=== PATIENT | female | born 1955 | race Caucasian/White ===

== ENCOUNTER → 2017-07-30 | Outpatient (CLI) | payer OTHER ==
[~2017-07-30] MED LIST: ASPCH81 PO; CPR500 PO; GLCSUNK PO; MULT-506 PO; NAPR1TAB9 PO; OMEG10007 PO; PRLSR20 PO
--- NOTE | 2017-07-30 12:29 | MAMMOGRAPHY REPORT ---
BILATERAL DIGITAL SCREENING MAMMOGRAM TOMOSYNTHESIS WITH CAD: 07/30/2017 CLINICAL HISTORY: Routine screening. Patient has no complaints. TECHNIQUE: Breast tomosynthesis in addition to standard 2D mammography was performed. Current study was also evaluated with a Computer Aided Detection (CAD) system. COMPARISON: Comparison is made to exams dated: 04/12/2015 mammogram, 01/26/2014 mammogram, and 03/28/20 10 mammogram - [facility]. BREAST COMPOSITION: The tissue of both breasts is almost entirely fatty. FINDINGS: No suspicious masses, calcifications, or areas of architectural distortion are noted in ei ther breast. There has been no significant interval change compared to prior exams. Scattered bilater al benign-appearing calcifications are not significantly changed. IMPRESSION: ACR BI-RADS CATEGORY 2: BENIGN There is no mammographic evidence of malignancy. A 1 year screening mammogram is recommended. The pa tient will receive written notification of the results. Approximately 10% of breast cancers are not detected with mammography. A negative mammographic report should not delay biopsy if a clinically suggestive mass is present. Tala Schwarz M.D. ah/:07/30/2017 07:47:23 Heating Unit Installer: Ammy Martinez RT(R)(M), [facility] letter sent: Normal 1/2 BI-RADS Code: ACR BI-RADS Category 2: Benign
== END | disposition home or self-care (01) ==
LOC: C.MAMM 07:27
PROVIDERS: ATTEND Family Medicine
DX: Z12.31 Encounter for screening mammogram for malignant neoplasm of breast (principal)

== ENCOUNTER 2019-12-20 15:34 | Inpatient (IN) ==
[~2019-12-20 15:34] MED LIST changes: -ASPCH81 PO; -CPR500 PO; -GLCSUNK PO; -MULT-506 PO; -NAPR1TAB9 PO; -OMEG10007 PO; +OPTIRAY 320 125ml IV PRN; -PRLSR20 PO
[2019-12-20] MEDS ORDERED: PROMETHAZINE 6.25 MG/50.25 ML BAG IV STA (15:46)
[2019-12-20] MEDS ORDERED: PROMETHAZINE 12.5 MG/50.5 ML NSS IV ONE (15:47)
--- NOTE | 2019-12-20 15:50 | CT Scan Report ---
CT SCAN OF THE BRAIN WITHOUT IV CONTRAST CLINICAL HISTORY: Generalized weakness. Stroke like symptoms. COMPARISON STUDY: CT of the brain dated 04/10/2014. TECHNIQUE: Unenhanced axial CT scan of the brain is performed from the vertex to the skull base. A d ose lowering technique was utilized adhering to the principles of ALARA. The patient was scanned twic e due to motion artifact. CT DOSE: 1859.54 mGy.cm FINDINGS: Brain parenchyma: The brain parenchyma is normal in appearance. There is no hemorrhage, mass effect, or evidence of acute territorial ischemia by CT criteria. Mijares-white matter differentiation is preser yulissa. No extra-axial fluid collection is seen. Ventricles, sulci, cisterns: Normal in configuration. Intracranial vasculature: There is atherosclerotic calcification of the cavernous carotid arteries. Calvarium: Unremarkable. Sinuses and mastoids: There is evidence of previous paranasal sinus surgery. There is mild mucosal th ickening within the maxillary, sphenoid, and frontal sinuses. Moderate mucosal thickening is noted wi thin the left ethmoid cavity. The mastoid air cells are well pneumatized. Orbits: The bony orbits are grossly intact. IMPRESSION: There is no hemorrhage, mass effect, or evidence of acute territorial ischemia by CT jeannie diana. ACT 112: Negative or not required by law. Electronically signed by: Otoniel Gregory M.D. 12/20/2019 3:49 PM
[2019-12-20] MEDS: SODIUM CHLORIDE 0.9% 1000ML 1,000 ML IV SCH (15:51)
[2019-12-20] MEDS ORDERED: LABETALOL HCL IV 5 MG/ML 20ML IV STA ×2 (15:52→16:21)
--- NOTE | 2019-12-20 15:58 | CT Scan Report ---
CT angio head w con CLINICAL HISTORY: 64 years-old Female presenting with weak. TECHNIQUE: Multidetector CT angiography of the head was performed after the administration of intrave nous contrast. 3-D volumetric and/or maximum intensity projection (MIP) images were subsequently roya nstructed for review. IV contrast: 116 mL of Optiray 320. One or more dose lowering techniques were u sed consistent with the principles of ALARA (as low as reasonably achievable), including automatic ex posure control, mA or kV adjustment to individual patient size, and/or use of iterative reconstructio n. COMPARISON: None. CT DOSE (mGy.cm): The estimated cumulative dose is 1859.54. FINDINGS: Adult Health Clinical Nurse Specialist topogram: Unremarkable. Anterior circulation: Intracranial portions of the internal carotid arteries patent to the level of t he termini. Anterior cerebral arteries patent. Middle cerebral arteries patent. Anterior communicatin g artery patent. Posterior circulation: Codominant vertebral arteries. Intradural portions of the vertebral arteries p atent. Posterior inferior cerebellar arteries patent. Basilar artery patent. Anterior inferior cerebe llar arteries poorly visualized. Superior cerebellar arteries patent. Posterior cerebral arteries pat ent. Posterior communicating arteries patent. Dural venous sinuses: Patent. Other: Allowing for the phase of contrast, brain parenchyma within normal limits. Calvarium intact. IMPRESSION: 1. No evidence of aneurysm, focal vessel occlusion, or significant stenosis of the intracranial yoseph cb. ACT 112: Negative or not required by law. Electronically signed by: Patrick Crowder M.D. 12/20/2019 3:56 PM
--- NOTE | 2019-12-20 15:58 | CT Scan Report ---
CT angio neck with con CLINICAL HISTORY: Weakness. Possible stroke. COMPARISON STUDY: No previous studies for comparison. TECHNIQUE: CT angiography was performed from the aortic arch to the skull base. MIP imaging was perfo rmed. The patient was scanned in a dynamic helical fashion during intravenous administration of 116 c c of Optiray 320. A dose lowering technique was utilized adhering to the principles of ALARA. CT DOSE: Technique: CT angiogram of the carotid and vertebral arteries was obtained using intravenous contrast and 3-D reconstruction. NASCET criteria was utilized. Findings: There is a left aortic arch with an aberrant right subclavian artery. The right carotid revealed no evidence of aneurysm and no evidence of dissection. There is no evidenc e of hemodynamic significant stenosis. The left carotid revealed no evidence of hemodynamic significant stenosis. There is no evidence of an eurysm. There is no evidence of dissection. There is no evidence of hemodynamically significant vertebral stenosis. There is no evidence of verte bral dissection. IMPRESSION: No evidence of hemodynamically significant carotid or vertebral artery stenosis. No evidence of disse ction. ACT 112: Negative or not required by law. Electronically signed by: Angus Hollis M.D. 12/20/2019 3:57 PM
--- NOTE | 2019-12-20 16:06 | Emergency Department Note ---
Entered by Rafael Umana acting as a scribe for History of Present Illness General Chief complaint: Stroke Alert Stated complaint: STROKE ALERT Source: EMS and other (nurse) History of Present Illness Onset (ago): day(s) (today) Location: head Pain Consistency: + constant Quality: + other (stroke-like symptoms) Associated symptoms: + other (Positive for memory loss, speech difficulty, probl ems following commands, a headache, and high blood pressure.) The patient is a 64 year old female who presents to the emergency department with complaints of constant stroke-like symptoms beginning today. Per EMS, the patient was at work today. He states that the patient was not sure when she left work or how she got home. He notes that the patient then called a nurse line at [facility] around 1430 who noticed that the patient had difficulty speaking and seemed confused. He reports that the nurse then called EMS. Per nurse, the patient has had memory loss, speech difficulty, problems following commands, and a headache. She states that the patients systolic blood pressure was 224. HPI limited secondary to the patient's clinical condition. Home Medications Home Medications Medication Instructions Recorded Confirmed Type aspirin 81 mg PO QAM 07/20/19 12/20/19 History coenzyme Q10 [Co Q-10] 10 mg PO QAM 07/20/19 12/20/19 History cyanocobalamin (vitamin B-12) 1,000 mcg PO QAM 07/20/19 12/20/19 History [Vitamin B-12] garlic 500 mg PO QAM 07/20/19 12/20/19 History linagliptin [Tradjenta] 5 mg PO QAM 07/20/19 12/20/19 History loratadine 10 mg PO DAILY 07/20/19 12/20/19 History lorazepam 1 mg PO DAILY PRN 07/20/19 12/20/19 History meloxicam 15 mg PO QAM 07/20/19 12/20/19 History metformin 1,000 mg PO BIDM 07/20/19 12/20/19 History erxwinmf-zzim-EH-calcium-mins 1 tab PO QAM 07/20/19 12/20/19 History [Women's One Daily] omeprazole magnesium [Prilosec OTC] 20 mg PO QAM 07/20/19 12/20/19 History magnesium oxide 500 mg PO DAILY 12/20/19 12/20/19 History methocarbamol 500 mg PO QID 12/20/19 12/20/19 History montelukast 10 mg PO DAILY 12/20/19 12/20/19 History Allergies Allergy/AdvReac Type Severity Reaction Status Date / Time Penicillins Allergy Intermediate Hives Verified 12/20/19 17:27 Sulfa (Sulfonamide Allergy Intermediate Hives Verified 12/20/19 17:27 Antibiotics) Corticosteroids Allergy Unknown Unknown Verified 12/20/19 17:27 (Glucocorticoids) albiglutide Allergy Verified 12/20/19 17:27 clindamycin Allergy Verified 12/20/19 17:27 Past Med/Surg History Medical History (Updated 12/20/19 @ 19:46 by Nicole Mcallister PA-C) Diabetes GERD (gastroesophageal reflux disease) HLD (hyperlipidemia) Surgical History History of partial hysterectomy History of sinus surgery Family History (Updated 12/20/19 @ 19:34 by Nicole Mcallister PA-C) Father , 62 from CVA Stroke, Onset Age: 40 Social History Preferred Language: German Communication Ability: Effective Research Professional Required: No Beliefs That Will Affect Care: None Feels Safe at Home: Yes Smoking Status: Former smoker Hx Alcohol Use: No Hx Substance Use: Yes substance use type: marijuana Last Used Substance: Days (ago) Review of Systems ROS limited secondary to the patient's clinical condition. Physical Exam Vital Signs Vital Signs - 24 hr 12/20/19 15:34 12/20/19 15:50 12/20/19 15:52 Temperature 36.7 C Temperature Source Oral Pulse Rate 108 H 112 H 107 H Pulse Rate [Left] Pulse Rate from SpO2 Sensor 112 H 107 H Respiratory Rate 26 H 22 26 H Respiratory Effort / Characteristics Spontaneous Respiratory Depth Blood Pressure 219/111 H 219/111 H Blood Pressure [Left Arm] Blood Pressure Mean 147 150 Blood Pressure Mean [Left Arm] Blood Pressure Position Lying Blood Pressure Position [Left Arm] Pulse Oximetry 97 100 100 Oxygen Delivery Method Room Air Sepsis Recent Fever Within 48 Hours No Sepsis New/Unexplained Change in Mental Status No Sepsis Action Taken by Nursing No Action Required 12/20/19 15:55 12/20/19 15:57 12/20/19 16:00 Temperature Temperature Source Pulse Rate 106 H 106 H Pulse Rate [Left] Pulse Rate from SpO2 Sensor 107 H Respiratory Rate 30 H 15 Respiratory Effort / Characteristics Respiratory Depth Blood Pressure 223/131 H Blood Pressure [Left Arm] Blood Pressure Mean 167 Blood Pressure Mean [Left Arm] Blood Pressure Position Blood Pressure Position [Left Arm] Pulse Oximetry 99 98 Oxygen Delivery Method Room Air Sepsis Recent Fever Within 48 Hours Sepsis New/Unexplained Change in Mental Status Sepsis Action Taken by Nursing 12/20/19 16:01 12/20/19 16:02 12/20/19 16:06 Temperature Temperature Source Pulse Rate 104 H 91 H 88 Pulse Rate [Left] Pulse Rate from SpO2 Sensor 104 H 91 H 88 Respiratory Rate 24 34 H 21 Respiratory Effort / Characteristics Respiratory Depth Blood Pressure 205/102 H 207/108 H Blood Pressure [Left Arm] Blood Pressure Mean 127 160 Blood Pressure Mean [Left Arm] Blood Pressure Position Blood Pressure Position [Left Arm] Pulse Oximetry 98 98 99 Oxygen Delivery Method Sepsis Recent Fever Within 48 Hours Sepsis New/Unexplained Change in Mental Status Sepsis Action Taken by Nursing 12/20/19 16:08 12/20/19 16:10 12/20/19 16:11 Temperature Temperature Source Pulse Rate 87 92 H 89 Pulse Rate [Left] Pulse Rate from SpO2 Sensor 87 91 H 89 Respiratory Rate 21 19 21 Respiratory Effort / Characteristics Respiratory Depth Blood Pressure 204/110 H 189/107 H Blood Pressure [Left Arm] Blood Pressure Mean 149 113 Blood Pressure Mean [Left Arm] Blood Pressure Position Blood Pressure Position [Left Arm] Pulse Oximetry 98 99 98 Oxygen Delivery Method Sepsis Recent Fever Within 48 Hours Sepsis New/Unexplained Change in Mental Status Sepsis Action Taken by Nursing 12/20/19 16:15 12/20/19 16:17 12/20/19 16:20 Temperature Temperature Source Pulse Rate 94 H 92 H 94 H Pulse Rate [Left] Pulse Rate from SpO2 Sensor 94 H 92 H 98 H Respiratory Rate 19 21 29 H Respiratory Effort / Characteristics Respiratory Depth Blood Pressure 200/135 H 192/111 H Blood Pressure [Left Arm] Blood Pressure Mean 137 118 Blood Pressure Mean [Left Arm] Blood Pressure Position Blood Pressure Position [Left Arm] Pulse Oximetry 97 98 96 Oxygen Delivery Method Sepsis Recent Fever Within 48 Hours Sepsis New/Unexplained Change in Mental Status Sepsis Action Taken by Nursing 12/20/19 16:26 12/20/19 16:27 12/20/19 16:28 Temperature Temperature Source Pulse Rate 91 H 87 88 Pulse Rate [Left] Pulse Rate from SpO2 Sensor 91 H 87 87 Respiratory Rate 18 22 20 Respiratory Effort / Characteristics Respiratory Depth Blood Pressure 196/108 H 182/163 H 190/93 H Blood Pressure [Left Arm] Blood Pressure Mean 149 175 113 Blood Pressure Mean [Left Arm] Blood Pressure Position Blood Pressure Position [Left Arm] Pulse Oximetry 97 96 96 Oxygen Delivery Method Sepsis Recent Fever Within 48 Hours Sepsis New/Unexplained Change in Mental Status Sepsis Action Taken by Nursing 12/20/19 16:29 12/20/19 16:30 12/20/19 16:31 Temperature Temperature Source Pulse Rate 89 87 Pulse Rate [Left] 88 Pulse Rate from SpO2 Sensor 89 87 Respiratory Rate 22 27 H 27 H Respiratory Effort / Characteristics Non-Labored Spontaneous Respiratory Depth Normal Blood Pressure 196/108 H Blood Pressure [Left Arm] 190/93 H Blood Pressure Mean 112 Blood Pressure Mean [Left Arm] 125 Blood Pressure Position Blood Pressure Position [Left Arm] Lying Pulse Oximetry 96 96 96 Oxygen Delivery Method Room Air Sepsis Recent Fever Within 48 Hours Sepsis New/Unexplained Change in Mental Status Sepsis Action Taken by Nursing 12/20/19 16:32 12/20/19 16:36 12/20/19 16:37 Temperature Temperature Source Pulse Rate 87 86 109 H Pulse Rate [Left] Pulse Rate from SpO2 Sensor 88 87 89 Respiratory Rate 17 18 26 H Respiratory Effort / Characteristics Respiratory Depth Blood Pressure 199/108 H 179/129 H 181/115 H Blood Pressure [Left Arm] Blood Pressure Mean 126 137 139 Blood Pressure Mean [Left Arm] Blood Pressure Position Blood Pressure Position [Left Arm] Pulse Oximetry 97 95 97 Oxygen Delivery Method Sepsis Recent Fever Within 48 Hours Sepsis New/Unexplained Change in Mental Status Sepsis Action Taken by Nursing 12/20/19 16:40 12/20/19 16:50 12/20/19 16:51 Temperature Temperature Source Pulse Rate 87 92 H 92 H Pulse Rate [Left] 88 Pulse Rate from SpO2 Sensor 87 93 H 92 H Respiratory Rate 22 19 19 Respiratory Effort / Characteristics Non-Labored Spontaneous Respiratory Depth Blood Pressure 169/103 H 154/88 H Blood Pressure [Left Arm] 169/103 H Blood Pressure Mean 113 108 Blood Pressure Mean [Left Arm] 125 Blood Pressure Position Blood Pressure Position [Left Arm] Lying Pulse Oximetry 95 92 96 Oxygen Delivery Method Room Air Sepsis Recent Fever Within 48 Hours Sepsis New/Unexplained Change in Mental Status Sepsis Action Taken by Nursing 12/20/19 16:56 Temperature Temperature Source Pulse Rate Pulse Rate [Left] 92 H Pulse Rate from SpO2 Sensor Respiratory Rate 20 Respiratory Effort / Characteristics Non-Labored Spontaneous Respiratory Depth Blood Pressure Blood Pressure [Left Arm] 154/88 H Blood Pressure Mean Blood Pressure Mean [Left Arm] 110 Blood Pressure Position Blood Pressure Position [Left Arm] Lying Pulse Oximetry 98 Oxygen Delivery Method Room Air Sepsis Recent Fever Within 48 Hours Sepsis New/Unexplained Change in Mental Status Sepsis Action Taken by Nursing GENERAL: Patient is awake and alert. She is very anxious appearing and having significant difficulty with her speech. EYES: The conjunctivae are clear. The pupils are round and reactive. EARS, NOSE, MOUTH AND THROAT: The nose is without any evidence of any deformity. Mucous membranes are moist. Tongue is midline. NECK: The neck is nontender and supple. RESPIRATORY: Normal respiratory effort is noted there is no evidence of wheezing rhonchi or rales CARDIOVASCULAR: Regular rate and rhythm noted there no murmurs rubs or gallops normal S1 normal S2. GASTROINTESTINAL: The abdomen is soft. Abdomen is nontender. MUSCULOSKELETAL/EXTREMITIES: There is no evidence of gross deformity full range of motion is noted in the hips and shoulders. SKIN: There is no obvious evidence of any rash. There are no petechiae, pallor or cyanosis noted. NEUROLOGIC: The patient is awake and looking around the room. Quarter Seamer strength is slightly diminished in the right upper extremity compared to the left. There is no drift in the right upper extremity. I can understand the patient's words but they are inappropriate at times. She becomes very anxious about her difficulty with speaking. Patient is able to hold each leg off the bed for greater than 5 seconds. Course Course 1534: The patient was evaluated in room B1. A complete history and physical exam was performed. 1546: The patient came back from CT and was vomiting. 1548: I spoke to the patient's son. He last spoke to his mother yesterday. 1605: I discussed the patient's case with Dr. Lee - Neurology, [place]. She evaluated the patient and recommended TPA once her blood pressure was controlled. The risks and benefits were discussed with the patient and her fam xiomara via Dr. Lee and the decision for TPA was made. 1621: TPA was ordered. 1645: Upon reevaluation, the patient is stable. I discussed the findings and the treatment plan with the patient and her family. They express agreement and understanding. I spoke with Nicole Fishman PA-C, [facility]. The patient will be evaluated for further management. 1707: I reevaluated and updated the patient. Consultations Consultation #1: I discussed the patient's case with Dr. Lee - [facility]. She evaluated the patient and recommended TPA once her blood pressure was controlled. The risks and benefits were discussed with the patient and her family via Dr. Lee and the decision for TPA was made. Time: 16:05 Consultation #2: I reviewed the patient's case with Nicole Fishman PA-C, [facility]. She will evaluate the patient for further management. Time: 16:45 Administered Medications Acetaminophen (Tylenol) 650 mg PO Q4H PRN PRN Reason: Headache Stop: 01/19/20 19:23 Last Admin: 12/20/19 19:51 Dose: 650 mg Documented by: [id number] Amlodipine Besylate (Norvasc) 10 mg PO QAM THAI Stop: 01/19/20 19:24 Last Admin: 12/21/19 07:47 Dose: 10 mg Documented by: [id number] Admin: 12/20/19 20:24 Dose: 10 mg Documented by: [id number] Sodium Chloride (Nss 1000ml) 1,000 mls @ 50 mls/hr IV .Q20H THAI Stop: 01/19/20 15:29 Last Admin: 12/21/19 11:17 Dose: 50 mls/hr Documented by: [id number] Infusion: 12/21/19 11:17 Dose: 50 mls/hr Documented by: [id number] Admin: 12/20/19 15:51 Dose: 50 mls/hr Documented by: [id number] Insulin Aspart (Novolog Flexpen) 0 units SC ACHS THAI Stop: 01/19/20 20:59 Last Admin: 12/21/19 07:46 Dose: Not Given Documented by: [id number] Cosigned by: [id number] Admin: 12/20/19 21:31 Dose: 2 units Documented by: [id number] Cosigned by: [id number] Insulin Glargine (Lantus Solostar Pen) 0 - 8 units SC BID THAI Stop: 01/19/20 20:59 Last Admin: 12/21/19 08:07 Dose: 4 units Documented by: [id number] Cosigned by: [id number] Admin: 12/20/19 21:32 Dose: 8 units Documented by: [id number] Cosigned by: [id number] Labetalol HCl (Normodyne) 10 mg IV Q4 PRN PRN Reason: Hypertension Stop: 01/19/20 19:24 Last Admin: 12/20/19 20:45 Dose: 10 mg Documented by: [id number] Cosigned by: [id number] Metoprolol Tartrate (Lopressor) 25 mg PO BID THAI Stop: 01/19/20 20:59 Last Admin: 12/21/19 07:47 Dose: 25 mg Documented by: [id number] Admin: 12/20/19 20:24 Dose: 25 mg Documented by: [id number] Discontinued Medications Acetaminophen (Tylenol) Confirm Administered Dose 650 mg .ROUTE .STK-MED ONE Stop: 12/20/19 19:50 Last Admin: 12/20/19 20:21 Dose: Not Given Documented by: [id number] Alteplase, Recombinant (Activase For Stroke) 1 ea IV NOW STA; Protocol Stop: 12/20/19 16:22 Last Admin: 12/20/19 16:43 Dose: 1 ea Documented by: [id number] Fentanyl Citrate (Fentanyl Citrate) 50 mcg IV NOW STA Stop: 12/20/19 17:04 Last Admin: 12/20/19 17:08 Dose: 50 mcg Documented by: [id number] Promethazine HCl (Phenergan) 6.25 mg in 50.25 mls @ 201 mls/hr IV NOW STA Stop: 12/20/19 16:00 Last Infusion: 12/20/19 16:15 Dose: 0 mls/hr Documented by: [id number] Admin: 12/20/19 15:50 Dose: 201 mls/hr Documented by: [id number] Alteplase, Recombinant 8.4 mg/ (Syringe) 8.4 mls @ 8.4 mls/min IV ONCE ONE Stop: 12/20/19 16:32 Last Admin: 12/20/19 16:41 Dose: 8.4 mls/min Documented by: [id number] Cosigned by: [id number] Alteplase, Recombinant 76 mg/ (EMPTY BAG) 76 mls @ 76 mls/hr IV ONCE ONE Stop: 12/20/19 16:33 Last Infusion: 12/20/19 17:43 Dose: 0 mls/hr Documented by: [id number] Cosigned by: [id number] Admin: 12/20/19 16:41 Dose: 76 mls/hr Documented by: [id number] Cosigned by: [id number] Nicardipine HCl 25 mg/ Sodium (Chloride) 250 mls @ 0 mls/hr IV .Q0M THAI; Protocol Stop: 01/19/20 16:44 Last Admin: 12/21/19 02:05 Dose: Not Given Documented by: [id number] Titration: 12/20/19 20:45 Dose: 0 mg/hr, 0 mls/hr Documented by: [id number] Titration: 12/20/19 20:45 Dose: 0 mg/hr, 0 mls/hr Documented by: [id number] Titration: 12/20/19 20:18 Dose: 5 mg/hr, 50 mls/hr Documented by: [id number] Titration: 12/20/19 18:45 Dose: 0 mg/hr, 0 mls/hr Documented by: [id number] Admin: 12/20/19 16:36 Dose: 5 mg/hr, 50 mls/hr Documented by: [id number] Cosigned by: [id number] Magnesium Sulfate/Dextrose (Magnesium Sulfate / D5w) 1 gm in 100 mls @ 100 mls/hr IV Q1H [facility] Stop: 12/20/19 23:29 Last Infusion: 12/20/19 23:26 Dose: 0 mls/hr Documented by: [id number] Admin: 12/20/19 22:26 Dose: 100 mls/hr Documented by: [id number] Infusion: 12/20/19 22:26 Dose: 100 mls/hr Documented by: [id number] Admin: 12/20/19 21:33 Dose: 100 mls/hr Documented by: [id number] Infusion: 12/20/19 21:22 Dose: 100 mls/hr Documented by: [id number] Admin: 12/20/19 20:22 Dose: 100 mls/hr Documented by: [id number] Infusion: 12/20/19 20:22 Dose: 100 mls/hr Documented by: [id number] Admin: 12/20/19 19:41 Dose: 100 mls/hr Documented by: [id number] Prochlorperazine 5 mg/ Syringe 5 mls @ 5 mls/min IV TODAY@1945 ONE Stop: 12/20/19 19:46 Last Admin: 12/20/19 19:44 Dose: 5 mls/min Documented by: [id number] Ioversol (Optiray 320 125ml) 116 ml IV ONCE PRN PRN Reason: Interaction Checking Stop: 12/24/19 15:25 Last Admin: 12/20/19 15:26 Dose: 116 ml Documented by: [id number] Labetalol HCl (Normodyne) 10 mg IV NOW STA Stop: 12/20/19 15:53 Last Admin: 12/20/19 15:59 Dose: 10 mg Documented by: [id number] Cosigned by: [id number] Labetalol HCl (Normodyne) 10 mg IV NOW STA Stop: 12/20/19 16:22 Last Admin: 12/20/19 16:24 Dose: 10 mg Documented by: [id number] Cosigned by: [id number] Ondansetron HCl (Zofran) 4 mg IV NOW STA Stop: 12/20/19 17:04 Last Admin: 12/20/19 17:08 Dose: 4 mg Documented by: [id number] Ondansetron HCl (Zofran) 4 mg IV NOW STA Stop: 12/20/19 17:59 Last Admin: 12/20/19 18:40 Dose: 4 mg Documented by: [id number] Prochlorperazine (Compazine) 5 mg PO Q4H THAI Stop: 01/19/20 19:29 Last Admin: 12/20/19 20:43 Dose: Not Given Documented by: [id number] Promethazine HCl (Phenergan) Confirm Administered Dose 12.5 mg IV .STK-MED ONE Stop: 12/20/19 15:48 Last Admin: 12/20/19 15:51 Dose: Not Given Documented by: [id number] Critical Care Time Critical Care Time: Yes Total Critical Care Time: 60 I have personally spent greater than 60 minutes of critical care time in the direct management of this patient. This includes bedside care, interpretation of diagnostic studies, and testing, discussion with consultants, patient, and family members, and other required patient management activities. This 60 minutes is in excess of all separately billable procedures. Medical Decision Making Differential Diagnosis Differential Diagnosis includes but is not limited to dehydration, stroke, anemia, hypoglycemia, hyponatremia, hypernatremia, urinary tract infection, pneumonia, bronchitis, sepsis, gastroenteritis, additional abdominal pathology, metabolic abnormalities and infections. Medical Records Attestation: I reviewed the patient's medical records. Home Medications Current Medication List: was personally reviewed by me Laboratory Data Attestation: I reviewed the patient's lab results. Result diagrams: 12/20/19 16:01 12/21/19 04:32 Lab Results 12/20/19 12/20/19 12/20/19 Range/Units 16:00 16:01 16:01 WBC 7.40 (4.8-10.8) K/uL RBC 4.27 (4.2-5.4) M/uL Hgb 13.2 (12.0-16.0) g/dL Hct 38.1 (37-47) % MCV 89.2 (80-100) fL MCH 30.9 (25-34) pg MCHC 34.6 (32-36) g/dL RDW Std Deviation 40.8 (36.4-46.3) fL RDW Coeff of Brittney 12.8 (11.5-14.5) % Plt Count 217 (130-400) K/uL MPV 9.7 (7.4-10.4) fL Immature Gran % (Auto) 0.3 % Neut % (Auto) 59.4 % Lymph % (Auto) 31.6 % Webb % (Auto) 7.6 % Eos % (Auto) 0.8 % Baso % (Auto) 0.3 % Immature Gran # (Auto) 0.02 (0.00-0.02) K/uL Neut # (Auto) 4.40 (1.4-6.5) K/uL Lymph # (Auto) 2.34 (1.2-3.4) K/uL Webb # (Auto) 0.56 (0.11-0.59) K/uL Eos # (Auto) 0.06 (0-0.5) K/uL Baso # (Auto) 0.02 (0-0.2) K/uL PT 10.5 (9.0-12.0) Seconds INR 1.0 (0.9-1.1) APTT 25.0 (21.0-31.0) Seconds PTT Ratio 0.9 Sodium 136 (136-145) mmol/L Potassium 4.2 (3.5-5.1) mmol/L Chloride 107 (98-107) mmol/L Carbon Dioxide 19 L (21-32) mmol/L Anion Gap 11.0 (3-11) BUN 28 H (7-18) mg/dl Creatinine 1.42 H (0.6-1.2) mg/dl Est Cr Clr Drug Dosing 45.5 ml/min Est GFR ( Amer) 45.8 Est GFR (Non-Af Amer) 39.5 BUN/Creatinine Ratio 19.4 (10-20) Glucose 159 H (70-99) mg/dl POC Glucose (70-99) mg/dl Calcium 10.3 H (8.5-10.1) mg/dl Magnesium 1.0 L (1.8-2.4) mg/dl Total Bilirubin 0.4 (0.2-1) mg/dl AST 16 (15-37) U/L ALT 27 (12-78) U/L Alkaline Phosphatase 64 (45-117) U/L Troponin I < 0.015 (0-0.045) ng/ml Total Protein 8.1 (6.4-8.2) gm/dl Albumin 4.7 (3.4-5.0) gm/dl Globulin 3.4 (2.5-4.0) gm/dl Albumin/Globulin Ratio 1.4 (0.9-2) 02/18/20 Range/Units 16:02 WBC (4.8-10.8) K/uL RBC (4.2-5.4) M/uL Hgb (12.0-16.0) g/dL Hct (37-47) % MCV (80-100) fL MCH (25-34) pg MCHC (32-36) g/dL RDW Std Deviation (36.4-46.3) fL RDW Coeff of Brittney (11.5-14.5) % Plt Count (130-400) K/uL MPV (7.4-10.4) fL Immature Gran % (Auto) % Neut % (Auto) % Lymph % (Auto) % Webb % (Auto) % Eos % (Auto) % Baso % (Auto) % Immature Gran # (Auto) (0.00-0.02) K/uL Neut # (Auto) (1.4-6.5) K/uL Lymph # (Auto) (1.2-3.4) K/uL Webb # (Auto) (0.11-0.59) K/uL Eos # (Auto) (0-0.5) K/uL Baso # (Auto) (0-0.2) K/uL PT (9.0-12.0) Seconds INR (0.9-1.1) APTT (21.0-31.0) Seconds PTT Ratio Sodium (136-145) mmol/L Potassium (3.5-5.1) mmol/L Chloride (98-107) mmol/L Carbon Dioxide (21-32) mmol/L Anion Gap (3-11) BUN (7-18) mg/dl Creatinine (0.6-1.2) mg/dl Est Cr Clr Drug Dosing ml/min Est GFR ( Amer) Est GFR (Non-Af Amer) BUN/Creatinine Ratio (10-20) Glucose (70-99) mg/dl POC Glucose 159 H (70-99) mg/dl Calcium (8.5-10.1) mg/dl Magnesium (1.8-2.4) mg/dl Total Bilirubin (0.2-1) mg/dl AST (15-37) U/L ALT (12-78) U/L Alkaline Phosphatase (45-117) U/L Troponin I (0-0.045) ng/ml Total Protein (6.4-8.2) gm/dl Albumin (3.4-5.0) gm/dl Globulin (2.5-4.0) gm/dl Albumin/Globulin Ratio (0.9-2) Imaging Data Radiologist's Impression: Radiology results as stated below per my review and the radiologist's interpretation: CT angio neck with con Findings: There is a left aortic arch with an aberrant right subclavian artery. The right carotid revealed no evidence of aneurysm and no evidence of dissection. There is no evidence of hemodynamic significant stenosis. The left carotid revealed no evidence of hemodynamic significant stenosis. There is no evidence of aneurysm. There is no evidence of dissection. There is no evidence of hemodynamically significant vertebral stenosis. There is no evidence of vertebral dissection. IMPRESSION: No evidence of hemodynamically significant carotid or vertebral artery stenosis. No evidence of dissection. ACT 112: Negative or not required by law. Electronically signed by: Angus Hollis M.D. 12/20/2019 3:[address] angio head w con FINDINGS: News Gathering Technician topogram: Unremarkable. Anterior circulation: Intracranial portions of the internal carotid arteries patent to the level of the termini. Anterior cerebral arteries patent. Middle cerebral arteries patent. Anterior communicating artery patent. Posterior circulation: Codominant vertebral arteries. Intradural portions of the vertebral arteries patent. Posterior inferior cerebellar arteries patent. Basilar artery patent. Anterior inferior cerebellar arteries poorly visualized. Superior cerebellar arteries patent. Posterior cerebral arteries patent. Posterior communicating arteries patent. Dural venous sinuses: Patent. Other: Allowing for the phase of contrast, brain parenchyma within normal limits. Calvarium intact. IMPRESSION: 1. No evidence of aneurysm, focal vessel occlusion, or significant stenosis of the intracranial arteries. ACT 112: Negative or not required by law. Electronically signed by: Patrick Crowder M.D. 12/20/2019 3:[address] SCAN OF THE BRAIN WITHOUT IV CONTRAST FINDINGS: Brain parenchyma: The brain parenchyma is normal in appearance. There is no hem orrhage, mass effect, or evidence of acute territorial ischemia by CT criteria. Mijares-white matter differentiation is preserved. No extra-axial fluid collection is seen. Ventricles, sulci, cisterns: Normal in configuration. Intracranial vasculature: There is atherosclerotic calcification of the cav ernous carotid arteries. Calvarium: Unremarkable. Sinuses and mastoids: There is evidence of previous paranasal sinus surgery. There is mild mucosal thickening within the maxillary, sphenoid, and frontal sinuses. Moderate mucosal thickening is noted within the left ethmoid cavity. The mastoid air cells are well pneumatized. Orbits: The bony orbits are grossly intact. IMPRESSION: There is no hemorrhage, mass effect, or evidence of acute territorial ischemia by CT criteria. ACT 112: Negative or not required by law. Electronically signed by: Otoniel Gregory M.D. 12/20/2019 3:49 PM ECG Data Attestation: I personally reviewed and interpreted this ECG as follows: Indication: + weakness Rate (beats per minute): 105 Rhythm: + sinus tachycardia ECG Findings: no PACs and no PVCs Comparison ECG Date: from (02/19/19) Change: the following changes noted (Compared to prior, rate has increased oth erwise there is no change.) Additional Comments: No acute ST segments. Blood Pressure Blood Pressure Findings: Elevated blood pressure Blood Pressure Disposition: further management by hospitalist NATHALIA Dixon The patient is a 64-year-old female who presented to the emergency department as a stroke alert. The patient's history was somewhat limited by her aphasia. Additional history is obtained from the prehospital personnel as well as the family when they arrived at the emergency department. The patient apparently was at work today when she was having difficulty doing her tasks. The best we could come up with was that the patient started having symptoms around 1 PM today. She did call her primary care physician. The patient was having difficulty speaking at that time and the primary care office did call 911 and the patient was evaluated by the prehospital personnel. They called me immediately and the patient was made a stroke alert prior to arrival. CT the head did not show any acute disease. I discussed her case with the [facility] stroke neurologist. Given the patient's findings on physical exam we did feel this could be consistent with an ischemic stroke. She had no large vessel occlusion noted on CT angiography. The decision was made to give the patient TPA in the extended window. It did take some time to control the patient's blood pressure with IV antihypertensive medications. We also discussed the patient's condition with her family members so they understood the risks and benefits of TPA especially given the extended window. Ultimately the family agreed to TPA and this medication was given. The patient was reevaluated multiple times. Her blood pressure continued to improve while she was in the emergency department. Her case was discussed with the on-call [facility] list group as well as the child care centre manager group. The patient's condition did slowly improve while she was in the emergency department but she still had some degree of aphasia. Impression & Plan Ischemic stroke, Aphasia, Hypertension Discharge Plan Visit Data *Final* Discharge Date/Time: 12/20/19 18:45 Chief Complaint: Stroke Alert Stated Complaint: STROKE ALERT ED Provider: Livan Fry Discharge Problem: Ischemic stroke, Aphasia, Hypertension Patient Disposition: Admitted As Inpatient Discharge Instructions Interventions: ED Discharge Assessment Last Done: 12/20/19 18:45 Discharge Problem: Hypertension Qualifiers: Hypertension type: unspecified Qualified Code(s): I10 - Essential (primary) hypertension The scribe's documentation has been prepared under my direction and personally reviewed by me in its entirety. I confirm that the note above accurately reflects all work, treatment, procedures, and medical decision making performed by me.
[2019-12-20 16:11] LABS: Basophils # (auto) 0.02 K/uL (0-0.2); Basophils % (auto) 0.3 %; Eosinophils # (auto) 0.06 K/uL (0-0.5); Eosinophils % (auto) 0.8 %; Hematocrit (blood only) 38.1 % (37-47); Hemoglobin 13.2 g/dL (12.0-16.0); Immature Granulocytes # (auto) 0.02 K/uL (0.00-0.02); Immature Granulocytes % (auto) 0.3 %; Lymphocytes # (auto) 2.34 K/uL (1.2-3.4); Lymphocytes % (auto) 31.6 %; Mean Corpuscular Hemoglobin 30.9 pg (25-34); Mean Corpuscular Hgb Conc 34.6 g/dL (32-36); Mean Corpuscular Volume 89.2 fL (80-100); Mean Platelet Volume 9.7 fL (7.4-10.4); Monocytes # (auto) 0.56 K/uL (0.11-0.59); Monocytes % (auto) 7.6 %; Neutrophils % (auto) 59.4 %; Platelet Count 217 K/uL (130-400); RDW Coefficient of Variation 12.8 % (11.5-14.5); RDW Standard Deviation 40.8 fL (36.4-46.3); Red Blood Count 4.27 M/uL (4.2-5.4)
[2019-12-20] MEDS ORDERED: TPA for Stroke IV STA (16:21)
[2019-12-20 16:26] LABS: Partial Thromboplastin Ratio 0.9; Prothrombin Time 10.5 Seconds (9.0-12.0)
[2019-12-20 16:31] LABS: Alanine Aminotransferase 27 U/L (12-78); Albumin Level 4.7 gm/dl (3.4-5.0); Aspartate Aminotransferase 16 U/L (15-37); BUN Creatinine Ratio 19.4 (10-20); Blood Urea Nitrogen 28 mg/dl (7-18); Calcium 10.3 mg/dl (8.5-10.1); Carbon Dioxide 19 mmol/L (21-32); Chloride 107 mmol/L (98-107); Creatinine Clr Calc Pharmacy 45.5 ml/min; Est GFR (African American) 45.8; Est GFR (Non-African American) 39.5; Glucose 159 mg/dl (70-99); Potassium 4.2 mmol/L (3.5-5.1); Sodium 136 mmol/L (136-145)
[2019-12-20] MEDS ORDERED: Alteplase Bolus 8.4 MG in SYRINGE 0 ML IV ONE (16:31)
[2019-12-20] MEDS ORDERED: ALTEPLASE, RECOMBINANT 76 MG in EMPTY BAG 0 ML IV ONE (16:32)
[2019-12-20] MEDS ORDERED: PRIMARY PLUMSET, PE LINED TUBING, 113 IN, NON-DEHP (2260-0500) IV ONE (16:32)
[2019-12-20 16:35] LABS: Albumin Globulin Ratio 1.4 (0.9-2); Alkaline Phosphatase 64 U/L (45-117); Bilirubin,Total 0.4 mg/dl (0.2-1); Globulin 3.4 gm/dl (2.5-4.0); Total Protein 8.1 gm/dl (6.4-8.2); Troponin I < 0.015 ng/ml (0-0.045)
[2019-12-20] MEDS ORDERED: ONDANSETRON INJ 2 MG/ML 2 ML VIAL IV STA ×2 (17:03→17:58)
[2019-12-20] MEDS ORDERED: fentaNYL citrate 100 MCG/2 ML VIAL IV STA (17:03)
[2019-12-20 17:49] LABS: Appearance Urine Clear (Clear); Bacteria Urine Automated Negative (Negative); Bilirubin Urine Negative (Negative); Blood Urine Trace (Negative); Color Urine Yellow; Epithelial Cell Urine Auto 20-30 /lpf (0-5); Glucose Urine UA Negative (Negative); Ketones Urine Trace (Negative); Leukocyte Esterase Urine Negative (Negative); Nitrite Urine Negative (Negative); Protein Urine Negative (Negative); RBC Urine Automated 0-4 /hpf (0-4); Specific Gravity Urine 1.027 (1.000-1.030); Urobilinogen Urine Negative (Negative); WBC Urine Automated 0 /hpf (0-5)
--- NOTE | 2019-12-20 18:00 | XRay Report ---
XR chest 1V portable CLINICAL HISTORY: Weakness COMPARISON STUDY: 09/02/2008 FINDINGS: The heart is the upper limits of normal in size. There is no failure. There is no focal pul monary consolidation. There are no pleural effusions.[ IMPRESSION: No active disease in the chest. ACT 112: Negative or not required by law. Electronically signed by: Angus Hollis M.D. 12/20/2019 5:58 PM
--- NOTE | 2019-12-20 18:33 | Critical Care Consultation ---
Date of Consultation December 20, 2019 Assessment & Plan (1) Admitted to intensive care unit: Reason Critically Ill: Critical care team was consulted for neurological monitoring in the setting of recent tPA administration. Neuro: * Acute confusion/word finding difficultly - differential diagnosis includes acute ischemic, TIA, complicated migraine, hypertensive encephalopathy, seizure. Patient certainly has vascular risk factors (diabetes, likely undiagnosed HTN, former tobacco user). + history of migraine GARCIA. No history of seizure disorder. Systolic BP >220 on admission is significant enough to cause encephalopathy. -Head CTA without evidence of aneurysm, focal vessel occlusion, or significant stenosis of the intracranial arteries. Neck CTA without evidence of hemodynamically significant carotid or vertebral artery stenosis. No evidence of dissection. -tPA administered in ED. tPA protocol in ICU. Patient to have repeat head CT 24 hours after tPA. we will hold home ASA 81mg in the setting of recent tPA. Careful attention will be placed on GARCIA severity, as it could potentially represent cerebral hemorrhage. NIH stroke scale 0 upon admission to ICU. Consider brain MRI. - NPO until swallow study - neurology consulted * Headache - differential includes migraine GARCIA vs. hemorrhage. CT on admission (prior to tPA administration) showed no evidence of bleed. continue to monitor with q2h neuro checks. Will order Compazine for migraine/nausea. Cardiac: * HTN - not on any home medications. Currently on nifedipine drip. BP at 148/82. Plan to transition patient to PO Labetalol and Norvasc. Hydralazine prn for sys > 180. Goal systolic parameters: low 150, upper 180. - cardiac monitoring Respiratory: * continue supplemental O2 in the setting of potential recent cerebral ischemia * CXR on admission unremarkable GI: * nausea/vomiting: patient had 6.125mg promethazine in ambulance. 12mg of Zofran upon arrival to ED. Compazine prn for further nausea/migraine GARCIA RENAL/Lytes: * ALFONSO. Baseline Cr 1.1. Cr on admission 1.42. Etiology unknown but potentially related to hypertensive emergency vs. volume loss (vomiting). Consider maintenance fluids vs. watchful waiting. * Magnesium low at 1.0. IV supplement ordered. * Calcium elevated to 10.5. May be secondary to relative volume loss (vomiting); continue to monitor : * UA benign on admission. ENDO: * History of DM: hold home metformin in the setting of IV contrast administration. On SSI. ICU protocol for hypoglycemia. HEME: * no issues identified. ID: * WBC normal. Afebrile. No issues. LINES/IV ACCESS: R sided PIV CODE STATUS: Full DVT PROPHYLAXIS: chemical ppx contraindicated in the setting of recent tPA administration Thank you for allowing us to participate in the care of this patient. Please refer to my attending physician's documentation for any further recommendations. Supervising Physician Co-Signing Physician Notes Asked by hospitalist service to assist with management of this patient status post TPA administration in the emergency room. Patient seen and examined. EMR and images independently reviewed. Discussed with MIKE and FP resident. 64-year-old female presenting with speech difficulty/aphasia. Differential diagnosis would include complex migraine, hypertensive urgency, stroke, or focal seizure. She was given TPA after tele-stroke medicine consultation and is being admitted to the ICU for monitoring post TPA administration. Recommendations: 1. Post TPA administration: Continue to monitor in ICU for bleeding complications associated with TPA. Follow-up CT scan in 24 hours per protocol. If CT scan is normal the patient can be dismissed from the ICU and transferred to the floor under the care of the hospitalist. 2. Aphasia: Differential as noted above. Appreciate neurology input. Defer EEG for now. Imaging showed no focal abnormalities. We will see how she responds. NIH currently at 0. TPA stroke admission orders per primary service with follow-up imaging and echocardiogram. Monitor on telemetry. PT OT consults. N.p.o. until cleared by speech for passes post TPA bedside swallow per ICU nursing. Compazine and Ativan as needed for migraine headache and nausea and vomiting. 3. Hypertension: Likely undertreated at home. Initiate Lopressor and Norvasc. Will use hydralazine and labetalol IV pushes as needed to try and get off Cardene. Target blood pressure 150-180. 4. Acute kidney injury: This may go along with hypertensive urgency. Continue to follow serum creatinine for now. No acute intervention. The patient may benefit from ALEKSANDAR inhibitor for renal protection disease 5. Holding metformin given recent contrast administration. Sliding scale insulin. Restart in 24 to 48 hours provided kidney function returns back to normal. Will observe in ICU as noted per protocol. History of Present Illness History of Present Illness Mrs. Salazar is a 64 yo F with a PMHx of diabetes mellitus and tobacco use (pack years unknown, quit at least 10 years ago; current daily marijuana smoker) who presented to the ED after an episode of confusion and word-finding difficulty. Her father from a stroke at age 62, which heightened here level of concern. She says her most recent A1c was ~ 7, and states that her BP usually "runs low," at 160. In the week preceding admission, Mrs. Salazar was feeling generally unwell. She developed a bifrontal headache one day prior to admission, which was accompanied by nausea but not photo or phonophobia. She does have a history of migraine headaches. Family endorses increase in stress level in weeks preceding admission. History was provided by patient, family members (sister, son, daughter and granddaughter), in addition to ED staff. Treatment course: Last known normal is unknown, although we presume 12:30pm today. Non-contrast head CT negative for mass, intracranial shift, hemorrhage. Upon admission her sys BP was 224. She was started on a nifedipine drip and blood pressures softened. NIH stroke scale was 4 upon presentation. Tele stroke was consulted and Dr. Lee at [facility] [place] of tPA. At the time of tPA administration, sys BP was 169; medication given at 16:41. Patient received a total fo 4mg of Zofran and 6.125mg of promethazine prior to admission for nausea, but still symptomatic with clear vomitus in the ED. She was given an addition 8mg of zofran in the ED. 90 minutes after tPA administration, NIH stroke scale was 0. Critical care team was consulted for neurological monitoring in the setting of recent tPA administration. Allergies Allergy/AdvReac Type Severity Reaction Status Date / Time Penicillins Allergy Intermediate Hives Verified 12/20/19 17:27 Sulfa (Sulfonamide Allergy Intermediate Hives Verified 12/20/19 17:27 Antibiotics) Corticosteroids Allergy Unknown Unknown Verified 12/20/19 17:27 (Glucocorticoids) albiglutide Allergy Verified 12/20/19 17:27 clindamycin Allergy Verified 12/20/19 17:27 Home Medications Home Medications Medication Instructions Recorded Confirmed Type aspirin 81 mg PO QAM 07/20/19 12/20/19 History coenzyme Q10 [Co Q-10] 10 mg PO QAM 07/20/19 12/20/19 History cyanocobalamin (vitamin B-12) 1,000 mcg PO QAM 07/20/19 12/20/19 History [Vitamin B-12] garlic 500 mg PO QAM 07/20/19 12/20/19 History linagliptin [Tradjenta] 5 mg PO QAM 07/20/19 12/20/19 History loratadine 10 mg PO DAILY 07/20/19 12/20/19 History lorazepam 1 mg PO DAILY PRN 07/20/19 12/20/19 History meloxicam 15 mg PO QAM 07/20/19 12/20/19 History metformin 1,000 mg PO BIDM 07/20/19 12/20/19 History qqiinbjj-qfhg-BC-calcium-mins 1 tab PO QAM 07/20/19 12/20/19 History [Women's One Daily] omeprazole magnesium [Prilosec OTC] 20 mg PO QAM 07/20/19 12/20/19 History magnesium oxide 500 mg PO DAILY 12/20/19 12/20/19 History methocarbamol 500 mg PO QID 12/20/19 12/20/19 History montelukast 10 mg PO DAILY 12/20/19 12/20/19 History Patient History Medical History (Updated 12/20/19 @ 18:49 by Karon Cowan MD) Diabetes Head contusion (Acute) Neck pain on right side (Acute) Neck pain on right side (Acute) Family History (Updated 12/20/19 @ 15:55 by Rafael Umana) Other No significant family history Social History Preferred Language: Cymraes Feels Safe at Home: Yes Smoking Status: Unknown if ever smoked Review of Systems Review of Systems: All systems reviewed & are unremarkable except as noted in HPI & below Physical Exam Constitutional: WD/WN, vitals as above + ill appearing Eyes: PERRL, conjunctivae normal, anicteric sclerae EOM intact bilaterally, reactive pupils and + photophobia ENMT: external ear and nose normal, oropharynx normal Nose: no septum abnormality No thrush Neck: normal visual inspection and trachea midline Respiratory: normal respiratory effort; no respiratory distress, no labored breathing and no cough Auscultation: + wheezes; no crackles, no rales, no rhonchi and no pleural rub Cardiovascular: RRR, no murmur, no edema Heart Sounds: normal S1 and normal S2 Vessels: normal carotid upstroke; no JVD and no carotid bruit Extremities: no pedal edema Gastrointestinal (Abdomen): normal bowel sounds, soft, nontender, no hepatosplenomegaly Skin: no rashes, warm and dry Neurologic: PERRL, EOMI, accommodation nl, no face palsy, no dysarthria CN's II-XI intact bilaterally, moves all extremities and awake; no focal motor deficits and not confused Speech / Cognition: normal speech, no expressive aphasia, no receptive aphasia and normal cognition Motor/Sensory: no pronator drift and no sensory deficit Cranial Nerves: normal accommodation, tongue midline, able to elevate shoulders bilaterally and symmetric palate elevation Coordination: normal [id number]-[id number]-pttg test and normal tasz-lh-rbxh test NIH stroke scale score of 0 Psychiatric: Orientation: alert and oriented x 3 Results & Data Vital Signs (Past 12 Hours) Vital Signs Temp Pulse Pulse Resp BP BP Pulse Ox 12/20/19 18:26 99 H 22 155/78 H 98 12/20/19 18:11 95 H 20 154/85 H 97 12/20/19 17:59 98 12/20/19 17:56 94 H 24 158/83 H 97 12/20/19 17:41 92 H 21 126/84 97 12/20/19 17:26 92 H 22 147/74 H 98 12/20/19 17:11 96 H 22 171/68 H 97 12/20/19 16:56 92 H 20 154/88 H 98 12/20/19 16:51 92 H 19 154/88 H 96 12/20/19 16:50 92 H 19 92 12/20/19 16:40 87 88 22 169/103 H 169/103 H 95 12/20/19 16:37 109 H 26 H 181/115 H 97 12/20/19 16:36 86 18 179/129 H 95 12/20/19 16:32 87 17 199/108 H 97 12/20/19 16:31 87 27 H 96 12/20/19 16:30 89 27 H 196/108 H 96 12/20/19 16:29 88 22 190/93 H 96 12/20/19 16:28 88 20 190/93 H 96 12/20/19 16:27 87 22 182/163 H 96 12/20/19 16:26 91 H 18 196/108 H 97 12/20/19 16:20 94 H 29 H 96 12/20/19 16:17 92 H 21 192/111 H 98 12/20/19 16:15 94 H 19 200/135 H 97 12/20/19 16:11 89 21 189/107 H 98 12/20/19 16:10 92 H 19 99 12/20/19 16:08 87 21 204/110 H 98 12/20/19 16:06 88 21 207/108 H 99 12/20/19 16:02 91 H 34 H 98 12/20/19 16:01 104 H 24 205/102 H 98 12/20/19 16:00 106 H 15 12/20/19 15:57 98 12/20/19 15:55 106 H 30 H 223/131 H 99 12/20/19 15:52 107 H 26 H 100 12/20/19 15:50 112 H 22 219/111 H 100 12/20/19 15:34 36.7 C 108 H 26 H 219/111 H 97 Resident Activity Tracking Resident Involvement: Resident Care Provided Care Provided: Adult Hospital Medicine
--- NOTE | 2019-12-20 18:40 | Billing Data ---
Date of Service December 20, 2019 Coding Level of Care Code 08979 Inpt Consult Level 4
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
[2019-12-20] MEDS ORDERED: GLUCOSE 40% GEL 15 GM TUBE PO PRN (19:25)
[2019-12-20] MEDS ORDERED: GLUCOSE 10 TABS/TUBE PO PRN (19:25)
[2019-12-20] MEDS ORDERED: DEXTROSE 50% 50 ML SYRINGE IV PRN (19:25)
[2019-12-20] MEDS ORDERED: ICU PROTOCOL FOR HYPERGLYCEMIA SCH (19:25)
[2019-12-20] MEDS ORDERED: GLUCAGON FOR INJ 1 MG VIAL SQ PRN (19:25)
[2019-12-20] MEDS ORDERED: CARBOHYDRATES FOR HYPOGLYCEMIA PO PRN (19:25)
[2019-12-20] MEDS ORDERED: HydrALAZINE HCL 20 MG/ML VIAL IV PRN (19:25)
[2019-12-20] MEDS ORDERED: LABETALOL HCL IV 5 MG/ML 20ML IV PRN (19:25)
[2019-12-20] MEDS ORDERED: LORazepam 0.25 MG/0.5 ML VIAL IV PRN (19:25)
[2019-12-20] MEDS ORDERED: PROCHLORPERAZINE 5 MG in SYRINGE 4 ML IV PRN (19:25)
[2019-12-20] MEDS ORDERED: ICU PROTOCOL FOR HYPERGLYCEMIA PRN (19:25)
[2019-12-20] MEDS ORDERED: PROCHLORPERAZINE MALEATE 5 MG TAB PO SCH (19:30)
[2019-12-20] MEDS ORDERED: PHARMACIST DISCHARGE MED REC CONSULT PRN (19:36)
[2019-12-20] MEDS: MAGNESIUM SULFATE / D5W 1 GM/100 ML BAG IV SCH ×4 (19:41→22:26)
[2019-12-20] MEDS ORDERED: PROCHLORPERAZINE 5 MG in SYRINGE 4 ML IV ONE (19:45)
[2019-12-20] MEDS ORDERED: ACETAMINOPHEN 325 MG TAB ONE (19:49)
[2019-12-20] MEDS: ACETAMINOPHEN 325 MG TAB PO PRN (19:51)
[2019-12-20] MEDS: AMLODIPINE BESYLATE 5 MG TAB PO SCH (20:24)
[2019-12-20] MEDS: METOPROLOL TARTRATE 25 MG TAB PO SCH (20:24)
[2019-12-20] MEDS: INSULIN ASPART 100 UNITS/ML 3 ML PEN SC SCH (21:31)
[2019-12-20] MEDS: INSULIN GLARGINE SOLOSTAR 100 UNITS/ML 3 ML PEN SC SCH (21:32)
[2019-12-21 05:12] LABS: Magnesium 2.5 mg/dl (1.8-2.4); Phosphorus 5.2 mg/dl (2.5-4.9)
[2019-12-21 06:41] LABS: Blood Urea Nitrogen 22 mg/dl (7-18); Calcium 9.2 mg/dl (8.5-10.1); Chloride 108 mmol/L (98-107); Creatinine Clr Calc Pharmacy 65.1 ml/min; Est GFR (African American) 70.8; Est GFR (Non-African American) 61.1; Glucose 127 mg/dl (70-99); Potassium 3.7 mmol/L (3.5-5.1); Sodium 140 mmol/L (136-145)
[2019-12-21 06:47] LABS: Estimated Average Glucose 160 mg/dl; Hemoglobin A1C 7.2 % (4.5-5.6)
[2019-12-21] MEDS: INSULIN ASPART 100 UNITS/ML 3 ML PEN SC SCH ×4 (07:46→21:23)
[2019-12-21] MEDS: AMLODIPINE BESYLATE 5 MG TAB PO SCH (07:47)
[2019-12-21] MEDS: METOPROLOL TARTRATE 25 MG TAB PO SCH ×2 (07:47→21:25)
[2019-12-21] MEDS: INSULIN GLARGINE SOLOSTAR 100 UNITS/ML 3 ML PEN SC SCH ×2 (08:07→21:24)
[2019-12-21] MEDS: SODIUM CHLORIDE 0.9% 1000ML 1,000 ML IV SCH (11:17)
--- NOTE | 2019-12-21 11:19 | Critical Care Progress Note ---
Date of Service December 21, 2019 Assessment & Plan (1) Admitted to intensive care unit: Reason Critically Ill: Critical care team was consulted for neurological monitoring in the setting of recent tPA administration. 24 hr events: Patient was admitted to the ICU for monitoring after tPA was administered in ED. Patient's NIH stroke scale remains at 0. No concern for hemmorhage. Headache and nausea have resolved. Neuro: [facility] ICU: Negative * Acute confusion/word finding difficultly - differential diagnosis includes acute ischemic, TIA, complicated migraine, hypertensive encephalopathy, seizure. Patient certainly has vascular risk factors (diabetes, likely undiagnosed HTN, former tobacco user). + history of migraine GARCIA. No history of seizure disorder. Systolic BP >220 on admission is significant enough to cause encephalopathy. -Head CTA without evidence of aneurysm, focal vessel occlusion, or significant stenosis of the intracranial arteries. Neck CTA without evidence of hemodynamically significant carotid or vertebral artery stenosis. No evidence of dissection. -tPA administered in ED. tPA protocol in ICU. Patient to have repeat head CT vs. brain MRI 24 hours after tPA. continue to hold home ASA 81mg in the setting of recent tPA. NIH stroke scale remains at 0. Passed swallow study; heart healthy diet. continue neuro [id number] to assess for signs suggestive of potential hemorrhagic transformation - neurology consulted * Headache - resolved with Compazine. likely secondary to migraine. Cardiac: * HTN - likely chronic but not on any home medications. nifedipine drip d/c and patient transitioned to Labetalol and Norvasc. BP at 145/72. Hydralazine prn for sys > 180. Goal systolic parameters: low 150, upper 180. Patient would likely benefit from ALEKSANDAR/ARB initiation upon discharge given her comorbidity of diabetes mellitus. * HLD: Lipid profile showing total cholesterol/HDL ratio of 4. Patient would also likely benefit from initiation of statin therapy. - continue cardiac monitoring Respiratory: * continue supplemental O2 in the setting of potential recent cerebral ischemia * CXR on admission unremarkable GI: * nausea/vomiting: resolved. likely related to migrainous GARCIA RENAL/Lytes: * ALFONSO - resolved. Baseline Cr 1.1. Cr on admission 1.42, returned to baseline today at 0.99. * Magnesium supplement ordered 12/20. Level corrected to 2.5 today; Calcium normal at 9.2 * mild metabolic acidosis. continue to monitor with daily BMPs : * UA benign on admission. ENDO: * History of DM: hold home metformin in the setting of IV contrast administration. On SSI. ICU protocol for hypoglycemia. Restart metformin 12/22. HbA1c at 7.2. HEME: * no issues identified. ID: * WBC normal. Afebrile. No issues. LINES/IV ACCESS: R sided PIV CODE STATUS: Full DVT PROPHYLAXIS: chemical ppx contraindicated in the setting of recent tPA administration Thank you for allowing us to participate in the care of this patient. Please refer to my attending physician's documentation for any further recommendations. Admission and Anticipated Discharge Date Admission Date: December 20, 2019 Supervising Physician Co-Signing Physician Notes Patient seen and examined. EMR reviewed 0. Her headache and dysarthria/aphasia have completely resolved. She is tolerating a diet. Blood pressure is been adequately controlled on oral medications now. She is off all IV infusions. We will await follow-up imaging at 24 hours and if no evidence of bleeding is found, the patient can transfer to the floor under the care of the hospitalist. Will sign off when she leaves the ICU. Subjective Reports feeling well. Confusion and word-finding difficulties have totally resolved. Denies any new symptoms/concerns at this time. Son Patrick is present at bedside. Passed swallow eval and tolerating a regular diet Review of Systems Review of Systems: All systems reviewed & are unremarkable except as noted in HPI & below Physical Exam Constitutional: WD/WN, vitals as above Eyes: PERRL, conjunctivae normal, anicteric sclerae EOM intact bilaterally, reactive pupils and + photophobia ENMT: external ear and nose normal, oropharynx normal Neck: normal visual inspection and trachea midline Respiratory: normal respiratory effort; no respiratory distress, no labored breathing and no cough Auscultation: + wheezes; no crackles, no rales, no rhonchi and no pleural rub Cardiovascular: RRR, no murmur, no edema Heart Sounds: normal S1 and normal S2 Vessels: normal carotid upstroke; no carotid bruit Extremities: no pedal edema Gastrointestinal (Abdomen): normal bowel sounds, soft, nontender, no hepatosplenomegaly Skin: no rashes, warm and dry Neurologic: PERRL, EOMI, accommodation nl, no face palsy, no dysarthria CN's II-XI intact bilaterally, moves all extremities and awake; no focal motor deficits and not confused Speech / Cognition: normal speech, no expressive aphasia, no receptive aphasia and normal cognition Motor/Sensory: no pronator drift and no sensory deficit Cranial Nerves: normal accommodation, tongue midline, able to elevate shoulders bilaterally and symmetric palate elevation Coordination: normal dljrmx-xw-wmhi test and normal acuj-wi-xsbq test NIH stroke scale score of 0 Psychiatric: Orientation: alert and oriented x 3 Results & Data ([facility]) Vital Signs (Past 12 Hours) Vital Signs Temp Pulse Pulse Resp BP Pulse Ox 12/21/19 10:41 75 16 145/72 H 97 12/21/19 09:41 75 16 126/61 96 12/21/19 08:41 72 16 116/66 96 12/21/19 07:41 36.7 C 72 16 124/61 95 12/21/19 06:41 74 18 123/63 96 12/21/19 05:41 74 19 105/58 L 96 12/21/19 04:41 36.6 C 72 17 121/57 L 96 12/21/19 03:41 70 19 111/55 L 96 12/21/19 02:41 72 19 114/58 L 96 12/21/19 01:41 36.8 C 71 20 102/60 96 12/21/19 00:41 74 20 110/61 96 12/21/19 00:11 72 19 122/58 L 94 12/21/19 00:00 74 12/20/19 23:41 73 20 115/61 96 Resident Activity Tracking Resident Involvement: Resident Care Provided Care Provided: Adult Hospital Medicine
--- NOTE | 2019-12-21 12:20 | Billing Data ---
Date of Service December 21, 2019 Please refer to my addendum and FP resident note for clinical details Coding Level of Care Code 52233 Subseq Hosp Care Lvl 2
--- NOTE | 2019-12-21 13:49 | Neurology Consultation ---
Date of Consultation December 21, 2019 Assessment & Plan (1) Aphasia: 1. CT head- 12/20/2019- no acute findings needs repeated 24 hours after initiation of tPa 2. CTA head/neck- no significant stenosis or occlusion 3. restart aspirin [address] head resulted 4. TTE if not already ordered 5. MRI brain with and without -will hold on MRI due to claustrophobia of patient 6. add Plavix 75 mg daily x 21 days then Plavix alone for life 7. optimize HTN, HLD, DM LDL follow up with neurology Yi Ritchie PAC schedule 4-6 weeks after discharge (2) Diabetes: (3) Hypertension: Supervising Physician Co-Signing Physician Notes Patient was seen and examined. Agree with Yi Ritchie PA-C as noted below. A 64 year old woman with Hx of DM admitted with acute speech difficulty s/p TPA which has since resolved. She also noted severe headache shortly afterwards. Blood pressures elevated on admission. CT stroke protocol was Negative. Vessel images reviewed. My impression is no significant stenosis or vascular abnormality. Repeat CT head non contrast s/p 24 hr TPA shows no hemorrhage or evidence of ischemic stroke. Patient can not tolearte MRI brain. On examine no focal deficits noted. SPeech is clear. No aphasia. Blood pressure normalized. Differential diagnosis includes aborted stroke Vs TIA Vs HTN encephalopathy Vs migriane with aura. - Recommend dual antiplatlet therapy for 21-days then Plavix 75 mg daily - Intolerant to Statins - Advised to monitor blood pressures at home - Would recommend cardiac evet monitor as outpatient - Neurology follow up in 8-weeks Ok to discharge from neurology standpoint. History of Present Illness Reason for Consultation: Aphasia s/p TPA Requesting Physician: Felipe Begum MD Attending Physician: Felipe Begum MD History of Present Illness Iman is a 64 year old female with a PMH- DM2, HLD, GERD who presents to ED secondary to a aphasia and acute onset confusion that started at approximately 1 PM yesterday. She was working and tried to put a message on her answering machine she called [employer] nurse line but was having difficulty speaking, EMS was called. She does not remember leaving work or arriving at home. when she arrived at the [facility] ED her systolic pressure was 224. NIH stroke score was 4 and Stroke alert was initiated and labetalol 10 mg IV x2 and initiation of Cardene drip for systolic blood pressure in the 160s. She was given tPa and post tPa she had a headache 8/10, constant, throbbing, denies phonophobia or photophobia, associated nausea and vomiting however headache was present prior to tPa. She had viral symptoms with headache and nausea over the past 2 days. She stated no migraine history but in ED states had a history of migraine with 2 previous episode with vomiting and minimal headache pain. According to chart different from previous headaches. She also admit to recent stressful events. there is a family history of CVA in her father who had for stroke, and had DM in the 40s and of a stroke at age 62. She no longer smokes quit 10 to 15 years ago. Today she feels she is back to herself. When she woke this am she states the headache and symptoms were gone. denies CP, SOB, abdominal pain, one sided weakness, numbness tingling N, V, new bowel or bladder symptoms, current slurred speech, swallowing issues, vision changes. Allergies Allergy/AdvReac Type Severity Reaction Status Date / Time Penicillins Allergy Intermediate Hives Verified 12/20/19 17:27 Sulfa (Sulfonamide Allergy Intermediate Hives Verified 12/20/19 17:27 Antibiotics) Corticosteroids Allergy Unknown Unknown Verified 12/20/19 17:27 (Glucocorticoids) albiglutide Allergy Verified 12/20/19 17:27 clindamycin Allergy Verified 12/20/19 17:27 Home Medications Home Medications Medication Instructions Recorded Confirmed Type aspirin 81 mg PO QAM 07/20/19 12/20/19 History coenzyme Q10 [Co Q-10] 10 mg PO QAM 07/20/19 12/20/19 History cyanocobalamin (vitamin B-12) 1,000 mcg PO QAM 07/20/19 12/20/19 History [Vitamin B-12] garlic 500 mg PO QAM 07/20/19 12/20/19 History linagliptin [Tradjenta] 5 mg PO QAM 07/20/19 12/20/19 History loratadine 10 mg PO DAILY 07/20/19 12/20/19 History lorazepam 1 mg PO DAILY PRN 07/20/19 12/20/19 History meloxicam 15 mg PO QAM 07/20/19 12/20/19 History metformin 1,000 mg PO BIDM 07/20/19 12/20/19 History xoisbskz-xcne-XB-calcium-mins 1 tab PO QAM 07/20/19 12/20/19 History [Women's One Daily] omeprazole magnesium [Prilosec OTC] 20 mg PO QAM 07/20/19 12/20/19 History magnesium oxide 500 mg PO DAILY 12/20/19 12/20/19 History methocarbamol 500 mg PO QID 12/20/19 12/20/19 History montelukast 10 mg PO DAILY 12/20/19 12/20/19 History Patient History Medical History (Updated 12/20/19 @ 19:46 by Nicole Mcallister PA-C) Diabetes GERD (gastroesophageal reflux disease) HLD (hyperlipidemia) Surgical History History of partial hysterectomy History of sinus surgery Family History (Updated 12/20/19 @ 19:34 by Nicole Mcallister PA-C) Father , 62 from CVA Stroke, Onset Age: 40 Social History Preferred Language: Greek Communication Ability: Effective Hop Trainer Required: No Beliefs That Will Affect Care: None Feels Safe at Home: Yes Smoking Status: Former smoker Hx Alcohol Use: No Hx Substance Use: Yes substance use type: marijuana Last Used Substance: Days (ago) Physical Exam Physical Exam: Physical Exam: Constitutional: appearance over nourished, healthy and normal Ears, Nose, Mouth and Throat: mucous membranes moist, no injection and skin normal, eyes normal Cardiovascular: normal S-1 and S-2 and regular rate and rhythm Respiratory: clear to auscultation (CTA) and no rales, rhonchi or wheeze Musculoskeletal: no peripheral edema and good distal pulses Skin: no stigmata of neurocutaneous disease noted and normal and intact Eyes: extraocular muscles intact (EOMI) and pupils equal, round and reactive to light (PERRL) NEUROLOGIC EXAMINATION: Mental status: Alert and interactive Oriented to full date and location Oriented to person Speech fluent with no evidence of aphasia Cranial Nerves smile and eye brow raise symmetric Reflexes: Deep tendon reflexes were symmetrical and graded 2/5. Sensory: light or cool touch, vibration intact Coordination: finger to nose, rapid hand movements, heel to kim intact bilaterally Gait/Stance: Posture normal sitting in bedside chair Motor: Negative for pronator drift of out stretched arms with eyes closed. Strength: hand facilities locator biceps triceps deltoids bilaterally 5/5, hip flex patellar planter flex ext 5/5 bilaterally Results & Data Vital Signs (Past 12 Hours) Vital Signs Temp Pulse Resp BP Pulse Ox 12/21/19 12:41 70 18 127/70 93 12/21/19 11:41 74 16 135/69 95 12/21/19 10:41 75 16 145/72 H 97 12/21/19 09:41 75 16 126/61 96 12/21/19 08:41 72 16 116/66 96 12/21/19 07:41 36.7 C 72 16 124/61 95 12/21/19 06:41 74 18 123/63 96 12/21/19 05:41 74 19 105/58 L 96 12/21/19 04:41 36.6 C 72 17 121/57 L 96 12/21/19 03:41 70 19 111/55 L 96 12/21/19 02:41 72 19 114/58 L 96 Laboratory Results Abnormal lab results 12/20/19 12/20/19 12/20/19 Range/Units 16:01 16:02 17:30 Chloride (98-107) mmol/L Carbon Dioxide 19 L (21-32) mmol/L BUN 28 H (7-18) mg/dl Creatinine 1.42 H (0.6-1.2) mg/dl BUN/Creatinine Ratio (10-20) Glucose 159 H (70-99) mg/dl POC Glucose 159 H (70-99) mg/dl Hemoglobin A1c (4.5-5.6) % Calcium 10.3 H (8.5-10.1) mg/dl Phosphorus (2.5-4.9) mg/dl Magnesium 1.0 L (1.8-2.4) mg/dl Triglycerides (0-150) mg/dl Urine Ketones Trace H (Negative) Urine Blood Trace H (Negative) U Epithel Cells (Auto) 20-30 H (0-5) /lpf 12/20/19 12/21/19 12/21/19 Range/Units 21:23 04:32 04:32 Chloride (98-107) mmol/L Carbon Dioxide (21-32) mmol/L BUN (7-18) mg/dl Creatinine (0.6-1.2) mg/dl BUN/Creatinine Ratio (10-20) Glucose (70-99) mg/dl POC Glucose 246 H (70-99) mg/dl Hemoglobin A1c 7.2 H (4.5-5.6) % Calcium (8.5-10.1) mg/dl Phosphorus 5.2 H (2.5-4.9) mg/dl Magnesium 2.5 H (1.8-2.4) mg/dl Triglycerides 154 H (0-150) mg/dl Urine Ketones (Negative) Urine Blood (Negative) U Epithel Cells (Auto) (0-5) /lpf 12/21/19 12/21/19 12/21/19 Range/Units 04:32 07:44 11:17 Chloride 108 H (98-107) mmol/L Carbon Dioxide (21-32) mmol/L BUN 22 H (7-18) mg/dl Creatinine (0.6-1.2) mg/dl BUN/Creatinine Ratio 22.0 H (10-20) Glucose 127 H (70-99) mg/dl POC Glucose 153 H 208 H (70-99) mg/dl Hemoglobin A1c (4.5-5.6) % Calcium (8.5-10.1) mg/dl Phosphorus (2.5-4.9) mg/dl Magnesium (1.8-2.4) mg/dl Triglycerides (0-150) mg/dl Urine Ketones (Negative) Urine Blood (Negative) U Epithel Cells (Auto) (0-5) /lpf Diagnostic Findings CTA neck-No evidence of hemodynamically significant carotid or vertebral artery stenosis. No evidence of dissection. CTA head-No evidence of aneurysm, focal vessel occlusion, or significant stenosis of the intracranial arteries. CT head-here is no hemorrhage, mass effect, or evidence of acute territorial ischemia by CT criteria. CXR-No active disease in the chest. (1) Hypertension Hypertension type: unspecified Qualified Code(s): I10 - Essential (primary) hypertension
--- NOTE | 2019-12-21 14:34 | Hospitalist Progress Note ---
Date of Service December 21, 2019 Assessment & Plan (1) Admitted to intensive care unit: (2) Ischemic stroke: Presented with strokelike symptoms-resolved following TPA administration (3) Aphasia: This is a 64-year-old female who has significant past medical history of T2DM, HLD, GERD who presents to ED secondary to a aphasia and acute onset confusion that started at approximately 1 PM. Remains stable in ICU Appreciate neurology and turner machine input and recommendation Her neuro symptoms have resolved as of this morning Awaiting repeat CAT scan and MRI of the brain Echo-pending Has been started with aspirin, Plavix and statin (4) ALFONSO (acute kidney injury): BUN/creatinine 20 and 1.42 on arrival Creatinine has been normalized (5) Hypertension: Patient significantly hypertensive on arrival She is not on any antihypertensives as outpatient Received nicardipine drip to control blood pressure before giving TPA Blood pressure is normalized now (6) Diabetes: Last A1c 7.2 07/2019 Repeat A1c in a.m. Lantus/NovoLog per protocol Hold metformin x 48rs given CTA and Tradjenta (7) DVT prophylaxis: SCD/TEDS Disposition: admitted to ICU for post TPA neurologic monitoring Follow up: PCP Dr. Maher upon discharge Admission and Anticipated Discharge Date Admission Date: December 20, 2019 Subjective 12/21/2019 The patient was seen and examined in ICU She was admitted yesterday with expressive aphasia and weak legs suggestive of TIA symptoms She received TPA following control of her blood pressure with intravenous medication She denies any symptoms today No more dysphasia and or weakness noted Review of Systems Review of Systems: All systems reviewed and are unremarkable except as noted below Neurologic: Alert, awake and oriented x3. No aphasia, no focal sensory and motor deficit appreciated Physical Exam Physical Exam: Lying in bed comfortably Constitutional: well developed and well nourished; no acute distress and not ill appearing Eyes: PERRL, conjunctivae normal, anicteric sclerae ENMT: external ear and nose normal, oropharynx normal Neck: trachea midline, no thyromegaly Respiratory: normal respiratory effort; no respiratory distress Auscultation: lungs clear to auscultation bilaterally Cardiovascular: Rate/Rhythm: regular rate and regular rhythm Heart Sounds: no murmur Gastrointestinal (Abdomen): Inspection/Auscultation: abdomen normal to inspection and normal bowel sounds Percussion/Palpation: abdomen soft; abdomen nontender Musculoskeletal: No acute arthritis in any joints Neurologic: patellar DTR's 2+ bilat, sensation intact moves all extremities; no focal motor deficits Lymphatic: no cervical or axillary lymphadenopathy Results & Data ([facility]) Vital Signs (Past 12 Hours) Vital Signs Temp Pulse Resp BP Pulse Ox 12/21/19 13:41 73 20 136/63 97 12/21/19 12:41 70 18 127/70 93 12/21/19 11:41 74 16 135/69 95 12/21/19 10:41 75 16 145/72 H 97 12/21/19 09:41 75 16 126/61 96 12/21/19 08:41 72 16 116/66 96 12/21/19 07:41 36.7 C 72 16 124/61 95 12/21/19 06:41 74 18 123/63 96 12/21/19 05:41 74 19 105/58 L 96 12/21/19 04:41 36.6 C 72 17 121/57 L 96 12/21/19 03:41 70 19 111/55 L 96 12/21/19 02:41 72 19 114/58 L 96 Laboratory Results Short CBC 12/20/19 Range/Units 16:01 WBC 7.40 (4.8-10.8) K/uL Hgb 13.2 (12.0-16.0) g/dL Hct 38.1 (37-47) % Plt Count 217 (130-400) K/uL BMP 12/20/19 12/21/19 16:01 04:32 Sodium 136 140 Potassium 4.2 3.7 Chloride 107 108 H Carbon Dioxide 19 L BUN 28 H 22 H Creatinine 1.42 H 0.99 D Glucose 159 H 127 H Calcium 10.3 H 9.2 Cardiac Enzymes 12/20/19 Range/Units 16:01 Troponin I < 0.015 (0-0.045) ng/ml Liver Function 12/20/19 Range/Units 16:01 Total Bilirubin 0.4 (0.2-1) mg/dl AST 16 (15-37) U/L ALT 27 (12-78) U/L Alkaline Phosphatase 64 (45-117) U/L Albumin 4.7 (3.4-5.0) gm/dl Urine 12/20/19 Range/Units 17:30 Urine Color Yellow Urine Appearance Clear (Clear) Urine pH 6.0 (4.5-7.5) Ur Specific [employer] 1.027 (1.000-1.030) Urine Protein Negative (Negative) Urine Glucose (UA) Negative (Negative) Diagnostic Findings CT of the head-unremarkable CTA of the neck and head-unremarkable Medications Administered Current Inpatient Medications Acetaminophen (Tylenol) 650 mg PO Q4H PRN PRN Reason: Headache Stop: 01/19/20 19:23 Last Admin: 12/20/19 19:51 Dose: 650 mg Documented by: Amlodipine Besylate (Norvasc) 10 mg PO [facility] Stop: 01/19/20 19:24 Last Admin: 12/21/19 07:47 Dose: 10 mg Documented by: Aspirin (Ecotrin Ectab) 81 mg PO [facility] Stop: 01/21/20 08:59 Atorvastatin Calcium (Lipitor) 40 mg PO [facility] Stop: 01/21/20 08:59 Clopidogrel Bisulfate (Plavix) 75 mg PO [facility] Stop: 01/20/20 14:29 Dextrose (Dextrose 50%) 25 - 50 ml IV UD PRN; Protocol PRN Reason: Hypoglycemia Protocol Stop: 01/19/20 19:24 Glucagon (Glucagen) 1 mg SQ UD PRN; Protocol PRN Reason: Hypoglycemia Protocol Stop: 01/19/20 19:24 Glucose (Dex4 Glucose) 4 - 8 tabs PO UD PRN; Protocol PRN Reason: Hypoglycemia Protocol Stop: 01/19/20 19:24 Glucose (Glucose 40%) 15 - 30 gm PO UD PRN; Protocol PRN Reason: Hypoglycemia Protocol Stop: 01/19/20 19:24 Hydralazine HCl (Hydralazine Hcl) 10 mg IV Q4 PRN PRN Reason: Hypertension Stop: 01/19/20 19:24 Sodium Chloride (Nss 1000ml) 1,000 mls @ 50 mls/hr IV .Q20H [facility] Stop: 01/19/20 15:29 Last Admin: 12/21/19 11:17 Dose: 50 mls/hr Documented by: Lorazepam (Ativan) 0.25 mg in 0.5 mls @ 0.5 mls/min IV Q4H PRN PRN Reason: Nausea And Vomiting Stop: 01/19/20 19:24 Prochlorperazine 5 mg/ Syringe 5 mls @ 5 mls/min IV Q4H PRN PRN Reason: Nausea And Vomiting Stop: 01/19/20 19:24 Insulin Aspart (Novolog Flexpen) 0 units SC ACHS [facility] Stop: 01/19/20 20:59 Last Admin: 12/21/19 12:12 Dose: 3 units Documented by: Insulin Glargine (Lantus Solostar Pen) 0 - 8 units SC BID [facility] Stop: 01/19/20 20:59 Last Admin: 12/21/19 08:07 Dose: 4 units Documented by: Labetalol HCl (Normodyne) 10 mg IV Q4 PRN PRN Reason: Hypertension Stop: 01/19/20 19:24 Last Admin: 12/20/19 20:45 Dose: 10 mg Documented by: Metoprolol Tartrate (Lopressor) 25 mg PO BID [facility] Stop: 01/19/20 20:59 Last Admin: 12/21/19 07:47 Dose: 25 mg Documented by: Miscellaneous (Icu Protocol For Hyperglycemia) 1 ea N/A PRN PRN; Protocol PRN Reason: Hyperglycemia Protocol Stop: 12/22/19 19:24 Miscellaneous (Carbohydrates For Hypoglycemia) 15 - 30 gm PO UD PRN PRN Reason: Hypoglycemia Protocol Stop: 01/19/20 19:24 Miscellaneous Information (Pharmacist Discharge Med Rec Consult) 1 ea N/A UD PRN PRN Reason: Consult Stop: 01/19/20 19:35 (1) Hypertension Hypertension type: unspecified Qualified Code(s): I10 - Essential (primary) hypertension
[2019-12-21] MEDS ORDERED: PHARMACY GLYCEMIC MGMT CONSULT PRN (14:59)
--- NOTE | 2019-12-21 15:05 | Pharmacy Report ---
Pharmacy Glycemic Short Note 2 - Date of Service December 21, 2019 - Glycemic Short BSG Results (Last 24 hours): 12/20/19 12/20/19 12/20/19 16:01 16:02 21:23 Glucose 159 H POC Glucose 159 H 246 H 12/21/19 12/21/19 12/21/19 04:32 07:44 11:17 Glucose 127 H POC Glucose 153 H 208 H OUTPATIENT ANTIDIABETIC REGIMEN: * Linagliptin 5mg PO daily * Metformin 1gm PO BID * A1c = 7.2% ASSESSMENT: * Type 2 diabetic admitted for ischemic stroke, now s/p tPA administration * Pharmacy consulted per "ICU Protocol for Hyperglycemia" due to 2 consecutive BSGs/GLU's > 140 * Fasting BSG 127-153 this AM after receiving 8 units Lantus and 2 units Novolog correction last evening * Will initiated basal/bolus regimen based upon weight + moderate stress level. PO hypoglycemics will be held initially. PLAN FOR INPATIENT GLYCEMIC CONTROL: * Hold outpatient oral diabetes medications * Basal insulin * Lantus SQ BID per scale * 0 units if BSG less than 110 * 8 units if BSG 110-140 * 16 units if BSG above 140 * Bolus insulin * NovoLog per scale ACHS or Q6hrs while NPO * Goal Range: Low 110 mg/dL - High 140 mg/dL * Correction Factor: 25 mg/dL/unit * Nutritional / Prandial insulin per carb ratio of 1 unit per 8 grams CHO consumed PLAN FOR DISCHARGE: * may resume home regimen of metformin + linagliptin (if no contraindications p resent at time of discharge ) given recent A1c near goal
[2019-12-21] MEDS: CLOPIDOGREL BISULFATE 75 MG TAB PO SCH (15:41)
--- NOTE | 2019-12-21 16:23 | CT Scan Report ---
CT head/brain wo con CLINICAL HISTORY: Suspected stroke. Patient administered TPA. Follow-up study. COMPARISON STUDY: 12/20/2019 TECHNIQUE: Axial CT of the brain is performed from the vertex to the skull base. IV contrast was not administered for this examination. A dose lowering technique was utilized adhering to the principles of ALARA. CT DOSE: 614.27 mGy.cm FINDINGS: The examination is significantly limited from a technical standpoint secondary to motion artifact. No intra or extra-axial mass lesions are visualized. There is no evidence of acute hemorrhage. There is no midline shift. There is no evidence of pathologic ventricular dilatation. There is no evidence of acute sinusitis IMPRESSION: 1. No evidence of acute hemorrhage given the limitations of a significantly motion degraded study ACT 112: Negative or not required by law. Electronically signed by: Angus Hollis M.D. 12/21/2019 4:21 PM
[2019-12-21] MEDS ORDERED: INSULIN GLARGINE SOLOSTAR 100 UNITS/ML 3 ML PEN SC ONE (16:30)
[2019-12-21] MEDS: ACETAMINOPHEN 325 MG TAB PO PRN (18:27)
--- NOTE | 2019-12-21 20:13 | CT Scan Report ---
CT SCAN OF THE BRAIN WITHOUT IV CONTRAST CLINICAL HISTORY: Headache. COMPARISON STUDY: CT of the brain performed earlier the same day 12/21/2019. TECHNIQUE: Unenhanced axial CT scan of the brain is performed from the vertex to the skull base. A d ose lowering technique was utilized adhering to the principles of ALARA. CT DOSE: 537.48 mGy.cm FINDINGS: Brain parenchyma: The brain parenchyma is normal in appearance. There is no hemorrhage, mass effect, or evidence of acute territorial ischemia by CT criteria. Mijares-white matter differentiation is preser yulissa. No extra-axial fluid collection is seen. Ventricles, sulci, cisterns: Normal in configuration. Intracranial vasculature: There is evidence carotid calcification of the cavernous carotid arteries. Calvarium: Unremarkable. Sinuses and mastoids: There is evidence of previous paranasal sinus surgery. Moderate mucosal thicken ing is noted within the left ethmoid sinuses. Mild mucosal thickening is similar left frontal sinus, the right ethmoid sinuses, the sphenoid sinuses, and the maxillary antra. The mastoid air cells are w ell pneumatized. Orbits: The bony orbits are grossly intact. IMPRESSION: There is no hemorrhage, mass effect, or evidence of acute territorial ischemia by CT jeannie diana. ACT 112: Negative or not required by law. Electronically signed by: Otoniel Gregory M.D. 12/21/2019 8:12 PM
--- NOTE | 2019-12-21 22:41 | Electrocardiogram Report ---
Test Reason : Blood Pressure : / mmHG Vent. Rate : 105 BPM Atrial Rate : 105 BPM P-R Int : 152 ms QRS Dur : 092 ms QT Int : 348 ms P-R-T Axes : 043 009 094 degrees QTc Int : 459 ms Poor data quality, interpretation may be adversely affected Sinus tachycardia Nonspecific ST and T wave abnormality Abnormal ECG When compared with ECG of 19-FEB-2015 09:10, No significant change was found Confirmed by Cliff Aguila ([id number]) on 12/21/2019 10:41:16 PM Referred By: REFERRED SELF Confirmed By:Cliff Aguila
--- NOTE | 2019-12-22 06:04 | Electrocardiogram Report ---
Test Reason : Blood Pressure : / mmHG Vent. Rate : 076 BPM Atrial Rate : 076 BPM P-R Int : 166 ms QRS Dur : 098 ms QT Int : 416 ms P-R-T Axes : 038 -03 079 degrees QTc Int : 468 ms Normal sinus rhythm Cannot rule out Inferior infarct When compared with ECG of 20-DEC-2019 15:57, No significant change was found Confirmed by Cliff Aguila ([id number]) on 12/22/2019 6:03:38 AM Referred By: REFERRED SELF Confirmed By:Cliff Aguila
[2019-12-22 07:17] LABS: Basophils # (auto) 0.01 K/uL (0-0.2); Basophils % (auto) 0.2 %; Eosinophils # (auto) 0.18 K/uL (0-0.5); Hematocrit (blood only) 36.4 % (37-47); Hemoglobin 12.1 g/dL (12.0-16.0); Immature Granulocytes # (auto) 0.01 K/uL (0.00-0.02); Immature Granulocytes % (auto) 0.2 %; Lymphocytes # (auto) 1.58 K/uL (1.2-3.4); Lymphocytes % (auto) 35.5 %; Mean Corpuscular Hemoglobin 30.3 pg (25-34); Mean Corpuscular Hgb Conc 33.2 g/dL (32-36); Mean Corpuscular Volume 91.2 fL (80-100); Monocytes # (auto) 0.43 K/uL (0.11-0.59); Monocytes % (auto) 9.7 %; Neutrophils # (auto) 2.24 K/uL (1.4-6.5); Neutrophils % (auto) 50.4 %; Platelet Count 184 K/uL (130-400); RDW Coefficient of Variation 12.7 % (11.5-14.5); RDW Standard Deviation 42.5 fL (36.4-46.3); Red Blood Count 3.99 M/uL (4.2-5.4); White Blood Count 4.45 K/uL (4.8-10.8)
[2019-12-22 07:52] LABS: BUN Creatinine Ratio 24.1 (10-20); Calcium 8.9 mg/dl (8.5-10.1); Creatinine Clr Calc Pharmacy 78.6 ml/min; Est GFR (African American) 88.9; Est GFR (Non-African American) 76.7; Magnesium 1.6 mg/dl (1.8-2.4)
[2019-12-22 07:57] LABS: Phosphorus 2.7 mg/dl (2.5-4.9)
[2019-12-22] MEDS: SODIUM CHLORIDE 0.9% 1000ML 1,000 ML IV SCH (08:26)
[2019-12-22] MEDS: AMLODIPINE BESYLATE 5 MG TAB PO SCH (08:26)
[2019-12-22] MEDS: ASPIRIN 81 MG ECTAB PO SCH (08:26)
[2019-12-22] MEDS: CLOPIDOGREL BISULFATE 75 MG TAB PO SCH (08:26)
[2019-12-22] MEDS: ATORVASTATIN 40 MG TAB PO SCH (08:26)
[2019-12-22] MEDS: METOPROLOL TARTRATE 25 MG TAB PO SCH ×2 (08:26→19:55)
[2019-12-22] MEDS: INSULIN GLARGINE SOLOSTAR 100 UNITS/ML 3 ML PEN SC SCH (08:27)
[2019-12-22] MEDS: INSULIN ASPART 100 UNITS/ML 3 ML PEN SC SCH ×4 (08:32→21:28)
[2019-12-22] MEDS ORDERED: LORazepam 0.5 MG/1 ML VIAL IV PRN (09:57)
[2019-12-22] MEDS: DOXYCYCLINE HYCLATE 100 MG CAP PO SCH ×2 (11:47→19:55)
[2019-12-22] MEDS ORDERED: KETOROLAC 30 MG/ML VIAL IV ONE (14:15)
--- NOTE | 2019-12-22 14:47 | Hospitalist Progress Note ---
Date of Service December 22, 2019 Assessment & Plan (1) Admitted to intensive care unit: (2) Ischemic stroke: Presented with strokelike symptoms-resolved following TPA administration (3) Aphasia: This is a 64-year-old female who has significant past medical history of T2DM, HLD, GERD who presents to ED secondary to a aphasia and acute onset confusion that started at approximately 1 PM. Remains stable in ICU Appreciate neurology and senior training and development rep input and recommendation Her neuro symptoms have resolved as of this morning Awaiting repeat CAT scan and MRI of the brain Echo-left ventricular systolic function is normal with EF of 60 to 65%, mild concentric left ventricular hypertrophy and grade 1 diastolic dysfunction. Has been started with aspirin, Plavix and statin No more dysarthria and no more neurological symptoms Will have MRI today and if negative she will be discharged home this afternoon Has history of migraine Has been complaining of headache with nausea off and on since admission Will try Toradol IV No narcotics (4) ALFONSO (acute kidney injury): BUN/creatinine 20 and 1.42 on arrival Creatinine has been normalized Remains stable (5) Hypertension: Patient significantly hypertensive on arrival She is not on any antihypertensives as outpatient Received nicardipine drip to control blood pressure before giving TPA Blood pressure is normalized now Continue her current medications for blood pressure control (6) Diabetes: Last A1c 7.2 07/2019 Repeat A1c in a.m. Lantus/NovoLog per protocol Hold metformin x 48rs given CTA and Tradjenta (7) DVT prophylaxis: SCD/TEDS Disposition: admitted to ICU for post TPA neurologic monitoring Follow up: PCP Dr. Maher upon discharge Likely discharge this afternoon Admission and Anticipated Discharge Date Admission Date: December 20, 2019 Subjective 12/21/2019 The patient was seen and examined in ICU She was admitted yesterday with expressive aphasia and weak legs suggestive of TIA symptoms She received TPA following control of her blood pressure with intravenous medication She denies any symptoms today No more dysphasia and or weakness noted 12/22/2019 Patient was seen and examined in telemetry unit She did not have any complaints except some pain involving the sinus areas Denies any headache, dysarthria, any numbness and/or tingling involving any of the extremities Review of Systems Review of Systems: All systems reviewed and are unremarkable except as noted below Neurologic: Alert, awake and oriented x3. No aphasia, no focal sensory and motor deficit appreciated Physical Exam Physical Exam: Lying in bed comfortably without any headache and no neuro symptoms Constitutional: well developed and well nourished; no acute distress and not ill appearing Eyes: PERRL, conjunctivae normal, anicteric sclerae ENMT: external ear and nose normal, oropharynx normal Neck: trachea midline, no thyromegaly Respiratory: normal respiratory effort; no respiratory distress Auscultation: lungs clear to auscultation bilaterally Cardiovascular: Rate/Rhythm: regular rate and regular rhythm Heart Sounds: no murmur Gastrointestinal (Abdomen): Inspection/Auscultation: abdomen normal to i nspection and normal bowel sounds Percussion/Palpation: abdomen soft; abdomen nontender Musculoskeletal: No acute arthritis involving any joint Neurologic: patellar DTR's 2+ bilat, sensation intact moves all extremities; no focal motor deficits Speech / Cognition: normal speech Motor/Sensory: no tremor Lymphatic: no cervical or axillary lymphadenopathy Results & Data ([facility]) Vital Signs (Past 12 Hours) Vital Signs Temp Pulse Pulse Pulse Pulse Resp BP 12/22/19 11:22 36.3 C L 63 18 131/82 12/22/19 08:00 71 12/22/19 07:12 36.5 C 65 18 125/73 12/22/19 05:41 36.9 C 76 18 148/76 H 12/22/19 03:53 37.0 C 75 18 151/79 H Pulse Ox 12/22/19 11:22 98 12/22/19 08:00 12/22/19 07:12 94 12/22/19 05:41 95 12/22/19 03:53 97 Laboratory Results Short CBC 12/22/19 Range/Units 06:58 WBC 4.45 L (4.8-10.8) K/uL Hgb 12.1 (12.0-16.0) g/dL Hct 36.4 L (37-47) % Plt Count 184 (130-400) K/uL BMP 12/22/19 06:58 Sodium 141 Potassium 4.0 Chloride 111 H Carbon Dioxide 24 BUN 20 H Creatinine 0.82 Glucose 156 H Calcium 8.9 Medications Administered Current Inpatient Medications Acetaminophen (Tylenol) 650 mg PO Q4H PRN PRN Reason: Headache Stop: 01/19/20 19:23 Last Admin: 12/21/19 18:27 Dose: 650 mg Documented by: Amlodipine Besylate (Norvasc) 10 mg PO [facility] Stop: 01/19/20 19:24 Last Admin: 12/22/19 08:26 Dose: 10 mg Documented by: Aspirin (Ecotrin Ectab) 81 mg PO [facility] Stop: 01/21/20 08:59 Last Admin: 12/22/19 08:26 Dose: 81 mg Documented by: Atorvastatin Calcium (Lipitor) 40 mg PO [facility] Stop: 01/21/20 08:59 Last Admin: 12/22/19 08:26 Dose: 40 mg Documented by: Clopidogrel Bisulfate (Plavix) 75 mg PO [facility] Stop: 01/20/20 14:29 Last Admin: 12/22/19 08:26 Dose: 75 mg Documented by: Dextrose (Dextrose 50%) 25 - 50 ml IV UD PRN; Protocol PRN Reason: Hypoglycemia Protocol Stop: 01/19/20 19:24 Doxycycline Hyclate (Vibramycin) 100 mg PO BID [facility]; Protocol Stop: 12/29/19 10:29 Last Admin: 12/22/19 11:47 Dose: 100 mg Documented by: Glucagon (Glucagen) 1 mg SQ UD PRN; Protocol PRN Reason: Hypoglycemia Protocol Stop: 01/19/20 19:24 Glucose (Dex4 Glucose) 4 - 8 tabs PO UD PRN; Protocol PRN Reason: Hypoglycemia Protocol Stop: 01/19/20 19:24 Glucose (Glucose 40%) 15 - 30 gm PO UD PRN; Protocol PRN Reason: Hypoglycemia Protocol Stop: 01/19/20 19:24 Hydralazine HCl (Hydralazine Hcl) 10 mg IV Q4 PRN PRN Reason: Hypertension Stop: 01/19/20 19:24 Sodium Chloride (Nss 1000ml) 1,000 mls @ 50 mls/hr IV .Q20H [facility] Stop: 01/19/20 15:29 Last Admin: 12/22/19 08:26 Dose: 50 mls/hr Documented by: Lorazepam (Ativan) 0.25 mg in 0.5 mls @ 0.5 mls/min IV Q4H PRN PRN Reason: Nausea And Vomiting Stop: 01/19/20 19:24 Prochlorperazine 5 mg/ Syringe 5 mls @ 5 mls/min IV Q4H PRN PRN Reason: Nausea And Vomiting Stop: 01/19/20 19:24 Lorazepam (Ativan) 0.5 mg in 1 mls @ 0.5 mls/min IV UD PRN PRN Reason: Anxiety Stop: 12/22/19 18:00 Insulin Aspart (Novolog Flexpen) 0 units SC ACHS [facility]; Protocol Stop: 01/19/20 20:59 Last Admin: 12/22/19 11:51 Dose: 3 units Documented by: Insulin Glargine (Lantus Solostar Pen) 0 units SC BID [facility]; Protocol Stop: 01/19/20 20:59 Last Admin: 12/22/19 08:27 Dose: 16 units Documented by: Labetalol HCl (Normodyne) 10 mg IV Q4 PRN PRN Reason: Hypertension Stop: 01/19/20 19:24 Last Admin: 12/20/19 20:45 Dose: 10 mg Documented by: Metoprolol Tartrate (Lopressor) 25 mg PO BID [facility] Stop: 01/19/20 20:59 Last Admin: 12/22/19 08:26 Dose: 25 mg Documented by: Miscellaneous (Carbohydrates For Hypoglycemia) 15 - 30 gm PO UD PRN PRN Reason: Hypoglycemia Protocol Stop: 01/19/20 19:24 Miscellaneous Information (Pharmacist Discharge Med Rec Consult) 1 ea N/A UD PRN PRN Reason: Consult Stop: 01/19/20 19:35 Miscellaneous Information (Consult Glycemic Management Pharmacy) 1 ea N/A UD PRN PRN Reason: Consult Stop: 01/20/20 14:58 (1) Hypertension Hypertension type: unspecified Qualified Code(s): I10 - Essential (primary) hypertension
[2019-12-22] MEDS ORDERED: GADOBUTROL 65ML VIAL IV PRN (20:48)
--- NOTE | 2019-12-22 21:14 | Magnetic Resonance Report ---
Brain MRI WITH AND WITHOUT CONTRAST HISTORY: Headache. Weakness. Aphasia. Stroke like symptoms,S/P TPA TECHNIQUE: Multiplanar multisequence MRI of the brain was performed both before and after the intrave nous administration of contrast. COMPARISON STUDY: Head CT 12/21/2019. Brain MRI 1813. FINDINGS: There are no areas of restricted diffusion to suggest acute infarction. The midline structu res are intact. Moderate mucosal thickening within the ethmoid air cells and mild mucosal thickening within the right sphenoid sinus and maxillary sinuses. There is also trace fluid level within the lef t maxillary sinus. There are few punctate foci of T2 hyperintensity seen within the periventricular w thomas matter of the supratentorial brain. These are nonspecific but favor minimal microvascular ischem ic change. The mastoid air cells are clear. The ventricles and sulci are within normal limits for age . There is no mass, hematoma, midline shift. The major vascular flow-voids at the skull base are well maintained. Postcontrast sequences show no areas of abnormal enhancement. IMPRESSION: No acute intracranial abnormality. Mild to moderate sinus disease as described above. ACT 112: Negative or not required by law. Electronically signed by: Paul New M.D. 12/22/2019 9:13 PM
[2019-12-22] MEDS: ACETAMINOPHEN 325 MG TAB PO PRN (21:27)
--- NOTE | 2019-12-22 22:34 | Electrocardiogram Report ---
Test Reason : Blood Pressure : / mmHG Vent. Rate : 064 BPM Atrial Rate : 064 BPM P-R Int : 148 ms QRS Dur : 096 ms QT Int : 422 ms P-R-T Axes : 046 007 072 degrees QTc Int : 435 ms Normal sinus rhythm Normal ECG When compared with ECG of 21-DEC-2019 06:54, No significant change was found Confirmed by Cliff Aguila ([id number]) on 12/22/2019 10:34:19 PM Referred By: REFERRED SELF Confirmed By:Cliff Aguila
[2019-12-23] MEDS: SODIUM CHLORIDE 0.9% 1000ML 1,000 ML IV SCH (05:22)
[2019-12-23] MEDS: INSULIN ASPART 100 UNITS/ML 3 ML PEN SC SCH ×2 (08:19→12:10)
[2019-12-23] MEDS: ASPIRIN 81 MG ECTAB PO SCH (08:20)
[2019-12-23] MEDS: AMLODIPINE BESYLATE 5 MG TAB PO SCH (08:22)
[2019-12-23] MEDS: ATORVASTATIN 40 MG TAB PO SCH (08:22)
[2019-12-23] MEDS: METOPROLOL TARTRATE 25 MG TAB PO SCH (08:22)
[2019-12-23] MEDS: CLOPIDOGREL BISULFATE 75 MG TAB PO SCH (08:23)
[2019-12-23] MEDS: DOXYCYCLINE HYCLATE 100 MG CAP PO SCH (08:23)
[2019-12-23] MEDS ORDERED: INSULIN GLARGINE SOLOSTAR 100 UNITS/ML 3 ML PEN SC SCH (09:00)
--- NOTE | 2019-12-23 12:11 | Hospitalist Progress Note ---
Date of Service December 23, 2019 Assessment & Plan (1) Admitted to intensive care unit: (2) Ischemic stroke: Presented with strokelike symptoms-resolved following TPA administration (3) Aphasia: This is a 64-year-old female who has significant past medical history of T2DM, HLD, GERD who presents to ED secondary to a aphasia and acute onset confusion that started at approximately 1 PM. Remains stable in ICU Appreciate neurology and sample collector input and recommendation Her neuro symptoms have resolved as of this morning Awaiting repeat CAT scan and MRI of the brain Echo-left ventricular systolic function is normal with EF of 60 to 65%, mild concentric left ventricular hypertrophy and grade 1 diastolic dysfunction. Has been started with aspirin, Plavix and statin No more dysarthria and no more neurological symptoms MRI has been negative for any acute and/or subacute infarct She remains asymptomatic and has been ambulating without any difficulty Should be discharged home this afternoon Has history of migraine Has been complaining of headache with nausea off and on since admission Will try Toradol IV No narcotics CT scan and MRI is suggestive of acute sinusitis Has been started on oral doxycycline Will continue antibiotic for a total of 10 days She has been feeling better (4) ALFONSO (acute kidney injury): BUN/creatinine 20 and 1.42 on arrival Creatinine has been normalized Remains stable (5) Hypertension: Patient significantly hypertensive on arrival She is not on any antihypertensives as outpatient Received nicardipine drip to control blood pressure before giving TPA Blood pressure is normalized now Continue her current medications for blood pressure control (6) Diabetes: Last A1c 7.2 07/2019 Repeat A1c in a.m. Lantus/NovoLog per protocol Hold metformin x 48rs given CTA and Tradjenta (7) DVT prophylaxis: SCD/TEDS Disposition: admitted to ICU for post TPA neurologic monitoring Follow up: PCP Dr. Maher upon discharge Discharge this afternoon Admission and Anticipated Discharge Date Admission Date: December 20, 2019 Subjective 12/21/2019 The patient was seen and examined in ICU She was admitted yesterday with expressive aphasia and weak legs suggestive of TIA symptoms She received TPA following control of her blood pressure with intravenous medication She denies any symptoms today No more dysphasia and or weakness noted 12/22/2019 Patient was seen and examined in telemetry unit She did not have any complaints except some pain involving the sinus areas Denies any headache, dysarthria, any numbness and/or tingling involving any of the extremities 12/23/2019 The patient was seen and examined in telemetry unit She has been feeling lot better as of this morning She is ambulating without any difficulty Should be discharged home this afternoon Review of Systems Review of Systems: All systems reviewed and are unremarkable except as noted below Neurologic: Alert, awake and oriented x3. No aphasia, no focal sensory and motor deficit appreciated Physical Exam Physical Exam: Lying in bed comfortably without any headache and no neuro symptoms Constitutional: well developed and well nourished; no acute distress and not ill appearing Eyes: PERRL, conjunctivae normal, anicteric sclerae ENMT: external ear and nose normal, oropharynx normal Nose: no nasal discharge and no sinus tenderness Neck: trachea midline, no thyromegaly Respiratory: normal respiratory effort; no respiratory distress Auscultation: lungs clear to auscultation bilaterally Cardiovascular: Rate/Rhythm: regular rate and regular rhythm Heart Sounds: no murmur Gastrointestinal (Abdomen): Inspection/Auscultation: abdomen normal to inspection and normal bowel sounds Percussion/Palpation: abdomen soft; abdomen nontender Musculoskeletal: No acute arthritis in any joints Neurologic: patellar DTR's 2+ bilat, sensation intact moves all extremities; no focal motor deficits Speech / Cognition: normal speech Motor/Sensory: no tremor Alert awake and oriented x3., Lymphatic: no cervical or axillary lymphadenopathy Results & Data ([facility]) Vital Signs (Past 12 Hours) Vital Signs Temp Pulse Resp BP Pulse Ox 12/23/19 11:04 36.6 C 61 19 135/77 97 12/23/19 07:06 36.6 C 71 18 150/78 H 97 12/23/19 04:20 36.7 C 75 20 146/76 H 96 12/23/19 00:19 37.0 C 69 20 141/77 H 97 Medications Administered Current Inpatient Medications Acetaminophen (Tylenol) 650 mg PO Q4H PRN PRN Reason: Headache Stop: 01/19/20 19:23 Last Admin: 12/22/19 21:27 Dose: 650 mg Documented by: Amlodipine [facility] ([facility]) [facility] Stop: 01/19/20 19:24 Last Admin: 12/23/19 08:22 Dose: 10 mg Documented by: Aspirin (Ecotrin Ectab) 81 mg PO QAM [facility] Stop: 01/21/20 08:59 Last Admin: 12/23/19 08:20 Dose: 81 mg Documented by: Atorvastatin Calcium (Lipitor) 40 mg PO QAM [facility] Stop: 01/21/20 08:59 Last Admin: 12/23/19 08:22 Dose: 40 mg Documented by: Clopidogrel Bisulfate (Plavix) 75 mg PO QAM [facility] Stop: 01/20/20 14:29 Last Admin: 12/23/19 08:23 Dose: 75 mg Documented by: Dextrose (Dextrose 50%) 25 - 50 ml IV UD PRN; Protocol PRN Reason: Hypoglycemia Protocol Stop: 01/19/20 19:24 Doxycycline Hyclate (Vibramycin) 100 mg PO BID [facility]; Protocol Stop: 12/29/19 10:29 Last Admin: 12/23/19 08:23 Dose: 100 mg Documented by: Gadobutrol (Gadavist 65ml) 9 ml IV ONCE PRN PRN Reason: Interaction Checking Stop: 12/26/19 20:47 Last Admin: 12/22/19 20:48 Dose: 9 ml Documented by: Glucagon (Glucagen) 1 mg SQ UD PRN; Protocol PRN Reason: Hypoglycemia Protocol Stop: 01/19/20 19:24 Glucose (Dex4 Glucose) 4 - 8 tabs PO UD PRN; Protocol PRN Reason: Hypoglycemia Protocol Stop: 01/19/20 19:24 Glucose (Glucose 40%) 15 - 30 gm PO UD PRN; Protocol PRN Reason: Hypoglycemia Protocol Stop: 01/19/20 19:24 Hydralazine HCl (Hydralazine Hcl) 10 mg IV Q4 PRN PRN Reason: Hypertension Stop: 01/19/20 19:24 Sodium Chloride (Nss 1000ml) 1,000 mls @ 50 mls/hr IV .Q20H [facility] Stop: 01/19/20 15:29 Last Admin: 12/23/19 05:22 Dose: 50 mls/hr Documented by: Lorazepam (Ativan) 0.25 mg in 0.5 mls @ 0.5 mls/min IV Q4H PRN PRN Reason: Nausea And Vomiting Stop: 01/19/20 19:24 Last Admin: 12/22/19 19:56 Dose: 0.5 mls/min Documented by: Prochlorperazine 5 mg/ Syringe 5 mls @ 5 mls/min IV Q4H PRN PRN Reason: Nausea And Vomiting Stop: 01/19/20 19:24 Insulin Aspart (Novolog Flexpen) 0 units SC ACHS [facility]; Protocol Stop: 01/19/20 20:59 Last Admin: 12/23/19 08:19 Dose: 5 units Documented by: Insulin Glargine (Lantus Solostar Pen) 15 units SC QAM [facility]; Protocol Stop: 01/22/20 08:59 Last Admin: 12/23/19 08:21 Dose: 15 units Documented by: Labetalol HCl (Normodyne) 10 mg IV Q4 PRN PRN Reason: Hypertension Stop: 01/19/20 19:24 Last Admin: 12/20/19 20:45 Dose: 10 mg Documented by: Metoprolol Tartrate (Lopressor) 25 mg PO BID [facility] Stop: 01/19/20 20:59 Last Admin: 12/23/19 08:22 Dose: 25 mg Documented by: Miscellaneous (Carbohydrates For Hypoglycemia) 15 - 30 gm PO UD PRN PRN Reason: Hypoglycemia Protocol Stop: 01/19/20 19:24 Miscellaneous Information (Pharmacist Discharge Med Rec Consult) 1 ea N/A UD PRN PRN Reason: Consult Stop: 01/19/20 19:35 Miscellaneous Information (Consult Glycemic Management Pharmacy) 1 ea N/A UD PRN PRN Reason: Consult Stop: 01/20/20 14:58 (1) Hypertension Hypertension type: unspecified Qualified Code(s): I10 - Essential (primary) hypertension
--- NOTE | 2019-12-23 14:52 | Pharmacy Report ---
Pharmacy Glycemic Short Note 2 - Date of Service December 23, 2019 - Glycemic Short BSG Results (Last 24 hours): 12/22/19 12/22/19 12/23/19 16:08 21:01 07:51 POC Glucose 142 H 128 H 152 H 12/23/19 11:54 POC Glucose 108 H OUTPATIENT ANTIDIABETIC REGIMEN: * Linagliptin 5mg PO daily * Metformin 1gm PO BID * A1c = 7.2% ASSESSMENT: 12/23/19: * Ms Salazar received 28 units of insulin yesterday (16 of which were basal) with BSGs ranging from 104-182mg/dL. * No significant changes to insulin regimen today. 12/21/19 * Type 2 diabetic admitted for ischemic stroke, now s/p tPA administration * Pharmacy consulted per "ICU Protocol for Hyperglycemia" due to 2 consecutive BSGs/GLU's > 140 * Fasting BSG 127-153 this AM after receiving 8 units Lantus and 2 units Novolog correction last evening * Will initiated basal/bolus regimen based upon weight + moderate stress level. PO hypoglycemics will be held initially. PLAN FOR INPATIENT GLYCEMIC CONTROL: * Hold outpatient oral diabetes medications * Basal insulin * Lantus SQ 15 units SQ daily * Bolus insulin * NovoLog per scale ACHS or Q6hrs while NPO * Goal Range: Low 110 mg/dL - High 140 mg/dL * Correction Factor: 25 mg/dL/unit * Nutritional / Prandial insulin per carb ratio of 1 unit per 8 grams CHO consumed PLAN FOR DISCHARGE: * may resume home regimen of metformin + linagliptin (if no contraindications present at time of discharge ) given recent A1c near goal
[2019-12-23] MEDS ORDERED: STROKE PATIENT DISCHARGE STA (15:41)
--- NOTE | 2019-12-23 16:53 | Pharmacy Report ---
Pharmacist Stroke Counseling - Date of Service December 23, 2019 - Scope: Pharmacy has been consulted to provide medication discharge counseling for this patient admitted with ischemic stroke as per the Pharmacist Discharge Counseling for Stroke Patients Protocol. - Medications on Discharge: Home Medications Medication Instructions Recorded Confirmed Prilosec OTC 20 mg PO QAM 07/20/19 12/20/19 Tradjenta 5 mg PO QAM 07/20/19 12/20/19 Women's One Daily 1 tab PO QAM 07/20/19 12/20/19 coenzyme Q10 [Co Q-10] 10 mg PO QAM 07/20/19 12/20/19 cyanocobalamin (vitamin B-12) 1,000 mcg PO QAM 07/20/19 12/20/19 [Vitamin B-12] garlic 500 mg PO QAM 07/20/19 12/20/19 loratadine 10 mg PO DAILY 07/20/19 12/20/19 lorazepam 1 mg PO DAILY PRN 07/20/19 12/20/19 meloxicam 15 mg PO QAM 07/20/19 12/20/19 metformin 1,000 mg PO BIDM 07/20/19 12/20/19 magnesium oxide 500 mg PO DAILY 12/20/19 12/20/19 methocarbamol 500 mg PO QID 12/20/19 12/20/19 montelukast 10 mg PO DAILY 12/20/19 12/20/19 New Rx's Medication Instructions Recorded amlodipine [Norvasc] 10 mg PO QAM PRN #60 tab 12/23/19 aspirin 81 mg PO QAM #21 tab 12/23/19 atorvastatin 40 mg PO QAM 30 Days #30 tab 12/23/19 clopidogrel 75 mg PO QAM #30 tab 12/23/19 doxycycline hyclate 100 mg PO BID 7 Days #14 cap 12/23/19 metoprolol tartrate 25 mg PO BID 30 Days #60 tab 12/23/19 - Action: The above medications, specifically ones for stroke treatment/prophylaxis, have been reviewed in detail with the patient and/or patient compliance representative(s) prior to discharge. This includes indication, common adverse reactions, drug interactions, and medication administration. Medication counseling has been employed using the teach-back method to ensure understanding. - Outcome: The patient has demonstrated understanding of the medications. Please note, they are aware that the pharmacist will call them within 72 hours post-discharge to confirm that the appropriate medications are being taken and answer any further medication related questions the patient might have at that time. Contact information Individual to be contacted: Iman (patient) Phone number: [phone] Best time to call: Anytime of day Additional comments: - Counseled patient on all new medications including non-stroke related medications - With addition of amlodipine and metoprolol, recommended patient purchase a blood pressure cuff and log recordings for outpatient follow-up appointments - Encouraged patient to finish entire antibiotic prescription despite if her symptoms improve prior to finishing all tablets - Recommended patient avoid Meloxicam and Prilosec until she is able to follow- up with outpatient physician. In the meantime, recommended OTC tylenol for arthritis and OTC lansoprazole for GERD. Recommended patient ask pcp about protonix prescription if symptoms are uncontrolled while off omeprazole. - Patient reports trying many statins over the years without success secondary to myalgias. Encouraged patient to take atorvastatin and explained the importance of these medications. - Lastly, patient is to continue aspirin 81 mg po daily with plavix 75 mg po daily for 21 days. Then, discontinue the aspirin and continue plavix for life. Thank you for allowing pharmacy to be involved in the care of this patient. Please call [phone] or [phone] with any additional questions - Discharge Information: Pharmacists Notes:: Patient seemed to be hesitant about all these new meds. She is to clarify her home vitamin D dose with us on phone call. Also seemed confused as to whether she took loratadine, montelukast or both. Maybe explain 10-year ASCVD risk to patient: 33.4% w/o lipitor vs 25.1% with lipitor.
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
--- NOTE | 2019-12-26 11:11 | Pharmacy Report ---
Pharmacist Post D/C Phone Note - Phone Note: Date of phone call: December 26, 2019. Individual with whom pharmacist spoke to: GRANT MARTINEZ The following questions were reviewed during the phone call with responses listed below each: Can you tell me the medications that you are currently taking as well as when and how you take each medication? -See Table Below When have you missed any doses of your medications? - [] What side effects are you having from your medications, specifically, the new medications you were started on? - [] What questions do you have about your medications? - [] What problems are you having obtaining your medications? - [] When is your next appointment with your primary care doctor? - [] Additional comments: - [] As per the Pharmacist Discharge Counseling for Stroke Patients Protocol, this phone call has been completed within 72 hours of discharge. Thank you for allowing us to be involved in the care of this patient. OR The patient and/or patient transportation services representative(s) were unable to be reached for a follow-up phone call within the 72 hour time frame. Discharge counseling pharmacist contact information has already been provided to the patient should questions arise. Thank you for allowing us to be involved in the care of this patient. - Home Medications: Home Medications Medication Instructions Recorded Confirmed Prilosec OTC 20 mg PO QAM 07/20/19 12/20/19 Tradjenta 5 mg PO QAM 07/20/19 12/20/19 Women's One Daily 1 tab PO QAM 07/20/19 12/20/19 coenzyme Q10 [Co Q-10] 10 mg PO QAM 07/20/19 12/20/19 cyanocobalamin (vitamin B-12) 1,000 mcg PO QAM 07/20/19 12/20/19 [Vitamin B-12] garlic 500 mg PO QAM 07/20/19 12/20/19 loratadine 10 mg PO DAILY 07/20/19 12/20/19 lorazepam 1 mg PO DAILY PRN 07/20/19 12/20/19 meloxicam 15 mg PO QAM 07/20/19 12/20/19 metformin 1,000 mg PO BIDM 07/20/19 12/20/19 magnesium oxide 500 mg PO DAILY 12/20/19 12/20/19 methocarbamol 500 mg PO QID 12/20/19 12/20/19 montelukast 10 mg PO DAILY 12/20/19 12/20/19 New Rx's Medication Instructions Recorded amlodipine [Norvasc] 10 mg PO QAM PRN #60 tab 12/23/19 aspirin 81 mg PO QAM #21 tab 12/23/19 atorvastatin 40 mg PO QAM 30 Days #30 tab 12/23/19 clopidogrel 75 mg PO QAM #30 tab 12/23/19 doxycycline hyclate 100 mg PO BID 7 Days #14 cap 12/23/19 metoprolol tartrate 25 mg PO BID 30 Days #60 tab 12/23/19
--- NOTE | 2019-12-26 11:23 | Pharmacy Report ---
Pharmacist Post D/C Phone Note - Phone Note: Date of phone call: December 26, 2019. Individual with whom pharmacist spoke to: GRANT Tavo MARTINEZ The following questions were reviewed during the phone call with responses listed below each: Can you tell me the medications that you are currently taking as well as when and how you take each medication? -See Table Below When have you missed any doses of your medications? - none What side effects are you having from your medications, specifically, the new medications you were started on? - has noted n/v since discharge What questions do you have about your medications? - see below What problems are you having obtaining your medications? - none When is your next appointment with your primary care doctor? - tomorrow Additional comments: - Patient states she has had nausea/vomiting/diarrhea since discharge, poor po intake. She was asking if any of her medications could be causing these issues. I mentioned possibly antibiotic. Emphasized importance of drinking lots of water and staying hydrated. Patient confirmed that she was. Mentioned she could take something OTC for n/v if needed such as Pepto bismol. Recommended to only take a couple doses since interaction with aspirin noted and then follow up with provider tomorrow for something else if it continues - patient aware. Talked about continuation of aspirin/plavix x 3 weeks, then plavix alone. Patient no longer taking omeprazole and was using famotidine otc which she is not sure if it is providing relief. Suggested protonix if ppi is needed. No longer taking claritin or meloxicam. Using APAP instead if needed for pain. Amlodipine listed as prn on med rec - she states she has been taking daily. Did recommend that she follow up with her PCP for specific parameters on when to take medication (e.g SBP greater than #). No other pertinent positives on interv iew today, no other concerns As per the Pharmacist Discharge Counseling for Stroke Patients Protocol, this phone call has been completed within 72 hours of discharge. Thank you for allowing us to be involved in the care of this patient. - Home Medications: Home Medications Medication Instructions Recorded Confirmed Prilosec OTC 20 mg PO QAM 07/20/19 12/20/19 Tradjenta 5 mg PO QAM 07/20/19 12/20/19 Women's One Daily 1 tab PO QAM 07/20/19 12/20/19 coenzyme Q10 [Co Q-10] 10 mg PO QAM 07/20/19 12/20/19 cyanocobalamin (vitamin B-12) 1,000 mcg PO QAM 07/20/19 12/20/19 [Vitamin B-12] garlic 500 mg PO QAM 07/20/19 12/20/19 lorazepam 1 mg PO DAILY PRN 07/20/19 12/20/19 metformin 1,000 mg PO BIDM 07/20/19 12/20/19 magnesium oxide 500 mg PO DAILY 12/20/19 12/20/19 methocarbamol 500 mg PO QID 12/20/19 12/20/19 montelukast 10 mg PO DAILY 12/20/19 12/20/19 cholecalciferol (vitamin D3) 1,000 unit PO DAILY 12/26/19 12/26/19 New Rx's Medication Instructions Recorded amlodipine [Norvasc] 10 mg PO QAM PRN #60 tab 12/23/19 aspirin 81 mg PO QAM #21 tab 12/23/19 atorvastatin 40 mg PO QAM 30 Days #30 tab 12/23/19 clopidogrel 75 mg PO QAM #30 tab 12/23/19 doxycycline hyclate 100 mg PO BID 7 Days #14 cap 12/23/19 metoprolol tartrate 25 mg PO BID 30 Days #60 tab 12/23/19
== END 2019-12-23 17:02 | disposition home or self-care (01) | DRG 92 ==
LOC: ED 15:34 → 1E 16:57 → 2S 12-21 16:36

== ENCOUNTER 2020-01-03 14:45 | Observation (INO) ==
[2020-01-03] MEDS ORDERED: ASPIRIN CHEW 324 MG PO STA (16:10)
[2020-01-03] MEDS ORDERED: NITROGLYCERIN SL 0.4 MG/TAB TAB SL ONE (16:11)
--- NOTE | 2020-01-03 16:22 | XRay Report ---
XR chest 1V portable CLINICAL HISTORY: Chest Pain COMPARISON STUDY: 12/20/2019 FINDINGS: The bones soft tissues and hemidiaphragms are normal. The cardiomediastinal silhouette is n ormal. The lungs are clear. The pulmonary vasculature is normal. IMPRESSION: Negative chest. ACT 112: Negative or not required by law. The above report was generated using voice recognition software. It may contain grammatical, syntax or spelling errors. Electronically signed by: Jelani Barrow M.D. 01/03/2020 4:21 PM
[2020-01-03 17:13] LABS: Basophils # (auto) 0.03 K/uL (0-0.2); Basophils % (auto) 0.4 %; Eosinophils # (auto) 0.28 K/uL (0-0.5); Eosinophils % (auto) 3.3 %; Hematocrit (blood only) 37.5 % (37-47); Hemoglobin 12.5 g/dL (12.0-16.0); Immature Granulocytes # (auto) 0.01 K/uL (0.00-0.02); Immature Granulocytes % (auto) 0.1 %; Lymphocytes # (auto) 2.89 K/uL (1.2-3.4); Lymphocytes % (auto) 34.1 %; Mean Corpuscular Hemoglobin 30.5 pg (25-34); Mean Corpuscular Hgb Conc 33.3 g/dL (32-36); Mean Corpuscular Volume 91.5 fL (80-100); Mean Platelet Volume 9.8 fL (7.4-10.4); Monocytes # (auto) 0.52 K/uL (0.11-0.59); Monocytes % (auto) 6.1 %; Neutrophils # (auto) 4.74 K/uL (1.4-6.5); Platelet Count 246 K/uL (130-400); RDW Coefficient of Variation 12.9 % (11.5-14.5); RDW Standard Deviation 43.2 fL (36.4-46.3); White Blood Count 8.47 K/uL (4.8-10.8)
[2020-01-03 17:24] LABS: Partial Thromboplastin Time 27.2 Seconds (21.0-31.0); Prothrombin Time 10.6 Seconds (9.0-12.0)
[2020-01-03 17:31] LABS: Alanine Aminotransferase 29 U/L (12-78); Albumin Level 4.4 gm/dl (3.4-5.0); Aspartate Aminotransferase 15 U/L (15-37); Blood Urea Nitrogen 24 mg/dl (7-18); Calcium 9.9 mg/dl (8.5-10.1); Carbon Dioxide 22 mmol/L (21-32); Chloride 107 mmol/L (98-107); Creatinine Clr Calc Pharmacy 60.4 ml/min; Est GFR (African American) 67.5; Est GFR (Non-African American) 58.2; Glucose 147 mg/dl (70-99); Lipase 122 U/L (73-393); Potassium 3.3 mmol/L (3.5-5.1); Sodium 141 mmol/L (136-145)
[2020-01-03 17:36] LABS: Albumin Globulin Ratio 1.3 (0.9-2); Alkaline Phosphatase 88 U/L (45-117); Bilirubin,Total 0.2 mg/dl (0.2-1); Globulin 3.3 gm/dl (2.5-4.0); Total Protein 7.7 gm/dl (6.4-8.2); Troponin I < 0.015 ng/ml (0-0.045)
--- NOTE | 2020-01-03 18:54 | History & Physical Report ---
Date of Service January 03, 2020 Assessment & Plan (1) Atypical chest pain: Has been complaining of chest pressure since Thursday last Associated with neck pain and shortness of breath at times EKG did show nonspecific ST-T wave changes and troponin was less than 0.015 She was admitted to telemetry unit Serial cardiac enzymes and electrocardiogram requested Stress echo in the morning (2) Exertional shortness of breath: Weakness and tiredness since August Has not been feeling better since 23 December following an attack of TIA status post TPA Has been a smoker with early emphysematous changes in the lung Will ask for pulmonary function test (3) Hypertension: Blood pressure is controlled We will continue current medications (4) Diabetes: We will continue her current medications Hold metformin SSI (5) HLD (hyperlipidemia): Continue statin Liver function remain stable and normal DVT prophylaxis Subcu heparin CODE STATUS Full History of Present Illness Chief Complaint: Exertional shortness of breath with chest pain Primary Care Provider: Leta Maher DO She is a 64-year-old female with significant past medical history diabetes type 2, hypertension, hyperlipidemia, GERD and recent attack of TIA status post TPA without any stroke apparently has been complaining of periodic chest pain associated with neck pain and exertional shortness of breath since Thursday last. She was discharged from the hospital on 23 December following an attack of TIA without a stroke and sinusitis. She has been feeling better since discharge and complains to have exertional shortness of breath since August of last year. She has been complaining of more tiredness associated with some chest pressure since Thursday. She also has had chest pressure and neck pain cHIEF COMPLAINT: Shortness of breath today and she was advised to come to the emergency room by the home health nurse. She denies any fever and/or chills, any abdominal pain nausea no vomiting, any numbness or tingling involving any of the extremities, any visual symptoms or any weakness involving any side of the body. Denies any problem with bowel and/or bladder function. She is free of pain in the emergency room and apparent investigations showed nonspecific ST-T wave changes and EKG without any elevation of troponin. She was admitted to telemetry unit to rule out and possible stress test tomorrow morning. Allergies Allergy/AdvReac Type Severity Reaction Status Date / Time Penicillins Allergy Intermediate Hives Verified 01/03/20 16:42 Sulfa (Sulfonamide Allergy Intermediate Hives Verified 01/03/20 16:42 Antibiotics) albiglutide Allergy Unknown Abdominal Verified 01/03/20 16:42 pain,nausea,vomiting,rash and itchiness clindamycin Allergy Unknown Hives Verified 01/03/20 16:42 Corticosteroids Allergy Unknown Unknown Verified 01/03/20 16:42 (Glucocorticoids) Home Medications Home Medications Medication Instructions Recorded Confirmed Type Tradjenta 5 mg PO QAM 07/20/19 01/03/20 History Women's One Daily 1 tab PO QAM 07/20/19 01/03/20 History coenzyme Q10 [Co Q-10] 10 mg PO QAM 07/20/19 01/03/20 History cyanocobalamin (vitamin B-12) 1,000 mcg PO QAM 07/20/19 01/03/20 History [Vitamin B-12] garlic 500 mg PO QAM 07/20/19 01/03/20 History lorazepam 1 mg PO DAILY PRN 07/20/19 01/03/20 History metformin 1,000 mg PO BIDM 07/20/19 01/03/20 History magnesium oxide 500 mg PO QAM 12/20/19 01/03/20 History aspirin 81 mg PO QAM #21 tab 12/23/19 01/03/20 Rx atorvastatin 40 mg PO QAM 30 Days #30 tab 12/23/19 01/03/20 Rx metoprolol tartrate 25 mg PO BID 30 Days #60 tab 12/23/19 01/03/20 Rx cholecalciferol (vitamin D3) 1,000 unit PO QAM 12/26/19 01/03/20 History amlodipine 10 mg PO QAM 01/03/20 01/03/20 History omeprazole magnesium [Prilosec OTC] 20 mg PO QAM 01/03/20 01/03/20 History Past Med/Surg History Medical History (Updated 01/03/20 @ 18:49 by Felipe Begum MD) Diabetes GERD (gastroesophageal reflux disease) HLD (hyperlipidemia) Family History (Updated 12/20/19 @ 19:34 by Nicole Mcallister PA-C) Father , 62 from CVA Stroke, Onset Age: 40 Social History Preferred Language: [place] Leonean Communication Ability: Effective 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 Beliefs That Will Affect Care: None Feels Safe at Home: Yes Smoking Status: Current every day smoker Hx Alcohol Use: No Hx Substance Use: Yes substance use type: marijuana Last Used Substance: Days (ago) Review of Systems Review of Systems: All systems reviewed & are unremarkable except as noted in HPI & below Physical Exam Physical Exam: Lying in bed comfortably Constitutional: well developed, well nourished, + ill appearing and + obese; no acute distress Eyes: PERRL, conjunctivae normal, anicteric sclerae ENMT: external ear and nose normal, oropharynx normal Neck: trachea midline, no thyromegaly Respiratory: normal respiratory effort Auscultation: lungs clear to auscultation bilaterally Cardiovascular: Rate/Rhythm: regular rate and regular rhythm Heart Sounds: no murmur Gastrointestinal (Abdomen): Inspection/Auscultation: abdomen normal to inspection and normal bowel sounds Percussion/Palpation: abdomen soft; abdomen nontender Musculoskeletal: Head/Neck/Chest: neck supple Tenderness over the lower neck bilaterally Neurologic: moves all extremities; no focal motor deficits Lymphatic: no cervical or axillary lymphadenopathy Results & Data Vital Signs (Past 12 Hours) Vital Signs Temp Pulse Resp BP Pulse Ox 01/03/20 17:39 97 H 18 126/60 95 01/03/20 17:33 88 22 124/61 95 01/03/20 17:30 89 18 01/03/20 17:09 90 17 01/03/20 14:49 36.7 C 87 141/79 H 98 Laboratory Results Short CBC 01/03/20 Range/Units 16:56 WBC 8.47 (4.8-10.8) K/uL Hgb 12.5 (12.0-16.0) g/dL Hct 37.5 (37-47) % Plt Count 246 (130-400) K/uL BMP 01/03/20 16:56 Sodium 141 Potassium 3.3 L Chloride 107 Carbon Dioxide 22 BUN 24 H Creatinine 1.03 Glucose 147 H Calcium 9.9 Cardiac Enzymes 01/03/20 Range/Units 16:56 Troponin I < 0.015 (0-0.045) ng/ml Liver Function 01/03/20 Range/Units 16:56 Total Bilirubin 0.2 (0.2-1) mg/dl AST 15 (15-37) U/L ALT 29 (12-78) U/L Alkaline Phosphatase 88 (45-117) U/L Albumin 4.4 (3.4-5.0) gm/dl Medications Administered Current Inpatient Medications Heparin Sodium (Porcine) (Heparin Sodium (Porcine)) 5,000 units SQ Q12 THAI Stop: 02/02/20 20:59 Code Status & VTE Plan VTE Prophylaxis Plan VTE Prophylaxis will be ordered: Yes (1) Hypertension Hypertension type: unspecified Qualified Code(s): I10 - Essential (primary) hypertension
[2020-01-03] MEDS ORDERED: POTASSIUM CHLORIDE 20 MEQ TABCR PO STA (18:55)
[2020-01-03] MEDS ORDERED: LORazepam 1 MG TAB PO PRN (19:51)
[2020-01-03] MEDS: METOPROLOL TARTRATE 25 MG TAB PO SCH (21:27)
[2020-01-03] MEDS: HEPARIN SOD 5,000 UNIT/0.5 ML VIAL SQ SCH (21:27)
[2020-01-03] MEDS: INSULIN ASPART 100 UNITS/ML 3 ML PEN SC SCH (21:28)
--- NOTE | 2020-01-03 23:08 | Emergency Department Note ---
Entered by Jesus Sorto acting as a scribe for History of Present Illness General Chief complaint: Cardiac Assessment Stated complaint: CHEST AND BACK PAIN, SOB Time Seen by Provider: 01/03/20 16:02 Source: patient History of Present Illness Onset (ago): day(s) 2 Location: chest Pain Consistency: + constant Maximum Pain Intensity: 5 Current Pain Intensity: 5 Quality: + other (heaviness) Associated symptoms: + denies other symptoms (fevers, leg swelling, leg pain), + shortness of breath (with exertion) and + other (back, shoulder, neck heaviness) The patient is a 64 y/o female who presents to the ED w/ CC of constant chest heaviness beginning two days ago. She currently rates her discomfort a 5/10 in severity. The patient states she developed her chest discomfort two days ago, and it feels like there is a brick on her chest. She reports her heaviness radiates into her back, shoulders, and neck. The patient notes she was not able to function normally at work today because exertion causes her to become very short of breath. She states she is also sweating. The patient denies fevers, leg swelling, and leg pain. She reports she just got over a sinus infection. She denies any prior history of coronary artery disease. Home Medications Home Medications Medication Instructions Recorded Confirmed Type Tradjenta 5 mg PO QAM 07/20/19 01/03/20 History Women's One Daily 1 tab PO QAM 07/20/19 01/03/20 History coenzyme Q10 [Co Q-10] 10 mg PO QAM 07/20/19 01/03/20 History cyanocobalamin (vitamin B-12) 1,000 mcg PO QAM 07/20/19 01/03/20 History [Vitamin B-12] garlic 500 mg PO QAM 07/20/19 01/03/20 History lorazepam 1 mg PO DAILY PRN 07/20/19 01/03/20 History metformin 1,000 mg PO BIDM 07/20/19 01/03/20 History magnesium oxide 500 mg PO QAM 12/20/19 01/03/20 History aspirin 81 mg PO QAM #21 tab 12/23/19 01/03/20 Rx atorvastatin 40 mg PO QAM 30 Days #30 tab 12/23/19 01/03/20 Rx metoprolol tartrate 25 mg PO BID 30 Days #60 tab 12/23/19 01/03/20 Rx cholecalciferol (vitamin D3) 1,000 unit PO QAM 12/26/19 01/03/20 History amlodipine 10 mg PO QAM 01/03/20 01/03/20 History omeprazole magnesium [Prilosec OTC] 20 mg PO QAM 01/03/20 01/03/20 History Allergies Allergy/AdvReac Type Severity Reaction Status Date / Time Penicillins Allergy Intermediate Hives Verified 01/03/20 16:42 Sulfa (Sulfonamide Allergy Intermediate Hives Verified 01/03/20 16:42 Antibiotics) albiglutide Allergy Unknown Abdominal Verified 01/03/20 16:42 pain,nausea,vomiting,rash and itchiness clindamycin Allergy Unknown Hives Verified 01/03/20 16:42 Corticosteroids Allergy Unknown Unknown Verified 01/03/20 16:42 (Glucocorticoids) Past Med/Surg History Medical History Diabetes GERD (gastroesophageal reflux disease) HLD (hyperlipidemia) Surgical History History of partial hysterectomy History of sinus surgery Family History Father , 62 from CVA Stroke, Onset Age: 40 Social History Preferred Language: Frisian Communication Ability: Effective Professor Of Geology Required: No Beliefs That Will Affect Care: None Current Living Situation: Alone Other Information That Helps Us Care for You: No Feels Safe at Home: Yes Safety Concerns: Feels Safe At This Time Smoking Status: Former smoker Do You Dip or Chew Tobacco: No ; Second Hand Exposure: No ; Tobacco Cessation Education Requested by Patient: No Hx Alcohol Use: Yes Alcohol type: hard liquor Hx Substance Use: Yes substance use type: does not use Last Used Substance: Days (ago) Review of Systems See HPI for pertinent positives & negatives. and A total of 10 systems reviewed and were otherwise negative Physical Exam Vital Signs Vital Signs - 24 hr 01/03/20 14:49 01/03/20 17:09 01/03/20 17:30 Temperature 36.7 C Temperature Source Oral Pulse Rate 87 90 89 Pulse Rate from SpO2 Sensor Respiratory Rate 17 18 Respiratory Effort / Characteristics Non-Labored Respiratory Depth Normal Blood Pressure 141/79 H Blood Pressure Mean 99 Pulse Oximetry 98 Oxygen Delivery Method Room Air Sepsis Recent Fever Within 48 Hours No Sepsis New/Unexplained Change in Mental Status No Sepsis Action Taken by Nursing No Action Required 01/03/20 17:33 01/03/20 17:39 01/03/20 18:00 Temperature Temperature Source Pulse Rate 88 97 H 90 Pulse Rate from SpO2 Sensor 88 97 H 89 Respiratory Rate 22 18 20 Respiratory Effort / Characteristics Respiratory Depth Blood Pressure 124/61 126/60 130/64 Blood Pressure Mean 83 89 78 Pulse Oximetry 95 95 96 Oxygen Delivery Method Sepsis Recent Fever Within 48 Hours Sepsis New/Unexplained Change in Mental Status Sepsis Action Taken by Nursing 01/03/20 18:31 Temperature Temperature Source Pulse Rate 86 Pulse Rate from SpO2 Sensor 86 Respiratory Rate 15 Respiratory Effort / Characteristics Respiratory Depth Blood Pressure 155/81 H Blood Pressure Mean 105 Pulse Oximetry 96 Oxygen Delivery Method Sepsis Recent Fever Within 48 Hours Sepsis New/Unexplained Change in Mental Status Sepsis Action Taken by Nursing Constitutional: Vital signs reviewed. Eyes: Pupils are equal round reactive to light. Conjunctiva are noninjected. ENT: Pharynx is clear without erythema or exudate. Mucous membranes are moist. Neck supple without meningeal signs. Respiratory: Clear to auscultation bilaterally. Breath sounds are equal bilaterally. Cardiovascular: Regular rate and rhythm. No rubs or gallops. GI: Soft, nondistended and nontender. Bowel sounds are present. Musculoskeletal: No peripheral edema. No lower extremity tenderness. Integumentary: No cyanosis. Neurological: The patient is awake and alert. No focal deficits. Psychiatric: Normal affect. Course Course 1607: The patient was evaluated in room B02. A complete history and physical exam was performed. 1730: The patient is still having her symptoms and does not feel better. She has not received her nitroglycerin yet. 180: Upon reevaluation, the patient is resting comfortably. Her chest pain resolved with the sublingual nitroglycerin. I discussed laboratory and radiographic results with her. She verbalized agreement of the treatment plan. The patient will be evaluated for further management and care. 180: I reviewed the patient's case with Dr. Begum, [facility]. The patient will be evaluated for further management. Administered Medications Heparin Sodium (Porcine) (Heparin Sodium (Porcine)) 5,000 units SQ Q12 THAI Stop: 02/02/20 20:59 Last Admin: 01/03/20 21:27 Dose: 5,000 units Documented by: [id number] Cosigned by: [id number] Insulin Aspart (Novolog Flexpen) 0 units SC ACHS THAI Stop: 02/02/20 20:59 Last Admin: 01/03/20 21:28 Dose: 3 units Documented by: [id number] Cosigned by: [id number] Metoprolol Tartrate (Lopressor) 25 mg PO BID THAI Stop: 02/02/20 20:59 Last Admin: 01/03/20 21:27 Dose: 25 mg Documented by: [id number] Discontinued Medications Aspirin (Aspirin) 324 mg PO NOW STA Stop: 01/03/20 16:11 Last Admin: 01/03/20 17:33 Dose: 324 mg Documented by: [id number] Nitroglycerin (Nitrostat) 0.4 mg SL UD ONE Stop: 01/03/20 16:12 Last Admin: 01/03/20 17:33 Dose: 0.4 mg Documented by: [id number] Potassium Chloride (Klor-Con M20) 40 meq PO NOW STA Stop: 01/03/20 18:56 Last Admin: 01/03/20 21:25 Dose: 40 meq Documented by: [id number] Medical Decision Making Differential Diagnosis Differential diagnosis includes: unstable angina, [place], GERD, pneumonia, pleurisy. Medical Records Attestation: I reviewed the patient's medical records. I did perform a limited focused review of portions of the patient's old chart on the electronic medical record. The patient was admitted on December 20 for stroke-like symptoms and given tPA. She was diagnosed with a TIA and sinusitis. Her MRI showed sinusitis. She has a history of migraines. Home Medications Current Medication List: was personally reviewed by me Laboratory Data Attestation: I reviewed the patient's lab results. Result diagrams: 01/03/20 16:56 01/03/20 16:56 Lab Results 01/03/20 01/03/20 01/03/20 Range/Units 16:56 16:56 16:56 WBC 8.47 (4.8-10.8) K/uL RBC 4.10 L (4.2-5.4) M/uL Hgb 12.5 (12.0-16.0) g/dL Hct 37.5 (37-47) % MCV 91.5 (80-100) fL MCH 30.5 (25-34) pg MCHC 33.3 (32-36) g/dL RDW Std Deviation 43.2 (36.4-46.3) fL RDW Coeff of Brittney 12.9 (11.5-14.5) % Plt Count 246 (130-400) K/uL MPV 9.8 (7.4-10.4) fL Immature Gran % (Auto) 0.1 % Neut % (Auto) 56.0 % Lymph % (Auto) 34.1 % Collier % (Auto) 6.1 % Eos % (Auto) 3.3 % Baso % (Auto) 0.4 % Immature Gran # (Auto) 0.01 (0.00-0.02) K/uL Neut # (Auto) 4.74 (1.4-6.5) K/uL Lymph # (Auto) 2.89 (1.2-3.4) K/uL Collier # (Auto) 0.52 (0.11-0.59) K/uL Eos # (Auto) 0.28 (0-0.5) K/uL Baso # (Auto) 0.03 (0-0.2) K/uL PT 10.6 (9.0-12.0) Seconds INR 1.0 (0.9-1.1) APTT 27.2 (21.0-31.0) Seconds PTT Ratio 1.0 Sodium 141 (136-145) mmol/L Potassium 3.3 L (3.5-5.1) mmol/L Chloride 107 (98-107) mmol/L Carbon Dioxide 22 (21-32) mmol/L Anion Gap 12.0 H (3-11) BUN 24 H (7-18) mg/dl Creatinine 1.03 (0.6-1.2) mg/dl Est Cr Clr Drug Dosing 60.4 ml/min Est GFR ( Amer) 67.5 Est GFR (Non-Af Amer) 58.2 BUN/Creatinine Ratio 23.0 H (10-20) Glucose 147 H (70-99) mg/dl Calcium 9.9 (8.5-10.1) mg/dl Total Bilirubin 0.2 (0.2-1) mg/dl AST 15 (15-37) U/L ALT 29 (12-78) U/L Alkaline Phosphatase 88 (45-117) U/L Troponin I < 0.015 (0-0.045) ng/ml Total Protein 7.7 (6.4-8.2) gm/dl Albumin 4.4 (3.4-5.0) gm/dl Globulin 3.3 (2.5-4.0) gm/dl Albumin/Globulin Ratio 1.3 (0.9-2) Lipase 122 (73-393) U/L /01/19 Range/Units 16:56 WBC (4.8-10.8) K/uL RBC (4.2-5.4) M/uL Hgb (12.0-16.0) g/dL Hct (37-47) % MCV (80-100) fL MCH (25-34) pg MCHC (32-36) g/dL RDW Std Deviation (36.4-46.3) fL RDW Coeff of Brittney (11.5-14.5) % Plt Count (130-400) K/uL MPV (7.4-10.4) fL Immature Gran % (Auto) % Neut % (Auto) % Lymph % (Auto) % Collier % (Auto) % Eos % (Auto) % Baso % (Auto) % Immature Gran # (Auto) (0.00-0.02) K/uL Neut # (Auto) (1.4-6.5) K/uL Lymph # (Auto) (1.2-3.4) K/uL Collier # (Auto) (0.11-0.59) K/uL Eos # (Auto) (0-0.5) K/uL Baso # (Auto) (0-0.2) K/uL PT (9.0-12.0) Seconds INR (0.9-1.1) APTT (21.0-31.0) Seconds PTT Ratio Sodium (136-145) mmol/L Potassium (3.5-5.1) mmol/L Chloride (98-107) mmol/L Carbon Dioxide (21-32) mmol/L Anion Gap (3-11) BUN (7-18) mg/dl Creatinine (0.6-1.2) mg/dl Est Cr Clr Drug Dosing ml/min Est GFR ( Amer) Est GFR (Non-Af Amer) BUN/Creatinine Ratio (10-20) Glucose (70-99) mg/dl Calcium (8.5-10.1) mg/dl Total Bilirubin (0.2-1) mg/dl AST (15-37) U/L ALT (12-78) U/L Alkaline Phosphatase (45-117) U/L Troponin I (0-0.045) ng/ml Total Protein (6.4-8.2) gm/dl Albumin (3.4-5.0) gm/dl Globulin (2.5-4.0) gm/dl Albumin/Globulin Ratio (0.9-2) Lipase Cancelled (73-393) U/L Imaging Data Radiologist's Impression: Radiology results as stated below per my review and the radiologist's interpretation: XR chest 1V portable CLINICAL HISTORY: Chest Pain COMPARISON STUDY: 12/20/2019 FINDINGS: The bones soft tissues and hemidiaphragms are normal. The cardiomediastinal silhouette is normal. The lungs are clear. The pulmonary vasculature is normal. IMPRESSION: Negative chest. ACT 112: Negative or not required by law. The above report was generated using voice recognition software. It may contain grammatical, syntax or spelling errors. Electronically signed by: Jelani Barrow M.D. 01/03/2020 4:21 PM ECG Data Attestation: I personally reviewed and interpreted this ECG as follows: Indication: + chest pain Rate (beats per minute): 83 Rhythm: + normal sinus ECG ST segments: + ST depression (Lateral); no ST elevation ECG Findings: + Q waves (Lead III); no PVCs Additional Comments: REPEAT EKG IN THE SAME ED VISIT: Normal sinus with a rate of 96. Continued ST depression in the high lateral leads. No PVCs. No heart block. No ST elevation. Blood Pressure Blood Pressure Findings: Elevated blood pressure Blood Pressure Disposition: further management by hospitalist [facility] Narrative I did evaluate the patient as noted above. The patient is presenting with chest pain. She describes it as a brick sitting on her chest with radiation to her arm neck and back. She is also short of breath and sweaty with it. She is currently having 5 out of 10 pain. IV access was established. The patient was placed on a continuous hall monitor. I did order and personally review the patient's 12-lead EKG as described above. There are ST depressions in the lateral leads. There is no ST elevation. I did treat the patient with nitroglycerin sublingually and aspirin. I did order and personally reviewed the images of the patient's chest x-ray as described above. There is no evidence of acute process. I did order and review the patient's blood work as noted in the electronic medical record. CBC is unremarkable. Electrolytes are remarkable for a potassium of 3.3. Troponin is negative. I did reassess the patient. Her chest pain is now completely resolved after the nitroglycerin. I did repeat a second twelve-lead EKG which shows persistent ST depressions. I did recommend hospitalization for further care and evaluation. I did discuss the case with the hospitalist and community case manager. Continuous Cardiac Monitoring: An order was placed for continuous cardiac monitoring due to chest pain and an abnormal EKG. The monitor shows a rate of 89 with a normal sinus rhythm. Impression & Plan Chest pain, precordial, Abnormal electrocardiogram, Acute hypokalemia Discharge Plan Visit Data *Final* Discharge Date/Time: 01/03/20 19:17 Chief Complaint: Cardiac Assessment Stated Complaint: CHEST AND BACK PAIN, SOB ED Provider: Gilberto Fang Discharge Problem: Chest pain, precordial, Abnormal electrocardiogram, Acute hypokalemia Patient Disposition: Being Evaluated by Hospitalist Discharge Instructions Interventions: ED Discharge Assessment Last Done: 01/03/20 19:17 The scribe's documentation has been prepared under my direction and personally reviewed by me in its entirety. I confirm that the note above accurately reflects all work, treatment, procedures, and medical decision making performed by me.
[2020-01-04 07:40] LABS: Basophils # (auto) 0.02 K/uL (0-0.2); Basophils % (auto) 0.4 %; Eosinophils # (auto) 0.21 K/uL (0-0.5); Eosinophils % (auto) 4.2 %; Hematocrit (blood only) 33.4 % (37-47); Hemoglobin 11.1 g/dL (12.0-16.0); Lymphocytes # (auto) 1.83 K/uL (1.2-3.4); Lymphocytes % (auto) 36.7 %; Mean Corpuscular Hemoglobin 30.1 pg (25-34); Mean Corpuscular Hgb Conc 33.2 g/dL (32-36); Mean Corpuscular Volume 90.5 fL (80-100); Mean Platelet Volume 9.9 fL (7.4-10.4); Monocytes # (auto) 0.37 K/uL (0.11-0.59); Monocytes % (auto) 7.4 %; Neutrophils # (auto) 2.55 K/uL (1.4-6.5); Neutrophils % (auto) 51.3 %; Platelet Count 205 K/uL (130-400); RDW Coefficient of Variation 12.9 % (11.5-14.5); RDW Standard Deviation 42.3 fL (36.4-46.3); Red Blood Count 3.69 M/uL (4.2-5.4); White Blood Count 4.98 K/uL (4.8-10.8)
[2020-01-04] MEDS: METOPROLOL TARTRATE 25 MG TAB PO SCH (07:55)
[2020-01-04] MEDS: HEPARIN SOD 5,000 UNIT/0.5 ML VIAL SQ SCH (07:58)
[2020-01-04 08:25] LABS: BUN Creatinine Ratio 28.4 (10-20); Blood Urea Nitrogen 21 mg/dl (7-18); Calcium 9.3 mg/dl (8.5-10.1); Carbon Dioxide 26 mmol/L (21-32); Chloride 110 mmol/L (98-107); Creatinine Clr Calc Pharmacy 83.4 ml/min; Est GFR (African American) 100.6; Est GFR (Non-African American) 86.8; Glucose 125 mg/dl (70-99); Magnesium 0.8 mg/dl (1.8-2.4); Potassium 3.7 mmol/L (3.5-5.1); Sodium 141 mmol/L (136-145); Troponin I < 0.015 ng/ml (0-0.045)
[2020-01-04] MEDS: MAGNESIUM SULFATE / D5W 1 GM/100 ML BAG IV SCH ×3 (08:54→13:49)
[2020-01-04] MEDS ORDERED: CYANOCOBALAMIN 500 MCG TABLET (VITAMIN B-12) PO SCH (09:00)
[2020-01-04] MEDS ORDERED: ATORVASTATIN 40 MG TAB PO SCH (09:00)
[2020-01-04] MEDS ORDERED: NON-FORMULARY MEDICATION (Garlic 500 MG) PO SCH (09:00)
[2020-01-04] MEDS ORDERED: PANTOprazole 40 MG TAB PO SCH (09:00)
[2020-01-04] MEDS ORDERED: ASPIRIN 81 MG ECTAB PO SCH (09:00)
[2020-01-04] MEDS ORDERED: CHOLECALCIFEROL 1,000 UNITS 25 MCG TAB PO SCH (09:00)
[2020-01-04] MEDS ORDERED: MAGNESIUM OXIDE 400 MG TAB PO SCH ×2 (09:00→21:00)
[2020-01-04] MEDS ORDERED: TRADJENTA 5MG PO SCH (09:00)
[2020-01-04] MEDS ORDERED: AMLODIPINE BESYLATE 5 MG TAB PO SCH (09:00)
[2020-01-04] MEDS ORDERED: CEROVITE ADV FORMULA TAB PO SCH (09:00)
[2020-01-04] MEDS ORDERED: NON-FORMULARY MEDICATION (Coenzyme Q10 [Co Q-10] 10 MG) PO SCH (09:00)
[2020-01-04] MEDS: INSULIN ASPART 100 UNITS/ML 3 ML PEN SC SCH ×2 (09:33→13:50)
[2020-01-04] MEDS ORDERED: ATROPINE SULFATE 0.1 MG/ML 10ML SYR IV ONE (10:26)
[2020-01-04] MEDS ORDERED: METOPROLOL TARTRATE 1 MG/ML VIAL IV ONE (10:26)
[2020-01-04] MEDS ORDERED: DOBUTamine HCL 12.5 MG/ML 20 ML VIAL IV ONE (10:27)
[2020-01-04 11:39] VITALS: BP 126/79; TEMP 97.7; O2SAT 96
--- NOTE | 2020-01-04 11:51 | Cardiology Consultation ---
Date of Consultation January 04, 2020 Assessment & Plan (1) Chest pain, precordial: (2) Abnormal electrocardiogram: (3) Diabetes: (4) HLD (hyperlipidemia): (5) GERD (gastroesophageal reflux disease): (6) Hypertension: Nonischemic dobutamine stress echocardiogram. Symptoms are consistent with GERD and patient's usual OTC med was recently discontinued after being started on Plavix. Plavix has subsequently been discontinued is now on a baby aspirin. Would restart OTC treatment and follow- up with PCP as an outpatient. No cardiac follow-up necessary. Okay to discharge to home from a cardiac standpoint. History of Present Illness Reason for Consultation: chest pain Requesting Physician: Dr. Avilez Attending Physician: Eliezer Avilez MD History of Present Illness It was my pleasure to see Mrs. Salazar in consultation today January 04, 2020. She is a very pleasant 62-year-old woman who is not previously known to the cardiology group. She presented to [facility] on January 03, 2020 with complaints of chest pain. Patient states that she is been having chest discomfort ever since discharge from [facility] in December. She describes a substernal pressure sensation that can occur either at rest or with exertion. She states this seems to correlate with discontinuation of her previous [id number] GERD medication due to the fact that she was put on Plavix. She is been having ongoing episodes but her most severe episode was on the third prior to presentation. She described as a severe substernal pressure sensation without any associated symptoms. He did radiate through to her back but otherwise she denies experiencing any shortness of breath, diaphoresis, nausea, lightheadedness, dizziness or syncope. She did belch with resolution of the discomfort. Since it was more severe she came to the emergency department to be evaluated. Initial work-up was unremarkable she was admitted to telemetry without recurrence overnight. Allergies Allergy/AdvReac Type Severity Reaction Status Date / Time Penicillins Allergy Intermediate Hives Verified 01/03/20 16:42 Sulfa (Sulfonamide Allergy Intermediate Hives Verified 01/03/20 16:42 Antibiotics) albiglutide Allergy Unknown Abdominal Verified 01/03/20 16:42 pain,nausea,vomiting,rash and itchiness clindamycin Allergy Unknown Hives Verified 01/03/20 16:42 Corticosteroids Allergy Unknown Unknown Verified 01/03/20 16:42 (Glucocorticoids) Home Medications Home Medications Medication Instructions Recorded Confirmed Type Tradjenta 5 mg PO QAM 07/20/19 01/03/20 History Women's One Daily 1 tab PO QAM 07/20/19 01/03/20 History coenzyme Q10 [Co Q-10] 10 mg PO QAM 07/20/19 01/03/20 History cyanocobalamin (vitamin B-12) 1,000 mcg PO QAM 07/20/19 01/03/20 History [Vitamin B-12] garlic 500 mg PO QAM 07/20/19 01/03/20 History lorazepam 1 mg PO DAILY PRN 07/20/19 01/03/20 History metformin 1,000 mg PO BIDM 07/20/19 01/03/20 History magnesium oxide 500 mg PO QAM 12/20/19 01/03/20 History aspirin 81 mg PO QAM #21 tab 12/23/19 01/03/20 Rx atorvastatin 40 mg PO QAM 30 Days #30 tab 12/23/19 01/03/20 Rx metoprolol tartrate 25 mg PO BID 30 Days #60 tab 12/23/19 01/03/20 Rx cholecalciferol (vitamin D3) 1,000 unit PO QAM 12/26/19 01/03/20 History amlodipine 10 mg PO QAM 01/03/20 01/03/20 History omeprazole magnesium [Prilosec OTC] 20 mg PO QAM 01/03/20 01/03/20 History Patient History Medical History Diabetes GERD (gastroesophageal reflux disease) HLD (hyperlipidemia) Surgical History History of partial hysterectomy History of sinus surgery Family History Father , 62 from CVA Stroke, Onset Age: 40 Social History Preferred Language: Algerian Communication Ability: Effective Utility Engineer Required: No Beliefs That Will Affect Care: None Current Living Situation: Alone Other Information That Helps Us Care for You: No Feels Safe at Home: Yes Safety Concerns: Feels Safe At This Time Smoking Status: Former smoker Do You Dip or Chew Tobacco: No ; Second Hand Exposure: No ; Tobacco Cessation Education Requested by Patient: No Hx Alcohol Use: Yes Alcohol type: hard liquor Hx Substance Use: Yes substance use type: does not use Last Used Substance: Days (ago) Review of Systems Review of Systems: All systems reviewed & are unremarkable except as noted in HPI & below Physical Exam Physical Exam: Physical Exam: General: Awake, alert and oriented x 3. No acute distress. HEENT: Normocephalic, atraumatic. Pupils equal, round and reactive to light and accommodation. Extraocular muscles are intact. Anicteric sclera. Moist mucous membranes. Neck: No JVD. No bruit. Cardiovascular: Regular. No S-4. Normal S-1 and S-2. No S-3. No murmurs, rubs or gallops. Pulmonary: Clear to auscultation bilaterally. No rales, rhonchi, or wheezing. Abdomen: Bowel sounds x 4, soft. No rebound, guarding or tenderness. No organomegaly. Extremities: No clubbing, cyanosis or edema. +2 pedal pulses bilaterally. Skin: Warm and dry. Results & Data ([facility]) Vital Signs (Past 12 Hours) Vital Signs Temp Pulse Pulse Resp BP Pulse Ox 01/04/20 11:38 36.5 C 71 18 126/79 96 01/04/20 08:00 76 01/04/20 07:18 36.7 C 70 95 H 115/72 95 01/04/20 02:50 36.7 C 71 17 93/56 L 98 Laboratory Results Laboratory Results - last 24 hr 01/03/20 01/03/20 01/03/20 16:56 16:56 16:56 WBC 8.47 RBC 4.10 L Hgb 12.5 Hct 37.5 MCV 91.5 MCH 30.5 MCHC 33.3 RDW Std Deviation 43.2 RDW Coeff of Brittney 12.9 Plt Count 246 MPV 9.8 Immature Gran % (Auto) 0.1 Neut % (Auto) 56.0 Lymph % (Auto) 34.1 [place] % (Auto) 6.1 Eos % (Auto) 3.3 Baso % (Auto) 0.4 Immature Gran # (Auto) 0.01 Neut # (Auto) 4.74 Lymph # (Auto) 2.89 [place] # (Auto) 0.52 Eos # (Auto) 0.28 Baso # (Auto) 0.03 PT 10.6 INR 1.0 APTT 27.2 PTT Ratio 1.0 Sodium 141 Potassium 3.3 L Chloride 107 Carbon Dioxide 22 Anion Gap 12.0 H BUN 24 H Creatinine 1.03 Est Cr Clr Drug Dosing 60.4 Est GFR ( Amer) 67.5 Est GFR (Non-Af Amer) 58.2 BUN/Creatinine Ratio 23.0 H Glucose 147 H POC Glucose Calcium 9.9 Phosphorus Magnesium Total Bilirubin 0.2 AST 15 ALT 29 Alkaline Phosphatase 88 Troponin I < 0.015 Total Protein 7.7 Albumin 4.4 Globulin 3.3 Albumin/Globulin Ratio 1.3 Lipase 122 01/03/20 01/03/20 01/03/20 16:56 20:59 22:57 WBC RBC Hgb Hct MCV MCH MCHC RDW Std Deviation RDW Coeff of Brittney Plt Count MPV Immature Gran % (Auto) Neut % (Auto) Lymph % (Auto) [place] % (Auto) Eos % (Auto) Baso % (Auto) Immature Gran # (Auto) Neut # (Auto) Lymph # (Auto) [place] # (Auto) Eos # (Auto) Baso # (Auto) PT INR APTT PTT Ratio Sodium Potassium Chloride Carbon Dioxide Anion Gap BUN Creatinine Est Cr Clr Drug Dosing Est GFR ( Amer) Est GFR (Non-Af Amer) BUN/Creatinine Ratio Glucose POC Glucose 193 H Calcium Phosphorus Magnesium Total Bilirubin AST ALT Alkaline Phosphatase Troponin I < 0.015 Total Protein Albumin Globulin Albumin/Globulin Ratio Lipase Cancelled 01/04/20 01/04/20 01/04/20 07:00 07:00 07:00 WBC 4.98 RBC 3.69 L Hgb 11.1 L Hct 33.4 L MCV 90.5 MCH 30.1 MCHC 33.2 RDW Std Deviation 42.3 RDW Coeff of Brittney 12.9 Plt Count 205 MPV 9.9 Immature Gran % (Auto) 0.0 Neut % (Auto) 51.3 Lymph % (Auto) 36.7 [place] % (Auto) 7.4 Eos % (Auto) 4.2 Baso % (Auto) 0.4 Immature Gran # (Auto) 0.00 Neut # (Auto) 2.55 Lymph # (Auto) 1.83 [place] # (Auto) 0.37 Eos # (Auto) 0.21 Baso # (Auto) 0.02 PT INR APTT PTT Ratio Sodium 141 Potassium 3.7 Chloride 110 H Carbon Dioxide 26 Anion Gap 5.0 BUN 21 H Creatinine 0.74 Est Cr Clr Drug Dosing 83.4 Est GFR ( Amer) 100.6 Est GFR (Non-Af Amer) 86.8 BUN/Creatinine Ratio 28.4 H Glucose 125 H POC Glucose Calcium 9.3 Phosphorus 3.8 Magnesium 0.8 L* Total Bilirubin AST ALT Alkaline Phosphatase Troponin I < 0.015 Total Protein Albumin Globulin Albumin/Globulin Ratio Lipase 01/04/20 01/04/20 07:17 11:36 WBC RBC Hgb Hct MCV MCH MCHC RDW Std Deviation RDW Coeff of Brittney Plt Count MPV Immature Gran % (Auto) Neut % (Auto) Lymph % (Auto) [place] % (Auto) Eos % (Auto) Baso % (Auto) Immature Gran # (Auto) Neut # (Auto) Lymph # (Auto) [place] # (Auto) Eos # (Auto) Baso # (Auto) PT INR APTT PTT Ratio Sodium Potassium Chloride Carbon Dioxide Anion Gap BUN Creatinine Est Cr Clr Drug Dosing Est GFR ( Amer) Est GFR (Non-Af Amer) BUN/Creatinine Ratio Glucose POC Glucose 139 H 148 H Calcium Phosphorus Magnesium Total Bilirubin AST ALT Alkaline Phosphatase Troponin I Total Protein Albumin Globulin Albumin/Globulin Ratio Lipase Medications Administered Current Inpatient Medications A[facility]odipine Bes[facility] ([facility]asc) [facility] [place]: 02/03/20 08:59 Last Admin: 01/04/20 07:56 Dose: 10 mg Documented by: Aspirin (Ecotrin Ectab) 81 [facility] [place] Stop: 02/03/20 08:59 Last Admin: 01/04/20 07:55 Dose: 81 mg Documented by: Atorvastatin Calcium (Lipitor) 40 [facility] [place] Stop: 02/03/20 08:59 Last Admin: 01/04/20 07:55 Dose: 40 mg Documented by: Cyanocobalamin (Vitamin B-12) 1,000 mcg PO QAM [facility] Stop: 02/03/20 08:59 Last Admin: 01/04/20 07:55 Dose: 1,000 mcg Documented by: Heparin Sodium (Porcine) (Heparin Sodium (Porcine)) 5,000 units SQ Q12 [facility] Stop: 02/02/20 20:59 Last Admin: 01/04/20 07:58 Dose: 5,000 units Documented by: Magnesium Sulfate/Dextrose (Magnesium Sulfate / D5w) 1 gm in 100 mls @ 100 mls/hr IV Q1H [facility] Stop: 01/04/20 11:59 Last Admin: 01/04/20 11:36 Dose: 100 mls/hr Documented by: Insulin Aspart (Novolog Flexpen) 0 units SC ACHS [facility] Stop: 02/02/20 20:59 Last Admin: 01/04/20 09:33 Dose: Not Given Documented by: Lansoprazole (Prevacid) 15 mg PO QAM [facility] Stop: 02/03/20 11:59 Lorazepam (Ativan) 1 mg PO DAILY PRN PRN Reason: Vertigo Stop: 02/02/20 19:50 Magnesium Oxide (Mag-Ox) 400 mg PO BID [facility] Stop: 02/03/20 20:59 Metoprolol Tartrate (Lopressor) 25 mg PO BID [facility] Stop: 02/02/20 20:59 Last Admin: 01/04/20 07:55 Dose: 25 mg Documented by: Multivitamins/Minerals (Multivitamin W/ Minerals Tab) 1 tab [facility] [place] Stop: 02/03/20 08:59 Last Admin: 01/04/20 07:56 Dose: 1 tab Documented by: Tradjenta 5mg 1 ea PO DAILY [facility] Stop: 02/03/20 08:59 Last Admin: 01/04/20 10:42 Dose: 1 cap Documented by: Pantoprazole Sodium (Protonix) 40 [facility] [place] Stop: 02/03/20 08:59 Last Admin: 01/04/20 07:56 Dose: 40 mg Documented by: Vitamin D (Vitamin D3) 1,000 units PO QAM [facility] Stop: 02/03/20 08:59 Last Admin: 01/04/20 07:55 Dose: 1,000 units Documented by: (1) Hypertension Hypertension type: unspecified Qualified Code(s): I10 - Essential (primary) hypertension
--- NOTE | 2020-01-04 11:53 | Ultrasound Report ---
US liver CLINICAL HISTORY: Questionable hepatic lesion COMPARISON STUDY: CT of the abdomen and pelvis and right upper quadrant ultrasound July 20 9. FINDINGS: Hepatic echogenicity is increased. This represents fatty infiltration. A 3.5 cm focus of fa tty sparing within the gallbladder fossa is similar to exam of July 20, 2019. There is no biliar y ductal dilatation. There are no gallstones. The pancreatic body is normal. Head and tail are slight ly obscured. There is no right hydronephrosis. IMPRESSION: 1. Fatty infiltration of the liver with focal sparing within the gallbladder fossa which is similar t o exam of July 20, 2019. No hepatic mass identified. 2. No gallstones or biliary ductal dilatation. ACT 112: Negative or not required by law. Electronically signed by: Frank Coronado M.D. 01/04/2020 11:51 AM
[2020-01-04] MEDS ORDERED: LANSOPRAZOLE 15 MG SOLTAB PO SCH (12:00)
--- NOTE | 2020-01-04 15:48 | Electrocardiogram Report ---
Test Reason : Blood Pressure : / mmHG Vent. Rate : 083 BPM Atrial Rate : 083 BPM P-R Int : 154 ms QRS Dur : 098 ms QT Int : 370 ms P-R-T Axes : 055 018 095 degrees QTc Int : 434 ms Normal sinus rhythm Nonspecific ST and T wave abnormality Abnormal ECG When compared with ECG of 22-DEC-2019 06:34, No significant change was found Confirmed by Livan Sevilla ([id number]) on 01/04/2020 3:47:54 PM Referred By: REFERRED SELF Confirmed By:Livan Sevilla
--- NOTE | 2020-01-04 15:50 | Electrocardiogram Report ---
Test Reason : Blood Pressure : / mmHG Vent. Rate : 095 BPM Atrial Rate : 095 BPM P-R Int : 154 ms QRS Dur : 096 ms QT Int : 366 ms P-R-T Axes : 034 012 067 degrees QTc Int : 459 ms Normal sinus rhythm Nonspecific ST and T wave abnormality Abnormal ECG When compared with ECG of 03-JAN-2020 14:54, (unconfirmed) No significant change was found Confirmed by Livan Sevilla ([id number]) on 01/04/2020 3:49:59 PM Referred By: REFERRED SELF Confirmed By:Livan Sevilla
--- NOTE | 2020-01-04 15:58 | Electrocardiogram Report ---
Test Reason : Blood Pressure : / mmHG Vent. Rate : 067 BPM Atrial Rate : 067 BPM P-R Int : 150 ms QRS Dur : 102 ms QT Int : 410 ms P-R-T Axes : 043 005 079 degrees QTc Int : 433 ms Normal sinus rhythm Normal ECG When compared with ECG of 03-JAN-2020 17:39, (unconfirmed) No significant change was found Confirmed by Livan Sevilla ([id number]) on 01/04/2020 3:57:46 PM Referred By: REFERRED SELF Confirmed By:Livan Sevilla
[2020-01-04 16:29] VITALS: PULSE 63
--- NOTE | 2020-01-04 17:03 | Hospitalist Progress Note ---
Date of Service January 04, 2020 Assessment & Plan (1) Atypical chest pain: atypical chest pain, Gastroesophageal reflux disease, Hypomagnesemia -patient with dobutamine stress test completed on 01/04/2020 and no evidence of cardiac ischemia -as per cardiology "Symptoms are consistent with GERD and patient's usual OTC med was recently discontinued after being started on Plavix. Plavix has subsequently been discontinued is now on a baby aspirin. Would restart OTC treatment and follow-up with PCP as an outpatient. No cardiac follow-up necessary." Hypomagnesemia -serum magnesium level was 0.8 on 01/04/2020. Is 2 after IV magnesium completion -discharge on oral magnesium of 400 mg twice a day for 15 days. discharge medication sent electronically to [facility] [place] [address] -Patient should have serum magnesium levels followed by family medical doctor -01/09/2020 11:10 AM Provider Jerrica Urias, [facility] -01/23/2020 8:00 AM Provider Leta Maher, [facility] (2) Exertional shortness of breath: -Weakness and tiredness since August -Has not been feeling better since 23 December following an attack of TIA status post TPA -Has been a smoker with early emphysematous changes in the lung. no current smoking -Patient has been a smoker with early emphysematous changes in the lung, patient is recommended to avoid smoking in future and may benefit from outpatient pulmonary function test (3) Hypertension: Blood pressure is controlled We will continue current medications (4) Diabetes: diabetes mellitus without fdc current use of insulin -resume home dose diabetes medications on discharge (5) HLD (hyperlipidemia): -Continue statin -Liver function remain stable and normal -liver ultrasound: Fatty infiltration of the liver with focal sparing within the gallbladder fossa which is similar to exam of July 20, 2019. No hepatic mass identified. No gallstones or biliary ductal dilatation. CODE STATUS Full Admission and Anticipated Discharge Date Admission Date: January 03, 2020 Subjective no chest pain today. patient had stress test and did well. no shortness of breath currently. no dizziness. no headache. no palpitations. no abdomen pain. discharge plans discussed at length Review of Systems Review of Systems: All systems reviewed & are unremarkable except as noted in HPI & below Physical Exam Constitutional: comfortable Eyes: PERRL, conjunctivae normal, anicteric sclerae ENMT: external ear and nose normal, oropharynx normal Neck: trachea midline, no thyromegaly Respiratory: normal respiratory effort, lungs clear to auscultation Cardiovascular: Rate/Rhythm: regular rate Gastrointestinal (Abdomen): normal bowel sounds, soft, nontender, no hepatosplenomegaly Musculoskeletal: Head/Neck/Chest: normocephalic and head atraumatic Neurologic: PERRL, EOMI, accommodation nl, no face palsy, no dysarthria CN's II-XI intact bilaterally Psychiatric: A+Ox3, euthymic affect Results & Data ([facility]) Vital Signs (Past 12 Hours) Vital Signs Temp Pulse Pulse Resp BP Pulse Ox 01/04/20 16:07 36.5 C 71 18 126/79 96 01/04/20 16:00 63 01/04/20 11:38 36.5 C 71 18 126/79 96 01/04/20 08:00 76 01/04/20 07:18 36.7 C 70 95 H 115/72 95 (1) Hypertension Hypertension type: unspecified Qualified Code(s): I10 - Essential (primary) hypertension
--- NOTE | 2020-01-04 17:07 | Discharge Summary ---
Date of Service January 04, 2020 Admission HPI Per Admitting Provider She is a 64-year-old female with significant past medical history diabetes type 2, hypertension, hyperlipidemia, GERD and recent attack of TIA status post TPA without any stroke apparently has been complaining of periodic chest pain associated with neck pain and exertional shortness of breath since Thursday last. She was discharged from the hospital on 23 December following an attack of TIA without a stroke and sinusitis. She has been feeling better since discharge and complains to have exertional shortness of breath since August of last year. She has been complaining of more tiredness associated with some chest pressure since Thursday. She also has had chest pressure and neck pain cHIEF COMPLAINT: Shortness of breath today and she was advised to come to the emergency room by the home health nurse. She denies any fever and/or chills, any abdominal pain nausea no vomiting, any numbness or tingling involving any of the extremities, any visual symptoms or any weakness involving any side of the body. Denies any problem with bowel and/or bladder function. She is free of pain in the emergency room and apparent investigations showed nonspecific ST-T wave changes and EKG without any elevation of troponin. She was admitted to telemetry unit to rule out and possible stress test tomorrow morning. Admission Exam Per Admitting Provider Lying in bed comfortably Constitutional: well developed, well nourished, + ill appearing and + obese; no acute distress Eyes: PERRL, conjunctivae normal, anicteric sclerae ENMT: external ear and nose normal, oropharynx normal Neck: trachea midline, no thyromegaly Respiratory: normal respiratory effort Auscultation: lungs clear to auscultation bilaterally Cardiovascular: Rate/Rhythm: regular rate and regular rhythm Heart Sounds: no murmur Gastrointestinal (Abdomen): Inspection/Auscultation: abdomen normal to inspection and normal bowel sounds Percussion/Palpation: abdomen soft; abdomen nontender Musculoskeletal: Head/Neck/Chest: neck supple Tenderness over the lower neck bilaterally Neurologic: moves all extremities; no focal motor deficits Lymphatic: no cervical or axillary lymphadenopathy Principal Diagnosis atypical chest pain, Gastroesophageal reflux disease, Hypomagnesemia, Hypertension, exertional dyspnea, diabetes mellitus without penitentiary current use of insulin Discharge Exam Constitutional comfortable Eyes PERRL, conjunctivae normal, anicteric sclerae ENMT external ear and nose normal, oropharynx normal Neck trachea midline, no thyromegaly Respiratory normal respiratory effort, lungs clear to auscultation Cardiovascular Rate/Rhythm: regular rate Gastrointestinal (Abdomen) normal bowel sounds, soft, nontender, no hepatosplenomegaly Musculoskeletal Head/Neck/Chest: normocephalic and head atraumatic Neurologic PERRL, EOMI, accommodation nl, no face palsy, no dysarthria CN's II-XI intact bilaterally Psychiatric A+Ox3, euthymic affect Discharge Data Allergies Allergy/AdvReac Type Severity Reaction Status Date / Time Penicillins Allergy Intermediate Hives Verified 01/03/20 16:42 Sulfa (Sulfonamide Allergy Intermediate Hives Verified 01/03/20 16:42 Antibiotics) albiglutide Allergy Unknown Abdominal Verified 01/03/20 16:42 pain,nausea,vomiting,rash and itchiness clindamycin Allergy Unknown Hives Verified 01/03/20 16:42 Corticosteroids Allergy Unknown Unknown Verified 01/03/20 16:42 (Glucocorticoids) Consultations 01/03/20 18:07 ED Decision to Admit Stat 01/04/20 07:44 Consult Cardiology Routine Ordered Studies 01/04/20 19:12 US liver Routine Hospital Course (1) Atypical chest pain: atypical chest pain, Gastroesophageal reflux disease, Hypomagnesemia -patient with dobutamine stress test completed on 01/04/2020 and no evidence of cardiac ischemia -as per cardiology "Symptoms are consistent with GERD and patient's usual OTC m ed was recently discontinued after being started on Plavix. Plavix has subsequently been discontinued is now on a baby aspirin. Would restart OTC treatment and follow-up with PCP as an outpatient. No cardiac follow-up necessary." Hypomagnesemia -serum magnesium level was 0.8 on 01/04/2020. Is 2 after IV magnesium completion -discharge on oral magnesium of 400 mg twice a day for 15 days. discharge medication sent electronically to [facility] [address] [facility] [place] [address] -Patient should have serum magnesium levels followed by family medical doctor -01/09/2020 11:10 AM Provider Jerrica Urias, Department [facility] -01/23/2020 8:00 AM Provider Leta Maher, Department [facility] (2) Exertional shortness of breath: -Weakness and tiredness since August -Has not been feeling better since 23 December following an attack of TIA status post TPA -Has been a smoker with early emphysematous changes in the lung. no current smoking -Patient has been a smoker with early emphysematous changes in the lung, patient is recommended to avoid smoking in future and may benefit from outpatient pulmonary function test (3) Hypertension: Blood pressure is controlled We will continue current medications (4) Diabetes: diabetes mellitus without penitentiary current use of insulin -resume home dose diabetes medications on discharge (5) HLD (hyperlipidemia): -Continue statin -Liver function remain stable and normal -liver ultrasound: Fatty infiltration of the liver with focal sparing within the gallbladder fossa which is similar to exam of July 20, 2019. No hepatic mas s identified. No gallstones or biliary ductal dilatation. CODE STATUS Full Total Time Total Time Spent Total Time Spent (In Minutes): 40 minutes Total Time Includes: Examination of the Patient, Discharge Planning, Medication Reconciliation and Communication With Other Providers Discharge Plan Discharge Items Patient Disposition: Home - Self-Care Reason For Visit: CHEST PAIN,EXERTIONAL DYSPNEA Discharge Diagnosis: atypical chest pain, Gastroesophageal reflux disease, Hypomagnesemia, Hypertension, exertional dyspnea, diabetes mellitus without long term acute care registered nurse current use of insulin Condition on Discharge: Good Activity: Resume your previous activity Non-emergency contact: Primary Care Provider Call non-emergency contact if: you have any medication questions Follow-up/Referrals: Leta Maher DO [Primary Care Provider] - Diet: Carb Consistent or DM2 and Heart Healthy Addtl Attending Provider Instructions: patient with dobutamine stress test completed on 01/04/2020 and no evidence of cardiac ischemia as per cardiology "Symptoms are consistent with GERD and patient's usual OTC med was recently discontinued after being started on Plavix. Plavix has subsequently been discontinued is now on a baby aspirin. Would restart OTC treatment and follow-up with PCP as an outpatient. No cardiac follow-up necessary." Patient has been a smoker with early emphysematous changes in the lung, patient is recommended to avoid smoking in future and may benefit from outpatient pulmonary function test serum magnesium level was 0.8 on 01/04/2020. Is 2 after IV magnesium completion discharge on oral magnesium of 400 mg twice a day for 15 days. discharge medication sent electronically to [facility] [address] [place] [id number] Patient should have serum magnesium levels followed by family medical doctor 01/09/2020 11:10 AM Provider Jerrica Urias, [facility] 01/23/2020 8:00 AM Provider Leta Maher, [facility] Pending Studies at Discharge: No Stand-Alone Forms: [facility], Smoking Cessation Medications and DC Order Prescriptions: New magnesium oxide 400 mg (241.3 mg magnesium) Tablet 400 mg PO BID 15 Days Qty: 30 RF: 0 Continued cyanocobalamin (vitamin B-12) [Vitamin B-12] 1,000 mcg Tablet 1,000 mcg PO QAM RF: 0 lorazepam 1 mg tablet 1 mg PO DAILY PRN (Reason: Vertigo) RF: 0 metformin 500 mg tablet extended release 24 hr 1,000 mg PO BIDM RF: 0 garlic Tablet 500 mg PO QAM RF: 0 coenzyme Q10 [Co Q-10] 100 mg Capsule 10 mg PO QAM RF: 0 Tradjenta 5 mg tablet 5 mg PO QAM RF: 0 Women's One Daily 18 mg iron-400 mcg-500 mg Ca Tablet 1 tab PO QAM RF: 0 atorvastatin 40 mg Tablet 40 mg PO QAM 30 Days Qty: 30 RF: 0 metoprolol tartrate 25 mg Tablet 25 mg PO BID 30 Days Qty: 60 RF: 0 aspirin 81 mg Tablet,Delayed Release (Dr/Ec) 81 mg PO QAM Qty: 21 RF: 0 cholecalciferol (vitamin D3) 2,000 unit Tablet,Chewable 1,000 unit PO QAM RF: 0 amlodipine 10 mg tablet 10 mg PO QAM RF: 0 Prilosec OTC 20 mg Tablet,Delayed Release (Dr/Ec) 20 mg PO QAM RF: 0 Discontinued magnesium oxide 500 mg Capsule 500 mg PO QAM RF: 0 Discharge Orders: Discharge Order (Routine); Ordered 01/04/20 Ordered By: Eliezer Avilez Admission Data Admit Date/Time: 01/03/20 18:37 Attending Provider: Eliezer Avilez Admit Provider: Felipe Begum Primary Care Provider: Leta Maher Other Providers: Felipe Begum ; Rei Blackwell Other Interventions: Discharge Summary Assessment (RN) Last Done: 01/04/20 16:07
== END 2020-01-04 17:39 | disposition home or self-care (01) ==
LOC: ED 14:45 → 2S 14:45 → SUATTDRO 18:37 → 2S 19:17

== ENCOUNTER 2021-04-13 11:56 | Inpatient (IN) ==
[2021-04-13] MEDS ORDERED: NITROGLYCERIN 2% OINTMENT 30GM TUBE EXT STA (12:19)
[2021-04-13] MEDS ORDERED: ASPIRIN CHEW 324 MG PO STA (12:19)
--- NOTE | 2021-04-13 12:23 | Emergency Department Note ---
History of Present Illness General Chief complaint: Chest Pain Stated complaint: NAUSEA,CHEST PAIN Time Seen by Provider: 04/13/21 12:01 Source: patient History of Present Illness Provider complaint: Chest pain Onset (ago): hour(s) Location: chest Radiation: back Severity: moderate Pain Consistency: + constant Maximum Pain Intensity: 8 Quality: + other (Likely brick sitting on her chest) Relieved By: + rest Exacerbated By: + none Associated symptoms: + diaphoresis, + nausea/vomiting and + shortness of breath; no cough and no fever/chills This is a 65-year-old female with a history of hypertension, diabetes and high cholesterol presenting with chest pain while at work today. 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 She does state that it radiates to her back. She initially rated it an 8 out of 10 in severity. She sat down and rest for 15 minutes and her pain improved. She now rates it about a 4. It is associated with shortness of breath, nausea and diaphoresis. She denies any vomiting, fever, cough or cold symptoms, abdominal pain, or urinary symptoms. She denies black or bloody stools but states that she has chronic diarrhea from her Metformin. She also states she has had issues with her magnesium in the past. She did have a cardiac catheterization about 15 to 20 years ago and was told that it was unremarkable. Home Medications Medication Instructions Recorded Confirmed Type Tradjenta 5 mg PO QAM 07/20/19 04/13/21 History Women's One Daily 1 tab PO QAM 07/20/19 04/13/21 History coenzyme Q10 [Co Q-10] 10 mg PO QAM 07/20/19 04/13/21 History cyanocobalamin (vitamin B-12) 1,000 mcg PO QAM 07/20/19 04/13/21 History [Vitamin B-12] metformin 1,000 mg PO BIDM 07/20/19 04/13/21 History aspirin 81 mg PO QAM #21 tab 12/23/19 04/13/21 Rx cholecalciferol (vitamin D3) 1,000 unit PO QAM 12/26/19 04/13/21 History omeprazole magnesium [Prilosec OTC] 20 mg PO QAM 01/03/20 04/13/21 History atorvastatin 40 mg PO DAILY 07/31/20 04/13/21 History lisinopril 20 mg PO DAILY 07/31/20 04/13/21 History magnesium oxide 500 mg PO BID 07/31/20 04/13/21 History meloxicam 7.5 mg PO DAILY 07/31/20 04/13/21 History metoprolol tartrate 25 mg PO BID 07/31/20 04/13/21 History acetaminophen [Tylenol Arthritis] 650 mg PO DAILY 04/13/21 04/13/21 History calcium 150 mg PO DAILY 04/13/21 04/13/21 History empagliflozin [Jardiance] 25 mg PO DAILY 04/13/21 04/13/21 History garlic 150 mg PO DAILY 04/13/21 04/13/21 History lorazepam 1 mg PO DAILY PRN 04/13/21 04/13/21 History montelukast 10 mg PO DAILY 04/13/21 04/13/21 History Allergies Allergy/AdvReac Type Severity Reaction Status Date / Time Penicillins Allergy Intermediate Hives Verified 04/13/21 14:35 Sulfa (Sulfonamide Allergy Intermediate Hives Verified 04/13/21 14:35 Antibiotics) albiglutide Allergy Unknown Abdominal Verified 04/13/21 14:35 pain,nausea,vomiting,rash and itchiness clindamycin Allergy Unknown Hives Verified 04/13/21 14:35 Corticosteroids Allergy Unknown Unknown Verified 04/13/21 14:35 (Glucocorticoids) Past Med/Surg History Medical History DM type 2 (diabetes mellitus, type 2) GERD (gastroesophageal reflux disease) HLD (hyperlipidemia) Hypertension Surgical History H/O shoulder surgery right, arthroscopic History of partial hysterectomy History of sinus surgery Family History Father , 62 from CVA Stroke, Onset Age: 40 Brother Heart disease Social History (Updated 04/13/21 @ 15:36 by ARIK Escalante) Smoking Status: Current some day smoker Tobacco Type: Cigarettes Second Hand Exposure: No; Hx Alcohol Use: Yes Alcohol type: hard liquor Hx Substance Use: Yes Prescribed Medications: Marijuana Preferred Language: Slovak Communication Ability: 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 and A total of 10 systems reviewed and were otherwise negative Physical Exam Vital Signs Vital Signs - 24 hr 04/13/21 11:57 04/13/21 12:08 04/13/21 12:10 Temperature 36.0 C L Temperature Source Temporal Artery Scan Pulse Rate 86 83 85 Pulse Rate from SpO2 Sensor Respiratory Rate 20 24 24 Respiratory Depth Normal Blood Pressure 142/78 H 123/78 Blood Pressure Mean 99 93 Pulse Oximetry 99 Oxygen Delivery Method Room Air Sepsis Recent Fever Within 48 Hours No Sepsis New/Unexplained Change in Mental Status N/A Sepsis Action Taken by Nursing No Action Required 04/13/21 12:14 04/13/21 12:20 04/13/21 12:23 Temperature Temperature Source Pulse Rate 79 Pulse Rate from SpO2 Sensor Respiratory Rate 19 Respiratory Depth Blood Pressure Blood Pressure Mean Pulse Oximetry Oxygen Delivery Method Room Air Room Air Sepsis Recent Fever Within 48 Hours Sepsis New/Unexplained Change in Mental Status Sepsis Action Taken by Nursing 04/13/21 12:30 04/13/21 12:31 04/13/21 12:40 Temperature Temperature Source Pulse Rate 80 84 83 Pulse Rate from SpO2 Sensor Respiratory Rate 17 22 23 Respiratory Depth Blood Pressure 120/75 Blood Pressure Mean 90 Pulse Oximetry Oxygen Delivery Method Sepsis Recent Fever Within 48 Hours Sepsis New/Unexplained Change in Mental Status Sepsis Action Taken by Nursing 04/13/21 12:50 04/13/21 13:00 04/13/21 13:10 Temperature Temperature Source Pulse Rate 80 76 84 Pulse Rate from SpO2 Sensor Respiratory Rate 23 18 20 Respiratory Depth Blood Pressure Blood Pressure Mean Pulse Oximetry Oxygen Delivery Method Sepsis Recent Fever Within 48 Hours Sepsis New/Unexplained Change in Mental Status Sepsis Action Taken by Nursing 04/13/21 13:20 04/13/21 13:30 04/13/21 13:40 Temperature Temperature Source Pulse Rate 85 83 89 Pulse Rate from SpO2 Sensor Respiratory Rate 23 21 21 Respiratory Depth Blood Pressure Blood Pressure Mean Pulse Oximetry Oxygen Delivery Method Sepsis Recent Fever Within 48 Hours Sepsis New/Unexplained Change in Mental Status Sepsis Action Taken by Nursing 04/13/21 13:50 04/13/21 14:00 04/13/21 14:01 Temperature Temperature Source Pulse Rate 91 H 85 85 Pulse Rate from SpO2 Sensor 92 H 85 85 Respiratory Rate 19 22 21 Respiratory Depth Blood Pressure 141/75 H 125/72 Blood Pressure Mean 97 89 Pulse Oximetry 96 95 95 Oxygen Delivery Method Sepsis Recent Fever Within 48 Hours Sepsis New/Unexplained Change in Mental Status Sepsis Action Taken by Nursing 04/13/21 14:10 04/13/21 14:20 04/13/21 14:30 Temperature Temperature Source Pulse Rate 81 89 88 Pulse Rate from SpO2 Sensor 81 89 88 Respiratory Rate 21 21 18 Respiratory Depth Blood Pressure 135/81 Blood Pressure Mean 99 Pulse Oximetry 97 96 95 Oxygen Delivery Method Sepsis Recent Fever Within 48 Hours Sepsis New/Unexplained Change in Mental Status Sepsis Action Taken by Nursing 04/13/21 14:31 04/13/21 14:40 04/13/21 14:50 Temperature Temperature Source Pulse Rate 85 91 H 90 Pulse Rate from SpO2 Sensor 85 91 H 91 H Respiratory Rate 22 20 25 H Respiratory Depth Blood Pressure Blood Pressure Mean Pulse Oximetry 95 97 97 Oxygen Delivery Method Sepsis Recent Fever Within 48 Hours Sepsis New/Unexplained Change in Mental Status Sepsis Action Taken by Nursing 04/13/21 15:00 04/13/21 15:01 04/13/21 15:10 Temperature Temperature Source Pulse Rate 88 85 86 Pulse Rate from SpO2 Sensor 88 86 87 Respiratory Rate 16 22 22 Respiratory Depth Blood Pressure 128/80 Blood Pressure Mean 96 Pulse Oximetry 94 96 94 Oxygen Delivery Method Sepsis Recent Fever Within 48 Hours Sepsis New/Unexplained Change in Mental Status Sepsis Action Taken by Nursing 04/13/21 15:20 04/13/21 15:30 04/13/21 15:31 Temperature Temperature Source Pulse Rate 91 H 86 91 H Pulse Rate from SpO2 Sensor 90 87 89 Respiratory Rate 20 19 19 Respiratory Depth Blood Pressure 128/80 Blood Pressure Mean 96 Pulse Oximetry 94 94 94 Oxygen Delivery Method Sepsis Recent Fever Within 48 Hours Sepsis New/Unexplained Change in Mental Status Sepsis Action Taken by Nursing 04/13/21 15:40 Temperature 36.8 C Temperature Source Oral Pulse Rate 80 Pulse Rate from SpO2 Sensor Respiratory Rate 18 Respiratory Depth Blood Pressure 128/80 Blood Pressure Mean Pulse Oximetry 98 Oxygen Delivery Method Room Air Sepsis Recent Fever Within 48 Hours Sepsis New/Unexplained Change in Mental Status Sepsis Action Taken by Nursing Constitutional: Vital signs reviewed. Eyes: Pupils are equal round reactive to light. Conjunctiva are noninjected. ENT: Pharynx is clear without erythema or exudate. Mucous membranes are moist. Neck supple without meningeal signs. Respiratory: Clear to auscultation bilaterally. Breath sounds are equal bilaterally. Cardiovascular: Regular rate and rhythm. No rubs or gallops. GI: Soft, nondistended and nontender. Bowel sounds are present. Musculoskeletal: No peripheral edema. No lower extremity tenderness. Integumentary: No cyanosis. or jaundice. Neurological: The patient is awake and alert. No focal deficits. Psychiatric: Normal affect. Not anxious appearing. Course Administered Medications Heparin Sodium/Dextrose (Heparin Sodium/Dextrose) 25,000 units in 500 mls @ 0.02 mls/hr IV .Q24H [facility]; Protocol Stop: 05/13/21 13:49 Last Admin: 04/13/21 13:55 Dose: 1,200 units/hr, 24 mls/hr Documented by: [id number] Cosigned by: [id number] Discontinued Medications Aspirin (Aspirin Chew 324 Mg) 324 mg PO NOW STA Stop: 04/13/21 12:20 Last Admin: 04/13/21 12:32 Dose: 256 mg Documented by: [id number] Heparin Sodium (Porcine) (Heparin Sod (Porcine) 1000 Unit/Ml) 1 units IV NOW ONE Stop: 04/13/21 13:51 Last Admin: 04/13/21 13:55 Dose: 5,000 units Documented by: [id number] Cosigned by: [id number] Nitroglycerin (Nitroglycerin 2% Ointment 30gm Tube) 0.5 inch EXT NOW STA Stop: 04/13/21 12:20 Last Admin: 04/13/21 12:33 Dose: 0.5 inch Documented by: [id number] Critical Care Time Critical Care Time: Yes Total Critical Care Time: 40 I have personally spent approximately 40 minutes of critical care time in the direct management of this patient. This includes bedside care, interpretation of diagnostic studies, and testing, discussion with consultants, patient, and family members, and other required patient management activities. These minutes are in excess of all separately billable procedures. Medical Decision Making Differential Diagnosis Unstable angina, PR, pleurisy, pneumonia, GERD Medical Records Attestation: I reviewed the patient's medical records. I did perform a limited focused review of portions of the patient's old chart on the electronic medical record. The patient was admitted for chest pain January 2020. This pain was thought to be atypical and more consistent with GERD. She had a negative dobutamine stress test at that time. Home Medications Current Medication List: was personally reviewed by me Laboratory Data Attestation: I reviewed the patient's lab results. Result diagrams: 04/13/21 12:34 04/13/21 12:34 Lab Results 04/13/21 04/13/21 04/13/21 Range/Units 12:34 12:34 12:34 WBC 6.56 (4.8-10.8) K/uL RBC 4.46 (4.2-5.4) M/uL Hgb 13.7 (12.0-16.0) g/dL Hct 41.6 (37-47) % MCV 93.3 (80-100) fL MCH 30.7 (25-34) pg MCHC 32.9 (32-36) g/dL RDW Std Deviation 45.4 (36.4-46.3) fL RDW Coeff of Brittney 13.2 (11.5-14.5) % Plt Count 204 (130-400) K/uL MPV 9.6 (7.4-10.4) fL Immature Gran % (Auto) 0.2 % Neut % (Auto) 62.4 % Lymph % (Auto) 28.7 % [place] % (Auto) 6.4 % Eos % (Auto) 2.0 % Baso % (Auto) 0.3 % Neut # (Auto) 4.10 (1.4-6.5) K/uL Lymph # (Auto) 1.88 (1.2-3.4) K/uL [place] # (Auto) 0.42 (0.11-0.59) K/uL Eos # (Auto) 0.13 (0-0.5) K/uL Baso # (Auto) 0.02 (0-0.2) K/uL Immature Gran # (Auto) 0.01 (0.00-0.02) K/uL APTT 27.3 (21.0-31.0) Seconds PTT Ratio 1.0 Sodium (136-145) mmol/L Potassium (3.5-5.1) mmol/L Chloride (98-107) mmol/L Carbon Dioxide (21-32) mmol/L Anion Gap (3-11) BUN (7-18) mg/dl Creatinine (0.6-1.2) mg/dl Est Cr Clr Drug Dosing ml/min Est GFR ( Amer) ml/min Est GFR (Non-Af Amer) ml/min BUN/Creatinine Ratio (10-20) Glucose (70-99) mg/dl Calcium (8.5-10.1) mg/dl Magnesium 1.8 (1.8-2.4) mg/dl Total Bilirubin (0.2-1) mg/dl AST (15-37) U/L ALT (12-78) U/L Alkaline Phosphatase (45-117) U/L Troponin I (0-0.045) ng/ml Total Protein (6.4-8.2) gm/dl Albumin (3.4-5.0) gm/dl Globulin (2.5-4.0) gm/dl Albumin/Globulin Ratio (0.9-2) Lipase (73-393) U/L COVID-19 Eval Order SARS-CoV-2 (PCR) (Negative) 04/13/21 04/13/21 04/13/21 Range/Units 12:34 12:40 12:40 WBC (4.8-10.8) K/uL RBC (4.2-5.4) M/uL Hgb (12.0-16.0) g/dL Hct (37-47) % MCV (80-100) fL MCH (25-34) pg MCHC (32-36) g/dL RDW Std Deviation (36.4-46.3) fL RDW Coeff of Brittney (11.5-14.5) % Plt Count (130-400) K/uL MPV (7.4-10.4) fL Immature Gran % (Auto) % Neut % (Auto) % Lymph % (Auto) % [place] % (Auto) % Eos % (Auto) % Baso % (Auto) % Neut # (Auto) (1.4-6.5) K/uL Lymph # (Auto) (1.2-3.4) K/uL [place] # (Auto) (0.11-0.59) K/uL Eos # (Auto) (0-0.5) K/uL Baso # (Auto) (0-0.2) K/uL Immature Gran # (Auto) (0.00-0.02) K/uL APTT (21.0-31.0) Seconds PTT Ratio Sodium 141 (136-145) mmol/L Potassium 4.5 (3.5-5.1) mmol/L Chloride 112 H (98-107) mmol/L Carbon Dioxide 22 (21-32) mmol/L Anion Gap 7.0 (3-11) BUN 25 H (7-18) mg/dl Creatinine 0.86 (0.6-1.2) mg/dl Est Cr Clr Drug Dosing 71.3 ml/min Est GFR ( Amer) 83.3 ml/min Est GFR (Non-Af Amer) 71.9 ml/min BUN/Creatinine Ratio 28.5 H (10-20) Glucose 136 H (70-99) mg/dl Calcium 10.1 (8.5-10.1) mg/dl Magnesium (1.8-2.4) mg/dl Total Bilirubin 0.4 (0.2-1) mg/dl AST 18 (15-37) U/L ALT 26 (12-78) U/L Alkaline Phosphatase 80 (45-117) U/L Troponin I 0.764 H* (0-0.045) ng/ml Total Protein 7.2 (6.4-8.2) gm/dl Albumin 4.0 (3.4-5.0) gm/dl Globulin 3.2 (2.5-4.0) gm/dl Albumin/Globulin Ratio 1.3 (0.9-2) Lipase 268 (73-393) U/L COVID-19 Eval Order Covid19 at [facility] SARS-CoV-2 (PCR) NEGATIVE (Negative) Imaging Data Radiologist's Impression: Chest X-Ray 04/13/21 12:19 XR chest 1V portable CLINICAL HISTORY: Atypical chest pain COMPARISON STUDY: 07/31/2020 FINDINGS: The heart is the upper limits of normal in size. There is no failure. There is no focal pulmonary consolidation. There are no pleural effusions.[ IMPRESSION: No active disease in the chest. ACT 112: Negative or not required by law. Electronically signed by: Angus Hollis M.D. 04/13/2021 12:58 PM ECG Data Attestation: I personally reviewed and interpreted this ECG as follows: Indication: + chest pain Rate (beats per minute): 82 Rhythm: + normal sinus ECG [place]: + Normal ECG ST segments: + T-wave inversions; no ST elevation ECG Findings: no PVCs Comparison ECG Date: from (07/31/2020) Change: the following changes noted (New T wave inversion in lead I) MDM Narrative I did evaluate the patient as noted above. The patient is presenting with very concerning symptoms for acute coronary symptoms. She feels like there is a brick on her chest and was diaphoretic and short of breath. She still has chest discomfort although rest seem to help her. She was given nitroglycerin here as well as an aspirin. IV access was established. I did place an order for continuous cardiac monitoring. The monitor showed normal sinus rhythm at a rate of 84 bpm. I did order and personally review the patient's 12-lead EKG as described above. She has no ST elevations. She does have T wave inversions in the high lateral leads although this was present in aVL previously from July of last year. I did order and personally reviewed the images of the patient's chest x-ray as described above. Chest x-ray is unremarkable. I did order and review the patient's blood work as noted in the electronic medical record. CBC is unremarkable without leukocytosis, anemia or thrombocytopenia. Electrolytes demonstrate a chloride of 112 but are otherwise unremarkable. Troponin is elevated at 0.7. I did reassess the patient. She is completely chest pain-free at this time. I did discuss the test results with her and adv ised hospitalization for further care and evaluation. I did recommend heparinization with IV heparin. I did discuss the risks and benefits of this and she was agreeable. I did start her on heparin IV. She was given a bolus and continuous drip. I did repeat a second twelve-lead EKG which per my interpretation shows normal sinus rhythm at a rate of 83 bpm. She does have persistent T wave inversions in leads I and aVL. She does not have any significant ST elevations consistent with STEMI. 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 They will consult cardiology. Impression & Plan ACS (acute coronary syndrome), Elevated troponin Discharge Plan Visit Data Chief Complaint: Chest Pain Stated Complaint: NAUSEA,CHEST PAIN ED Provider: Gilberto Fang Discharge Problem: ACS (acute coronary syndrome), Elevated troponin Patient Disposition: Admitted As Inpatient Discharge Instructions Interventions: ED Discharge Assessment Last Done: 04/13/21 15:40 Forms Stand Alone Forms: [facility] [place] [facility] Prescriptions Prescriptions: No Action cyanocobalamin (vitamin B-12) [Vitamin B-12] 1,000 mcg Tablet 1,000 mcg PO QAM RF: 0 metformin 500 mg tablet extended release 24 hr 1,000 mg PO BIDM RF: 0 coenzyme Q10 [Co Q-10] 100 mg Capsule 10 mg PO QAM RF: 0 Tradjenta 5 mg tablet 5 mg PO QAM RF: 0 Women's One Daily 18 mg iron-400 mcg-500 mg Ca Tablet 1 tab PO QAM RF: 0 atorvastatin 40 mg tablet 40 mg PO DAILY RF: 0 magnesium oxide 500 mg capsule 500 mg PO BID RF: 0 lisinopril 20 mg tablet 20 mg PO DAILY RF: 0 meloxicam 7.5 mg tablet 7.5 mg PO DAILY RF: 0 metoprolol tartrate 25 mg tablet 25 mg PO BID RF: 0 aspirin 81 mg Tablet,Delayed Release (Dr/Ec) 81 mg PO QAM Qty: 21 RF: 0 cholecalciferol (vitamin D3) 2,000 unit Tablet,Chewable 1,000 unit PO QAM RF: 0 omeprazole magnesium [Prilosec OTC] 20 mg Tablet,Delayed Release (Dr/Ec) 20 mg PO QAM RF: 0 acetaminophen [Tylenol Arthritis] 650 mg Tablet Extended Release 650 mg PO DAILY RF: 0 garlic 150 mg Tablet 150 mg PO DAILY RF: 0 montelukast 10 mg tablet 10 mg PO DAILY RF: 0 lorazepam 1 mg tablet 1 mg PO DAILY PRN (Reason: Vertigo) RF: 0 calcium 150 mg Tablet 150 mg PO DAILY RF: 0 Jardiance 25 mg tablet 25 mg PO DAILY RF: 0 Referrals Referrals: Jerrica Urias DO [Primary Care Provider] -
[2021-04-13 12:50] LABS: Basophils # (auto) 0.02 K/uL (0-0.2); Basophils % (auto) 0.3 %; Eosinophils # (auto) 0.13 K/uL (0-0.5); Hematocrit (blood only) 41.6 % (37-47); Hemoglobin 13.7 g/dL (12.0-16.0); Immature Granulocytes # (auto) 0.01 K/uL (0.00-0.02); Immature Granulocytes % (auto) 0.2 %; Lymphocytes # (auto) 1.88 K/uL (1.2-3.4); Lymphocytes % (auto) 28.7 %; Mean Corpuscular Hemoglobin 30.7 pg (25-34); Mean Corpuscular Hgb Conc 32.9 g/dL (32-36); Mean Corpuscular Volume 93.3 fL (80-100); Mean Platelet Volume 9.6 fL (7.4-10.4); Monocytes # (auto) 0.42 K/uL (0.11-0.59); Monocytes % (auto) 6.4 %; Neutrophils % (auto) 62.4 %; Platelet Count 204 K/uL (130-400); RDW Coefficient of Variation 13.2 % (11.5-14.5); RDW Standard Deviation 45.4 fL (36.4-46.3); Red Blood Count 4.46 M/uL (4.2-5.4); White Blood Count 6.56 K/uL (4.8-10.8)
[2021-04-13 12:59] LABS: Partial Thromboplastin Time 27.3 Seconds (21.0-31.0)
--- NOTE | 2021-04-13 12:59 | XRay Report ---
XR chest 1V portable CLINICAL HISTORY: Atypical chest pain COMPARISON STUDY: 07/31/2020 FINDINGS: The heart is the upper limits of normal in size. There is no failure. There is no focal pul monary consolidation. There are no pleural effusions.[ IMPRESSION: No active disease in the chest. ACT 112: Negative or not required by law. Electronically signed by: Angus Hollis M.D. 04/13/2021 12:58 PM
[2021-04-13 13:08] LABS: BUN Creatinine Ratio 28.5 (10-20); Calcium 10.1 mg/dl (8.5-10.1); Creatinine Clr Calc Pharmacy 71.3 ml/min; Est GFR (African American) 83.3 ml/min; Est GFR (Non-African American) 71.9 ml/min; Potassium 4.5 mmol/L (3.5-5.1)
[2021-04-13 13:13] LABS: Albumin Globulin Ratio 1.3 (0.9-2); Bilirubin,Total 0.4 mg/dl (0.2-1); Globulin 3.2 gm/dl (2.5-4.0); Total Protein 7.2 gm/dl (6.4-8.2); Troponin I 0.764 ng/ml (0-0.045)
[2021-04-13] MEDS ORDERED: Heparin IV Adult Wt-Based Standard WITH Bolus Protocol IV STA (13:34)
[2021-04-13] MEDS ORDERED: HEPARIN SOD (PORCINE) 1000 UNIT/ML IV ONE (13:50)
[2021-04-13] MEDS: HEPARIN SODIUM/DEXTROSE 25,000 UNITS/500 ML BAG IV SCH (13:55)
--- NOTE | 2021-04-13 15:05 | Cardiology Consultation ---
Date of Consultation April 13, 2021 Assessment & Plan (1) Chest pain, precordial: Patient is a 65-year-old female with multiple cardiac risk factors including diabetes mellitus, hypertension, hyperlipidemia and familial history of heart disease who presents now with symptoms concerning for acute anginal pattern. Troponins are mildly elevated no acute injury pattern on EKG. Patient has had prior coronary evaluation but last cardiac catheterization 2000 Patient already begun on appropriate therapies with IV heparin topical nitrates. We will continue both as well as increasing beta-fish therapy Anticipate need for diagnostic cardiac catheterization this admission, electively on Thursday more acute if any new symptoms develop or evolution on EKG or laboratory studies. Discussed in detail with the patient is agreeable to plan (2) GERD (gastroesophageal reflux disease): (3) HLD (hyperlipidemia): (4) Hypertension: History of Present Illness Reason for Consultation: Chest pain, elevated troponin Requesting Physician: Tricia HINOJOSA Attending Physician: Dr. 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 Symptoms persisted and patient ultimately presented to the emergency room for further evaluation. Symptoms waning at the time of present Laboratory studies demonstrate mild elevation in troponin. EKG without acute injury or ischemic pattern Currently comfortable with only a vague sense of chest heaviness. No recent fevers chills or infections. Patient has received Covid vaccination . No bleeding difficulties. No melena hematochezia dysuria hematuria. Carries a history of possible TIA 1 year ago without recurrence. No sense of tachypalpitations or irregular heart rhythms. No history of contrast allergy Has chronic sleep disruption issues, use of small amounts of cannabis for stress management most recent use 1 day prior Allergies Allergy/AdvReac Type Severity Reaction Status Date / Time Penicillins Allergy Intermediate Hives Verified 04/13/21 14:35 Sulfa (Sulfonamide Allergy Intermediate Hives Verified 04/13/21 14:35 Antibiotics) albiglutide Allergy Unknown Abdominal Verified 04/13/21 14:35 pain,nausea,vomiting,rash and itchiness clindamycin Allergy Unknown Hives Verified 04/13/21 14:35 Corticosteroids Allergy Unknown Unknown Verified 04/13/21 14:35 (Glucocorticoids) Home Medications Medication Instructions Recorded Confirmed Type Tradjenta 5 mg PO QAM 07/20/19 04/13/21 History Women's One Daily 1 tab PO QAM 07/20/19 04/13/21 History coenzyme Q10 [Co Q-10] 10 mg PO QAM 07/20/19 04/13/21 History cyanocobalamin (vitamin B-12) 1,000 mcg PO QAM 07/20/19 04/13/21 History [Vitamin B-12] metformin 1,000 mg PO BIDM 07/20/19 04/13/21 History aspirin 81 mg PO QAM #21 tab 12/23/19 04/13/21 Rx cholecalciferol (vitamin D3) 1,000 unit PO QAM 12/26/19 04/13/21 History omeprazole magnesium [Prilosec OTC] 20 mg PO QAM 01/03/20 04/13/21 History atorvastatin 40 mg PO DAILY 07/31/20 04/13/21 History lisinopril 20 mg PO DAILY 07/31/20 04/13/21 History magnesium oxide 500 mg PO BID 07/31/20 04/13/21 History meloxicam 7.5 mg PO DAILY 07/31/20 04/13/21 History metoprolol tartrate 25 mg PO BID 07/31/20 04/13/21 History acetaminophen [Tylenol Arthritis] 650 mg PO DAILY 04/13/21 04/13/21 History calcium 150 mg PO DAILY 04/13/21 04/13/21 History empagliflozin [Jardiance] 25 mg PO DAILY 04/13/21 04/13/21 History garlic 150 mg PO DAILY 04/13/21 04/13/21 History lorazepam 1 mg PO DAILY PRN 04/13/21 04/13/21 History montelukast 10 mg PO DAILY 04/13/21 04/13/21 History Patient History Medical History Diabetes GERD (gastroesophageal reflux disease) HLD (hyperlipidemia) Surgical History History of partial hysterectomy History of sinus surgery Family History Father , 62 from CVA Stroke, Onset Age: 40 Social History Smoking Status: Current some day smoker Tobacco Type: Cigarettes Second Hand Exposure: No; Hx Alcohol Use: Yes Alcohol type: hard liquor Hx Substance Use: Yes Last Used Substance: Days (ago) Preferred Language: Bahamian Communication Ability: Effective Enterer Required: No Beliefs That Will Affect Care: None marital status: Current Living Situation: Alone Feels Safe at Home: Yes Assistive Devices: Glasses Review of Systems Review of Systems: All systems reviewed & are unremarkable except as noted in HPI & below Physical Exam Constitutional: WD/WN, vitals as above + obese; no acute distress Eyes: PERRL, conjunctivae normal, anicteric sclerae ENMT: external ear and nose normal, oropharynx normal Neck: trachea midline, no thyromegaly Respiratory: normal respiratory effort, lungs clear to auscultation Cardiovascular: Rate/Rhythm: regular rate and regular rhythm Heart Sounds: normal S1 and normal S2; no gallop and no murmur Palpation: normal PMI Vessels: normal carotid upstroke and radial pulses present; no JVD, no carotid bruit and no femoral bruit Extremities: no edema Gastrointestinal (Abdomen): normal bowel sounds, soft, nontender, no hepatosplenomegaly Musculoskeletal: no cyanosis or clubbing, extremities motor strength 5/5 Skin: no rashes, warm and dry Neurologic: PERRL, EOMI, accommodation nl, no face palsy, no dysarthria Psychiatric: A+Ox3, euthymic affect Results & Data ([facility]) Vital Signs (Past 12 Hours) Vital Signs Temp Pulse Resp BP Pulse Ox 04/13/21 14:10 81 21 97 04/13/21 14:01 85 21 95 04/13/21 14:00 85 22 125/72 95 04/13/21 13:50 91 H 19 141/75 H 96 04/13/21 13:40 89 21 04/13/21 13:30 83 21 04/13/21 13:20 85 23 04/13/21 13:10 84 20 04/13/21 13:00 76 18 04/13/21 12:50 80 23 04/13/21 12:40 83 23 04/13/21 12:31 84 22 04/13/21 12:30 80 17 120/75 04/13/21 12:20 79 19 04/13/21 12:10 85 24 04/13/21 12:08 83 24 123/78 04/13/21 11:57 36.0 C L 86 20 142/78 H 99 Laboratory Results Laboratory Results - last 24 hr 04/13/21 04/13/21 04/13/21 12:34 12:34 12:34 WBC 6.56 RBC 4.46 Hgb 13.7 Hct 41.6 MCV 93.3 MCH 30.7 MCHC 32.9 RDW Std Deviation 45.4 RDW Coeff of Brittney 13.2 Plt Count 204 MPV 9.6 Immature Gran % (Auto) 0.2 Neut % (Auto) 62.4 Lymph % (Auto) 28.7 [place] % (Auto) 6.4 Eos % (Auto) 2.0 Baso % (Auto) 0.3 Neut # (Auto) 4.10 Lymph # (Auto) 1.88 [place] # (Auto) 0.42 Eos # (Auto) 0.13 Baso # (Auto) 0.02 Immature Gran # (Auto) 0.01 APTT 27.3 PTT Ratio 1.0 Sodium Potassium Chloride Carbon Dioxide Anion Gap BUN Creatinine Est Cr Clr Drug Dosing Est GFR ( Amer) Est GFR (Non-Af Amer) BUN/Creatinine Ratio Glucose Calcium Magnesium 1.8 Total Bilirubin AST ALT Alkaline Phosphatase Troponin I Total Protein Albumin Globulin Albumin/Globulin Ratio Lipase COVID-19 Eval Order SARS-CoV-2 (PCR) 04/13/21 04/13/21 04/13/21 12:34 12:40 12:40 WBC RBC Hgb Hct MCV MCH MCHC RDW Std Deviation RDW Coeff of Brittney Plt Count MPV Immature Gran % (Auto) Neut % (Auto) Lymph % (Auto) [place] % (Auto) Eos % (Auto) Baso % (Auto) Neut # (Auto) Lymph # (Auto) [place] # (Auto) Eos # (Auto) Baso # (Auto) Immature Gran # (Auto) APTT PTT Ratio Sodium 141 Potassium 4.5 Chloride 112 H Carbon Dioxide 22 Anion Gap 7.0 BUN 25 H Creatinine 0.86 Est Cr Clr Drug Dosing 71.3 Est GFR ( Amer) 83.3 Est GFR (Non-Af Amer) 71.9 BUN/Creatinine Ratio 28.5 H Glucose 136 H Calcium 10.1 Magnesium Total Bilirubin 0.4 AST 18 ALT 26 Alkaline Phosphatase 80 Troponin I 0.764 H* Total Protein 7.2 Albumin 4.0 Globulin 3.2 Albumin/Globulin Ratio 1.3 Lipase 268 COVID-19 Eval Order Covid19 at [facility] SARS-CoV-2 (PCR) NEGATIVE (1) Hypertension Hypertension type: unspecified Qualified Code(s): I10 - Essential (primary) hypertension
--- NOTE | 2021-04-13 15:42 | History & Physical Report ---
Date of Service April 13, 2021 Assessment & Plan (1) NSTEMI (non-ST elevated myocardial infarction): -Admit to telemetry -Patient presenting from home with reports of chest pressure, nausea, diaphoresis, shortness of breath -Risk factors: DM, HLD, HTN, + family history -In the ED, EKG shows new T-wave inversion in lead I, deeper T wave inversion in aVL. Initial troponin 0.7 -Received SL nitro in ED, currently rating pain #2/10 -Given full dose aspirin and started on heparin drip in the ED -Serial trops, resting echo -Cardiology consult, case discussed with Dr. Mcmahon (2) DM type 2 (diabetes mellitus, type 2): -Hgb A1c 9.4 03/2021 -Hold oral agents and utilize NovoLog per protocol while hospitalized (3) Hypertension: -BP controlled, continue lisinopril (4) GERD (gastroesophageal reflux disease): -Continue PPI (5) DVT prophylaxis: -On IV heparin as above History of Present Illness Chief Complaint: Chest pain Primary Care Provider: Jerrica Urias DO 65-year-old female with PMH DM type II, dyslipidemia, HTN, history of questionable TIA, daily marijuana use, and other problems listed below who presents the ED for evaluation of chest pain. 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 Patient reports the pain as severe, rating it #8/10. Patient reports associated diaphoresis, nausea, shortness of breath. Patient rested for about 15 minutes, symptoms mildly improved and she completed the haircut. Patient then drove herself home and took Gaviscon. She reports no improvement in her symptoms, and therefore presented to the ED for further evaluation. Patient notes increasing fatigue over the past few months. No other recent illnesses, fevers, chills. Denies abdominal pain, vomiting, diarrhea. No urinary symptoms. In the ED, patient was given sublingual nitroglycerin and currently rates her pain #2/10. EKG shows a new T wave inversion in lead I and a deeper T wave inversion in aVL. Initial troponin 0.764. Patient was also given full dose aspirin and started on a heparin drip. Allergies Allergy/AdvReac Type Severity Reaction Status Date / Time Penicillins Allergy Intermediate Hives Verified 04/13/21 14:35 Sulfa (Sulfonamide Allergy Intermediate Hives Verified 04/13/21 14:35 Antibiotics) albiglutide Allergy Unknown Abdominal Verified 04/13/21 14:35 pain,nausea,vomiting,rash and itchiness clindamycin Allergy Unknown Hives Verified 04/13/21 14:35 Corticosteroids Allergy Unknown Unknown Verified 04/13/21 14:35 (Glucocorticoids) Home Medications Medication Instructions Recorded Confirmed Type Tradjenta 5 mg PO QAM 07/20/19 04/13/21 History Women's One Daily 1 tab PO QAM 07/20/19 04/13/21 History coenzyme Q10 [Co Q-10] 10 mg PO QAM 07/20/19 04/13/21 History cyanocobalamin (vitamin B-12) 1,000 mcg PO QAM 07/20/19 04/13/21 History [Vitamin B-12] metformin 1,000 mg PO BIDM 07/20/19 04/13/21 History aspirin 81 mg PO QAM #21 tab 12/23/19 04/13/21 Rx cholecalciferol (vitamin D3) 1,000 unit PO QAM 12/26/19 04/13/21 History omeprazole magnesium [Prilosec OTC] 20 mg PO QAM 01/03/20 04/13/21 History atorvastatin 40 mg PO DAILY 07/31/20 04/13/21 History lisinopril 20 mg PO DAILY 07/31/20 04/13/21 History magnesium oxide 500 mg PO BID 07/31/20 04/13/21 History meloxicam 7.5 mg PO DAILY 07/31/20 04/13/21 History metoprolol tartrate 25 mg PO BID 07/31/20 04/13/21 History acetaminophen [Tylenol Arthritis] 650 mg PO DAILY 04/13/21 04/13/21 History calcium 150 mg PO DAILY 04/13/21 04/13/21 History empagliflozin [Jardiance] 25 mg PO DAILY 04/13/21 04/13/21 History garlic 150 mg PO DAILY 04/13/21 04/13/21 History lorazepam 1 mg PO DAILY PRN 04/13/21 04/13/21 History montelukast 10 mg PO DAILY 04/13/21 04/13/21 History Past Med/Surg History Medical History DM type 2 (diabetes mellitus, type 2) GERD (gastroesophageal reflux disease) HLD (hyperlipidemia) Hypertension Surgical History H/O shoulder surgery right, arthroscopic History of partial hysterectomy History of sinus surgery Family History Father , 62 from CVA Stroke, Onset Age: 40 Brother Heart disease Social History (Updated 04/13/21 @ 15:36 by ARIK Escalante) Smoking Status: Never smoker Tobacco Type: Cigarettes Second Hand Exposure: No; Hx Alcohol Use: No Hx Substance Use: Yes Prescribed Medications: Marijuana Preferred Language: Swedish Communication Ability: Effective Pattern Scratcher Required: No Beliefs That Will Affect Care: None marital status: Current Living Situation: Alone Other Information That Helps Us Care for You: No Feels Safe at Home: Yes Safety Concerns: Feels Safe At This Time Assistive Devices: Glasses Review of Systems Review of Systems: ROS per HPI, all other systems reviewed and negative Physical Exam Constitutional: WD/WN, vitals as above Eyes: PERRL, conjunctivae normal, anicteric sclerae ENMT: external ear and nose normal, oropharynx normal Respiratory: normal respiratory effort, lungs clear to auscultation Cardiovascular: Rate/Rhythm: regular rate and regular rhythm Vessels: normal peripheral pulses Extremities: no edema Gastrointestinal (Abdomen): normal bowel sounds, soft, nontender, no hepatosplenomegaly Musculoskeletal: no cyanosis or clubbing, extremities motor strength 5/5 Skin: no rashes, warm and dry Neurologic: PERRL, EOMI, accommodation nl, no face palsy, no dysarthria Psychiatric: A+Ox3, euthymic affect Results & Data Results & Data ([facility]) Vital Signs (Past 12 Hours) Vital Signs Temp Pulse Resp BP Pulse Ox 04/13/21 14:10 81 21 97 04/13/21 14:01 85 21 95 04/13/21 14:00 85 22 125/72 95 04/13/21 13:50 91 H 19 141/75 H 96 04/13/21 13:40 89 21 04/13/21 13:30 83 21 04/13/21 13:20 85 23 04/13/21 13:10 84 20 04/13/21 13:00 76 18 04/13/21 12:50 80 23 04/13/21 12:40 83 23 04/13/21 12:31 84 22 04/13/21 12:30 80 17 120/75 04/13/21 12:20 79 19 04/13/21 12:10 85 24 04/13/21 12:08 83 24 123/78 04/13/21 11:57 36.0 C L 86 20 142/78 H 99 Laboratory Results Short CBC 04/13/21 Range/Units 12:34 WBC 6.56 (4.8-10.8) K/uL Hgb 13.7 (12.0-16.0) g/dL Hct 41.6 (37-47) % Plt Count 204 (130-400) K/uL BMP 04/13/21 12:34 Sodium 141 Potassium 4.5 Chloride 112 H Carbon Dioxide 22 BUN 25 H Creatinine 0.86 Glucose 136 H Calcium 10.1 Cardiac Enzymes 04/13/21 Range/Units 12:34 Troponin I 0.764 H* (0-0.045) ng/ml Liver Function 04/13/21 Range/Units 12:34 Total Bilirubin 0.4 (0.2-1) mg/dl AST 18 (15-37) U/L ALT 26 (12-78) U/L Alkaline Phosphatase 80 (45-117) U/L Albumin 4.0 (3.4-5.0) gm/dl Diagnostic Findings Chest X-Ray 04/13/21 12:19 XR chest 1V portable CLINICAL HISTORY: Atypical chest pain COMPARISON STUDY: 07/31/2020 FINDINGS: The heart is the upper limits of normal in size. There is no failure. There is no focal pulmonary consolidation. There are no pleural effusions.[ IMPRESSION: No active disease in the chest. ACT 112: Negative or not required by law. Electronically signed by: Angus Hollis M.D. 04/13/2021 12:58 PM Code Status & VTE Plan Code Status Patient is a full code as per my discussion with her. VTE Prophylaxis Plan VTE Prophylaxis will be ordered: No Supervising Physician Co-Signing Physician Notes Patient seen and examined by me, care coordinated with ARIK Escalante, please refer to her note above for further detail. Patient is a 65 y/o female with history of HTN, diabetes mellitus, hyperlipidemia, who presents with substernal chest pain, diaphoresis, shortness of breath and found to have elevated troponin in the ER. Currently patient feels better, reports chest pressure about 2 out of 10. She was started on IV heparin in ER. She is alert and oriented answering questions appropriately. Heart sounds regular. Lung sounds clear to auscultation bilaterally without any wheezing rhonchi or crackles. Abdomen is soft, nontender nondistended. There is no lower extremity edema appreciated. Patient is moving extremities spontaneously. Skin is warm dry well-perfused. Patient to be admitted to the telemetry. Troponin to be repeated. Cardiology contacted already, likely plan for cath on Thursday. Update: Repeat troponin elevated at 1.4, plan for n.p.o. after midnight and cardiac cath tomorrow. Alejandro Zelaya MD (1) Hypertension Hypertension type: unspecified Qualified Code(s): I10 - Essential (primary) hypertension
[2021-04-13] MEDS ORDERED: GLUCAGON FOR INJ 1 MG VIAL SQ PRN (15:58)
[2021-04-13] MEDS ORDERED: CARBOHYDRATES FOR HYPOGLYCEMIA PO PRN (15:58)
[2021-04-13] MEDS ORDERED: GLUCOSE 40% GEL 15 GM TUBE PO PRN (15:58)
[2021-04-13] MEDS ORDERED: NITROGLYCERIN SL 0.4 MG/TAB TAB SL PRN (15:58)
[2021-04-13] MEDS ORDERED: GLUCOSE 10 TABS/TUBE PO PRN (15:58)
[2021-04-13] MEDS ORDERED: DEXTROSE 50% 50 ML SYRINGE IV PRN (15:58)
[2021-04-13] MEDS: NITROGLYCERIN 2% OINTMENT 30GM TUBE EXT SCH ×2 (16:54→23:01)
[2021-04-13] MEDS: INSULIN ASPART 100 UNITS/ML 3 ML PEN SC SCH ×2 (16:58→20:44)
[2021-04-13] MEDS: METOPROLOL TARTRATE 25 MG TAB PO SCH (20:39)
[2021-04-13] MEDS ORDERED: METOPROLOL TARTRATE 25 MG TAB PO SCH (21:00)
[2021-04-13 22:03] LABS: Partial Thromboplastin Ratio 3.5
[2021-04-13 22:46] LABS: Partial Thromboplastin Time 92.2 Seconds (21.0-31.0)
[2021-04-14 06:05] LABS: Hematocrit (blood only) 39.7 % (37-47); Hemoglobin 13.3 g/dL (12.0-16.0); Mean Corpuscular Hemoglobin 30.6 pg (25-34); Mean Corpuscular Hgb Conc 33.5 g/dL (32-36); Mean Corpuscular Volume 91.3 fL (80-100); Mean Platelet Volume 9.7 fL (7.4-10.4); Platelet Count 184 K/uL (130-400); RDW Coefficient of Variation 13.4 % (11.5-14.5); RDW Standard Deviation 44.4 fL (36.4-46.3); Red Blood Count 4.35 M/uL (4.2-5.4); White Blood Count 5.75 K/uL (4.8-10.8)
[2021-04-14] MEDS: NITROGLYCERIN 2% OINTMENT 30GM TUBE EXT SCH ×4 (06:09→23:36)
[2021-04-14 06:29] LABS: BUN Creatinine Ratio 23.3 (10-20); Calcium 9.3 mg/dl (8.5-10.1); Creatinine Clr Calc Pharmacy 74.9 ml/min; Est GFR (African American) 89.6 ml/min; Est GFR (Non-African American) 77.3 ml/min; Potassium 4.2 mmol/L (3.5-5.1)
[2021-04-14 06:54] LABS: Partial Thromboplastin Ratio 2.3
[2021-04-14 07:18] LABS: Partial Thromboplastin Time 60.4 Seconds (21.0-31.0)
--- NOTE | 2021-04-14 07:30 | Hospitalist Progress Note ---
Date of Service April 14, 2021 Assessment & Plan (1) NSTEMI (non-ST elevated myocardial infarction): -Admitted to telemetry -Patient presenting from home with reports of chest pressure, nausea, diaphoresis, shortness of breath -Risk factors: DM, HLD, HTN, + family history -In the ED, EKG shows new T-wave inversion in lead I, deeper T wave inversion in aVL. Initial troponin 0.7, peaked at 1.4 -Received SL nitro in ED, then rated pain #2/10 -Given full dose aspirin and started on heparin drip in the ED -Resting Echo - LV is normal in size. There is moderate concentric LVH. There is a large area of hypokinesis anterior, apical and apical septum with mild expansion. EF 40 to 45%. -Cardiology consulted, case discussed with Dr. Mcmahon -Cont. IV heparin, On beta-fish, ALEKSANDAR inhibitor, aspirin, statin as well as topical nitrates -Plan for cardiac cath tomorrow, April 15 (2) DM type 2 (diabetes mellitus, type 2): -Hgb A1c 9.4 03/2021 -Hold oral agents and utilize NovoLog per protocol while hospitalized (3) Hypertension: -BP controlled, continue lisinopril (4) GERD (gastroesophageal reflux disease): -Continue PPI (5) DVT prophylaxis: -On IV heparin as above Admission and Anticipated Discharge Date Admission Date: April 13, 2021 Subjective Patient seen in follow-up of NSTEMI, chest pain Currently she is sitting up in bed, in no acute distress, comfortable, only has a slight headache Denies any chest pain, shortness of breath, dizziness, shortness of breath, palpitations, nausea Had uneventful night Review of Systems Review of Systems: All systems reviewed & are unremarkable except as noted in HPI & below Constitutional: no fever and no chills Respiratory: no cough and no dyspnea Cardiovascular: no chest pain and no palpitations Gastrointestinal: no abdominal pain, no nausea and no vomiting Physical Exam Physical Exam: Constitutional: WD/WN, obese F Eyes: PERRL, EOMI, conjunctivae normal, anicteric sclerae ENMT: external ear and nose normal, oropharynx normal Respiratory: normal respiratory effort, CTAB no wheezing, rhonchi, crackles Cardiovascular: Rate/Rhythm: regular rate and regular rhythm Vessels: normal peripheral pulses Extremities: no edema Gastrointestinal (Abdomen): normal bowel sounds, soft, nontender Musculoskeletal: extremities motor strength 5/5 Skin: no rashes, warm and dry Neurologic: PERRL, EOMI, no face palsy, no dysarthria, moves extremities Psychiatric: A+Ox3, euthymic affect Results & Data Results & Data ([facility]) Vital Signs (Past 12 Hours) Vital Signs Temp Pulse Pulse Resp BP Pulse Ox 04/14/21 04:04 36.6 C 78 18 116/81 95 04/14/21 00:15 36.7 C 71 18 108/72 95 04/14/21 00:00 74 04/13/21 19:57 36.2 C L 79 18 102/68 93 Laboratory Results 04/14/21 04/14/21 04/14/21 Range/Units 07:24 05:48 05:48 WBC (4.8-10.8) K/uL RBC (4.2-5.4) M/uL Hgb (12.0-16.0) g/dL Hct (37-47) % MCV (80-100) fL MCH (25-34) pg MCHC (32-36) g/dL RDW Std Deviation (36.4-46.3) fL RDW Coeff of Brittney (11.5-14.5) % Plt Count (130-400) K/uL MPV (7.4-10.4) fL Immature Gran % (Auto) % Neut % (Auto) % Lymph % (Auto) % [place] % (Auto) % Eos % (Auto) % Baso % (Auto) % Neut # (Auto) (1.4-6.5) K/uL Lymph # (Auto) (1.2-3.4) K/uL [place] # (Auto) (0.11-0.59) K/uL Eos # (Auto) (0-0.5) K/uL Baso # (Auto) (0-0.2) K/uL Immature Gran # (Auto) (0.00-0.02) K/uL APTT 60.4 H* (21.0-31.0) Seconds PTT Ratio 2.3 Sodium 139 (136-145) mmol/L Potassium 4.2 (3.5-5.1) mmol/L Chloride 109 H (98-107) mmol/L Carbon Dioxide 22 (21-32) mmol/L Anion Gap 9.0 (3-11) BUN 19 H (7-18) mg/dl Creatinine 0.81 (0.6-1.2) mg/dl Est Cr Clr Drug Dosing 74.9 ml/min Est GFR ( Amer) 89.6 ml/min Est GFR (Non-Af Amer) 77.3 ml/min BUN/Creatinine Ratio 23.3 H (10-20) Glucose 157 H (70-99) mg/dl POC Glucose 159 H (70-99) mg/dl Calcium 9.3 (8.5-10.1) mg/dl Magnesium (1.8-2.4) mg/dl Total Bilirubin (0.2-1) mg/dl AST (15-37) U/L ALT (12-78) U/L Alkaline Phosphatase (45-117) U/L Troponin I (0-0.045) ng/ml Total Protein (6.4-8.2) gm/dl Albumin (3.4-5.0) gm/dl Globulin (2.5-4.0) gm/dl Albumin/Globulin Ratio (0.9-2) Triglycerides 142 (0-150) mg/dl Cholesterol 143 (0-200) mg/dl LDL Cholesterol, Calc 69 mg/dl VLDL Cholesterol, Calc 28 mg/dl HDL Cholesterol 46 mg/dl Cholesterol/HDL Ratio 3 Lipase (73-393) U/L COVID-19 Eval Order SARS-CoV-2 (PCR) (Negative) 04/14/21 04/14/21 04/13/21 Range/Units 05:48 00:23 21:16 WBC 5.75 (4.8-10.8) K/uL RBC 4.35 (4.2-5.4) M/uL Hgb 13.3 (12.0-16.0) g/dL Hct 39.7 (37-47) % MCV 91.3 (80-100) fL MCH 30.6 (25-34) pg MCHC 33.5 (32-36) g/dL RDW Std Deviation 44.4 (36.4-46.3) fL RDW Coeff of Brittney 13.4 (11.5-14.5) % Plt Count 184 (130-400) K/uL MPV 9.7 (7.4-10.4) fL Immature Gran % (Auto) % Neut % (Auto) % Lymph % (Auto) % [place] % (Auto) % Eos % (Auto) % Baso % (Auto) % Neut # (Auto) (1.4-6.5) K/uL Lymph # (Auto) (1.2-3.4) K/uL [place] # (Auto) (0.11-0.59) K/uL Eos # (Auto) (0-0.5) K/uL Baso # (Auto) (0-0.2) K/uL Immature Gran # (Auto) (0.00-0.02) K/uL APTT 92.2 H* (21.0-31.0) Seconds PTT Ratio 3.5 Sodium (136-145) mmol/L Potassium (3.5-5.1) mmol/L Chloride (98-107) mmol/L Carbon Dioxide (21-32) mmol/L Anion Gap (3-11) BUN (7-18) mg/dl Creatinine (0.6-1.2) mg/dl Est Cr Clr Drug Dosing ml/min Est GFR ( Amer) ml/min Est GFR (Non-Af Amer) ml/min BUN/Creatinine Ratio (10-20) Glucose (70-99) mg/dl POC Glucose (70-99) mg/dl Calcium (8.5-10.1) mg/dl Magnesium (1.8-2.4) mg/dl Total Bilirubin (0.2-1) mg/dl AST (15-37) U/L ALT (12-78) U/L Alkaline Phosphatase (45-117) U/L Troponin I 0.840 H* (0-0.045) ng/ml Total Protein (6.4-8.2) gm/dl Albumin (3.4-5.0) gm/dl Globulin (2.5-4.0) gm/dl Albumin/Globulin Ratio (0.9-2) Triglycerides (0-150) mg/dl Cholesterol (0-200) mg/dl LDL Cholesterol, Calc mg/dl VLDL Cholesterol, Calc mg/dl HDL Cholesterol mg/dl Cholesterol/HDL Ratio Lipase (73-393) U/L COVID-19 Eval Order SARS-CoV-2 (PCR) (Negative) 04/13/21 04/13/21 04/13/21 Range/Units 20:23 18:10 16:31 WBC (4.8-10.8) K/uL RBC (4.2-5.4) M/uL Hgb (12.0-16.0) g/dL Hct (37-47) % MCV (80-100) fL MCH (25-34) pg MCHC (32-36) g/dL RDW Std Deviation (36.4-46.3) fL RDW Coeff of Brittney (11.5-14.5) % Plt Count (130-400) K/uL MPV (7.4-10.4) fL Immature Gran % (Auto) % Neut % (Auto) % Lymph % (Auto) % [place] % (Auto) % Eos % (Auto) % Baso % (Auto) % Neut # (Auto) (1.4-6.5) K/uL Lymph # (Auto) (1.2-3.4) K/uL [place] # (Auto) (0.11-0.59) K/uL Eos # (Auto) (0-0.5) K/uL Baso # (Auto) (0-0.2) K/uL Immature Gran # (Auto) (0.00-0.02) K/uL APTT (21.0-31.0) Seconds PTT Ratio Sodium (136-145) mmol/L Potassium (3.5-5.1) mmol/L Chloride (98-107) mmol/L Carbon Dioxide (21-32) mmol/L Anion Gap (3-11) BUN (7-18) mg/dl Creatinine (0.6-1.2) mg/dl Est Cr Clr Drug Dosing ml/min Est GFR ( Amer) ml/min Est GFR (Non-Af Amer) ml/min BUN/Creatinine Ratio (10-20) Glucose (70-99) mg/dl POC Glucose 129 H 123 H (70-99) mg/dl Calcium (8.5-10.1) mg/dl Magnesium (1.8-2.4) mg/dl Total Bilirubin (0.2-1) mg/dl AST (15-37) U/L ALT (12-78) U/L Alkaline Phosphatase (45-117) U/L Troponin I 1.230 H* (0-0.045) ng/ml Total Protein (6.4-8.2) gm/dl Albumin (3.4-5.0) gm/dl Globulin (2.5-4.0) gm/dl Albumin/Globulin Ratio (0.9-2) Triglycerides (0-150) mg/dl Cholesterol (0-200) mg/dl LDL Cholesterol, Calc mg/dl VLDL Cholesterol, Calc mg/dl HDL Cholesterol mg/dl Cholesterol/HDL Ratio Lipase (73-393) U/L COVID-19 Eval Order SARS-CoV-2 (PCR) (Negative) 04/13/21 04/13/21 04/13/21 Range/Units 15:37 12:40 12:40 WBC (4.8-10.8) K/uL RBC (4.2-5.4) M/uL Hgb (12.0-16.0) g/dL Hct (37-47) % MCV (80-100) fL MCH (25-34) pg MCHC (32-36) g/dL RDW Std Deviation (36.4-46.3) fL RDW Coeff of Brittney (11.5-14.5) % Plt Count (130-400) K/uL MPV (7.4-10.4) fL Immature Gran % (Auto) % Neut % (Auto) % Lymph % (Auto) % [place] % (Auto) % Eos % (Auto) % Baso % (Auto) % Neut # (Auto) (1.4-6.5) K/uL Lymph # (Auto) (1.2-3.4) K/uL [place] # (Auto) (0.11-0.59) K/uL Eos # (Auto) (0-0.5) K/uL Baso # (Auto) (0-0.2) K/uL Immature Gran # (Auto) (0.00-0.02) K/uL APTT (21.0-31.0) Seconds PTT Ratio Sodium (136-145) mmol/L Potassium (3.5-5.1) mmol/L Chloride (98-107) mmol/L Carbon Dioxide (21-32) mmol/L Anion Gap (3-11) BUN (7-18) mg/dl Creatinine (0.6-1.2) mg/dl Est Cr Clr Drug Dosing ml/min Est GFR ( Amer) ml/min Est GFR (Non-Af Amer) ml/min BUN/Creatinine Ratio (10-20) Glucose (70-99) mg/dl POC Glucose (70-99) mg/dl Calcium (8.5-10.1) mg/dl Magnesium (1.8-2.4) mg/dl Total Bilirubin (0.2-1) mg/dl AST (15-37) U/L ALT (12-78) U/L Alkaline Phosphatase (45-117) U/L Troponin I 1.420 H* (0-0.045) ng/ml Total Protein (6.4-8.2) gm/dl Albumin (3.4-5.0) gm/dl Globulin (2.5-4.0) gm/dl Albumin/Globulin Ratio (0.9-2) Triglycerides (0-150) mg/dl Cholesterol (0-200) mg/dl LDL Cholesterol, Calc mg/dl VLDL Cholesterol, Calc mg/dl HDL Cholesterol mg/dl Cholesterol/HDL Ratio Lipase (73-393) U/L COVID-19 Eval Order Covid19 at [facility] SARS-CoV-2 (PCR) NEGATIVE (Negative) 04/13/21 04/13/21 04/13/21 Range/Units 12:34 12:34 12:34 WBC 6.56 (4.8-10.8) K/uL RBC 4.46 (4.2-5.4) M/uL Hgb 13.7 (12.0-16.0) g/dL Hct 41.6 (37-47) % MCV 93.3 (80-100) fL MCH 30.7 (25-34) pg MCHC 32.9 (32-36) g/dL RDW Std Deviation 45.4 (36.4-46.3) fL RDW Coeff of Brittney 13.2 (11.5-14.5) % Plt Count 204 (130-400) K/uL MPV 9.6 (7.4-10.4) fL Immature Gran % (Auto) 0.2 % Neut % (Auto) 62.4 % Lymph % (Auto) 28.7 % [place] % (Auto) 6.4 % Eos % (Auto) 2.0 % Baso % (Auto) 0.3 % Neut # (Auto) 4.10 (1.4-6.5) K/uL Lymph # (Auto) 1.88 (1.2-3.4) K/uL [place] # (Auto) 0.42 (0.11-0.59) K/uL Eos # (Auto) 0.13 (0-0.5) K/uL Baso # (Auto) 0.02 (0-0.2) K/uL Immature Gran # (Auto) 0.01 (0.00-0.02) K/uL APTT 27.3 (21.0-31.0) Seconds PTT Ratio 1.0 Sodium 141 (136-145) mmol/L Potassium 4.5 (3.5-5.1) mmol/L Chloride 112 H (98-107) mmol/L Carbon Dioxide 22 (21-32) mmol/L Anion Gap 7.0 (3-11) BUN 25 H (7-18) mg/dl Creatinine 0.86 (0.6-1.2) mg/dl Est Cr Clr Drug Dosing 71.3 ml/min Est GFR ( Amer) 83.3 ml/min Est GFR (Non-Af Amer) 71.9 ml/min BUN/Creatinine Ratio 28.5 H (10-20) Glucose 136 H (70-99) mg/dl POC Glucose (70-99) mg/dl Calcium 10.1 (8.5-10.1) mg/dl Magnesium (1.8-2.4) mg/dl Total Bilirubin 0.4 (0.2-1) mg/dl AST 18 (15-37) U/L ALT 26 (12-78) U/L Alkaline Phosphatase 80 (45-117) U/L Troponin I 0.764 H* (0-0.045) ng/ml Total Protein 7.2 (6.4-8.2) gm/dl Albumin 4.0 (3.4-5.0) gm/dl Globulin 3.2 (2.5-4.0) gm/dl Albumin/Globulin Ratio 1.3 (0.9-2) Triglycerides (0-150) mg/dl Cholesterol (0-200) mg/dl LDL Cholesterol, Calc mg/dl VLDL Cholesterol, Calc mg/dl HDL Cholesterol mg/dl Cholesterol/HDL Ratio Lipase 268 (73-393) U/L COVID-19 Eval Order SARS-CoV-2 (PCR) (Negative) 04/13/21 Range/Units 12:34 WBC (4.8-10.8) K/uL RBC (4.2-5.4) M/uL Hgb (12.0-16.0) g/dL Hct (37-47) % MCV (80-100) fL MCH (25-34) pg MCHC (32-36) g/dL RDW Std Deviation (36.4-46.3) fL RDW Coeff of Brittney (11.5-14.5) % Plt Count (130-400) K/uL MPV (7.4-10.4) fL Immature Gran % (Auto) % Neut % (Auto) % Lymph % (Auto) % [place] % (Auto) % Eos % (Auto) % Baso % (Auto) % Neut # (Auto) (1.4-6.5) K/uL Lymph # (Auto) (1.2-3.4) K/uL [place] # (Auto) (0.11-0.59) K/uL Eos # (Auto) (0-0.5) K/uL Baso # (Auto) (0-0.2) K/uL Immature Gran # (Auto) (0.00-0.02) K/uL APTT (21.0-31.0) Seconds PTT Ratio Sodium (136-145) mmol/L Potassium (3.5-5.1) mmol/L Chloride (98-107) mmol/L Carbon Dioxide (21-32) mmol/L Anion Gap (3-11) BUN (7-18) mg/dl Creatinine (0.6-1.2) mg/dl Est Cr Clr Drug Dosing ml/min Est GFR ( Amer) ml/min Est GFR (Non-Af Amer) ml/min BUN/Creatinine Ratio (10-20) Glucose (70-99) mg/dl POC Glucose (70-99) mg/dl Calcium (8.5-10.1) mg/dl Magnesium 1.8 (1.8-2.4) mg/dl Total Bilirubin (0.2-1) mg/dl AST (15-37) U/L ALT (12-78) U/L Alkaline Phosphatase (45-117) U/L Troponin I (0-0.045) ng/ml Total Protein (6.4-8.2) gm/dl Albumin (3.4-5.0) gm/dl Globulin (2.5-4.0) gm/dl Albumin/Globulin Ratio (0.9-2) Triglycerides (0-150) mg/dl Cholesterol (0-200) mg/dl LDL Cholesterol, Calc mg/dl VLDL Cholesterol, Calc mg/dl HDL Cholesterol mg/dl Cholesterol/HDL Ratio Lipase (73-393) U/L COVID-19 Eval Order SARS-CoV-2 (PCR) (Negative) Medications Administered Current Inpatient Medications Acetaminophen (Acetaminophen 325 Mg Tab) 650 mg PO Q4H PRN PRN Reason: Pain or Fever Stop: 05/13/21 15:57 Atorvastatin Calcium (Atorvastatin 40 Mg Tab) 40 mg PO DAILY [facility] Stop: 05/14/21 08:59 Cyanocobalamin (Cyanocobalamin 500 Mcg Tablet (Vitamin B-12)) 1,000 mcg PO QAM [facility] Stop: 05/14/21 08:59 Dextrose (Dextrose 50% 50 Ml Syringe) 25 - 50 ml IV UD PRN; Protocol PRN Reason: Hypoglycemia Protocol Stop: 05/13/21 15:57 Glucagon (Glucagon For Inj 1 Mg Vial) 1 mg SQ UD PRN; Protocol PRN Reason: Hypoglycemia Protocol Stop: 05/13/21 15:57 Glucose (Glucose 10 Tabs/Tube) 4 - 8 tabs PO UD PRN; Protocol PRN Reason: Hypoglycemia Protocol Stop: 05/13/21 15:57 Glucose (Glucose 40% Gel 15 Gm Tube) 15 - 30 gm PO UD PRN; Protocol PRN Reason: Hypoglycemia Protocol Stop: 05/13/21 15:57 Heparin Sodium/Dextrose (Heparin Sodium/Dextrose) 25,000 units in 500 mls @ 21 mls/hr IV .[id number] THAI; Protocol Stop: 05/13/21 13:49 Last Titration: 04/14/21 06:57 Dose: 1,050 units/hr, 21 mls/hr Documented by: Insulin Aspart (Insulin Aspart 100 Units/Ml 3 Ml Pen) 0 units SC ACHS [facility] Stop: 05/13/21 16:29 Last Admin: 04/13/21 20:44 Dose: Not Given Documented by: Lisinopril (Lisinopril 20 Mg Tab) 20 mg PO DAILY [facility] Stop: 05/14/21 08:59 Metoprolol Tartrate (Metoprolol Tartrate 25 Mg Tab) 37.5 mg PO BID THAI Stop: 05/13/21 20:59 Last Admin: 04/13/21 20:39 Dose: 37.5 mg Documented by: Miscellaneous (Carbohydrates For Hypoglycemia ) 15 - 30 gm PO UD PRN PRN Reason: Hypoglycemia Protocol Stop: 05/13/21 15:57 Montelukast Sodium (Montelukast Sodium 10 Mg Tablet) 10 mg PO DAILY THAI Stop: 05/14/21 08:59 Nitroglycerin (Nitroglycerin Sl 0.4 Mg/Tab Tab) 0.4 mg SL UD PRN PRN Reason: Chest Pain Stop: 05/13/21 15:57 Nitroglycerin (Nitroglycerin 2% Ointment 30gm Tube) 0.5 inch EXT Q6 THAI Stop: 05/13/21 16:44 Last Admin: 04/14/21 06:09 Dose: 0.5 inch Documented by: Pantoprazole Sodium (Pantoprazole 40 Mg Tab) 40 mg PO QAM [facility] Stop: 05/14/21 08:59 Vitamin D (Cholecalciferol 1,000 Units 25 Mcg Tab) 1,000 units PO QAM [facility] Stop: 05/14/21 08:59 (1) Hypertension Hypertension type: unspecified Qualified Code(s): I10 - Essential (primary) hypertension
[2021-04-14] MEDS ORDERED: PERFLUTREN LIPID MICROSPHERE (DEFINITY) IV ONE (08:55)
--- NOTE | 2021-04-14 09:14 | Electrocardiogram Report ---
Test Reason : Blood Pressure : / mmHG Vent. Rate : 082 BPM Atrial Rate : 082 BPM P-R Int : 148 ms QRS Dur : 102 ms QT Int : 386 ms P-R-T Axes : 048 020 080 degrees QTc Int : 450 ms Normal sinus rhythm Non-specific intra-ventricular conduction delay Otherwise normal ECG When compared with ECG of 31-JUL-2020 02:24, No significant change was found Confirmed by Frank Mccormack ([id number]) on 04/14/2021 9:14:27 AM Referred By: REFERRED SELF Confirmed By:Frank Mccormack
--- NOTE | 2021-04-14 09:22 | Electrocardiogram Report ---
Test Reason : Blood Pressure : / mmHG Vent. Rate : 083 BPM Atrial Rate : 083 BPM P-R Int : 144 ms QRS Dur : 100 ms QT Int : 384 ms P-R-T Axes : 036 018 091 degrees QTc Int : 451 ms Poor data quality, interpretation may be adversely affected Normal sinus rhythm Cannot rule out Anterior infarct , age undetermined vs lead placement Abnormal ECG When compared with ECG of 13-APR-2021 12:04, (unconfirmed) No significant change was found Confirmed by Frank Mccormack ([id number]) on 04/14/2021 9:22:20 AM Referred By: REFERRED SELF Confirmed By:Frank Mccormack
[2021-04-14] MEDS: INSULIN ASPART 100 UNITS/ML 3 ML PEN SC SCH ×4 (09:57→20:04)
--- NOTE | 2021-04-14 10:13 | Electrocardiogram Report ---
Test Reason : Blood Pressure : / mmHG Vent. Rate : 085 BPM Atrial Rate : 085 BPM P-R Int : 142 ms QRS Dur : 098 ms QT Int : 428 ms P-R-T Axes : 048 023 147 degrees QTc Int : 509 ms Normal sinus rhythm T wave abnormality, consider anterolateral ischemia Prolonged QT Abnormal ECG When compared with ECG of 13-APR-2021 13:47, (unconfirmed) T wave inversion now evident in Anterior leads and lateral leads QT has lengthened Confirmed by Frank Mccormack ([id number]) on 04/14/2021 10:13:07 AM Referred By: REFERRED SELF Confirmed By:Frank Mccormack
[2021-04-14] MEDS: MONTELUKAST SODIUM 10 MG TABLET PO SCH (10:56)
[2021-04-14] MEDS: METOPROLOL TARTRATE 25 MG TAB PO SCH ×2 (10:56→20:06)
[2021-04-14] MEDS: CYANOCOBALAMIN 500 MCG TABLET (VITAMIN B-12) PO SCH (10:57)
[2021-04-14] MEDS: PANTOprazole 40 MG TAB PO SCH (10:58)
[2021-04-14] MEDS: ATORVASTATIN 40 MG TAB PO SCH (10:58)
[2021-04-14] MEDS: CHOLECALCIFEROL 1,000 UNITS 25 MCG TAB PO SCH (10:58)
[2021-04-14] MEDS: lisinopril 20 MG TAB PO SCH (10:58)
--- NOTE | 2021-04-14 11:08 | Cardiology Progress Note ---
Date of Service April 14, 2021 Assessment & Plan (1) Chest pain, precordial: Patient is a 65-year-old female with multiple cardiac risk factors including diabetes mellitus, hypertension, hyperlipidemia and familial history of heart disease who presents now with symptoms concerning for acute anginal pattern. EKGs and enzymes consistent with non-ST segment elevation myocardial infarction. EKGs with T wave inversion anterior leads Very preliminary review of echocardiogram reflects apical wall motion abnormality. Patient without recurrent symptoms. She is appropriately anticoagulated with IV heparin. On beta-fish, ALEKSANDAR inhibitor, aspirin, statin as well as topical nitrates Patient to be scheduled for coronary angiography in a.m. (2) GERD (gastroesophageal reflux disease): (3) HLD (hyperlipidemia): (4) Hypertension: Admission and Anticipated Discharge Date Admission Date: April 13, 2021 Subjective Patient was seen and examined, chart, medications, telemetry reviewed. Patient's had no further chest pain overnight and generally feels well this morning other than a low-grade headache. No tachypalpitations dizziness or lightheadedness. No bleeding difficulties on anticoagulation. Telemetry reveals no arrhythmias. EKG cardiac enzymes consistent with non-ST segment elevation myocardial infarction Review of Systems Review of Systems: All systems reviewed & are unremarkable except as noted in HPI & below Physical Exam Constitutional: WD/WN, vitals as above + obese; no acute distress Eyes: PERRL, conjunctivae normal, anicteric sclerae ENMT: external ear and nose normal, oropharynx normal Neck: trachea midline, no thyromegaly Respiratory: normal respiratory effort, lungs clear to auscultation Cardiovascular: Rate/Rhythm: regular rate and regular rhythm Heart Sounds: normal S1 and normal S2; no gallop and no murmur Palpation: normal PMI Vessels: normal carotid upstroke and radial pulses present; no JVD, no carotid bruit and no femoral bruit Extremities: no edema Gastrointestinal (Abdomen): normal bowel sounds, soft, nontender, no hepatosplenomegaly Musculoskeletal: no cyanosis or clubbing, extremities motor strength 5/5 Skin: no rashes, warm and dry Neurologic: PERRL, EOMI, accommodation nl, no face palsy, no dysarthria Psychiatric: A+Ox3, euthymic affect Results & Data ([facility]) Vital Signs (Past 12 Hours) Vital Signs Temp Pulse Pulse Resp BP Pulse Ox 04/14/21 08:00 36.8 C 69 79 18 120/63 99 04/14/21 04:04 36.6 C 78 18 116/81 95 04/14/21 00:15 36.7 C 71 18 108/72 95 04/14/21 00:00 74 Laboratory Results Laboratory Results - last 24 hr 04/13/21 04/13/21 04/13/21 12:34 12:34 12:34 WBC 6.56 RBC 4.46 Hgb 13.7 Hct 41.6 MCV 93.3 MCH 30.7 MCHC 32.9 RDW Std Deviation 45.4 RDW Coeff of Brittney 13.2 Plt Count 204 MPV 9.6 Immature Gran % (Auto) 0.2 Neut % (Auto) 62.4 Lymph % (Auto) 28.7 Trigg % (Auto) 6.4 Eos % (Auto) 2.0 Baso % (Auto) 0.3 Neut # (Auto) 4.10 Lymph # (Auto) 1.88 Trigg # (Auto) 0.42 Eos # (Auto) 0.13 Baso # (Auto) 0.02 Immature Gran # (Auto) 0.01 APTT 27.3 PTT Ratio 1.0 Sodium Potassium Chloride Carbon Dioxide Anion Gap BUN Creatinine Est Cr Clr Drug Dosing Est GFR ( Amer) Est GFR (Non-Af Amer) BUN/Creatinine Ratio Glucose POC Glucose Calcium Magnesium 1.8 Total Bilirubin AST ALT Alkaline Phosphatase Troponin I Total Protein Albumin Globulin Albumin/Globulin Ratio Triglycerides Cholesterol LDL Cholesterol, Calc VLDL Cholesterol, Calc HDL Cholesterol Cholesterol/HDL Ratio Lipase COVID-19 Eval Order SARS-CoV-2 (PCR) 04/13/21 04/13/21 04/13/21 12:34 12:40 12:40 WBC RBC Hgb Hct MCV MCH MCHC RDW Std Deviation RDW Coeff of Brittney Plt Count MPV Immature Gran % (Auto) Neut % (Auto) Lymph % (Auto) Trigg % (Auto) Eos % (Auto) Baso % (Auto) Neut # (Auto) Lymph # (Auto) Trigg # (Auto) Eos # (Auto) Baso # (Auto) Immature Gran # (Auto) APTT PTT Ratio Sodium 141 Potassium 4.5 Chloride 112 H Carbon Dioxide 22 Anion Gap 7.0 BUN 25 H Creatinine 0.86 Est Cr Clr Drug Dosing 71.3 Est GFR ( Amer) 83.3 Est GFR (Non-Af Amer) 71.9 BUN/Creatinine Ratio 28.5 H Glucose 136 H POC Glucose Calcium 10.1 Magnesium Total Bilirubin 0.4 AST 18 ALT 26 Alkaline Phosphatase 80 Troponin I 0.764 H* Total Protein 7.2 Albumin 4.0 Globulin 3.2 Albumin/Globulin Ratio 1.3 Triglycerides Cholesterol LDL Cholesterol, Calc VLDL Cholesterol, Calc HDL Cholesterol Cholesterol/HDL Ratio Lipase 268 COVID-19 Eval Order Covid19 at [facility] SARS-CoV-2 (PCR) NEGATIVE 04/13/21 04/13/21 04/13/21 15:37 16:31 18:10 WBC RBC Hgb Hct MCV MCH MCHC RDW Std Deviation RDW Coeff of Brittney Plt Count MPV Immature Gran % (Auto) Neut % (Auto) Lymph % (Auto) Trigg % (Auto) Eos % (Auto) Baso % (Auto) Neut # (Auto) Lymph # (Auto) Trigg # (Auto) Eos # (Auto) Baso # (Auto) Immature Gran # (Auto) APTT PTT Ratio Sodium Potassium Chloride Carbon Dioxide Anion Gap BUN Creatinine Est Cr Clr Drug Dosing Est GFR ( Amer) Est GFR (Non-Af Amer) BUN/Creatinine Ratio Glucose POC Glucose 123 H Calcium Magnesium Total Bilirubin AST ALT Alkaline Phosphatase Troponin I 1.420 H* 1.230 H* Total Protein Albumin Globulin Albumin/Globulin Ratio Triglycerides Cholesterol LDL Cholesterol, Calc VLDL Cholesterol, Calc HDL Cholesterol Cholesterol/HDL Ratio Lipase COVID-19 Eval Order SARS-CoV-2 (PCR) 04/13/21 04/13/21 04/14/21 20:23 21:16 00:23 WBC RBC Hgb Hct MCV MCH MCHC RDW Std Deviation RDW Coeff of Brittney Plt Count MPV Immature Gran % (Auto) Neut % (Auto) Lymph % (Auto) Trigg % (Auto) Eos % (Auto) Baso % (Auto) Neut # (Auto) Lymph # (Auto) Trigg # (Auto) Eos # (Auto) Baso # (Auto) Immature Gran # (Auto) APTT 92.2 H* PTT Ratio 3.5 Sodium Potassium Chloride Carbon Dioxide Anion Gap BUN Creatinine Est Cr Clr Drug Dosing Est GFR ( Amer) Est GFR (Non-Af Amer) BUN/Creatinine Ratio Glucose POC Glucose 129 H Calcium Magnesium Total Bilirubin AST ALT Alkaline Phosphatase Troponin I 0.840 H* Total Protein Albumin Globulin Albumin/Globulin Ratio Triglycerides Cholesterol LDL Cholesterol, Calc VLDL Cholesterol, Calc HDL Cholesterol Cholesterol/HDL Ratio Lipase COVID-19 Eval Order SARS-CoV-2 (PCR) 04/14/21 04/14/21 04/14/21 05:48 05:48 05:48 WBC 5.75 RBC 4.35 Hgb 13.3 Hct 39.7 MCV 91.3 MCH 30.6 MCHC 33.5 RDW Std Deviation 44.4 RDW Coeff of Brittney 13.4 Plt Count 184 MPV 9.7 Immature Gran % (Auto) Neut % (Auto) Lymph % (Auto) Trigg % (Auto) Eos % (Auto) Baso % (Auto) Neut # (Auto) Lymph # (Auto) Trigg # (Auto) Eos # (Auto) Baso # (Auto) Immature Gran # (Auto) APTT 60.4 H* PTT Ratio 2.3 Sodium 139 Potassium 4.2 Chloride 109 H Carbon Dioxide 22 Anion Gap 9.0 BUN 19 H Creatinine 0.81 Est Cr Clr Drug Dosing 74.9 Est GFR ( Amer) 89.6 Est GFR (Non-Af Amer) 77.3 BUN/Creatinine Ratio 23.3 H Glucose 157 H POC Glucose Calcium 9.3 Magnesium Total Bilirubin AST ALT Alkaline Phosphatase Troponin I Total Protein Albumin Globulin Albumin/Globulin Ratio Triglycerides 142 Cholesterol 143 LDL Cholesterol, Calc 69 VLDL Cholesterol, Calc 28 HDL Cholesterol 46 Cholesterol/HDL Ratio 3 Lipase COVID-19 Eval Order SARS-CoV-2 (PCR) 04/14/21 07:24 WBC RBC Hgb Hct MCV MCH MCHC RDW Std Deviation RDW Coeff of Brittney Plt Count MPV Immature Gran % (Auto) Neut % (Auto) Lymph % (Auto) Trigg % (Auto) Eos % (Auto) Baso % (Auto) Neut # (Auto) Lymph # (Auto) Trigg # (Auto) Eos # (Auto) Baso # (Auto) Immature Gran # (Auto) APTT PTT Ratio Sodium Potassium Chloride Carbon Dioxide Anion Gap BUN Creatinine Est Cr Clr Drug Dosing Est GFR ( Amer) Est GFR (Non-Af Amer) BUN/Creatinine Ratio Glucose POC Glucose 159 H Calcium Magnesium Total Bilirubin AST ALT Alkaline Phosphatase Troponin I Total Protein Albumin Globulin Albumin/Globulin Ratio Triglycerides Cholesterol LDL Cholesterol, Calc VLDL Cholesterol, Calc HDL Cholesterol Cholesterol/HDL Ratio Lipase COVID-19 Eval Order SARS-CoV-2 (PCR) (1) Hypertension Hypertension type: unspecified Qualified Code(s): I10 - Essential (primary) hypertension
[2021-04-14] MEDS: HEPARIN SODIUM/DEXTROSE 25,000 UNITS/500 ML BAG IV SCH (12:11)
[2021-04-14] MEDS: ACETAMINOPHEN 325 MG TAB PO PRN (20:03)
[2021-04-15] MEDS ORDERED: SODIUM CHLORIDE 0.9% 1000ML 1,000 ML IV SCH
[2021-04-15 05:44] LABS: Hematocrit (blood only) 40.3 % (37-47); Hemoglobin 13.2 g/dL (12.0-16.0)
[2021-04-15] MEDS: NITROGLYCERIN 2% OINTMENT 30GM TUBE EXT SCH ×3 (05:50→17:13)
[2021-04-15 06:06] LABS: Partial Thromboplastin Ratio 2.5
[2021-04-15 06:11] LABS: Partial Thromboplastin Time 66.1 Seconds (21.0-31.0)
[2021-04-15 06:18] LABS: BUN Creatinine Ratio 19.1 (10-20); Calcium 8.9 mg/dl (8.5-10.1); Creatinine Clr Calc Pharmacy 65.6 ml/min; Est GFR (African American) 76.8 ml/min; Est GFR (Non-African American) 66.3 ml/min; Magnesium 1.6 mg/dl (1.8-2.4); Potassium 4.2 mmol/L (3.5-5.1)
[2021-04-15] MEDS ORDERED: MAGNESIUM SULFATE / D5W 1 GM/100 ML BAG IV ONE (07:50)
--- NOTE | 2021-04-15 07:52 | Hospitalist Progress Note ---
Date of Service April 15, 2021 Assessment & Plan (1) NSTEMI (non-ST elevated myocardial infarction): -Admitted to telemetry -Patient presenting from home with reports of chest pressure, nausea, diaphoresis, shortness of breath -Risk factors: DM, HLD, HTN, + family history -In the ED, EKG shows new T-wave inversion in lead I, deeper T wave inversion in aVL. Initial troponin 0.7, peaked at 1.4 -Received SL nitro in ED, then rated pain #2/10 -Given full dose aspirin and started on heparin drip in the ED -Resting Echo - LV is normal in size. There is moderate concentric LVH. There is a large area of hypokinesis anterior, apical and apical septum with mild expansion. EF 40 to 45%. -Cardiology consulted, case discussed with Dr. Mcmahon -Cont. IV heparin, On beta-fish, ALEKSANDAR inhibitor, aspirin, statin as well as topical nitrates -Plan for cardiac cath today, April 15 (2) DM type 2 (diabetes mellitus, type 2): -Hgb A1c 9.4 03/2021 -Hold oral agents and utilize NovoLog per protocol while hospitalized (3) Hypertension: -BP controlled, continue lisinopril for now, (likely hold after cath) (4) GERD (gastroesophageal reflux disease): -Continue PPI (5) DVT prophylaxis: -On IV heparin as above Admission and Anticipated Discharge Date Admission Date: April 13, 2021 Subjective Patient seen in follow-up of NSTEMI, chest pain Currently she is sitting up in bed, in no acute distress, comfortable, only has a slight headache Denies any chest pain, shortness of breath, dizziness, shortness of breath, palpitations, nausea Had uneventful night Likely cath later today Review of Systems Review of Systems: All systems reviewed & are unremarkable except as noted in HPI & below Constitutional: no fever and no chills Respiratory: no cough and no dyspnea Cardiovascular: no chest pain, no palpitations and no edema Gastrointestinal: no abdominal pain, no nausea and no vomiting Physical Exam Physical Exam: Constitutional: WD/WN, obese F Eyes: PERRL, EOMI, conjunctivae normal, anicteric sclerae ENMT: external ear and nose normal, oropharynx normal Respiratory: normal respiratory effort, CTAB no wheezing, rhonchi, crackles Cardiovascular: Rate/Rhythm: regular rate and regular rhythm Vessels: normal peripheral pulses Extremities: no edema Gastrointestinal (Abdomen): normal bowel sounds, soft, nontender Musculoskeletal: extremities motor strength 5/5 Skin: no rashes, warm and dry Neurologic: PERRL, EOMI, no face palsy, no dysarthria, moves extremities Psychiatric: A+Ox3, euthymic affect Results & Data Results & Data ([facility]) Vital Signs (Past 12 Hours) Vital Signs Temp Pulse Pulse Resp BP Pulse Ox 04/15/21 06:51 36.8 C 77 18 110/73 95 04/15/21 04:11 36.7 C 77 20 112/75 98 04/15/21 00:00 53 L 04/14/21 23:06 36.5 C 58 L 16 92/60 L 96 Laboratory Results 04/15/21 04/15/21 04/15/21 Range/Units 07:14 05:20 05:20 Hgb 13.2 (12.0-16.0) g/dL Hct 40.3 (37-47) % APTT (21.0-31.0) Seconds PTT Ratio Sodium 141 (136-145) mmol/L Potassium 4.2 (3.5-5.1) mmol/L Chloride 109 H (98-107) mmol/L Carbon Dioxide 24 (21-32) mmol/L Anion Gap 8.0 (3-11) BUN 18 (7-18) mg/dl Creatinine 0.92 (0.6-1.2) mg/dl Est Cr Clr Drug Dosing 65.6 ml/min Est GFR ( Amer) 76.8 ml/min Est GFR (Non-Af Amer) 66.3 ml/min BUN/Creatinine Ratio 19.1 (10-20) Glucose 156 H (70-99) mg/dl POC Glucose 171 H (70-99) mg/dl Calcium 8.9 (8.5-10.1) mg/dl Magnesium 1.6 L (1.8-2.4) mg/dl 04/15/21 04/14/21 04/14/21 Range/Units 05:20 19:59 16:41 Hgb (12.0-16.0) g/dL Hct (37-47) % APTT 66.1 H* (21.0-31.0) Seconds PTT Ratio 2.5 Sodium (136-145) mmol/L Potassium (3.5-5.1) mmol/L Chloride (98-107) mmol/L Carbon Dioxide (21-32) mmol/L Anion Gap (3-11) BUN (7-18) mg/dl Creatinine (0.6-1.2) mg/dl Est Cr Clr Drug Dosing ml/min Est GFR ( Amer) ml/min Est GFR (Non-Af Amer) ml/min BUN/Creatinine Ratio (10-20) Glucose (70-99) mg/dl POC Glucose 143 H 120 H (70-99) mg/dl Calcium (8.5-10.1) mg/dl Magnesium (1.8-2.4) mg/dl 04/14/21 Range/Units 11:23 Hgb (12.0-16.0) g/dL Hct (37-47) % APTT (21.0-31.0) Seconds PTT Ratio Sodium (136-145) mmol/L Potassium (3.5-5.1) mmol/L Chloride (98-107) mmol/L Carbon Dioxide (21-32) mmol/L Anion Gap (3-11) BUN (7-18) mg/dl Creatinine (0.6-1.2) mg/dl Est Cr Clr Drug Dosing ml/min Est GFR ( Amer) ml/min Est GFR (Non-Af Amer) ml/min BUN/Creatinine Ratio (10-20) Glucose (70-99) mg/dl POC Glucose 215 H (70-99) mg/dl Calcium (8.5-10.1) mg/dl Magnesium (1.8-2.4) mg/dl Medications Administered Current Inpatient Medications Acetaminophen (Acetaminophen 325 Mg Tab) 650 mg PO Q4H PRN PRN Reason: Pain or Fever Stop: 05/13/21 15:57 Last Admin: 04/14/21 20:03 Dose: 650 mg Documented by: Aspirin (Aspirin 81 Mg Ectab) 81 mg PO QAM [facility] Stop: 05/15/21 08:59 Atorvastatin Calcium (Atorvastatin 40 Mg Tab) 40 mg PO DAILY [facility] Stop: 05/14/21 08:59 Last Admin: 04/14/21 10:58 Dose: 40 mg Documented by: Cyanocobalamin (Cyanocobalamin 500 Mcg Tablet (Vitamin B-12)) 1,000 mcg PO QAM [facility] Stop: 05/14/21 08:59 Last Admin: 04/14/21 10:57 Dose: 1,000 mcg Documented by: Dextrose (Dextrose 50% 50 Ml Syringe) 25 - 50 ml IV UD PRN; Protocol PRN Reason: Hypoglycemia Protocol Stop: 05/13/21 15:57 Glucagon (Glucagon For Inj 1 Mg Vial) 1 mg SQ UD PRN; Protocol PRN Reason: Hypoglycemia Protocol Stop: 05/13/21 15:57 Glucose (Glucose 10 Tabs/Tube) 4 - 8 tabs PO UD PRN; Protocol PRN Reason: Hypoglycemia Protocol Stop: 05/13/21 15:57 Glucose (Glucose 40% Gel 15 Gm Tube) 15 - 30 gm PO UD PRN; Protocol PRN Reason: Hypoglycemia Protocol Stop: 05/13/21 15:57 Heparin Sodium/Dextrose (Heparin Sodium/Dextrose) 25,000 units in 500 mls @ 21 mls/hr IV .[id number] [facility]; Protocol Stop: 05/13/21 13:49 Last Titration: 04/15/21 07:13 Dose: 1,050 units/hr, 21 mls/hr Documented by: Sodium Chloride (Nss 1000ml) 1,000 mls @ 45 mls/hr IV .[id number] [facility] Stop: 05/15/21 00:00 Last Admin: 04/14/21 23:36 Dose: 45 mls/hr Documented by: Magnesium Sulfate/Dextrose (Magnesium Sulfate / D5w) 1 gm in 100 mls @ 50 mls/hr IV ONE ONE Stop: 04/15/21 09:49 Insulin Aspart (Insulin Aspart 100 Units/Ml 3 Ml Pen) 0 units SC ACHS [facility] Stop: 05/13/21 16:29 Last Admin: 04/14/21 20:04 Dose: 2 units Documented by: Lisinopril (Lisinopril 20 Mg Tab) 20 mg PO DAILY [facility] Stop: 05/14/21 08:59 Last Admin: 04/14/21 10:58 Dose: 20 mg Documented by: Metoprolol Tartrate (Metoprolol Tartrate 25 Mg Tab) 37.5 mg PO BID [facility] Stop: 05/13/21 20:59 Last Admin: 04/14/21 20:06 Dose: 37.5 mg Documented by: Miscellaneous (Carbohydrates For Hypoglycemia ) 15 - 30 gm PO UD PRN PRN Reason: Hypoglycemia Protocol Stop: 05/13/21 15:57 Montelukast Sodium (Montelukast Sodium 10 Mg Tablet) 10 mg PO DAILY [facility] Stop: 05/14/21 08:59 Last Admin: 04/14/21 10:56 Dose: 10 mg Documented by: Nitroglycerin (Nitroglycerin Sl 0.4 Mg/Tab Tab) 0.4 mg SL UD PRN PRN Reason: Chest Pain Stop: 05/13/21 15:57 Nitroglycerin (Nitroglycerin 2% Ointment 30gm Tube) 0.5 inch EXT Q6 THAI Stop: 05/13/21 16:44 Last Admin: 04/15/21 05:50 Dose: Not Given Documented by: Pantoprazole Sodium (Pantoprazole 40 Mg Tab) 40 mg PO QAM [facility] Stop: 05/14/21 08:59 Last Admin: 04/14/21 10:58 Dose: 40 mg Documented by: Vitamin D (Cholecalciferol 1,000 Units 25 Mcg Tab) 1,000 units PO QAM [facility] Stop: 05/14/21 08:59 Last Admin: 04/14/21 10:58 Dose: 1,000 units Documented by: (1) Hypertension Hypertension type: unspecified Qualified Code(s): I10 - Essential (primary) hypertension
[2021-04-15] MEDS: INSULIN ASPART 100 UNITS/ML 3 ML PEN SC SCH ×4 (08:07→20:26)
[2021-04-15] MEDS: METOPROLOL TARTRATE 25 MG TAB PO SCH ×2 (08:09→20:27)
[2021-04-15] MEDS: ASPIRIN 81 MG ECTAB PO SCH (08:09)
[2021-04-15] MEDS: lisinopril 20 MG TAB PO SCH (08:10)
[2021-04-15] MEDS: MONTELUKAST SODIUM 10 MG TABLET PO SCH (08:10)
[2021-04-15] MEDS: CYANOCOBALAMIN 500 MCG TABLET (VITAMIN B-12) PO SCH (08:10)
[2021-04-15] MEDS: ATORVASTATIN 40 MG TAB PO SCH (08:10)
[2021-04-15] MEDS: CHOLECALCIFEROL 1,000 UNITS 25 MCG TAB PO SCH (08:10)
[2021-04-15] MEDS: PANTOprazole 40 MG TAB PO SCH (08:10)
--- NOTE | 2021-04-15 10:47 | Cardiology Progress Note ---
Date of Service April 15, 2021 Assessment & Plan (1) NSTEMI (non-ST elevated myocardial infarction): Patient with presenting symptoms of chest discomfort, dyspepsia. Troponin I has peaked at 1.42 NG per mL, as of 04/13/2021, and trended down to 0.84 NG per mL as of 04/14/2021. EKG without ST segment elevation, but patient has evolved deep diffuse T wave inversions in the precordial leads as well as the high lateral leads I and aVL in the inferior leads, that were not present on her present EKG on 04/13/2021.Echocardiogram with findings of LAD territory wall motion abnormality, mild LV systolic dysfunction left ventricular ejection fraction in the range of 40 to 45%. Continue medical therapy with aspirin 81 mg daily, topical nitrates, unfractionated heparin, metoprolol, prior to hospital lisinopril, atorvastatin. Cardiac catheterization tentatively scheduled for today. (2) HLD (hyperlipidemia): Continue atorvastatin 40 mg. (3) Hypertension: Controlled. Continue lisinopril, metoprolol tartrate. Admission and Anticipated Discharge Date Admission Date: April 13, 2021 Leanne Salazar is a 65 year old female seen in cardiology follow up of her chief complaint of chest pain. She feels well. No residual symptoms last night or thus far today. Telemetry reveals SR in the 70s. Review of Systems Review of Systems: All systems reviewed & are unremarkable except as noted in HPI & below Physical Exam Physical Exam: Temp Pulse Resp BP Pulse Ox 36.8 C 67 18 110/73 95 04/15/21 06:51 04/15/21 08:33 04/15/21 06:51 04/15/21 06:51 04/15/21 06:51 Constitutional: WD/WN, vitals as above Respiratory: normal respiratory effort, lungs clear to auscultation Cardiovascular: RRR, no murmur, no edema Gastrointestinal (Abdomen): normal bowel sounds, soft, nontender, no hepatosplenomegaly Neurologic: PERRL, EOMI, accommodation nl, no face palsy, no dysarthria Results & Data ([facility]) Vital Signs (Past 12 Hours) Vital Signs Temp Pulse Pulse Resp BP Pulse Ox 04/15/21 08:33 67 04/15/21 06:51 36.8 C 77 18 110/73 95 04/15/21 04:11 36.7 C 77 20 112/75 98 04/15/21 00:00 53 L 04/14/21 23:06 36.5 C 58 L 16 92/60 L 96 Laboratory Results Coagulation 04/15/21 Range/Units 05:20 APTT 66.1 H* (21.0-31.0) Seconds CBC 04/15/21 Range/Units 05:20 Hgb 13.2 (12.0-16.0) g/dL Hct 40.3 (37-47) % Comprehensive Metabolic Panel 04/15/21 Range/Units 05:20 Sodium 141 (136-145) mmol/L Potassium 4.2 (3.5-5.1) mmol/L Chloride 109 H (98-107) mmol/L Carbon Dioxide 24 (21-32) mmol/L BUN 18 (7-18) mg/dl Creatinine 0.92 (0.6-1.2) mg/dl Glucose 156 H (70-99) mg/dl Calcium 8.9 (8.5-10.1) mg/dl Intake and Output 04/14/21 04/15/21 04/15/21 22:59 06:59 14:59 Intake Total 390.7 / 740.60 240 / 740.60 259 / 259 Balance 390.7 / 740.60 240 / 740.60 259 / 259 Intake: IV 140.7 / 250.60 259 / 259 Heparin Sodium/Dextrose 25,000 140.7 / 250.60 259 / 259 units In 500 ml @ 1,050 UNITS/ HR 21 mls/hr IV .[id number] [facility] Rx #:[id number] Oral 250 / 490 240 / 490 Other: Other Intake Source Npo # Unmeasured Voids 2 1 Weight 90.9 kg Weight Measurement Method Standing Scale (1) Hypertension Hypertension type: unspecified Qualified Code(s): I10 - Essential (primary) hypertension
--- NOTE | 2021-04-15 12:42 | Electrocardiogram Report ---
Test Reason : Blood Pressure : / mmHG Vent. Rate : 078 BPM Atrial Rate : 078 BPM P-R Int : 160 ms QRS Dur : 098 ms QT Int : 490 ms P-R-T Axes : 037 007 197 degrees QTc Int : 558 ms Normal sinus rhythm Cannot rule out Inferior infarct , age undetermined Marked T wave abnormality consider anterolateral ischemia possible cerebrovascular event Prolonged QT Abnormal ECG When compared with ECG of 14-APR-2021 07:31, T wave inversion now evident in Inferior leads T wave inversion more evident in Anterolateral leads Confirmed by Saeed Hoyt ([id number]) on 04/15/2021 12:41:30 PM Referred By: REFERRED SELF Confirmed By:Cristino Hoyt
[2021-04-15] MEDS ORDERED: HEPARIN (PORCINE) 1000 UNIT/ML 10 ML (CATH LAB USE ONLY) ONE (13:13)
[2021-04-15] MEDS ORDERED: niCARdipine HCL INJ 2.5 MG/ML 10 ML AMP ONE (13:13)
[2021-04-15] MEDS ORDERED: fentaNYL citrate 100 MCG/2 ML VIAL ONE (13:14)
[2021-04-15] MEDS ORDERED: MIDAZOLAM HCL 1 MG/ML 2ML VIAL ONE (13:14)
[2021-04-15] MEDS ORDERED: NITROGLYCERIN/D5W 100MCG/ML 20ML SYR ONE (13:15)
--- NOTE | 2021-04-15 13:34 | Pre Anesthesia Assessment ---
Date of Service April 15, 2021 Pre Sedation Assessment Vital Signs Temp Pulse Pulse Resp BP Pulse Ox 04/15/21 11:44 73 16 132/88 96 04/15/21 10:46 98.1 F 66 19 105/70 96 04/15/21 08:33 67 04/15/21 06:51 98.2 F 77 18 110/73 95 04/15/21 04:11 98.1 F 77 20 112/75 98 04/15/21 00:00 53 L 04/14/21 23:06 97.7 F 58 L 16 92/60 L 96 04/14/21 19:29 97.7 F 77 22 101/66 94 04/14/21 16:38 73 04/14/21 15:51 98.2 F 77 18 144/62 H 95 Cardiovascular RRR, no murmur, no edema Respiratory normal respiratory effort, lungs clear to auscultation Pre-Sedation Airway Assessment Smoking Status: Never smoker Hx Sleep Apnea: No Hx Difficult Intubation: No Short, Thick Neck: No Thyromental Distance: > or= 3.5 Finger Breadths Oral Cavity: + WNL Mallampati Class: II ASA: ASA3 NPO Status Date of Last Intake of Fluids: 04/15/21 Time of Last Intake of Fluids: 17:30 Date of Last Intake of Solid Food: 04/14/21 Procedure Planning Contraindications for Sedation: none Current Medications Reviewed: Yes Notes The planned sedation has been discussed with the patient. Informed Consent was obtained. I have identified the patient, determined the appropriateness of sedation and have assessed the patient immediately prior to the procedure. All medicine(s) and interventions are by my order.
--- NOTE | 2021-04-15 14:04 | Post Anesthesia Assessment ---
Date of Service April 15, 2021 Post Sedation Assessment Vital Signs Temp Pulse Pulse Resp BP Pulse Ox 04/15/21 11:44 73 16 132/88 96 04/15/21 10:46 98.1 F 66 19 105/70 96 04/15/21 08:33 67 04/15/21 06:51 98.2 F 77 18 110/73 95 04/15/21 04:11 98.1 F 77 20 112/75 98 04/15/21 00:00 53 L 04/14/21 23:06 97.7 F 58 L 16 92/60 L 96 04/14/21 19:29 97.7 F 77 22 101/66 94 04/14/21 16:38 73 04/14/21 15:51 98.2 F 77 18 144/62 H 95 Recovery Score Activity: Moves 4 extremities Respiration: Deep Breath/Cough Circulation: +/-20% PreAnes Value Consciousness: Fully Awake Oxygen Saturation: O2 needed for >90% Discharge Sedation Level of Care: Fast Track Phase II Post Sedation Plan On clinical assessment, the patient appears to have tolerated the sedation without complications. Patient is recovering as anticipated. Patient will continue to be monitored by nursing and may be discharged when sedation discharge criteria are met per below protocol. Upon Completions of procedure up to 15 minutes continue every 5 minute vital signs and the P.A.R. score; then discharge to a Phase I or Fast Track to Phase II per the following guidelines: * Discharge Patient to appropriate Phase II area if PAR is 8 or greater or return to pre- procedure baseline. The post - procedure orders will be as directed. * If PAR score is less than 8 or not return to pre-procedure baseline then patient will follow Phase I monitoring till PAR is reached for Phase II. The Phase I may be done in procedure room or may call to secure a Phase I area. * If naloxone or flumazenil are used for reversal, hold in Phase I for continued monitoring from when last reversal dose was given for a minimum of 60 minutes or longer pending the nurse and/or physician discretion of patient condition before discharge to Phase II. Please call the Sedation Physician to re-evaluate and complete post-note for discharge to Phase II area. Do NOT discharge from procedure sedation or Phase 1 until post- sedation evaluation note is complete by procedure /sedation MD Sedation Discharge Instructions to be given to the patient at discharge to home.
--- NOTE | 2021-04-15 14:11 | Cardiac Catheterization ---
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 Cardiac Status Clinical evaluation leading to the procedure CAD Presenation: Non STEMI Anginal Classification: CCS IV Heart Failure: No Cardiogenic Shock within 24 Hours: No Cardiac Arrest within 24 Hours: No Imaging Studies Past 6 Months: Yes Stress Studies Past 6 Months: No Diagnostic Physicians Name: Saeed Chiang MD Status: Elective Closure Device Percutaneous Entry Location: Radial Closure Device: Radial Band Recommendations: Medical Therapy and/or Counseling Intraprocedure Events Significant Disection: No Perforation: No Cardiac Cath Procedure Full Procedure Date April 15, 2021 Pre-Procedure Diagnosis Pre-Procedure Diagnosis: Non STEMI AUC Score AUC Score: 8 Post-Procedure Diagnosis Post-Procedure Diagnosis: Mild CAD, Decreased LV Systolic Function and Normal Intracardiac Pressures Procedure(s) Performed Procedure(s) Performed: Coronary Angiography, Left Heart Cath and LV Angiography Mapping Supervisor Saeed Chiang MD Gas Meter Repairer(s) Ortega Estimated Blood Loss Estimated Blood Loss: 10 Medication(s) Medication(s): Fentanyl, Heparin, Lidocaine 1%, Nicardipine, Nitroglycerin and Versed Summary of Findings Indication: NSTEMI Access: 6 Fr right radial artery Catheters: Weed, JL 3.5, pigtail Findings: LM -Long, normal caliber, no significant disease LAD -medium caliber, 30% mid segment disease, distal vessel small and tapers to apex. Small D1, D2 without significant disease. Circumflex -medium caliber, 30 to 40% mid segment disease. Medium caliber OM1 without significant disease. RCA -dominant, large caliber, 40% proximal, diffuse 30% distal disease. Right PDA without significant disease. LVEDP -11 LVEF40 to 45% with akinetic apex Arterial Closure: TR band Summary: 1. Mild nonobstructive coronary artery disease -30% mid LAD 30% mid circumflex 40% proximal, 30% distal RCA 2. Normal intracardiac filling pressure Recommendations: No high risk CAD identified. Presentation/LV gram potentially consistent with stress-induced cardiomyopathy. Can discontinue heparin infusion Guideline directed medical therapy for cardiomyopathy Continued ASCVD risk factor modification Hemodynamics Rest Ao:: 133/78/103 Final Ao: 141/86223 LV: 133/11 Recommendations Recommendations: Medical Therapy and/or Counseling Specimens Specimens: None Radiation Exposure (mGy) 930 Contrast (mls) 70 Fluids (cc crystalloids) Fluids (cc crystalloids): 110 Drains Drains: None Anesthesia Moderate 639954 Procedural Complication(s) None Disposition PCU I attest to the content of the Intraoperative Record and any orders documented therein. Any exceptions are noted below. [facility] Card Cath Procedure Codes Cardiac Catheterization Procedure 1: Cardiovascular Cath Procedures: 28031 Coronaries and LHC (+/-LV) Moderate Sedation Procedure 1: Sedation/Anesthesia: 75238 Mod Sedation by the same physician;Init15 Min Child Age 5 & Up PG Care Time/CCT Total # of Minutes Spent Total Time Spent with Patient: Total time spent is greater than 50% in coordination of care (as documented) at patient's floor/unit and/or counseling patient:
[2021-04-15] MEDS: HEPARIN SODIUM/DEXTROSE 25,000 UNITS/500 ML BAG IV SCH (15:05)
[2021-04-15] MEDS ORDERED: SODIUM CHLORIDE 0.9% 500 ML IV SCH (16:00)
--- NOTE | 2021-04-15 16:13 | Hospitalist Progress Note ---
Date of Service April 15, 2021 Assessment & Plan Admission and Anticipated Discharge Date Admission Date: April 13, 2021 Subjective Notified by nursing staff that patient has now vision changes after cardiac cath . While at the cath, she had left eye peripheral vision loss/blackness. Dr. Chiang notified, patient received normal saline, which seemed to improve the symptoms. Now patient is back upstairs in her room 238. She denies any peripheral vision loss in her left side. Reports that she had some issue with her right eye. On my exam patient does not have any peripheral vision loss in either eye. Denies any "blackness" in her vision. She can see clearly with both eyes right and left side however reports "fuzziness" in the middle of her vision with both eyes. Will order normal saline. Apply oxygen, CT head. Dr. Chiang and Dr. Frias both notified and their recommendations are appreciated. Alejandro Zelaya MD Results & Data Results & Data ([facility]) Vital Signs (Past 12 Hours) Vital Signs Temp Pulse Pulse Resp BP Pulse Ox 04/15/21 16:00 88 122/79 04/15/21 15:45 76 124/84 04/15/21 15:30 84 103/65 04/15/21 15:15 80 128/80 04/15/21 15:00 36.6 C 78 18 139/88 95 04/15/21 14:35 83 16 135/87 97 04/15/21 11:44 73 16 132/88 96 04/15/21 10:46 36.7 C 66 19 105/70 96 04/15/21 08:33 67 04/15/21 06:51 36.8 C 77 18 110/73 95 04/15/21 04:11 36.7 C 77 20 112/75 98
--- NOTE | 2021-04-15 16:30 | Cardiology Progress Note ---
Date of Service April 15, 2021 Assessment & Plan (1) Transient vision disturbance of both eyes: Pt reassessed at the bedside for transient bilateral visual disturbance post cardiac catheterization. Upon my arrival pt had already been assessed by Dr Zelaya and Dr Chiang. Symptoms have resolved with normal saline, Oxygen. CT brain ordered and is in process. Remain on telemetry. Perhaps related to post cath recovery, sedation. (2) Takotsubo cardiomyopathy: No coronary culprit to explain abnormal troponin, echo, and abnormal EKG. Possible catecholamine induced CM. Continue medical Rx. Admission and Anticipated Discharge Date Admission Date: April 13, 2021 Results & Data ([facility]) Vital Signs (Past 12 Hours) Vital Signs Temp Pulse Pulse Resp BP Pulse Ox 04/15/21 16:15 96 H 135/82 04/15/21 16:00 88 122/79 04/15/21 15:45 76 124/84 04/15/21 15:30 84 103/65 04/15/21 15:15 80 128/80 04/15/21 15:00 36.6 C 78 18 139/88 95 04/15/21 14:35 83 16 135/87 97 04/15/21 11:44 73 16 132/88 96 04/15/21 10:46 36.7 C 66 19 105/70 96 04/15/21 08:33 67 04/15/21 06:51 36.8 C 77 18 110/73 95
--- NOTE | 2021-04-15 16:56 | CT Scan Report ---
CT SCAN OF THE BRAIN WITHOUT IV CONTRAST CLINICAL HISTORY: Vision changes status post cardiac catheterization. COMPARISON STUDY: CT of the brain dated 12/21/2019. TECHNIQUE: Unenhanced axial CT scan of the brain is performed from the vertex to the skull base. A d ose lowering technique was utilized adhering to the principles of ALARA. CT DOSE: 537.48 mGy.cm FINDINGS: Brain parenchyma: There is minimal microangiopathic change. There is no hemorrhage, mass effect, or e vidence of acute territorial ischemia by CT criteria. Mijares-white matter differentiation is preserved. No extra-axial fluid collection is seen. Ventricles, sulci, cisterns: Normal in configuration. Intracranial vasculature: There is mild atherosclerotic calcification of the cavernous carotid and ve rtebral arteries. Calvarium: Unremarkable. Sinuses and mastoids: There is evidence of previous paranasal sinus surgery. Mild mucosal thickening is seen in the left frontal sinus and the left sphenoid sinus. The mastoid air cells are well pneumat ized. Orbits: The bony orbits are grossly intact. IMPRESSION: There is no hemorrhage, mass effect, or evidence of acute territorial ischemia by CT jeannie diana. ACT 112: Negative or not required by law. Electronically signed by: Otoniel Gregory M.D. 04/15/2021 4:54 PM
[2021-04-16] MEDS: NITROGLYCERIN 2% OINTMENT 30GM TUBE EXT SCH (02:27)
[2021-04-16 06:25] LABS: Hematocrit (blood only) 39.6 % (37-47); Hemoglobin 13.2 g/dL (12.0-16.0); Mean Corpuscular Hemoglobin 30.6 pg (25-34); Mean Corpuscular Hgb Conc 33.3 g/dL (32-36); Mean Corpuscular Volume 91.7 fL (80-100); Mean Platelet Volume 9.6 fL (7.4-10.4); Platelet Count 167 K/uL (130-400); RDW Coefficient of Variation 13.4 % (11.5-14.5); RDW Standard Deviation 45.1 fL (36.4-46.3); Red Blood Count 4.32 M/uL (4.2-5.4); White Blood Count 4.54 K/uL (4.8-10.8)
[2021-04-16 06:57] LABS: BUN Creatinine Ratio 22.1 (10-20); Calcium 8.6 mg/dl (8.5-10.1); Creatinine Clr Calc Pharmacy 80.7 ml/min; Est GFR (African American) 98.3 ml/min; Est GFR (Non-African American) 84.8 ml/min; Magnesium 1.8 mg/dl (1.8-2.4); Potassium 4.3 mmol/L (3.5-5.1)
[2021-04-16] MEDS: INSULIN ASPART 100 UNITS/ML 3 ML PEN SC SCH ×4 (07:42→20:16)
[2021-04-16] MEDS: MONTELUKAST SODIUM 10 MG TABLET PO SCH (07:43)
[2021-04-16] MEDS: METOPROLOL TARTRATE 25 MG TAB PO SCH ×2 (07:43→20:11)
[2021-04-16] MEDS: CHOLECALCIFEROL 1,000 UNITS 25 MCG TAB PO SCH (07:43)
[2021-04-16] MEDS: lisinopril 20 MG TAB PO SCH (07:44)
[2021-04-16] MEDS: ASPIRIN 81 MG ECTAB PO SCH (07:44)
[2021-04-16] MEDS: PANTOprazole 40 MG TAB PO SCH (07:44)
[2021-04-16] MEDS: ATORVASTATIN 40 MG TAB PO SCH (07:44)
[2021-04-16] MEDS: CYANOCOBALAMIN 500 MCG TABLET (VITAMIN B-12) PO SCH (07:44)
--- NOTE | 2021-04-16 07:47 | Hospitalist Progress Note ---
Date of Service April 16, 2021 Assessment & Plan (1) NSTEMI (non-ST elevated myocardial infarction): -Admitted to telemetry -Patient presenting from home with reports of chest pressure, nausea, diaphoresis, shortness of breath -Risk factors: DM, HLD, HTN, + family history -In the ED, EKG shows new T-wave inversion in lead I, deeper T wave inversion in aVL. Initial troponin 0.7, peaked at 1.4 -Received SL nitro in ED, then rated pain #2/10 -Given full dose aspirin and started on heparin drip in the ED -Resting Echo - LV is normal in size. There is moderate concentric LVH. There is a large area of hypokinesis anterior, apical and apical septum with mild expansion. EF 40 to 45%. -Cardiology consulted, case discussed with Dr. Mcmahon -Cont. IV heparin, On beta-fish, ALEKSANDAR inhibitor, aspirin, statin as well as topical nitrates -Now s/p cardiac cath (April 15) -After procedure unfortunately patient developed intermittent vision change/vision loss. Resolved with normal saline and oxygen. CT head was obtained and unremarkable -Patient again had episode of vision loss, peripheral, at night on 04/15 -Cardiology, Dr. Frias and Dr. Chiang both aware, appreciate their recommendations -Plan to repeat echocardiogram today (04/16), to evaluate for possible thrombus (2) DM type 2 (diabetes mellitus, type 2): -Hgb A1c 9.4 03/2021 -Hold oral agents and utilize NovoLog per protocol while hospitalized (3) Hypertension: -BP controlled, continue lisinopril for now, (likely hold after cath) (4) GERD (gastroesophageal reflux disease): -Continue PPI (5) DVT prophylaxis: -On IV heparin as above Admission and Anticipated Discharge Date Admission Date: April 13, 2021 Subjective Patient seen in follow-up of chest pain, vision disturbance transient after cardiac cath Currently patient is sitting up in the bed, in no acute distress, only complains of some indigestion Denies any more chest pain, shortness of breath, dizziness or diaphoresis Yesterday she had episode of transient vision loss, then reports again" blackness" in her peripheral vision at night for several minutes. Resolved on its own. Review of Systems Review of Systems: All systems reviewed & are unremarkable except as noted in HPI & below Constitutional: no fever and no chills Respiratory: no cough and no dyspnea Cardiovascular: no chest pain and no palpitations Gastrointestinal: no abdominal pain, no nausea and no vomiting Physical Exam Physical Exam: Constitutional: WD/WN, obese F Eyes: PERRL, EOMI, conjunctivae normal, anicteric sclerae ENMT: external ear and nose normal, oropharynx normal Respiratory: normal respiratory effort, CTAB no wheezing, rhonchi, crackles Cardiovascular: Rate/Rhythm: regular rate and regular rhythm Vessels: normal peripheral pulses Extremities: no edema Gastrointestinal (Abdomen): normal bowel sounds, soft, nontender Musculoskeletal: extremities motor strength 5/5 Skin: no rashes, warm and dry Neurologic: PERRL, EOMI, no face palsy, no dysarthria, moves extremities Psychiatric: A+Ox3, euthymic affect Results & Data Results & Data ([facility]) Vital Signs (Past 12 Hours) Vital Signs Temp Pulse Pulse Resp BP Pulse Ox 04/16/21 04:10 36.8 C 78 16 112/76 94 04/16/21 00:38 116/72 04/16/21 00:00 65 04/15/21 23:06 36.8 C 60 18 98/60 L 96 Laboratory Results 04/16/21 04/16/21 04/16/21 Range/Units 07:12 06:07 06:07 WBC 4.54 L (4.8-10.8) K/uL RBC 4.32 (4.2-5.4) M/uL Hgb 13.2 (12.0-16.0) g/dL Hct 39.6 (37-47) % MCV 91.7 (80-100) fL MCH 30.6 (25-34) pg MCHC 33.3 (32-36) g/dL RDW Std Deviation 45.1 (36.4-46.3) fL RDW Coeff of Brittney 13.4 (11.5-14.5) % Plt Count 167 (130-400) K/uL MPV 9.6 (7.4-10.4) fL Sodium 140 (136-145) mmol/L Potassium 4.3 (3.5-5.1) mmol/L Chloride 111 H (98-107) mmol/L Carbon Dioxide 20 L (21-32) mmol/L Anion Gap 9.0 (3-11) BUN 17 (7-18) mg/dl Creatinine 0.75 (0.6-1.2) mg/dl Est Cr Clr Drug Dosing 80.7 ml/min Est GFR ( Amer) 98.3 ml/min Est GFR (Non-Af Amer) 84.8 ml/min BUN/Creatinine Ratio 22.1 H (10-20) Glucose 151 H (70-99) mg/dl POC Glucose 146 H (70-99) mg/dl Calcium 8.6 (8.5-10.1) mg/dl Magnesium 1.8 (1.8-2.4) mg/dl 04/15/21 04/15/21 04/15/21 Range/Units 19:52 17:04 15:05 WBC (4.8-10.8) K/uL RBC (4.2-5.4) M/uL Hgb (12.0-16.0) g/dL Hct (37-47) % MCV (80-100) fL MCH (25-34) pg MCHC (32-36) g/dL RDW Std Deviation (36.4-46.3) fL RDW Coeff of Brittney (11.5-14.5) % Plt Count (130-400) K/uL MPV (7.4-10.4) fL Sodium (136-145) mmol/L Potassium (3.5-5.1) mmol/L Chloride (98-107) mmol/L Carbon Dioxide (21-32) mmol/L Anion Gap (3-11) BUN (7-18) mg/dl Creatinine (0.6-1.2) mg/dl Est Cr Clr Drug Dosing ml/min Est GFR ( Amer) ml/min Est GFR (Non-Af Amer) ml/min BUN/Creatinine Ratio (10-20) Glucose (70-99) mg/dl POC Glucose 94 211 H 142 H (70-99) mg/dl Calcium (8.5-10.1) mg/dl Magnesium (1.8-2.4) mg/dl 04/15/21 Range/Units 11:18 WBC (4.8-10.8) K/uL RBC (4.2-5.4) M/uL Hgb (12.0-16.0) g/dL Hct (37-47) % MCV (80-100) fL MCH (25-34) pg MCHC (32-36) g/dL RDW Std Deviation (36.4-46.3) fL RDW Coeff of Brittney (11.5-14.5) % Plt Count (130-400) K/uL MPV (7.4-10.4) fL Sodium (136-145) mmol/L Potassium (3.5-5.1) mmol/L Chloride (98-107) mmol/L Carbon Dioxide (21-32) mmol/L Anion Gap (3-11) BUN (7-18) mg/dl Creatinine (0.6-1.2) mg/dl Est Cr Clr Drug Dosing ml/min Est GFR ( Amer) ml/min Est GFR (Non-Af Amer) ml/min BUN/Creatinine Ratio (10-20) Glucose (70-99) mg/dl POC Glucose 152 H (70-99) mg/dl Calcium (8.5-10.1) mg/dl Magnesium (1.8-2.4) mg/dl Medications Administered Current Inpatient Medications Acetaminophen (Acetaminophen 325 Mg Tab) 650 mg PO Q4H PRN PRN Reason: Pain or Fever Stop: 05/13/21 15:57 Last Admin: 04/14/21 20:03 Dose: 650 mg Documented by: Aspirin (Aspirin 81 Mg Ectab) 81 mg PO QAM [facility] Stop: 05/15/21 08:59 Last Admin: 04/16/21 07:44 Dose: 81 mg Documented by: Atorvastatin Calcium (Atorvastatin 40 Mg Tab) 40 mg PO DAILY [facility] Stop: 05/14/21 08:59 Last Admin: 04/16/21 07:44 Dose: 40 mg Documented by: Cyanocobalamin (Cyanocobalamin 500 Mcg Tablet (Vitamin B-12)) 1,000 mcg PO QAM [facility] Stop: 05/14/21 08:59 Last Admin: 04/16/21 07:44 Dose: 1,000 mcg Documented by: Dextrose (Dextrose 50% 50 Ml Syringe) 25 - 50 ml IV UD PRN; Protocol PRN Reason: Hypoglycemia Protocol Stop: 05/13/21 15:57 Glucagon (Glucagon For Inj 1 Mg Vial) 1 mg SQ UD PRN; Protocol PRN Reason: Hypoglycemia Protocol Stop: 05/13/21 15:57 Glucose (Glucose 10 Tabs/Tube) 4 - 8 tabs PO UD PRN; Protocol PRN Reason: Hypoglycemia Protocol Stop: 05/13/21 15:57 Glucose (Glucose 40% Gel 15 Gm Tube) 15 - 30 gm PO UD PRN; Protocol PRN Reason: Hypoglycemia Protocol Stop: 05/13/21 15:57 Insulin Aspart (Insulin Aspart 100 Units/Ml 3 Ml Pen) 0 units SC ACHS THAI Stop: 05/13/21 16:29 Last Admin: 04/16/21 07:42 Dose: 2 units Documented by: Lisinopril (Lisinopril 20 Mg Tab) 20 mg PO DAILY THAI Stop: 05/14/21 08:59 Last Admin: 04/16/21 07:44 Dose: 20 mg Documented by: Metoprolol Tartrate (Metoprolol Tartrate 25 Mg Tab) 37.5 mg PO BID THAI Stop: 05/13/21 20:59 Last Admin: 04/16/21 07:43 Dose: 37.5 mg Documented by: Miscellaneous (Carbohydrates For Hypoglycemia ) 15 - 30 gm PO UD PRN PRN Reason: Hypoglycemia Protocol Stop: 05/13/21 15:57 Montelukast Sodium (Montelukast Sodium 10 Mg Tablet) 10 mg PO DAILY THAI Stop: 05/14/21 08:59 Last Admin: 04/16/21 07:43 Dose: 10 mg Documented by: Nitroglycerin (Nitroglycerin Sl 0.4 Mg/Tab Tab) 0.4 mg SL UD PRN PRN Reason: Chest Pain Stop: 05/13/21 15:57 Pantoprazole Sodium (Pantoprazole 40 Mg Tab) 40 mg PO QAM THAI Stop: 05/14/21 08:59 Last Admin: 04/16/21 07:44 Dose: 40 mg Documented by: Vitamin D (Cholecalciferol 1,000 Units 25 Mcg Tab) 1,000 units PO QAM [facility] Stop: 05/14/21 08:59 Last Admin: 04/16/21 07:43 Dose: 1,000 units Documented by: (1) Hypertension Hypertension type: unspecified Qualified Code(s): I10 - Essential (primary) hypertension
--- NOTE | 2021-04-16 10:25 | Cardiology Progress Note ---
Date of Service April 16, 2021 Assessment & Plan (1) Takotsubo cardiomyopathy: (2) Transient vision disturbance of both eyes: (3) Hypertension: (4) HLD (hyperlipidemia): (1) Takotsubo cardiomyopathy: Patient presented with chest discomfort mild troponin elevation, and his abnormal echocardiogram with a large wall motion abnormality with severe hypokinesis to akinesis at the mid and apical levels that spares the basal segments of the left ventricle. Echocardiogram compatible with LAD territory injury or catecholamine induced cardiomyopathy. Patient underwent cardiac catheterization with findings of mild nonobstructive coronary heart disease, 30% mid LAD stenosis, 30% mid circumflex stenosis, the right coronary artery is notable for 40% proximal stenosis and 30% distal stenosis. 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 Continue medical therapy including aspirin 81 mg daily, metoprolol tartrate 37.5 mg twice daily (to be transition to succinate formulation at discharge), lisinopril 20 mg daily recommended. (2) Transient vision disturbance of both eyes: Patient with transient visual disturbances post coronary angiography, recurrent episode last evening. Initial CT reassuring. Patient however is at risk for embolic phenomenon given severe left apical hypokinesis to akinesis. We will proceed with MRI, as well as repeat echocardiogram with sonic contrast for further assessment to exclude left apical mural thrombus, as well as stroke by MRI criteria. (3) Hypertension: Continue metoprolol lisinopril. Blood pressure well controlled. (4) HLD (hyperlipidemia): Continue atorvastatin 40 mg daily. Admission and Anticipated Discharge Date Admission Date: April 13, 2021 Subjective Ms Salazar is seen in cardiology follow up. No additional chest pain. Had a 20 minute recurrent visual disturbance last evening from 955 pm until 1015 pm. Review of Systems Review of Systems: All systems reviewed & are unremarkable except as noted in HPI & below Physical Exam Physical Exam: Temp Pulse Resp BP Pulse Ox 37.1 C 80 18 120/78 96 04/16/21 07:51 04/16/21 08:00 04/16/21 07:51 04/16/21 07:51 04/16/21 07:51 Constitutional: WD/WN, vitals as above Respiratory: normal respiratory effort, lungs clear to auscultation Cardiovascular: RRR, no murmur, no edema Gastrointestinal (Abdomen): normal bowel sounds, soft, nontender, no hepatosplenomegaly Neurologic: PERRL, EOMI, accommodation nl, no face palsy, no dysarthria Results & Data ([facility]) Vital Signs (Past 12 Hours) Vital Signs Temp Pulse Pulse Resp BP Pulse Ox 04/16/21 08:00 80 04/16/21 07:51 37.1 C 79 18 120/78 96 04/16/21 04:10 36.8 C 78 16 112/76 94 04/16/21 00:38 116/72 04/16/21 00:00 65 04/15/21 23:06 36.8 C 60 18 98/60 L 96 Laboratory Results CBC 04/16/21 Range/Units 06:07 WBC 4.54 L (4.8-10.8) K/uL RBC 4.32 (4.2-5.4) M/uL Hgb 13.2 (12.0-16.0) g/dL Hct 39.6 (37-47) % Plt Count 167 (130-400) K/uL Comprehensive Metabolic Panel 04/16/21 Range/Units 06:07 Sodium 140 (136-145) mmol/L Potassium 4.3 (3.5-5.1) mmol/L Chloride 111 H (98-107) mmol/L Carbon Dioxide 20 L (21-32) mmol/L BUN 17 (7-18) mg/dl Creatinine 0.75 (0.6-1.2) mg/dl Glucose 151 H (70-99) mg/dl Calcium 8.6 (8.5-10.1) mg/dl Intake and Output 04/15/21 04/16/21 04/16/21 22:59 06:59 14:59 Intake Total 1696.3 / 2255.3 200 / 2255.3 Balance 1696.3 / 2255.3 200 / 2255.3 Intake: IV 1296.3 / 1655.3 Heparin Sodium/Dextrose 25,000 100.3 / 359.3 units In 500 ml @ 1,050 UNITS/ HR 21 mls/hr IV .[id number] [facility] Rx #:[id number] Sodium Chloride 0.9% 1000ML 1, 696 / 696 000 ml @ 100 mls/hr IV .Q10H THAI Rx#:[id number] Sodium Chloride 0.9% 500 ml @ 500 / 500 180 mls/hr IV .Q2H47M THAI Rx#: [id number] Oral 400 / 600 200 / 600 Other: # Unmeasured Voids 1 Weight 91.4 kg Weight Measurement Method Standing Scale (1) Hypertension Hypertension type: unspecified Qualified Code(s): I10 - Essential (primary) hypertension
--- NOTE | 2021-04-16 10:44 | Communication Note ---
Date of Service: April 16, 2021 Patient with history claustrophobia and states she will not be able to tolerate MRI without sedation. I am hesitant to administer Ativan due to her symptoms with sedation yesterday. Will cancel MRI for now. Proceed with echo and carotid duplex.
[2021-04-16] MEDS: ACETAMINOPHEN 325 MG TAB PO PRN ×2 (14:16→19:16)
--- NOTE | 2021-04-16 14:51 | Ultrasound Report ---
CAROTID ARTERY ULTRASOUND CLINICAL HISTORY: transient visual disturbance COMPARISON STUDY: CTA of the neck December 20, 2019. TECHNIQUE: Real-time, grayscale, and color Doppler sonography of the carotid and vertebral arteries w as performed. Images were viewed in the transverse and longitudinal planes. FINDINGS: There is mild atherosclerotic plaque. Velocity measurements are listed below. COMMON CAROTID PEAK SYSTOLIC VELOCITY (CM/S): RIGHT 65 LEFT 68 ICA PEAK SYSTOLIC VELOCITY (CM/S): RIGHT 84 LEFT 76 Systolic ratios between the internal to common carotid arteries are normal. Antegrade flow is seen in the vertebral arteries. The external carotid arteries are patent. Blood pressure could not be obtained in this patient due to recent catheterization. IMPRESSION: No evidence for a hemodynamically significant stenosis. Mild atherosclerotic plaque. ACT 112: Negative or not required by law. Electronically signed by: Frank Coronado M.D. 04/16/2021 2:49 PM
--- NOTE | 2021-04-16 20:12 | CT Scan Report ---
CT OF THE HEAD WITHOUT CONTRAST CLINICAL HISTORY: follow up, r/o cva COMPARISON STUDY: MRI of the brain December 22, 2019. Head CT April 15, 2021. CT DOSE: 773.57 mGy.cm TECHNIQUE: Helical axial images of the head were obtained without IV contrast. Automated exposure con trol was utilized for the study. A dose lowering technique was utilized adhering to the principles o f ALARA. FINDINGS: No acute intracranial hemorrhage, midline shift or mass effect is present. The ventricular system is unremarkable. The basal cisterns are patent. No extra-axial collections are present. There are no findings to suggest acute dural sinus thrombosis or acute territorial infarct. No significant calvarial abnormalities are present. There are postoperative findings within the sinuses with mild mu cosal thickening. IMPRESSION: No acute intracranial findings. ACT 112: Negative or not required by law. Electronically signed by: Frank Coronado M.D. 04/16/2021 8:10 PM
[2021-04-17 07:34] LABS: Hematocrit (blood only) 40.5 % (37-47); Hemoglobin 13.3 g/dL (12.0-16.0); Mean Corpuscular Hemoglobin 30.9 pg (25-34); Mean Corpuscular Hgb Conc 32.8 g/dL (32-36); Mean Corpuscular Volume 94.2 fL (80-100); Mean Platelet Volume 10.2 fL (7.4-10.4); Platelet Count 180 K/uL (130-400); RDW Coefficient of Variation 13.6 % (11.5-14.5); RDW Standard Deviation 46.1 fL (36.4-46.3); White Blood Count 3.99 K/uL (4.8-10.8)
[2021-04-17 07:44] LABS: BUN Creatinine Ratio 22.6 (10-20); Calcium 9.2 mg/dl (8.5-10.1); Est GFR (African American) 83.3 ml/min; Est GFR (Non-African American) 71.9 ml/min; Magnesium 1.6 mg/dl (1.8-2.4); Potassium 4.3 mmol/L (3.5-5.1)
[2021-04-17 07:49] LABS: Phosphorus 3.6 mg/dl (2.5-4.9)
[2021-04-17] MEDS: INSULIN ASPART 100 UNITS/ML 3 ML PEN SC SCH ×4 (08:45→20:14)
[2021-04-17] MEDS: METOPROLOL TARTRATE 25 MG TAB PO SCH ×2 (08:46→20:13)
[2021-04-17] MEDS: ASPIRIN 81 MG ECTAB PO SCH (08:46)
[2021-04-17] MEDS: CHOLECALCIFEROL 1,000 UNITS 25 MCG TAB PO SCH (08:46)
[2021-04-17] MEDS: lisinopril 20 MG TAB PO SCH (08:47)
[2021-04-17] MEDS: MONTELUKAST SODIUM 10 MG TABLET PO SCH (08:47)
[2021-04-17] MEDS: CYANOCOBALAMIN 500 MCG TABLET (VITAMIN B-12) PO SCH (08:47)
[2021-04-17] MEDS: ATORVASTATIN 40 MG TAB PO SCH (08:47)
[2021-04-17] MEDS: ACETAMINOPHEN 325 MG TAB PO PRN (08:52)
[2021-04-17] MEDS ORDERED: MAGNESIUM SULFATE / D5W 1 GM/100 ML BAG IV ONE (09:45)
[2021-04-17] MEDS: PANTOprazole 40 MG TAB PO SCH (10:17)
[2021-04-17] MEDS ORDERED: LORazepam 1 MG/2 ML VIAL IV STA (12:14)
--- NOTE | 2021-04-17 12:19 | Neurology Consultation ---
Date of Consultation April 17, 2021 Assessment & Plan (1) Stroke-like symptom: 1. MRI brain - r/o stroke 2. continue aspirin 81 mg add plavix 75 mg continue 21 days and then plavix alone- clear with cardiology before starting- defer if cards treats with anticoag 3. PT/OT- no current needs 4. TTE- 40-45% EF no thrombus seen 5. carotid doppler- mild plaque formation Present on Admission?: Yes (2) Transient vision disturbance of both eyes: 1. headache after vision changes 2. ophthalmology after discharge no further neurologic work up needed. follow up in neurology in 4-6 weeks Yi Ritchie PAC Present on Admission?: Yes Supervising Physician Co-Signing Physician Notes Case was discussed and reviewed with Yi Ritchie and agree with recommendations as noted below. Patient admitted with chest pain underwent cardiac catheterization due to changes seen on EKG. Patient was on heparin drip. Had some visual obscurations in the setting of a possible migraine headache. I did not see this patient this afternoon as she was in the MRI scanner. I did review her recent MRI of the brain and there is a punctate diffusion restriction on DWI imaging in the left occipital lobe. This is not as well seen on ADC. I do believe this is likely an incidental finding and would not of been associated with the visual obscurations noted by the patient. Would recommend to continue dual antiplatelet therapy for 3 weeks with de-escalation to one antiplatelet agent thereafter. Patient did have a cardiac catheterization today. MRI of the brain was following this. May benefit from a Zio patch as an outpatient. Follow-up with neurology as an outpatient as noted below. History of Present Illness Attending Physician: Michael Trejo MD History of Present Illness Iman is a 65 year old female with PMH- DM II, HLD, HTN, history of questionable TIA, daily marijuana use who presented to [facility] ED for chest pain 04/13/2021. 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 She rested for about 15 minutes, symptoms mildly improved and she completed the haircut. She drove herself home and took Gaviscon with improvement in her symptoms. She had an increasing fatigue over the past few months. She was given SL nitro and the pain decreased to 2/10. EKG shows a new T wave inversion in lead I and a deeper T wave inversion in aVL. Initial troponin 0.764 she was given an aspirin and started on a heparin gtts. She is doing well she is worried she had a stroke. currently nursing getting her ready for MRI. She had some black spot in her vision about a week ago and then again yesterday and had a headache after each event. denies current CP, SOB, abdominal pain, one sided weakness, numbness tingling N, V Allergies Allergy/AdvReac Type Severity Reaction Status Date / Time Penicillins Allergy Intermediate Hives Verified 04/13/21 14:35 Sulfa (Sulfonamide Allergy Intermediate Hives Verified 04/13/21 14:35 Antibiotics) albiglutide Allergy Unknown Abdominal Verified 04/13/21 14:35 pain,nausea,vomiting,rash and itchiness clindamycin Allergy Unknown Hives Verified 04/13/21 14:35 Corticosteroids Allergy Unknown Unknown Verified 04/13/21 14:35 (Glucocorticoids) Home Medications Medication Instructions Recorded Confirmed Type Tradjenta 5 mg PO QAM 07/20/19 04/13/21 History Women's One Daily 1 tab PO QAM 07/20/19 04/13/21 History coenzyme Q10 [Co Q-10] 10 mg PO QAM 07/20/19 04/13/21 History cyanocobalamin (vitamin B-12) 1,000 mcg PO QAM 07/20/19 04/13/21 History [Vitamin B-12] metformin 1,000 mg PO BIDM 07/20/19 04/13/21 History aspirin 81 mg PO QAM #21 tab 12/23/19 04/13/21 Rx cholecalciferol (vitamin D3) 1,000 unit PO QAM 12/26/19 04/13/21 History omeprazole magnesium [Prilosec OTC] 20 mg PO QAM 01/03/20 04/13/21 History atorvastatin 40 mg PO DAILY 07/31/20 04/13/21 History lisinopril 20 mg PO DAILY 07/31/20 04/13/21 History magnesium oxide 500 mg PO BID 07/31/20 04/13/21 History meloxicam 7.5 mg PO DAILY 07/31/20 04/13/21 History metoprolol tartrate 25 mg PO BID 07/31/20 04/13/21 History acetaminophen [Tylenol Arthritis] 650 mg PO DAILY 04/13/21 04/13/21 History calcium 150 mg PO DAILY 04/13/21 04/13/21 History empagliflozin [Jardiance] 25 mg PO DAILY 04/13/21 04/13/21 History garlic 150 mg PO DAILY 04/13/21 04/13/21 History lorazepam 1 mg PO DAILY PRN 04/13/21 04/13/21 History montelukast 10 mg PO DAILY 04/13/21 04/13/21 History Patient History Medical History DM type 2 (diabetes mellitus, type 2) GERD (gastroesophageal reflux disease) HLD (hyperlipidemia) Hypertension Surgical History H/O shoulder surgery right, arthroscopic History of partial hysterectomy History of sinus surgery Family History Father , 62 from CVA Stroke, Onset Age: 40 Brother Heart disease Social History (Updated 04/13/21 @ 15:36 by ARIK Escalante) Smoking Status: Never smoker Tobacco Type: Cigarettes Second Hand Exposure: No; Hx Alcohol Use: No Hx Substance Use: No Preferred Language: Indian Communication Ability: Effective Information Architect Required: No Beliefs That Will Affect Care: None marital status: Current Living Situation: Alone Other Information That Helps Us Care for You: No Feels Safe at Home: Yes Safety Concerns: Feels Safe At This Time Assistive Devices: None Review of Systems Review of Systems: All systems reviewed & are unremarkable except as noted in HPI & below Physical Exam Physical Exam: Physical Exam: Constitutional: appearance over nourished, healthy Ears, Nose, Mouth and Throat: mucous membranes moist, no injection and skin normal, eyes normal Cardiovascular: RRR Respiratory: clear to auscultation (CTA) and no rales, ronchi or wheeze Musculoskeletal: no peripheral edema and good distal pulses Skin: no stigmata of neurocutaneous disease noted and normal and intact Eyes: extraocular muscles intact (EOMI) and pupils equal, round and reactive to light (PERRL) NEUROLOGIC EXAMINATION: Mental status: Alert and interactive Oriented to full date and location Oriented to person Speech fluent with no evidence of aphasia Cranial Nerves smile eye brow raise symmetric Sensory: no sensory deficits light cool touch Coordination: finger to nose no bi pass Romberg + with eyes closed Gait/Stance: Posture normal. Gait normal: with steady with steps, base, turning, and tandem gait. Motor: Negative for pronator drift of out stretched arms with eyes closed. 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 bilaterally, hip flex 5/5 Results & Data ([facility]) Vital Signs (Past 12 Hours) Vital Signs Temp Pulse Resp BP Pulse Ox 04/17/21 11:38 36.4 C L 62 18 106/60 98 04/17/21 07:41 36.7 C 80 20 101/67 96 04/17/21 03:47 36.5 C 74 17 120/70 95 Laboratory Results Abnormal lab results 04/16/21 04/16/21 04/17/21 Range/Units 16:33 20:11 06:10 WBC 3.99 L (4.8-10.8) K/uL Chloride (98-107) mmol/L BUN (7-18) mg/dl BUN/Creatinine Ratio (10-20) Glucose (70-99) mg/dl POC Glucose 155 H 160 H (70-99) mg/dl Magnesium (1.8-2.4) mg/dl 04/17/21 04/17/21 04/17/21 Range/Units 06:10 07:04 11:32 WBC (4.8-10.8) K/uL Chloride 111 H (98-107) mmol/L BUN 20 H (7-18) mg/dl BUN/Creatinine Ratio 22.6 H (10-20) Glucose 167 H (70-99) mg/dl POC Glucose 160 H 167 H (70-99) mg/dl Magnesium 1.6 L (1.8-2.4) mg/dl Diagnostic Findings There is no hemorrhage, mass effect, or evidence of acute territorial ischemia by CT criteria. carotid doppler-No evidence for a hemodynamically significant stenosis. Mild atherosclerotic plaque. CT head-No acute intracranial hemorrhage, midline shift or mass effect is present. The ventricular system is unremarkable. The basal cisterns are patent. No extra-axial collections are present. There are no findings to suggest acute dural sinus thrombosis or acute territorial infarct. No significant calvarial abnormalities are present. There are postoperative findings within the sinuses with mild mucosal thickening. TTE- 40-45% no apical mura thrombus
--- NOTE | 2021-04-17 12:20 | Cardiology Progress Note ---
Date of Service April 17, 2021 Assessment & Plan (1) Takotsubo cardiomyopathy: (2) Transient vision disturbance of both eyes: (3) Hypertension: (4) HLD (hyperlipidemia): (1) Takotsubo cardiomyopathy: Patient presented with chest discomfort mild troponin elevation, and his abnormal echocardiogram with a large wall motion abnormality with severe hypokinesis to akinesis at the mid and apical levels that spares the basal segments of the left ventricle. Echocardiogram compatible with LAD territory injury or catecholamine induced cardiomyopathy. Patient underwent cardiac catheterization with findings of mild nonobstructive coronary heart disease, 30% mid LAD stenosis, 30% mid circumflex stenosis, the right coronary artery is notable for 40% proximal stenosis and 30% distal stenosis. 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 Continue medical therapy including aspirin 81 mg daily, metoprolol tartrate 37.5 mg twice daily (to be transition to succinate formulation 50 mg at discharge), lisinopril 20 mg daily recommended. (2) Transient vision disturbance of both eyes: Patient with transient visual disturbances post coronary angiography, recurrent episode last evening. Initial CT reassuring. Patient however is at risk for embolic phenomenon given severe left apical hypokinesis to akinesis. -Repeat echo 04/17/21 without apical thrombus (however apex was not optimally visualized). -Carotid duplex negative. -Proceed with MRI brain, with ativan or sedation given claustrophobia. -If MRI negative, and pt able to ambulate without difficulty in [place] for discharge. (3) Hypertension: Continue metoprolol lisinopril. Blood pressure well controlled. (4) HLD (hyperlipidemia): Continue atorvastatin 40 mg daily. Admission and Anticipated Discharge Date Admission Date: April 13, 2021 Subjective Ms Salazar is seen in follow up. Denies chest pain or SOB. No additional visual disturbance. Review of Systems Review of Systems: All systems reviewed & are unremarkable except as noted in HPI & below Physical Exam Physical Exam: Temp Pulse Resp BP Pulse Ox 36.4 C L 62 18 106/60 98 04/17/21 11:38 04/17/21 11:38 04/17/21 11:38 04/17/21 11:38 04/17/21 11:38 Constitutional: WD/WN, vitals as above Respiratory: normal respiratory effort, lungs clear to auscultation Cardiovascular: RRR, no murmur, no edema Gastrointestinal (Abdomen): normal bowel sounds, soft, nontender, no hepatosplenomegaly Neurologic: PERRL, EOMI, accommodation nl, no face palsy, no dysarthria Results & Data ([facility]) Vital Signs (Past 12 Hours) Vital Signs Temp Pulse Resp BP Pulse Ox 04/17/21 11:38 36.4 C L 62 18 106/60 98 04/17/21 07:41 36.7 C 80 20 101/67 96 04/17/21 03:47 36.5 C 74 17 120/70 95 Laboratory Results CBC 04/17/21 Range/Units 06:10 WBC 3.99 L (4.8-10.8) K/uL RBC 4.30 (4.2-5.4) M/uL Hgb 13.3 (12.0-16.0) g/dL Hct 40.5 (37-47) % Plt Count 180 (130-400) K/uL Comprehensive Metabolic Panel 04/17/21 Range/Units 06:10 Sodium 140 (136-145) mmol/L Potassium 4.3 (3.5-5.1) mmol/L Chloride 111 H (98-107) mmol/L Carbon Dioxide 21 (21-32) mmol/L BUN 20 H (7-18) mg/dl Creatinine 0.86 (0.6-1.2) mg/dl Glucose 167 H (70-99) mg/dl Calcium 9.2 (8.5-10.1) mg/dl Intake and Output 04/16/21 04/17/21 04/17/21 22:59 06:59 14:59 Intake Total 600 / 770 170 / 770 100 / 100 Balance 600 / 770 170 / 770 100 / 100 Intake: IV 100 / 100 Magnesium Sulfate / D5w 1 gm In 100 / 100 100 ml @ 50 mls/hr IV ONE ONE Rx#:[id number] Oral 600 / 770 170 / 770 Other: # Unmeasured Voids 1 1 Weight 90.3 kg Weight Measurement Method Standing Scale (1) Hypertension Hypertension type: unspecified Qualified Code(s): I10 - Essential (primary) hypertension
[2021-04-17] MEDS ORDERED: GADOBUTROL 65ML VIAL IV ONE (15:59)
--- NOTE | 2021-04-17 15:59 | Hospitalist Progress Note ---
Date of Service April 17, 2021 Assessment & Plan (1) NSTEMI (non-ST elevated myocardial infarction): Takotsubo cardiomyopathy ACS ruled out --ECHO: Normal sized apical, septal, anteroseptal, anterior, inferior, posterior and lateral wall motion abnormality with hypokinesis to akinesis of the segments of apical and mid levels of the left ventricle, and relatively sparing of the basal segments. No evidence of left apical mural thrombus. Apical trabeculations are noted, do not appear to meet criteria for left ventricular noncompaction syndrome. EF 40 to 45%. Compared to images from prior study on 04/14/21, interval subtle improvement in the overall left ventricle systolic function. --S/P Cardiac Cath: Mild nonobstructive coronary artery disease, 30% mid LAD stenosis, 30% mid circumflex stenosis, right coronary artery is notable for 40% proximal stenosis and 30% distal stenosis. --Continue aspirin, metoprolol, lisinopril Appreciate cardiology input Transient visual disturbance bilaterally States having headache during the episodes DD: Complicated migraine/TIA CT Head: There is no hemorrhage, mass effect, or evidence of acute territorial ischemia by CT criteria. Carotid USD:There is no hemorrhage, mass effect, or evidence of acute territorial ischemia by CT criteria. Repeat CT head: No acute intracranial findings. MRI brain pending Continue aspirin, atorvastatin Neurology consult Need to be evaluated by ophthalmology as outpatient Needs follow-up with neurology upon discharge (2) DM type 2 (diabetes mellitus, type 2): Hgb A1c 9.4 03/2021 Hold oral agents Continue Insulin therapy while hospitalized (3) Hypertension: Continue lisinopril, metoprolol (4) GERD (gastroesophageal reflux disease): -Continue PPI (5) DVT prophylaxis: Heparin SQ Admission and Anticipated Discharge Date Admission Date: April 13, 2021 Subjective Patient is seen and examined at bedside States feeling well today No recurrence of visual loss MRI brain pending Denies headache, chest pain, dizziness, nausea, abdominal pain, dyspnea Offers no complaints Discussed with cardiology today Review of Systems Review of Systems: All systems reviewed & are unremarkable except as noted in HPI & below Physical Exam Physical Exam: Physical Exam: Vitals signs as noted above General Appearance:Obese, no apparent distress Head: normocephalic, Atraumatic Eyes: normal inspection, EOMI Neck: supple, Trachea midline Respiratory/Chest: Normal breath sounds, CTA, No accessory muscle use Cardiovascular: S1, S2, No murmur Abdomen/GI:Soft, Non tender, Bowel sounds present Extremities/Musculoskeletal:normal inspection, no edema Neurologic/Psych:AAOX3, grossly no focal neurological deficits Skin: normal color, warm Results & Data Results & Data ([facility]) Vital Signs (Past 12 Hours) Vital Signs Temp Pulse Pulse Resp BP Pulse Ox 04/17/21 11:38 36.4 C L 62 18 106/60 98 04/17/21 08:00 64 04/17/21 07:41 36.7 C 80 20 101/67 96 04/17/21 03:47 36.5 C 74 17 120/70 95 Laboratory Results Short CBC 04/17/21 Range/Units 06:10 WBC 3.99 L (4.8-10.8) K/uL Hgb 13.3 (12.0-16.0) g/dL Hct 40.5 (37-47) % Plt Count 180 (130-400) K/uL BMP 04/17/21 06:10 Sodium 140 Potassium 4.3 Chloride 111 H Carbon Dioxide 21 BUN 20 H Creatinine 0.86 Glucose 167 H Calcium 9.2 (1) Hypertension Hypertension type: unspecified Qualified Code(s): I10 - Essential (primary) hypertension
--- NOTE | 2021-04-17 16:26 | Magnetic Resonance Report ---
MRI OF THE BRAIN WITHOUT AND WITH IV CONTRAST CLINICAL HISTORY: transient visual disturbance, r/o stroke COMPARISON STUDY: MRI of the brain December 22, 2019. Head CT April 16, 2021. TECHNIQUE: Utilizing a 1.5 [place] magnet and dedicated coil, multiplanar, multiecho imaging of the br ain was performed pre and postcontrast administration. IV administration of 9 mL of Gadavist contras t was uneventful. FINDINGS: There is a punctate 3 mm focus of restricted diffusion within the left occipital lobe shown on axial image 13 of 24. This is hypointense on the ADC map. No additional foci of restricted diffus ion are present. Brain volume is normal. Ventricular system is normal. Basilar cisterns are patent. T here are no extra-axial collections. Flow-voids for the major intracranial vessels are present. There is no intracranial mass or pathologic enhancement. Postoperative findings within the sinuses are not ed. A few small white matter T2 hyperintense foci are unchanged since MRI December 22, 2019. Calvaria l signal is normal. IMPRESSION: 1. Punctate 3 mm acute infarct within the left occipital lobe. 2. Otherwise, unchanged appearance of the brain since MRI of December 22, 2019. ACT 112: Negative or not required by law. Electronically signed by: Frank Coronado M.D. 04/17/2021 4:25 PM
[2021-04-17] MEDS ORDERED: Heparin IV Adult Wt-Based Low-Dose *NO* Bolus Protocol IV SCH (17:20)
[2021-04-17] MEDS ORDERED: WARFARIN SOD 5 MG TAB PO ONE (17:21)
--- NOTE | 2021-04-17 17:25 | Communication Note ---
Date of Service: April 17, 2021 MRI performed today reveals a punctate 3 mm acute infarct within the left occipital lobe. Patient reassessed. I discussed the MRI findings together with her symptoms with her. She is not had any additional neurologic symptoms or visual changes today. The differential diagnosis for her transient visual disturbance includes embolic event related to cardiac catheterization, but I am more concerned that this is perhaps regional sales representative of an embolic event from a left ventricular apical mural thrombus. Although no mural thrombus is visualized on echocardiogram, the apex is foreshortened, with noted ongoing severe hypokinesis to akinesis at the mid and apical levels of the ventricle noted on 04/14/2021 and again on 04/16/2021, and certainly she is at risk of having a small mural thrombus and risk of cerebral or other systemic embolization is present. I discussed the case with Dr. Bell of neurology who had reviewed her CT of the brain and MRI of the brain, and his clinical impression was that she was at low risk for hemorrhagic conversion, and therefore will start anticoagulation with low-dose IV heparin without bolus, and Coumadin. Patient agreeable to this plan. We will plan for a course of 1 to 3 months of Coumadin, perhaps with repeat echo planned at a 4-week interval to reassess LV wall motion.
[2021-04-17 18:20] LABS: Partial Thromboplastin Time 26.5 Seconds (21.0-31.0)
[2021-04-17] MEDS: HEPARIN SODIUM/DEXTROSE 25,000 UNITS/500 ML BAG IV SCH (18:57)
[2021-04-17] MEDS ORDERED: HEPARIN SOD 5,000 UNIT/0.5 ML VIAL SQ SCH (21:00)
[2021-04-18 01:20] LABS: Partial Thromboplastin Ratio 1.5; Partial Thromboplastin Time 38.6 Seconds (21.0-31.0)
[2021-04-18] MEDS: INSULIN ASPART 100 UNITS/ML 3 ML PEN SC SCH ×4 (07:59→20:28)
[2021-04-18] MEDS: ASPIRIN 81 MG ECTAB PO SCH (08:00)
[2021-04-18] MEDS: ATORVASTATIN 40 MG TAB PO SCH (08:00)
[2021-04-18] MEDS: CHOLECALCIFEROL 1,000 UNITS 25 MCG TAB PO SCH (08:01)
[2021-04-18] MEDS: MONTELUKAST SODIUM 10 MG TABLET PO SCH (08:01)
[2021-04-18] MEDS: METOPROLOL TARTRATE 25 MG TAB PO SCH ×2 (08:01→20:31)
[2021-04-18] MEDS: CYANOCOBALAMIN 500 MCG TABLET (VITAMIN B-12) PO SCH (08:02)
[2021-04-18] MEDS: PANTOprazole 40 MG TAB PO SCH (08:02)
[2021-04-18] MEDS: lisinopril 20 MG TAB PO SCH (08:02)
[2021-04-18 08:31] LABS: Partial Thromboplastin Ratio 1.6; Partial Thromboplastin Time 40.8 Seconds (21.0-31.0); Prothrombin Time 10.1 Seconds (9.0-12.0)
[2021-04-18 08:42] LABS: BUN Creatinine Ratio 23.6 (10-20); Calcium 9.9 mg/dl (8.5-10.1); Creatinine Clr Calc Pharmacy 72.3 ml/min; Magnesium 1.7 mg/dl (1.8-2.4); Potassium 4.1 mmol/L (3.5-5.1)
[2021-04-18] MEDS ORDERED: MAGNESIUM SULFATE / D5W 1 GM/100 ML BAG IV ONE (09:30)
--- NOTE | 2021-04-18 13:42 | Cardiology Progress Note ---
Date of Service April 18, 2021 Assessment & Plan (1) Takotsubo cardiomyopathy: Sinus rhythm noted on telemetry and EKG. EKG today 04/18/2021 reveals ongoing diffuse T wave inversions. Patient with clinical diagnosis of Takotsubo syndrome (catecholamine induced cardiomyopathy/left ventricular apical ballooning syndrome). Continue medical management with aspirin, metoprolol (transition to succinate formulation), lisinopril. (2) Occipital stroke: Cardioembolic event from LV mural thrombus certainly consideration given ongoing LV apical hypokinesis to akinesis. Left ventricular apex is suboptimally visualized on echocardiogram due to foreshortening. In addition to aspirin, anticoagulate, Coumadin considered anticoagulant of choice with heparin bridge. I have placed a referral to the [facility] anticoagulation clinic to facilitate the transition to outpatient management at time of discharge. (3) HLD (hyperlipidemia): Continue atorvastatin. Admission and Anticipated Discharge Date Admission Date: April 13, 2021 Subjective Patient seen in cardiology follow-up. She denies chest discomfort or shortness of breath. She denies any additional neurologic events. Denies any visual disturbances. Heparin is infusing without complication. Telemetry reveals sinus rhythm in the 60s. Review of Systems Review of Systems: All systems reviewed & are unremarkable except as noted in HPI & below Physical Exam Physical Exam: Temp Pulse Resp BP Pulse Ox 36.9 C 65 18 115/73 96 04/18/21 11:47 04/18/21 11:47 04/18/21 11:47 04/18/21 11:47 04/18/21 11:47 Constitutional: WD/WN, vitals as above Respiratory: normal respiratory effort, lungs clear to auscultation Cardiovascular: RRR, no murmur, no edema Gastrointestinal (Abdomen): normal bowel sounds, soft, nontender, no hepatosplenomegaly Neurologic: PERRL, EOMI, accommodation nl, no face palsy, no dysarthria Results & Data ([facility]) Vital Signs (Past 12 Hours) Vital Signs Temp Pulse Resp BP BP Pulse Ox 04/18/21 11:47 36.9 C 65 18 115/73 96 04/18/21 07:58 118/71 04/18/21 07:23 36.7 C 74 18 93/62 L 97 04/18/21 03:46 36.4 C L 56 L 17 104/61 96 Laboratory Results Coagulation 04/17/21 04/18/21 04/18/21 Range/Units 17:39 00:55 07:50 PT 10.0 10.1 (9.0-12.0) Seconds APTT 26.5 38.6 H 40.8 H (21.0-31.0) Seconds 04/18/21 Range/Units 07:50 PT (9.0-12.0) Seconds APTT Cancelled (21.0-31.0) Seconds Comprehensive Metabolic Panel 04/18/21 Range/Units 07:50 Sodium 139 (136-145) mmol/L Potassium 4.1 (3.5-5.1) mmol/L Chloride 108 H (98-107) mmol/L Carbon Dioxide 24 (21-32) mmol/L BUN 20 H (7-18) mg/dl Creatinine 0.83 (0.6-1.2) mg/dl Glucose 200 H (70-99) mg/dl Calcium 9.9 (8.5-10.1) mg/dl Intake and Output 04/17/21 04/18/21 04/18/21 22:59 06:59 14:59 Intake Total 120 / 652.733 157.733 / 652.733 218.433 / 218.433 Balance 120 / 652.733 157.733 / 652.733 218.433 / 218.433 Intake: IV 107.733 / 207.733 218.433 / 218.433 Heparin Sodium/Dextrose 25,000 107.733 / 107.733 118.433 / 118.433 units In 500 ml @ 850 UNITS/HR 17 mls/hr IV .Q24H [facility] Rx#: [id number] Magnesium Sulfate / D5w 1 gm In 100 / 100 100 ml @ 50 mls/hr IV ONE ONE Rx#:[id number] Oral 120 / 445 50 / 445 Other: # Unmeasured Voids 1 Weight 90.3 kg 90 kg Weight Measurement Method Standing Scale
--- NOTE | 2021-04-18 15:13 | Electrocardiogram Report ---
Test Reason : Blood Pressure : / mmHG Vent. Rate : 078 BPM Atrial Rate : 078 BPM P-R Int : 150 ms QRS Dur : 102 ms QT Int : 454 ms P-R-T Axes : 045 013 154 degrees QTc Int : 517 ms Normal sinus rhythm T wave abnormality, consider inferior ischemia T wave abnormality, consider anterolateral ischemia Prolonged QT Abnormal ECG When compared with ECG of 15-APR-2021 05:30, Minimal criteria for Inferior infarct are no longer Present Confirmed by Saeed Hoyt ([id number]) on 04/18/2021 3:12:49 PM Referred By: REFERRED SELF Confirmed By:Cristino Hoyt
[2021-04-18] MEDS ORDERED: WARFARIN SOD 7.5 MG TAB PO SCH (16:00)
[2021-04-18] MEDS ORDERED: WARFARIN SOD 5 MG TAB PO SCH (16:00)
[2021-04-18 16:04] LABS: Partial Thromboplastin Ratio 1.6; Partial Thromboplastin Time 41.2 Seconds (21.0-31.0)
--- NOTE | 2021-04-18 16:58 | Neurology Progress Note ---
Date of Service April 18, 2021 Assessment & Plan (1) Embolic stroke: A 65-year-old woman admitted with history of hypertension and diabetes admitted with an NSTEMI. Patient underwent cardiac catheterization to that showed nonobstructive coronary artery disease. MRI of the brain was performed for brief visual disturbance after cardiac catheterization which showed a punctate embolic appearing acute infarct in the left occipital lobe. She also had a transthoracic echocardiogram which was interpreted as abnormal and could not completely rule out a mural thrombus. Patient was started on Coumadin yesterday and is being bridged with heparin drip. Appreciate cardiology recommendations regarding abnormal transthoracic echocardiogram in the setting of her recent embolic infarct. Will defer to cardiology on the duration of anticoagulation. Repeat echocardiogram is planned as an outpatient. Otherwise she will continue on aspirin 81 mg daily. Patient can follow-up with neurology as an outpatient. Otherwise please contact neurology with any additional questions or concerns. Admission and Anticipated Discharge Date Admission Date: April 13, 2021 Subjective Patient was seen and examined this afternoon. She reports feeling much better. She had a good nap this afternoon. She denies any new complaints or concerns. Has not had any recurrence of visual symptoms. She was started on Coumadin. Physical Exam Physical Exam: Patient is awake alert oriented to person time speech is clear. Comprehension is intact. Eyes are midline extraocular muscles are intact tongue is midline face is symmetric. No dyskinesias no tremor. Moving all 4 extremities against gravity. Sensation is intact to light touch. Results & Data ([facility]) Vital Signs (Past 12 Hours) Vital Signs Temp Pulse Resp BP BP Pulse Ox 04/18/21 16:00 36.4 C L 73 18 120/76 98 04/18/21 11:47 36.9 C 65 18 115/73 96 04/18/21 07:58 118/71 04/18/21 07:23 36.7 C 74 18 93/62 L 97 Diagnostic Findings MRI of the brain without contrast performed on 04/17/21: Small punctate acute ischemic stroke in the left occipital lobe. (1) Embolic stroke Precerebral and cerebral artery: posterior cerebral artery Laterality of affected vessel: left Qualified Code(s): I63.432 - Cerebral infarction due to embolism of left posterior cerebral artery
[2021-04-18] MEDS: ACETAMINOPHEN 325 MG TAB PO PRN (17:14)
--- NOTE | 2021-04-18 18:20 | Hospitalist Progress Note ---
Date of Service April 18, 2021 Assessment & Plan (1) NSTEMI (non-ST elevated myocardial infarction): Takotsubo cardiomyopathy ACS ruled out --ECHO: Normal sized apical, septal, anteroseptal, anterior, inferior, posterior and lateral wall motion abnormality with hypokinesis to akinesis of the segments of apical and mid levels of the left ventricle, and relatively sparing of the basal segments. No evidence of left apical mural thrombus. Apical trabeculations are noted, do not appear to meet criteria for left ventricular noncompaction syndrome. EF 40 to 45%. Compared to images from prior study on 04/14/21, interval subtle improvement in the overall left ventricle systolic function. --S/P Cardiac Cath: Mild nonobstructive coronary artery disease, 30% mid LAD stenosis, 30% mid circumflex stenosis, right coronary artery is notable for 40% proximal stenosis and 30% distal stenosis. --Continue aspirin, metoprolol, lisinopril Appreciate cardiology input Acute CVA Transient visual disturbance bilaterally Likely cardioembolic from left ventricular mural thrombus -MRI Brain: Punctate 3 mm acute infarct within the left occipital lobe. Otherwise, unchanged appearance of the brain since MRI of December 22, 2019. -Carotid USD:There is no hemorrhage, mass effect, or evidence of acute territorial ischemia by CT criteria. Continue aspirin, atorvastatin Appreciate Neurology Input And on IV heparin, Coumadin Monitor INR Duration of anticoagulation to be determined Will need repeat echocardiogram in 4 weeks Needs follow-up with neurology upon discharge (2) DM type 2 (diabetes mellitus, type 2): Hgb A1c 9.4 03/2021 Hold oral agents Continue Insulin therapy while hospitalized (3) Hypertension: Continue lisinopril, metoprolol (4) GERD (gastroesophageal reflux disease): -Continue PPI (5) DVT prophylaxis: Heparin SQ Admission and Anticipated Discharge Date Admission Date: April 13, 2021 Subjective Patient is seen and examined at bedside No new complaints on IV heparin Denies any bleeding issues Denies headache, chest pain, dizziness, nausea, abdominal pain, dyspnea Review of Systems Review of Systems: All systems reviewed & are unremarkable except as noted in HPI & below Physical Exam Physical Exam: Physical Exam: Vitals signs as noted above General Appearance:Obese, no apparent distress Head: normocephalic, Atraumatic Eyes: normal inspection, EOMI Neck: supple, Trachea midline Respiratory/Chest: Normal breath sounds, CTA, No accessory muscle use Cardiovascular: S1, S2, No murmur Abdomen/GI:Soft, Non tender, Bowel sounds present Extremities/Musculoskeletal:normal inspection, no edema Neurologic/Psych:AAOX3, grossly no focal neurological deficits Skin: normal color, warm Results & Data Results & Data ([facility]) Vital Signs (Past 12 Hours) Vital Signs Temp Pulse Resp BP BP Pulse Ox 04/18/21 16:00 36.4 C L 73 18 120/76 98 04/18/21 11:47 36.9 C 65 18 115/73 96 04/18/21 07:58 118/71 04/18/21 07:23 36.7 C 74 18 93/62 L 97 Laboratory Results [facility] 04/18/21 07:50 Sodium 139 Potassium 4.1 Chloride 108 H Carbon Dioxide 24 BUN 20 H Creatinine 0.83 Glucose 200 H Calcium 9.9 (1) Hypertension Hypertension type: unspecified Qualified Code(s): I10 - Essential (primary) hypertension
[2021-04-18] MEDS: HEPARIN SODIUM/DEXTROSE 25,000 UNITS/500 ML BAG IV SCH (22:37)
[2021-04-18 23:55] LABS: Partial Thromboplastin Time 52.1 Seconds (21.0-31.0)
[2021-04-19 06:30] LABS: Hematocrit (blood only) 40.1 % (37-47); Hemoglobin 13.1 g/dL (12.0-16.0); Mean Corpuscular Hemoglobin 30.6 pg (25-34); Mean Corpuscular Hgb Conc 32.7 g/dL (32-36); Mean Corpuscular Volume 93.7 fL (80-100); Mean Platelet Volume 9.8 fL (7.4-10.4); Platelet Count 183 K/uL (130-400); RDW Coefficient of Variation 13.5 % (11.5-14.5); Red Blood Count 4.28 M/uL (4.2-5.4); White Blood Count 4.22 K/uL (4.8-10.8)
[2021-04-19 06:45] LABS: INR 1.2 (0.9-1.1); Prothrombin Time 11.9 Seconds (9.0-12.0)
[2021-04-19 07:03] LABS: BUN Creatinine Ratio 25.2 (10-20); Calcium 9.4 mg/dl (8.5-10.1); Creatinine Clr Calc Pharmacy 65.7 ml/min; Est GFR (African American) 76.8 ml/min; Est GFR (Non-African American) 66.3 ml/min; Magnesium 1.7 mg/dl (1.8-2.4); Potassium 4.4 mmol/L (3.5-5.1)
[2021-04-19 07:23] LABS: Partial Thromboplastin Ratio 2.2
[2021-04-19 07:24] LABS: Partial Thromboplastin Time 58.7 Seconds (21.0-31.0)
[2021-04-19] MEDS: CYANOCOBALAMIN 500 MCG TABLET (VITAMIN B-12) PO SCH (08:17)
[2021-04-19] MEDS: PANTOprazole 40 MG TAB PO SCH (08:17)
[2021-04-19] MEDS: lisinopril 20 MG TAB PO SCH (08:17)
[2021-04-19] MEDS: ASPIRIN 81 MG ECTAB PO SCH (08:17)
[2021-04-19] MEDS: MONTELUKAST SODIUM 10 MG TABLET PO SCH (08:17)
[2021-04-19] MEDS: METOPROLOL SUCC 25MG EXT REL TAB PO SCH (08:18)
[2021-04-19] MEDS: ATORVASTATIN 40 MG TAB PO SCH (08:18)
[2021-04-19] MEDS: MAGNESIUM OXIDE 400 MG TAB PO SCH (08:18)
[2021-04-19] MEDS: CHOLECALCIFEROL 1,000 UNITS 25 MCG TAB PO SCH (08:18)
[2021-04-19] MEDS: INSULIN ASPART 100 UNITS/ML 3 ML PEN SC SCH ×4 (08:18→20:40)
[2021-04-19] MEDS: ACETAMINOPHEN 325 MG TAB PO PRN ×3 (09:21→19:47)
--- NOTE | 2021-04-19 12:28 | Cardiology Progress Note ---
Date of Service April 19, 2021 Assessment & Plan (1) Takotsubo cardiomyopathy: Patient with clinical diagnosis of Takotsubo syndrome (catecholamine induced cardiomyopathy/left ventricular apical ballooning syndrome). LVEF ~40% Continue medical management with aspirin, metoprolol (transitioned to succinate formulation), lisinopril. Add magnesium supplement for persistent mild low magnesium. (2) Occipital stroke: Cardioembolic event from LV mural thrombus certainly consideration given ongoing LV apical hypokinesis to akinesis. Left ventricular apex is suboptimally visualized on echocardiogram due to foreshortening. In addition to aspirin, anticoagulate, Coumadin considered anticoagulant of choice with heparin bridge. I have placed a referral to the [facility] anticoagulation clinic to facilitate the transition to outpatient management at time of discharge. (3) HLD (hyperlipidemia): Continue atorvastatin. Admission and Anticipated Discharge Date Admission Date: April 13, 2021 Subjective Patient seen in follow up. She has walked in the hallway 3 times this am. Feels well with no chest pain or SOB. Had another 10-15 minute visual spell last night.Telemetry reveals SR. Review of Systems Review of Systems: All systems reviewed & are unremarkable except as noted in HPI & below Physical Exam Physical Exam: Temp Pulse Resp BP Pulse Ox 36.7 C 80 20 108/68 93 04/19/21 07:04 04/19/21 08:00 04/19/21 07:04 04/19/21 07:04 04/19/21 07:04 Constitutional: WD/WN, vitals as above Respiratory: normal respiratory effort, lungs clear to auscultation Cardiovascular: RRR, no murmur, no edema Gastrointestinal (Abdomen): normal bowel sounds, soft, nontender, no hepatosplenomegaly Neurologic: PERRL, EOMI, accommodation nl, no face palsy, no dysarthria Results & Data ([facility] [place]) Vital Signs (Past 12 Hours) Vital Signs Temp Pulse Pulse Resp BP Pulse Ox 04/19/21 08:00 80 04/19/21 07:04 36.7 C 70 20 108/68 93 04/19/21 03:38 36.5 C 76 18 99/63 L 96 Diagnostic Findings INR 1.2 PTT 58 s
[2021-04-19] MEDS ORDERED: MAGNESIUM OXIDE 400 MG TAB PO SCH (12:30)
[2021-04-19] MEDS: DOXYCYCLINE HYCLATE 100 MG CAP PO SCH ×2 (13:27→22:06)
[2021-04-19] MEDS: FLUTICASONE PROPIONATE NA SPR 16 GM BTL SCH (14:38)
[2021-04-19] MEDS ORDERED: WARFARIN SOD 10 MG TAB PO SCH (16:00)
--- NOTE | 2021-04-19 16:19 | Hospitalist Progress Note ---
Date of Service April 19, 2021 Assessment & Plan (1) NSTEMI (non-ST elevated myocardial infarction): Takotsubo cardiomyopathy ACS ruled out --ECHO: Normal sized apical, septal, anteroseptal, anterior, inferior, posterior and lateral wall motion abnormality with hypokinesis to akinesis of the segments of apical and mid levels of the left ventricle, and relatively sparing of the basal segments. No evidence of left apical mural thrombus. Apical trabeculations are noted, do not appear to meet criteria for left ventricular noncompaction syndrome. EF 40 to 45%. Compared to images from prior study on 04/14/21, interval subtle improvement in the overall left ventricle systolic function. --S/P Cardiac Cath: Mild nonobstructive coronary artery disease, 30% mid LAD stenosis, 30% mid circumflex stenosis, right coronary artery is notable for 40% proximal stenosis and 30% distal stenosis. --Continue aspirin, metoprolol, lisinopril Appreciate cardiology input Acute CVA Transient visual disturbance bilaterally Likely cardioembolic from left ventricular mural thrombus -MRI Brain: Punctate 3 mm acute infarct within the left occipital lobe. Otherwise, unchanged appearance of the brain since MRI of December 22, 2019. -Carotid USD:There is no hemorrhage, mass effect, or evidence of acute territorial ischemia by CT criteria. Continue aspirin, atorvastatin Appreciate Neurology Input And on IV heparin, Coumadin Monitor INR:1.2 Increase Coumadin to 10 mg today Duration of anticoagulation to be determined Will need repeat echocardiogram in 4 weeks Needs follow-up with neurology upon discharge Sinusitis Started on doxycycline given penicillin allergy Also started on Flonase Hypomagnesemia Continue supplements Monitor (2) DM type 2 (diabetes mellitus, type 2): Hgb A1c 9.4 03/2021 Hold oral agents Continue Insulin therapy while hospitalized (3) Hypertension: Continue lisinopril, metoprolol (4) GERD (gastroesophageal reflux disease): -Continue PPI (5) DVT prophylaxis: Heparin SQ Admission and Anticipated Discharge Date Admission Date: April 13, 2021 Subjective Patient is seen and examined at bedside States having transient visual loss overnight lasting for about 15 minutes Also states having sinus pressure associated with minimal cough, facial tenderness and headache Denies chest pain, dizziness, nausea, abdominal pain, dyspnea Review of Systems Review of Systems: All systems reviewed & are unremarkable except as noted in HPI & below Physical Exam Physical Exam: Physical Exam: Vitals signs as noted above General Appearance:Obese, no apparent distress Head: normocephalic, Atraumatic Eyes: normal inspection, EOMI Neck: supple, Trachea midline Respiratory/Chest: Normal breath sounds, CTA, No accessory muscle use Cardiovascular: S1, S2, No murmur Abdomen/GI:Soft, Non tender, Bowel sounds present Extremities/Musculoskeletal:normal inspection, no edema Neurologic/Psych:AAOX3, grossly no focal neurological deficits Skin: normal color, warm Results & Data Results & Data ([facility]) Vital Signs (Past 12 Hours) Vital Signs Temp Pulse Pulse Resp BP Pulse Ox 04/19/21 15:50 36.5 C 73 20 119/70 94 04/19/21 15:41 69 04/19/21 12:47 36.6 C 62 20 106/64 97 04/19/21 08:00 80 04/19/21 07:04 36.7 C 70 20 108/68 93 Laboratory Results Short CBC 04/19/21 Range/Units 06:08 WBC 4.22 L (4.8-10.8) K/uL Hgb 13.1 (12.0-16.0) g/dL Hct 40.1 (37-47) % Plt Count 183 (130-400) K/uL BMP 04/19/21 06:08 Sodium 138 Potassium 4.4 Chloride 106 Carbon Dioxide 24 BUN 23 H Creatinine 0.92 Glucose 189 H Calcium 9.4 (1) Hypertension Hypertension type: unspecified Qualified Code(s): I10 - Essential (primary) hypertension
[2021-04-19] MEDS: HEPARIN SODIUM/DEXTROSE 25,000 UNITS/500 ML BAG IV SCH (23:16)
[2021-04-20 06:39] LABS: Hematocrit (blood only) 39.8 % (37-47); Hemoglobin 13.2 g/dL (12.0-16.0); Mean Corpuscular Hemoglobin 30.7 pg (25-34); Mean Corpuscular Hgb Conc 33.2 g/dL (32-36); Mean Corpuscular Volume 92.6 fL (80-100); Platelet Count 181 K/uL (130-400); RDW Coefficient of Variation 13.6 % (11.5-14.5); RDW Standard Deviation 46.1 fL (36.4-46.3); White Blood Count 3.77 K/uL (4.8-10.8)
[2021-04-20 07:15] LABS: Partial Thromboplastin Ratio 3.1; Prothrombin Time 19.6 Seconds (9.0-12.0)
[2021-04-20 08:04] LABS: Partial Thromboplastin Time 82.3 Seconds (21.0-31.0)
[2021-04-20] MEDS: lisinopril 20 MG TAB PO SCH (08:15)
[2021-04-20] MEDS: PANTOprazole 40 MG TAB PO SCH (08:16)
[2021-04-20] MEDS: CHOLECALCIFEROL 1,000 UNITS 25 MCG TAB PO SCH (08:16)
[2021-04-20] MEDS: MONTELUKAST SODIUM 10 MG TABLET PO SCH (08:16)
[2021-04-20] MEDS: CYANOCOBALAMIN 500 MCG TABLET (VITAMIN B-12) PO SCH (08:16)
[2021-04-20] MEDS: MAGNESIUM OXIDE 400 MG TAB PO SCH (08:20)
[2021-04-20] MEDS: METOPROLOL SUCC 25MG EXT REL TAB PO SCH (08:20)
[2021-04-20] MEDS: ATORVASTATIN 40 MG TAB PO SCH (08:20)
[2021-04-20] MEDS: FLUTICASONE PROPIONATE NA SPR 16 GM BTL SCH (08:21)
[2021-04-20] MEDS: ASPIRIN 81 MG ECTAB PO SCH (08:21)
[2021-04-20] MEDS: INSULIN ASPART 100 UNITS/ML 3 ML PEN SC SCH ×4 (08:23→20:36)
[2021-04-20] MEDS: ACETAMINOPHEN 325 MG TAB PO PRN (08:28)
[2021-04-20] MEDS: MAGNESIUM SULFATE / D5W 1 GM/100 ML BAG IV SCH ×2 (09:24→11:51)
--- NOTE | 2021-04-20 11:08 | Cardiology Progress Note ---
Date of Service April 20, 2021 Assessment & Plan (1) Takotsubo cardiomyopathy: Continue medical management with aspirin, lisinopril, and beta-fish therapy. (2) Occipital stroke: Concerns regarding possible cardioembolic event in the setting of Ashutosh otsubo cardiomyopathy. LV thrombus was not visualized on echocardiogram, however, left ventricular apex was suboptimally imaged. Patient INR is therapeutic today. Intravenous heparin will be discontinued. She will continue Coumadin for goal INR of 2.0-3.0 as well as aspirin 81 mg daily. Patient referred to the anticoagulation clinic for outpatient warfarin management. No further inpatient cardiac testing or intervention at this time. Admission and Anticipated Discharge Date Admission Date: April 13, 2021 Subjective Patient seen and examined at the bedside. Feeling well from a cardiovascular perspective. INR is therapeutic. Requesting discharge if possible. No chest pain, shortness of breath, palpitations, focal weakness, visual changes, slurred speech, or paresthesias. Denies orthopnea, PND, lower extreme edema, or claudication. Review of Systems Review of Systems: All systems reviewed & are unremarkable except as noted in Subjective Physical Exam Constitutional: well developed and well nourished; no acute distress Respiratory: normal respiratory effort; no respiratory distress and no labored breathing Auscultation: no crackles, no rales, no rhonchi and no wheezes Cardiovascular: Heart Sounds: normal S1 and normal S2; no gallop, no murmur and no cardiac rub Vessels: no JVD and no carotid bruit Extremities: no edema Gastrointestinal (Abdomen): Inspection/Auscultation: abdomen normal to inspection and normal bowel sounds; abdomen not distended Percussion/Palpation: abdomen soft; abdomen nontender, no guarding and abdomen not rigid Neurologic: CN's II-XI intact bilaterally and moves all extremities; no focal motor deficits Motor/Sensory: no tremor Psychiatric: A+Ox3, euthymic affect Results & Data ([facility]) Vital Signs (Past 12 Hours) Vital Signs Temp Pulse Pulse Resp BP BP Pulse Ox 04/20/21 10:51 36.4 C L 64 20 98/58 L 95 04/20/21 08:00 59 L 04/20/21 07:33 36.4 C L 76 19 120/80 97 04/20/21 03:54 36.5 C 57 L 18 96/62 L 96 04/19/21 23:53 59 L 04/19/21 23:22 36.5 C 57 L 18 99/64 L 95
[2021-04-20] MEDS: DOXYCYCLINE HYCLATE 100 MG CAP PO SCH ×2 (11:51→22:29)
--- NOTE | 2021-04-20 14:54 | Hospitalist Progress Note ---
Date of Service April 20, 2021 Assessment & Plan (1) NSTEMI (non-ST elevated myocardial infarction): Takotsubo cardiomyopathy ACS ruled out --ECHO: Normal sized apical, septal, anteroseptal, anterior, inferior, posterior and lateral wall motion abnormality with hypokinesis to akinesis of the segments of apical and mid levels of the left ventricle, and relatively sparing of the basal segments. No evidence of left apical mural thrombus. Apical trabeculations are noted, do not appear to meet criteria for left ventricular noncompaction syndrome. EF 40 to 45%. Compared to images from prior study on 04/14/21, interval subtle improvement in the overall left ventricle systolic function. --S/P Cardiac Cath: Mild nonobstructive coronary artery disease, 30% mid LAD stenosis, 30% mid circumflex stenosis, right coronary artery is notable for 40% proximal stenosis and 30% distal stenosis. --Continue aspirin, metoprolol, lisinopril Appreciate cardiology input Acute CVA Transient visual disturbance bilaterally Likely cardioembolic from left ventricular mural thrombus -MRI Brain: Punctate 3 mm acute infarct within the left occipital lobe. Otherwise, unchanged appearance of the brain since MRI of December 22, 2019. -Carotid USD:There is no hemorrhage, mass effect, or evidence of acute territorial ischemia by CT criteria. Continue aspirin, atorvastatin Appreciate Neurology Input Monitor INR:2.O IV heparin discontinued Decrease Coumadin to 2.5 mg today Duration of anticoagulation to be determined Will need repeat echocardiogram in 4 weeks Needs follow-up with neurology upon discharge Sinusitis Continue doxycycline given penicillin allergy Continue Flonase Chronic Hypomagnesemia Continue supplements Monitor (2) DM type 2 (diabetes mellitus, type 2): Hgb A1c 9.4 03/2021 Hold oral agents Continue Insulin therapy while hospitalized (3) Hypertension: Continue lisinopril, metoprolol (4) GERD (gastroesophageal reflux disease): -Continue PPI (5) DVT prophylaxis: Heparin SQ Admission and Anticipated Discharge Date Admission Date: April 13, 2021 Subjective Patient is seen and examined at bedside No recurrence of visual loss Sinus pressure, headache improved Discussed with cardiology today INR in therapeutic range Denies chest pain, dizziness, nausea, abdominal pain, dyspnea Review of Systems Review of Systems: All systems reviewed & are unremarkable except as noted in HPI & below Physical Exam Physical Exam: Physical Exam: Vitals signs as noted above General Appearance:Obese, no apparent distress Head: normocephalic, Atraumatic Eyes: normal inspection, EOMI Neck: supple, Trachea midline Respiratory/Chest: Normal breath sounds, CTA, No accessory muscle use Cardiovascular: S1, S2, No murmur Abdomen/GI:Soft, Non tender, Bowel sounds present Extremities/Musculoskeletal:normal inspection, no edema Neurologic/Psych:AAOX3, grossly no focal neurological deficits Skin: normal color, warm Results & Data Results & Data ([facility]) Vital Signs (Past 12 Hours) Vital Signs Temp Pulse Pulse Resp BP BP Pulse Ox 04/20/21 10:51 36.4 C L 64 20 98/58 L 95 04/20/21 08:00 59 L 04/20/21 07:33 36.4 C L 76 19 120/80 97 04/20/21 03:54 36.5 C 57 L 18 96/62 L 96 Laboratory Results Short CBC 04/20/21 Range/Units 06:08 WBC 3.77 L (4.8-10.8) K/uL Hgb 13.2 (12.0-16.0) g/dL Hct 39.8 (37-47) % Plt Count 181 (130-400) K/uL (1) Hypertension Hypertension type: unspecified Qualified Code(s): I10 - Essential (primary) hypertension
[2021-04-20] MEDS ORDERED: WARFARIN SOD 2.5 MG TAB PO SCH (16:00)
[2021-04-21 06:04] LABS: Hematocrit (blood only) 38.7 % (37-47); Hemoglobin 12.7 g/dL (12.0-16.0); Mean Corpuscular Hgb Conc 32.8 g/dL (32-36); Mean Corpuscular Volume 91.5 fL (80-100); Mean Platelet Volume 9.6 fL (7.4-10.4); Platelet Count 164 K/uL (130-400); RDW Coefficient of Variation 13.6 % (11.5-14.5); RDW Standard Deviation 44.9 fL (36.4-46.3); Red Blood Count 4.23 M/uL (4.2-5.4); White Blood Count 3.98 K/uL (4.8-10.8)
[2021-04-21 06:28] LABS: INR 2.1 (0.9-1.1); Partial Thromboplastin Ratio 1.4; Partial Thromboplastin Time 35.6 Seconds (21.0-31.0); Prothrombin Time 20.2 Seconds (9.0-12.0)
[2021-04-21 06:37] LABS: BUN Creatinine Ratio 29.5 (10-20); Calcium 9.4 mg/dl (8.5-10.1); Creatinine Clr Calc Pharmacy 63.7 ml/min; Est GFR (African American) 73.9 ml/min; Est GFR (Non-African American) 63.7 ml/min; Potassium 4.5 mmol/L (3.5-5.1)
[2021-04-21] MEDS: PANTOprazole 40 MG TAB PO SCH (08:47)
[2021-04-21] MEDS: lisinopril 20 MG TAB PO SCH (08:48)
[2021-04-21] MEDS: MONTELUKAST SODIUM 10 MG TABLET PO SCH (08:48)
[2021-04-21] MEDS: METOPROLOL SUCC 25MG EXT REL TAB PO SCH (08:48)
[2021-04-21] MEDS: ASPIRIN 81 MG ECTAB PO SCH (08:48)
[2021-04-21] MEDS: CHOLECALCIFEROL 1,000 UNITS 25 MCG TAB PO SCH (08:48)
[2021-04-21] MEDS: ATORVASTATIN 40 MG TAB PO SCH (08:48)
[2021-04-21] MEDS: CYANOCOBALAMIN 500 MCG TABLET (VITAMIN B-12) PO SCH (08:48)
[2021-04-21] MEDS: INSULIN ASPART 100 UNITS/ML 3 ML PEN SC SCH ×2 (08:49→12:17)
[2021-04-21] MEDS: FLUTICASONE PROPIONATE NA SPR 16 GM BTL SCH (08:49)
[2021-04-21] MEDS ORDERED: MAGNESIUM OXIDE 400 MG TAB PO SCH (09:00)
--- NOTE | 2021-04-21 10:25 | Cardiology Progress Note ---
Date of Service April 21, 2021 Assessment & Plan (1) Takotsubo cardiomyopathy: Continue medical management with aspirin, lisinopril, and beta-fish therapy. Repeat outpatient 2D transthoracic echocardiogram in 6-12 weeks. (2) Occipital stroke: Concerns regarding possible cardioembolic event in the setting of Takotsubo cardiomyopathy. LV thrombus was not visualized on echocardiogram, however, left ventricular apex was suboptimally imaged. Patient INR is therapeutic x 48 hours. Intravenous heparin discontinued 04/20/2021. Continue Coumadin for goal INR of 2.0-3.0 as well as aspirin 81 mg daily. Patient referred to the anticoagulation clinic for outpatient warfarin management. No further inpatient cardiac testing or intervention at this time. Admission and Anticipated Discharge Date Admission Date: April 13, 2021 Subjective Patient seen and examined at the bedside. Feeling well from a cardiovascular perspective. Ambulating in the hallway without significant dyspnea or chest discomfort. Telemetry reveals sinus rhythm in the 70s. No orthopnea, PND, or edema. No palpitations, lightheadedness, or dizziness. Tolerating diet medications. No signs of symptoms of GI/ blood loss. INR remains therapeutic. Review of Systems Review of Systems: All systems reviewed & are unremarkable except as noted in Subjective Physical Exam Constitutional: well developed and well nourished; no acute distress Respiratory: normal respiratory effort; no respiratory distress and no labored breathing Auscultation: no crackles, no rales, no rhonchi and no wheezes Cardiovascular: Heart Sounds: normal S1 and normal S2; no gallop, no murmur and no cardiac rub Vessels: no JVD and no carotid bruit Extremities: no edema Gastrointestinal (Abdomen): Inspection/Auscultation: abdomen normal to inspection and normal bowel sounds; abdomen not distended Percussion/Palpation: abdomen soft; abdomen nontender, no guarding and abdomen not rigid Neurologic: CN's II-XI intact bilaterally and moves all extremities; no focal motor deficits Motor/Sensory: no tremor Psychiatric: A+Ox3, euthymic affect Results & Data ([facility]) Vital Signs (Past 12 Hours) Vital Signs Temp Pulse Resp BP Pulse Ox 04/21/21 07:31 36.5 C 91 H 18 134/84 98 04/21/21 04:00 36.5 C 67 18 97/61 L 95 04/21/21 00:29 36.5 C 66 18 94/55 L 95
[2021-04-21] MEDS: DOXYCYCLINE HYCLATE 100 MG CAP PO SCH (10:54)
--- NOTE | 2021-04-21 12:56 | Hospitalist Progress Note ---
Date of Service April 21, 2021 Assessment & Plan (1) NSTEMI (non-ST elevated myocardial infarction): Takotsubo cardiomyopathy ACS ruled out --ECHO: Normal sized apical, septal, anteroseptal, anterior, inferior, posterior and lateral wall motion abnormality with hypokinesis to akinesis of the segments of apical and mid levels of the left ventricle, and relatively sparing of the basal segments. No evidence of left apical mural thrombus. Apical trabeculations are noted, do not appear to meet criteria for left ventricular noncompaction syndrome. EF 40 to 45%. Compared to images from prior study on 04/14/21, interval subtle improvement in the overall left ventricle systolic function. --S/P Cardiac Cath: Mild nonobstructive coronary artery disease, 30% mid LAD stenosis, 30% mid circumflex stenosis, right coronary artery is notable for 40% proximal stenosis and 30% distal stenosis. --Continue aspirin, metoprolol, lisinopril Appreciate cardiology input Continue current medications Acute CVA Transient visual disturbance bilaterally Likely cardioembolic from left ventricular mural thrombus -MRI Brain: Punctate 3 mm acute infarct within the left occipital lobe. Otherwise, unchanged appearance of the brain since MRI of December 22, 2019. -Carotid USD:There is no hemorrhage, mass effect, or evidence of acute territorial ischemia by CT criteria. Continue aspirin, atorvastatin Appreciate Neurology Input Monitor INR:2.1 IV heparin discontinued Decrease Coumadin to 2.5 mg today Duration of anticoagulation to be determined Will need repeat echocardiogram in 4 weeks Needs follow-up with neurology upon discharge Needs follow-up with Coumadin clinic upon discharge Sinusitis Continue doxycycline given penicillin allergy Continue Flonase Chronic Hypomagnesemia Continue supplements Monitor (2) DM type 2 (diabetes mellitus, type 2): Hgb A1c 9.4 03/2021 Hold oral agents Continue Insulin therapy while hospitalized (3) Hypertension: Continue lisinopril, metoprolol (4) GERD (gastroesophageal reflux disease): -Continue PPI (5) DVT prophylaxis: Heparin SQ Admission and Anticipated Discharge Date Admission Date: April 13, 2021 Subjective Patient is seen and examined at bedside No new complaints Eager to get discharged INR in therapeutic range Denies chest pain, dizziness, nausea, abdominal pain, dyspnea Review of Systems Review of Systems: All systems reviewed & are unremarkable except as noted in HPI & below Physical Exam Physical Exam: Physical Exam: Vitals signs as noted above General Appearance:Obese, no apparent distress Head: normocephalic, Atraumatic Eyes: normal inspection, EOMI Neck: supple, Trachea midline Respiratory/Chest: Normal breath sounds, CTA, No accessory muscle use Cardiovascular: S1, S2, No murmur Abdomen/GI:Soft, Non tender, Bowel sounds present Extremities/Musculoskeletal:normal inspection, no edema Neurologic/Psych:AAOX3, grossly no focal neurological deficits Skin: normal color, warm Results & Data Results & Data ([facility]) Vital Signs (Past 12 Hours) Vital Signs Temp Pulse Resp BP Pulse Ox 04/21/21 11:04 36.4 C L 68 20 129/79 98 04/21/21 07:31 36.5 C 91 H 18 134/84 98 04/21/21 04:00 36.5 C 67 18 97/61 L 95 Laboratory Results Short CBC 04/21/21 Range/Units 05:30 WBC 3.98 L (4.8-10.8) K/uL Hgb 12.7 (12.0-16.0) g/dL Hct 38.7 (37-47) % Plt Count 164 (130-400) K/uL BMP 04/21/21 05:30 Sodium 138 Potassium 4.5 Chloride 106 Carbon Dioxide 26 BUN 28 H Creatinine 0.95 Glucose 181 H Calcium 9.4 (1) Hypertension Hypertension type: unspecified Qualified Code(s): I10 - Essential (primary) hypertension
--- NOTE | 2021-04-21 13:14 | Discharge Summary ---
Date of Service April 21, 2021 Admission HPI Per Admitting Provider 65-year-old female with PMH DM type II, dyslipidemia, HTN, history of questionable TIA, daily marijuana use, and other problems listed below who presents the ED for evaluation of chest pain. 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 Patient reports the pain as severe, rating it #8/10. Patient reports associated diaphoresis, nausea, shortness of breath. Patient rested for about 15 minutes, symptoms mildly improved and she completed the haircut. Patient then drove herself home and took Gaviscon. She reports no improvement in her symptoms, and therefore presented to the ED for further evaluation. Patient notes increasing fatigue over the past few months. No other recent illnesses, fevers, chills. Denies abdominal pain, vomiting, diarrhea. No urinary symptoms. In the ED, patient was given sublingual nitroglycerin and currently rates her pain #2/10. EKG shows a new T wave inversion in lead I and a deeper T wave inversion in aVL. Initial troponin 0.764. Patient was also given full dose aspirin and started on a heparin drip. Admission Exam Per Admitting Provider Physical Exam Constitutional: WD/WN, vitals as above Eyes: PERRL, conjunctivae normal, anicteric sclerae ENMT: external ear and nose normal, oropharynx normal Respiratory: normal respiratory effort, lungs clear to auscultation Cardiovascular: Rate/Rhythm: regular rate and regular rhythm Vessels: normal peripheral pulses Extremities: no edema Gastrointestinal (Abdomen): normal bowel sounds, soft, nontender, no hepatosplenomegaly Musculoskeletal: no cyanosis or clubbing, extremities motor strength 5/5 Skin: no rashes, warm and dry Neurologic: PERRL, EOMI, accommodation nl, no face palsy, no dysarthria Psychiatric: A+Ox3, euthymic affect Principal Diagnosis Takotsubo cardiomyopathy Acute cerebrovascular accident Sinusitis Discharge Data Allergies Allergy/AdvReac Type Severity Reaction Status Date / Time Penicillins Allergy Intermediate Hives Verified 04/13/21 14:35 Sulfa (Sulfonamide Allergy Intermediate Hives Verified 04/13/21 14:35 Antibiotics) albiglutide Allergy Unknown Abdominal Verified 04/13/21 14:35 pain,nausea,vomiting,rash and itchiness clindamycin Allergy Unknown Hives Verified 04/13/21 14:35 Corticosteroids Allergy Unknown Unknown Verified 04/13/21 14:35 (Glucocorticoids) Consultations 04/13/21 13:35 ED Decision to Admit Stat 04/13/21 14:28 Consult Cardiology Routine 04/17/21 11:35 Consult Neurology Routine Procedures Performed Operation Date: 04/15/21 13:00 Actual Procedures p Cath, Left with Cors and Zachary - Cade Chiang MD p Cath, Left with Cors and Vent Sravanthi Chiagn MD s Cineradiography w/Routine Exam - Cade Chiang MD ECHO: Normal sized apical, septal, anteroseptal, anterior, inferior, posterior and lateral wall motion abnormality with hypokinesis to akinesis of the segments of apical and mid levels of the left ventricle, and relatively sparing of the basal segments. No evidence of left apical mural thrombus. Apical trabeculations are noted, do not appear to meet criteria for left ventricular noncompaction syndrome. EF 40 to 45%. Compared to images from prior study on 04/14/21, interval subtle improvement in the overall left ventricle systolic function. MRI Brain: Punctate 3 mm acute infarct within the left occipital lobe. Otherwise, unchanged appearance of the brain since MRI of December 22, 2019. Carotid USD:There is no hemorrhage, mass effect, or evidence of acute territorial ischemia by CT criteria. Ordered Studies 04/15/21 13:16 CL Cath Imgs for PACS use only Routine 04/15/21 16:03 CT head/brain wo con Stat 04/16/21 10:42 US carotid doppler BI Routine 04/16/21 19:19 CT head/brain wo con Routine 04/17/21 12:11 MR brain wo/w con Urgent Hospital Course (1) NSTEMI (non-ST elevated myocardial infarction): Takotsubo cardiomyopathy ACS ruled out --ECHO: Normal sized apical, septal, anteroseptal, anterior, inferior, posterior and lateral wall motion abnormality with hypokinesis to akinesis of the segments of apical and mid levels of the left ventricle, and relatively sparing of the basal segments. No evidence of left apical mural thrombus. Apical trabeculations are noted, do not appear to meet criteria for left ventricular noncompaction syndrome. EF 40 to 45%. Compared to images from prior study on 04/14/21, interval subtle improvement in the overall left ventricle systolic function. --S/P Cardiac Cath: Mild nonobstructive coronary artery disease, 30% mid LAD stenosis, 30% mid circumflex stenosis, right coronary artery is notable for 40% proximal stenosis and 30% distal stenosis. --Continue aspirin, metoprolol, lisinopril Appreciate cardiology input Continue current medications Acute CVA Transient visual disturbance bilaterally Likely cardioembolic from left ventricular mural thrombus -MRI Brain: Punctate 3 mm acute infarct within the left occipital lobe. Otherwise, unchanged appearance of the brain since MRI of December 22, 2019. -Carotid USD:There is no hemorrhage, mass effect, or evidence of acute territorial ischemia by CT criteria. Continue aspirin, atorvastatin Appreciate Neurology Input Monitor INR:2.1 IV heparin discontinued Decrease Coumadin to 2.5 mg today Duration of anticoagulation to be determined Will need repeat echocardiogram in 4 weeks Needs follow-up with neurology upon discharge Needs follow-up with Coumadin clinic upon discharge Sinusitis Continue doxycycline given penicillin allergy Continue Flonase Chronic Hypomagnesemia Continue supplements Monitor (2) DM type 2 (diabetes mellitus, type 2): Hgb A1c 9.4 03/2021 Hold oral agents Continue Insulin therapy while hospitalized (3) Hypertension: Continue lisinopril, metoprolol (4) GERD (gastroesophageal reflux disease): -Continue PPI (5) DVT prophylaxis: Heparin SQ Total Time Total Time Spent Total Time Spent (In Minutes): 45 minutes Total Time Includes: Examination of the Patient, Discharge Planning, Medication Reconciliation, Communication With Other Providers and Other Discharge Plan Discharge Items Patient Disposition: Home - Self-Care Reason For Visit: NSTEMI Discharge Diagnosis: Takotsubo cardiomyopathy Acute cerebrovascular accident Sinusitis Activity: Per Instructions section Exercise/Sports: Wait until after follow-up appointment Non-emergency contact: Primary Care Provider, Environmental Test Technician and Neurologist Call non-emergency contact if: you have any medication questions, your symptoms worsen, your pain is not controlled, your pain is concerning for you and you have a fever Follow-up/Referrals: Jerrica Urias DO [Primary Care Provider] - (Date & Time 04/23/2021 11:20 AM Provider Douglas Roa MD [facility] ) Ricky Bell DO [Physician] - Diet: Carb Consistent or DM2 and Heart Healthy Addtl Attending Provider Instructions: Follow-up with your primary care physician Dr. Urias on 04/23/2021 at 11:20 AM Follow-up with your neurologist in 4-6 weeks Follow-up with your personal financial representative Dr. Frias/ with repeat echocardiogram as instructed Follow-up with your Coumadin clinic for management of Coumadin dosing and monitoring your PT/INR on 04/22/21 Your PT/INR is 2.1 today (04/21/21). TAKE 3 MG COUMADIN TODAY Get Blood test (PT/INT tomorrow 04/22/21) and follow-up with Coumadin clinic for further instructions on your Coumadin dosing. Do not take group of medications belonging to NSAIDs group -can cause worsening of your kidney function/bleeding . List Of these medications includes but not limited to: Diclofenac Ibuprofen, Motrin, Advil Toradol,ketorolac Naproxen, Aleve, Naprosyn, Meloxicam Seek immediate medical attention if your symptoms reoccur or worsen Please take all medications as instructed on discharge list below. Please call if you have any questions or problems. You can reach a [facility] hospitalist on duty at [facility] 24 hours a day by calling [phone] Risk Factors for Stroke: You can reduce your chances of stroke by working with your medical provider to adopt a healthy lifestyle. Some specific ways to lower your chance of stroke are: * If you are a smoker, now is the time to stop smoking cigarettes * If you are diabetic, improve the control of your blood sugars * Avoid excessive amounts of alcohol * Control high blood pressure * Lose weight if you are overweight * Be sure to lead an active lifestyle * Eat a healthy diet low in salt, cholesterol and fat You should know about other risk factors for stroke that you are unable to control. These include: * Age 55 years or older * Male gender * Certain racial groups: , or / * Family History of Stroke, Mini stroke or Heart Attack * Sickle Cell Disease Follow Up: It is important for you to keep your follow up appointments with your medical provider. Who to Call and When: Medical Emergencies: Call 911 immediately if you experience any of the following warning signs and symptoms of Stroke: * Sudden numbness or weakness of the face, arm or leg, especially on one side of the body * Sudden confusion, trouble speaking or understanding * Sudden trouble seeing in one or both eyes * Sudden trouble walking, dizziness, loss of balance or coordination * Sudden severe headache with no cause Do not delay calling 911 if you experience any warning signs or symptoms of a stroke. Delay in seeking medical attention may affect what treatments can be given to you. . Pending Studies at Discharge: No Stand-Alone Forms: My [facility], Smoking Cessation Medications and DC Order Prescriptions: New doxycycline hyclate 100 mg Capsule 100 mg PO BID@1100,2300 Qty: 5 RF: 0 metoprolol succinate 25 mg Tablet Extended Release 24 Hr 75 mg PO QAM Qty: 90 RF: 1 warfarin 1 mg tablet 1 mg PO UD Qty: 90 RF: 1 warfarin 2 mg tablet 2 mg PO UD Qty: 90 RF: 1 Continued cyanocobalamin (vitamin B-12) [Vitamin B-12] 1,000 mcg Tablet 1,000 mcg PO QAM RF: 0 metformin 500 mg tablet extended release 24 hr 1,000 mg PO BIDM RF: 0 coenzyme Q10 [Co Q-10] 100 mg Capsule 10 mg PO QAM RF: 0 Tradjenta 5 mg tablet 5 mg PO QAM RF: 0 Women's One Daily 18 mg iron-400 mcg-500 mg Ca Tablet 1 tab PO QAM RF: 0 atorvastatin 40 mg tablet 40 mg PO DAILY RF: 0 magnesium oxide 500 mg capsule 500 mg PO BID RF: 0 lisinopril 20 mg tablet 20 mg PO DAILY RF: 0 aspirin 81 mg Tablet,Delayed Release (Dr/Ec) 81 mg PO QAM Qty: 21 RF: 0 cholecalciferol (vitamin D3) 2,000 unit Tablet,Chewable 1,000 unit PO QAM RF: 0 omeprazole magnesium [Prilosec OTC] 20 mg Tablet,Delayed Release (Dr/Ec) 20 mg PO QAM RF: 0 acetaminophen 650 mg Tablet Extended Release 650 mg PO DAILY RF: 0 garlic 150 mg Tablet 150 mg PO DAILY RF: 0 montelukast 10 mg tablet 10 mg PO DAILY RF: 0 lorazepam 1 mg tablet 1 mg PO DAILY PRN (Reason: Vertigo) RF: 0 calcium 150 mg Tablet 150 mg PO DAILY RF: 0 Jardiance 25 mg tablet 25 mg PO DAILY RF: 0 Discontinued meloxicam 7.5 mg tablet 7.5 mg PO DAILY RF: 0 metoprolol tartrate 25 mg tablet 25 mg PO BID RF: 0 Discharge Orders: Discharge Order (Routine); Ordered 04/21/21 Ordered By: Michael Trejo Admission Data Admit Date/Time: 04/13/21 14:03 Attending Provider: Michael Trejo Admit Provider: Rony Zelaya Primary Care Provider: Jerrica Urias Other Providers: Alex Mcmahon ; Felipe Begum ; Ricky Bell Other Interventions: Discharge Summary Assessment (RN) Last Done: 04/21/21 13:56
--- NOTE | 2021-04-22 07:00 | Coding Query ---
PRESENT ON ADMISSION QUERY To promote full compliance with coding requirements relating to pateint care, physician participation is requested in all cases of flanging roll operator uncertainty. Please assist us with the question(s) below: Please place an X within the parenthesis (x). The following diagnosis(es) listed in this patient's medical record require physician assistance to determine if they were present on admission (POA) or not. Please advise for each diagnosis whether it was present on admission, not present on admission, or if it was clinically undetermined. 1.Acute Embolic Stroke (x ) Present On Admission ( ) Not Present On Admission ( ) Clinically Undetermined Thank you [place], [facility] [[email or web address]] [facility] *Definition of the present on admission (POA)-Present on admission is defined as present at the time the order for inpatient admission occurs. Conditions that develop during an outpatient encounter prior to a written order for inpatient admission (including emergency department, observation, or outpatient surgery) are considered present on admission. MTDD
== END 2021-04-21 14:50 | disposition home or self-care (01) | DRG 286 ==
LOC: ED 11:56 → 2S 14:03 → SUATTDRO 14:03 → 2S 15:40

== ENCOUNTER 2021-05-01 12:02 | Observation (INO) ==
[2021-05-01 12:40] LABS: Basophils # (auto) 0.01 K/uL (0-0.2); Basophils % (auto) 0.2 %; Eosinophils # (auto) 0.13 K/uL (0-0.5); Eosinophils % (auto) 2.3 %; Hematocrit (blood only) 39.7 % (37-47); Hemoglobin 13.2 g/dL (12.0-16.0); Immature Granulocytes # (auto) 0.01 K/uL (0.00-0.02); Immature Granulocytes % (auto) 0.2 %; Lymphocytes # (auto) 2.24 K/uL (1.2-3.4); Lymphocytes % (auto) 39.6 %; Mean Corpuscular Hemoglobin 30.4 pg (25-34); Mean Corpuscular Hgb Conc 33.2 g/dL (32-36); Mean Corpuscular Volume 91.5 fL (80-100); Mean Platelet Volume 9.9 fL (7.4-10.4); Monocytes # (auto) 0.53 K/uL (0.11-0.59); Monocytes % (auto) 9.4 %; Neutrophils # (auto) 2.73 K/uL (1.4-6.5); Neutrophils % (auto) 48.3 %; Platelet Count 232 K/uL (130-400); RDW Coefficient of Variation 13.1 % (11.5-14.5); RDW Standard Deviation 43.8 fL (36.4-46.3); Red Blood Count 4.34 M/uL (4.2-5.4); White Blood Count 5.65 K/uL (4.8-10.8)
[2021-05-01] MEDS ORDERED: ACETAMINOPHEN 1000 MG/100 ML IV IV STA (13:00)
[2021-05-01] MEDS ORDERED: NITROGLYCERIN 2% OINTMENT 30GM TUBE EXT STA (13:00)
[2021-05-01 13:02] LABS: INR 3.1 (0.9-1.1); Partial Thromboplastin Ratio 1.8; Prothrombin Time 28.7 Seconds (9.0-12.0)
--- NOTE | 2021-05-01 13:07 | XRay Report ---
XR chest 1V portable CLINICAL HISTORY: Shortness of breath COMPARISON STUDY: 04/24/2021 FINDINGS: The cardiac and mediastinal contours are normal. There is no evidence of focal pulmonary co nsolidation. There is no evidence of failure. No pleural effusions are visualized.[ IMPRESSION: No active disease in the chest. ACT 112: Negative or not required by law. Electronically signed by: Angus Hollis M.D. 05/01/2021 1:05 PM
[2021-05-01 13:10] LABS: Alanine Aminotransferase 31 U/L (12-78); Albumin Level 3.9 gm/dl (3.4-5.0); Aspartate Aminotransferase 19 U/L (15-37); BUN Creatinine Ratio 25.5 (10-20); Blood Urea Nitrogen 23 mg/dl (7-18); Calcium 9.9 mg/dl (8.5-10.1); Carbon Dioxide 26 mmol/L (21-32); Chloride 107 mmol/L (98-107); Creatinine Clr Calc Pharmacy 67.3 ml/min; Est GFR (African American) 78.9 ml/min; Glucose 133 mg/dl (70-99); Magnesium 1.4 mg/dl (1.8-2.4); Partial Thromboplastin Time 46.3 Seconds (21.0-31.0); Potassium 4.6 mmol/L (3.5-5.1); Sodium 138 mmol/L (136-145)
[2021-05-01 13:14] LABS: Albumin Globulin Ratio 1.3 (0.9-2); Alkaline Phosphatase 114 U/L (45-117); Bilirubin,Total 0.3 mg/dl (0.2-1); Total Protein 6.9 gm/dl (6.4-8.2); Troponin I < 0.015 ng/ml (0-0.045)
--- NOTE | 2021-05-01 13:16 | Emergency Department Note ---
Impression & Plan SOB (shortness of breath), Hypomagnesemia, Jaw pain, Abnormal ECG ED Provider Note NAME: GRANT MARTINEZ AGE: 65 SEX: F : 1955 ARRIVES VIA: Walk-In INFORMANT: [Patient] ED PROVIDER(S): [Otoniel Bush MD] CHIEF COMPLAINT: Short of breath, jaw pain HISTORY OF PRESENT ILLNESS: The patient is a 65-year-old female with a history of [place]. She has a known abnormal EKG. She presents today with about 1 day of some increasing shortness of breath with exertion and some intermittent right jaw pain that is rated as mild in severity. Exertion makes the breathing worse but not necessarily the jaw pain. She also has a mild headache. She feels some discomfort in the ep igastrium and below both breasts. She has no appetite. She has not vomited, no fever, no real cough. She is vaccinated against COVID-19. The patient spoke with her doctors and was referred here because of her heart history. REVIEW OF SYSTEMS: See HPI for pertinent positives and negatives. A total of ten systems were reviewed and were otherwise negative. PMHx/PSHx: See Below SOCIAL HISTORY: See Below. PHYSICAL EXAM: GENERAL: Patient is in no acute distress. HEENT: No acute trauma, normocephalic atraumatic, mucous membranes moist, no nasal congestion, no scleral icterus. NECK: No stridor, no adenopathy, no meningismus, trachea is midline. LUNGS: Clear to auscultation bilaterally, no wheeze, no rhonchi, breath sounds equal. HEART: Without murmurs gallops or rubs, regular rate and rhythm. ABDOMEN: Soft, mildly tender in the epigastrium, bowel sounds positive, no hernias, no peritonitis. EXTREMITIES: No cyanosis or edema, full range of motion of all the joints without pain or difficulty, no signs for acute trauma. NEUROLOGIC: Oriented x 3, no acute motor or sensory deficits, no focal weakness. SKIN: No rash, no jaundice, no diaphoresis. DIFFERENTIAL DIAGNOSIS: Reactive airway disease, pneumonia, pneumothorax, COPD, CHF, infection, cardiac ischemia, pulmonary embolism, bronchitis, musculoskeletal, gastrointestinal, as well as other pathologies. EMERGENCY DEPARTMENT COURSE/PROCEDURES: ECG: Indication was shortness of breath. The ECG shows a normal sinus rhythm with a rate of 70. There are inverted T waves in the anterior and lateral leads. This could be consistent with ischemia. There are no PVCs. The QTc is 479. Compared to an ECG from 24 April 2021, there is no significant change. Continuous Cardiac Monitoring: An order was placed for continuous cardiac monitoring. The monitor shows a rate of 75 with normal sinus rhythm. MEDICAL DECISION MAKING: There is no leukocytosis or worrisome anemia. There is a normal platelet count. INR is elevated consistent with her Coumadin use. Magnesium is low at 1.4. No kidney failure. No worrisome liver enzyme elevation. The patient appeared to be in a euthyroid state. ECG showed inverted T waves in the anterior and lateral leads. The EKG looked similar to previous EKGs. Cardiac enzyme testing x1 was not consistent with acute cardiac injury. Chest x-ray did not show mediastinal widening, pneumonia or pneumothorax. There was no CHF. Covid testing returned negative. The patient presents with some jaw pain and dyspnea. She has a significantly abnormal ECG. She was just in the hospital for a non-STEMI and Takotsubo. I did speak with cardiology, they did recommend a hospital stay for observation and further cardiac work-up. The patient was given 1 inch of nitroglycerin paste. She received IV magnesium. She does feel improved. The patient is being hospitalized. I did speak with the rehabilitation caseworker. The on- call hospitalist was consulted. Past Med/Surg History Medical History CVA (cerebral vascular accident) DM type 2 (diabetes mellitus, type 2) GERD (gastroesophageal reflux disease) HLD (hyperlipidemia) Hypertension NSTEMI (non-ST elevated myocardial infarction) 04/2021 Surgical History H/O shoulder surgery right, arthroscopic History of partial hysterectomy History of sinus surgery Hx of cardiac cath Family History Father , 62 from CVA Stroke, Onset Age: 40 Brother Heart disease Social History Smoking Status: Former smoker Tobacco Type: Cigarettes Second Hand Exposure: No; Hx Alcohol Use: No Hx Substance Use: Yes Prescribed Medications: Marijuana Preferred Language: Burkinan Communication Ability: Effective Gameplay Engineer Required: No Beliefs That Will Affect Care: None marital status: Current Living Situation: Alone Other Information That Helps Us Care for You: No Feels Safe at Home: Yes Safety Concerns: Feels Safe At This Time Assistive Devices: Glasses Allergies Allergies Allergy/AdvReac Type Severity Reaction Status Date / Time Penicillins Allergy Intermediate Hives Verified 05/01/21 15:25 Sulfa (Sulfonamide Allergy Intermediate Hives Verified 05/01/21 15:25 Antibiotics) albiglutide Allergy Unknown Abdominal Verified 05/01/21 15:25 pain,nausea,vomiting,rash and itchiness clindamycin Allergy Unknown Hives Verified 05/01/21 15:25 Corticosteroids Allergy Unknown Unknown Verified 05/01/21 15:25 (Glucocorticoids) Home Meds Home Medications Medication Instructions Recorded Confirmed Tradjenta 5 mg PO QAM 07/20/19 05/01/21 Women's One Daily 1 tab PO QAM 07/20/19 05/01/21 coenzyme Q10 [Co Q-10] 10 mg PO QAM 07/20/19 05/01/21 cyanocobalamin (vitamin B-12) 1,000 mcg PO QAM 07/20/19 05/01/21 [Vitamin B-12] metformin 1,000 mg PO BIDM 07/20/19 05/01/21 cholecalciferol (vitamin D3) 1,000 unit PO QAM 12/26/19 05/01/21 omeprazole magnesium [Prilosec OTC] 20 mg PO QAM 01/03/20 05/01/21 atorvastatin 40 mg PO DAILY 07/31/20 05/01/21 lisinopril 20 mg PO DAILY 07/31/20 05/01/21 magnesium oxide 500 mg PO BID 07/31/20 05/01/21 Jardiance 25 mg PO DAILY 04/13/21 05/01/21 acetaminophen 650 mg PO DAILY 04/13/21 05/01/21 calcium 150 mg PO DAILY 04/13/21 05/01/21 garlic 150 mg PO DAILY 04/13/21 05/01/21 lorazepam 1 mg PO DAILY PRN 04/13/21 05/01/21 montelukast 10 mg PO HS 04/13/21 05/01/21 Previous Rx's Medication Instructions Recorded aspirin 81 mg PO QAM #21 tab 12/23/19 doxycycline hyclate 100 mg PO BID@1100,2300 #5 cap 04/21/21 metoprolol succinate 75 mg PO QAM #90 tab 04/21/21 warfarin 1 mg PO UD #90 tab 04/21/21 warfarin 2 mg PO UD #90 tab 04/21/21 Results & Data (ED) Vital Signs Vital Signs - 24 hr 05/01/21 12:05 05/01/21 12:10 05/01/21 12:12 Temperature 36.7 C Temperature Source Temporal Artery Scan Pulse Rate 76 74 Pulse Rate from SpO2 Sensor 71 Pulse Rhythm Respiratory Rate 18 18 Respiratory Effort / Characteristics Non-Labored Spontaneous Respiratory Depth Normal Normal Respiratory Pattern Regular Blood Pressure 137/79 136/68 Blood Pressure Mean 98 90 Pulse Oximetry 97 95 98 Oxygen Delivery Method Room Air Room Air Room Air Sepsis Recent Fever Within 48 Hours No Sepsis New/Unexplained Change in Mental Status No Sepsis Action Taken by Nursing No Action Required 05/01/21 12:29 05/01/21 12:30 05/01/21 13:17 Temperature Temperature Source Pulse Rate 75 70 Pulse Rate from SpO2 Sensor Pulse Rhythm Regular Respiratory Rate 18 20 18 Respiratory Effort / Characteristics Non-Labored Spontaneous Respiratory Depth Respiratory Pattern Blood Pressure 101/57 L Blood Pressure Mean 71 Pulse Oximetry 95 95 97 Oxygen Delivery Method Room Air Room Air Sepsis Recent Fever Within 48 Hours Sepsis New/Unexplained Change in Mental Status Sepsis Action Taken by Nursing 05/01/21 14:00 05/01/21 15:02 Temperature Temperature Source Pulse Rate 66 64 Pulse Rate from SpO2 Sensor 67 64 Pulse Rhythm Respiratory Rate 17 17 Respiratory Effort / Characteristics Respiratory Depth Respiratory Pattern Blood Pressure 95/59 L 126/69 Blood Pressure Mean 71 88 Pulse Oximetry 95 97 Oxygen Delivery Method Sepsis Recent Fever Within 48 Hours Sepsis New/Unexplained Change in Mental Status Sepsis Action Taken by Assisted Medications Current Medication List: was personally reviewed by me Laboratory Data Attestation: I reviewed the patient's lab results. Result diagrams: 05/01/21 12:20 05/01/21 12:20 Lab Results 05/01/21 05/01/21 05/01/21 Range/Units 12:20 12:20 12:20 WBC 5.65 (4.8-10.8) K/uL RBC 4.34 (4.2-5.4) M/uL Hgb 13.2 (12.0-16.0) g/dL Hct 39.7 (37-47) % MCV 91.5 (80-100) fL MCH 30.4 (25-34) pg MCHC 33.2 (32-36) g/dL RDW Std Deviation 43.8 (36.4-46.3) fL RDW Coeff of Brittney 13.1 (11.5-14.5) % Plt Count 232 (130-400) K/uL MPV 9.9 (7.4-10.4) fL Immature Gran % (Auto) 0.2 % Neut % (Auto) 48.3 % Lymph % (Auto) 39.6 % Emanuel % (Auto) 9.4 % Eos % (Auto) 2.3 % Baso % (Auto) 0.2 % Neut # (Auto) 2.73 (1.4-6.5) K/uL Lymph # (Auto) 2.24 (1.2-3.4) K/uL Emanuel # (Auto) 0.53 (0.11-0.59) K/uL Eos # (Auto) 0.13 (0-0.5) K/uL Baso # (Auto) 0.01 (0-0.2) K/uL Immature Gran # (Auto) 0.01 (0.00-0.02) K/uL PT 28.7 H (9.0-12.0) Seconds INR 3.1 H (0.9-1.1) APTT 46.3 H* (21.0-31.0) Seconds PTT Ratio 1.8 Sodium 138 (136-145) mmol/L Potassium 4.6 (3.5-5.1) mmol/L Chloride 107 (98-107) mmol/L Carbon Dioxide 26 (21-32) mmol/L Anion Gap 5.0 (3-11) BUN 23 H (7-18) mg/dl Creatinine 0.90 (0.6-1.2) mg/dl Est Cr Clr Drug Dosing 67.3 ml/min Est GFR ( Amer) 78.9 ml/min Est GFR (Non-Af Amer) 68.0 ml/min BUN/Creatinine Ratio 25.5 H (10-20) Glucose 133 H (70-99) mg/dl Calcium 9.9 (8.5-10.1) mg/dl Magnesium 1.4 L (1.8-2.4) mg/dl Total Bilirubin 0.3 (0.2-1) mg/dl AST 19 (15-37) U/L ALT 31 (12-78) U/L Alkaline Phosphatase 114 (45-117) U/L Troponin I < 0.015 (0-0.045) ng/ml Total Protein 6.9 (6.4-8.2) gm/dl Albumin 3.9 (3.4-5.0) gm/dl Globulin 3.0 (2.5-4.0) gm/dl Albumin/Globulin Ratio 1.3 (0.9-2) TSH (0.300-4.500) uIu/ml COVID-19 Eval Order SARS-CoV-2 (PCR) (Negative) 05/01/21 05/01/21 05/01/21 Range/Units 12:20 13:30 13:30 WBC (4.8-10.8) K/uL RBC (4.2-5.4) M/uL Hgb (12.0-16.0) g/dL Hct (37-47) % MCV (80-100) fL MCH (25-34) pg MCHC (32-36) g/dL RDW Std Deviation (36.4-46.3) fL RDW Coeff of Brittney (11.5-14.5) % Plt Count (130-400) K/uL MPV (7.4-10.4) fL Immature Gran % (Auto) % Neut % (Auto) % Lymph % (Auto) % Emanuel % (Auto) % Eos % (Auto) % Baso % (Auto) % Neut # (Auto) (1.4-6.5) K/uL Lymph # (Auto) (1.2-3.4) K/uL Emanuel # (Auto) (0.11-0.59) K/uL Eos # (Auto) (0-0.5) K/uL Baso # (Auto) (0-0.2) K/uL Immature Gran # (Auto) (0.00-0.02) K/uL PT (9.0-12.0) Seconds INR (0.9-1.1) APTT (21.0-31.0) Seconds PTT Ratio Sodium (136-145) mmol/L Potassium (3.5-5.1) mmol/L Chloride (98-107) mmol/L Carbon Dioxide (21-32) mmol/L Anion Gap (3-11) BUN (7-18) mg/dl Creatinine (0.6-1.2) mg/dl Est Cr Clr Drug Dosing ml/min Est GFR ( Amer) ml/min Est GFR (Non-Af Amer) ml/min BUN/Creatinine Ratio (10-20) Glucose (70-99) mg/dl Calcium (8.5-10.1) mg/dl Magnesium (1.8-2.4) mg/dl Total Bilirubin (0.2-1) mg/dl AST (15-37) U/L ALT (12-78) U/L Alkaline Phosphatase (45-117) U/L Troponin I (0-0.045) ng/ml Total Protein (6.4-8.2) gm/dl Albumin (3.4-5.0) gm/dl Globulin (2.5-4.0) gm/dl Albumin/Globulin Ratio (0.9-2) TSH 2.450 (0.300-4.500) uIu/ml COVID-19 Eval Order Covid19 at [facility] SARS-CoV-2 (PCR) NEGATIVE (Negative) Administered Medications Insulin Aspart (Insulin Aspart 100 Units/Ml 3 Ml Pen) 0 units SC ACHS THAI Stop: 05/31/21 16:29 Last Admin: 05/01/21 20:46 Dose: Not Given Documented by: [id number] Admin: 05/01/21 18:42 Dose: 3 units Documented by: [id number] Cosigned by: [id number] Insulin Glargine (Insulin Glargine Solostar 100 Units/Ml 3 Ml Pen) 0 - 10 units SC BID THAI Stop: 05/31/21 20:59 Last Admin: 05/01/21 20:46 Dose: Not Given Documented by: [id number] Magnesium Chloride (Magnesium Chloride 64mg Delayed Rel Tab) 128 mg PO BID THAI Stop: 05/31/21 20:59 Last Admin: 05/01/21 21:37 Dose: 128 mg Documented by: [id number] Montelukast Sodium (Montelukast Sodium 10 Mg Tablet) 10 mg PO HS THAI Stop: 05/31/21 20:59 Last Admin: 05/01/21 20:46 Dose: 10 mg Documented by: [id number] Discontinued Medications Acetaminophen (Acetaminophen 1000 Mg/100 Ml Iv) 1,000 mg IV NOW STA Stop: 05/01/21 13:01 Last Admin: 05/01/21 13:13 Dose: 1,000 mg Documented by: [id number] Magnesium Sulfate/Dextrose (Magnesium Sulfate / D5w) 1 gm in 100 mls @ 100 mls/hr IV Q1H THAI Stop: 05/01/21 15:46 Last Infusion: 05/01/21 16:52 Dose: 0 mls/hr Documented by: [id number] Admin: 05/01/21 14:46 Dose: 100 mls/hr Documented by: [id number] Infusion: 05/01/21 14:46 Dose: 100 mls/hr Documented by: [id number] Admin: 05/01/21 13:57 Dose: 100 mls/hr Documented by: [id number] Nitroglycerin (Nitroglycerin 2% Ointment 30gm Tube) 1 inch EXT NOW STA Stop: 05/01/21 13:01 Last Admin: 05/01/21 13:15 Dose: 1 inch Documented by: [id number] Warfarin Sodium (Warfarin Sod 1 Mg Tab) 1 mg PO ONE ONE Stop: 05/01/21 17:01 Last Admin: 05/01/21 17:24 Dose: Not Given Documented by: [id number] Imaging Data Radiologist's Impression: Chest X-Ray 05/01/21 12:28 XR chest 1V portable CLINICAL HISTORY: Shortness of breath COMPARISON STUDY: 04/24/2021 FINDINGS: The cardiac and mediastinal contours are normal. There is no evidence of focal pulmonary consolidation. There is no evidence of failure. No pleural effusions are visualized.[ IMPRESSION: No active disease in the chest. ACT 112: Negative or not required by law. Electronically signed by: Angus Hollis M.D. 05/01/2021 1:05 PM Discharge Plan Visit Data Chief Complaint: Shortness of Breath/Dyspnea Stated Complaint: SOB,PAIN IN R JAW,REF BY DOC ED Provider: Otoniel Bush Discharge Problem: SOB (shortness of breath), Hypomagnesemia, Jaw pain, Abnormal ECG Patient Disposition: Admitted As Inpatient Condition: Fair Discharge Instructions Interventions: ED Discharge Assessment Last Done: 05/01/21 15:40
[2021-05-01] MEDS: MAGNESIUM SULFATE / D5W 1 GM/100 ML BAG IV SCH ×2 (13:57→14:46)
--- NOTE | 2021-05-01 15:39 | History & Physical Report ---
Date of Service May 01, 2021 Assessment & Plan (1) Chest pain: H/O NSTEMI Takotsubo cardiomyopathy Pt is 65 y/o F with PMH HTN, DM II, GERD, recent NSTEMI, recent CVA presented to ER with complaint of chest pressure, SOB with exertion last night and this morning. Recent hospitalization 04/13/2021-04/21/2021 for NSTEMI S/P CATH: Mild nonobstructive coronary artery disease, 30% mid LAD stenosis, 30% mid circumflex stenosis, right coronary artery is notable for 40% proximal stenosis and 30% distal stenosis. Also was diagnosed with TAKOTSUBO CARDIOMYOPATHY, EF 40-45%. 04/16/21 ECHO: Normal sized apical, septal, anteroseptal, anterior, inferior, posterior and lateral wall motion abnormality with hypokinesis to akinesis of the segments of apical and mid levels of the left ventricle, and relatively sparing of the basal segments. No evidence of left apical mural thrombus. Apical trabeculations are noted, do not appear to meet criteria for left ventricular noncompaction syndrome. EF 40 to 45%. Compared to images from prior study on 04/14/21, interval subtle improvement in the overall left ventricle systolic function. Today in ER vitals stable. Patient reported chest pressure decreasing prior to Nitropaste being placed in ER. Initial troponin negative. EKG: Sinus rhythm, diffuse T wave inversion, EKG compared to 04/24/2021 similar R/O ACS, however recent cardiac cath with nonobstructive coronary artery disease. DDx: Cardiomyopathy -Repeat EKG in am -Will trend troponin -Repeat echo to reassess EF -Continue aspirin, metoprolol succinate, atorvastatin, lisinopril -Nitro prn CP and repeat EKG for CP -Cardiology consult; ER provider spoke to cardiology on-call (2) CVA (cerebral vascular accident): Recent hospitalization had developed visual disturbance and was found to left occipital lobe infarct. Concern was for an embolic event possible secondary to left ventricular apical mural thrombus and was started on Coumadin INR: 3.1 -Denies any visual disturbance since hospitalization -Continue Coumadin -INR in a.m. -Continue aspirin, atorvastatin (3) Hypomagnesemia: Magnesium: 1.4 In ER was given 2 g magnesium sulfate IV -Repeat magnesium lab in a.m. (4) DM type 2 (diabetes mellitus, type 2): A1c: 9.4 in 03/2021 -Hold home oral agents -NovoLog, Lantus sliding scale per protocol (5) Hypertension: -Continue lisinopril, metoprolol succinate (6) GERD (gastroesophageal reflux disease): -Continue PPI DVT Prophylaxis -On Coumadin Full Code as per discussion with pt Follows with Dr Jerrica Urias for routine care Pt was seen and care coordinated with Dr Trejo. See addendum History of Present Illness Chief Complaint: CP Primary Care Provider: Jerrica Urias, Pt is 65 y/o F with PMH HTN, DM II, GERD, recent NSTEMI, recent CVA presented to ER with complaint of chest pain last night and this morning. Patient with hospitalization at [facility] 04/13/2021-04/21/2021 for NSTEMI s/p cath with nonocclusive CAD. She had visual disturbance and was found to left occipital lobe infarct. Concern was for an embolic event from cath versus left ventricular apical mural thrombus. She was started on anticoagulation. Also was diagnosed with Takotsubo cardiomyopathy, EF 40-45%. Patient reports last night was putting away laundry when she started with mid chest pressure and right jaw discomfort, shortness of breath with exertion. She reports she laid down and within a couple of hours symptoms resolved. Patient states when she was up moving around this morning she started with mid chest pressure again. Patient states upon ER arrival chest pressure was easing. Denies dizziness, palpitations, syncope. Had GARCIA last night. She also complains of intermittent nausea which she reports has been ongoing for several months. Reports several days ago had couple episodes of vomiting. No vomiting yesterday or today. Reports chronic loose stools since being started on Metformin. Denies abdominal pain. Denies fever/chills, diaphoresis, vision changes, neck pain, orthopnea,cough, sore throat, choking, otalgia, rhinorrhea, paresthesias, weakness, extremity weakness, extremity edema, rashes, urinary symptoms. Allergies Allergy/AdvReac Type Severity Reaction Status Date / Time Penicillins Allergy Intermediate Hives Verified 05/01/21 15:25 Sulfa (Sulfonamide Allergy Intermediate Hives Verified 05/01/21 15:25 Antibiotics) albiglutide Allergy Unknown Abdominal Verified 05/01/21 15:25 pain,nausea,vomiting,rash and itchiness clindamycin Allergy Unknown Hives Verified 05/01/21 15:25 Corticosteroids Allergy Unknown Unknown Verified 05/01/21 15:25 (Glucocorticoids) Home Medications Medication Instructions Recorded Confirmed Type Tradjenta 5 mg PO QAM 07/20/19 05/01/21 History Women's One Daily 1 tab PO QAM 07/20/19 05/01/21 History coenzyme Q10 [Co Q-10] 10 mg PO QAM 07/20/19 05/01/21 History cyanocobalamin (vitamin B-12) 1,000 mcg PO QAM 07/20/19 05/01/21 History [Vitamin B-12] metformin 1,000 mg PO BIDM 07/20/19 05/01/21 History aspirin 81 mg PO QAM #21 tab 12/23/19 05/01/21 Rx cholecalciferol (vitamin D3) 1,000 unit PO QAM 12/26/19 05/01/21 History omeprazole magnesium [Prilosec OTC] 20 mg PO QAM 01/03/20 05/01/21 History atorvastatin 40 mg PO DAILY 07/31/20 05/01/21 History lisinopril 20 mg PO DAILY 07/31/20 05/01/21 History magnesium oxide 500 mg PO BID 07/31/20 05/01/21 History Jardiance 25 mg PO DAILY 04/13/21 05/01/21 History acetaminophen 650 mg PO DAILY 04/13/21 05/01/21 History calcium 150 mg PO DAILY 04/13/21 05/01/21 History garlic 150 mg PO DAILY 04/13/21 05/01/21 History lorazepam 1 mg PO DAILY PRN 04/13/21 05/01/21 History montelukast 10 mg PO HS 04/13/21 05/01/21 History doxycycline hyclate 100 mg PO BID@1100,2300 #5 cap 04/21/21 05/01/21 Rx metoprolol succinate 75 mg PO QAM #90 tab 04/21/21 05/01/21 Rx warfarin 1 mg PO UD #90 tab 04/21/21 05/01/21 Rx warfarin 2 mg PO UD #90 tab 04/21/21 05/01/21 Rx Past Med/Surg History Medical History CVA (cerebral vascular accident) DM type 2 (diabetes mellitus, type 2) GERD (gastroesophageal reflux disease) HLD (hyperlipidemia) Hypertension NSTEMI (non-ST elevated myocardial infarction) 04/2021 Surgical History H/O shoulder surgery right, arthroscopic History of partial hysterectomy History of sinus surgery Hx of cardiac cath Family History Father , 62 from CVA Stroke, Onset Age: 40 Brother Heart disease Social History Smoking Status: Former smoker Tobacco Type: Cigarettes Second Hand Exposure: No; Hx Alcohol Use: No Hx Substance Use: Yes Prescribed Medications: Marijuana Preferred Language: Citizen Of [place] Communication Ability: Effective Kids Activities Coach Required: No Beliefs That Will Affect Care: None marital status: Current Living Situation: Alone Other Information That Helps Us Care for You: No Feels Safe at Home: Yes Safety Concerns: Feels Safe At This Time Assistive Devices: Glasses Review of Systems Review of Systems: All systems reviewed & are unremarkable except as noted in HPI & below Physical Exam Physical Exam: General: no distress, obese Head: normocephalic, atraumatic Eyes: PERRL, EOM's intact, conjunctiva non-injected, anicteric ENT: normal inspection external ears, nose, mucous membranes moist Neck: supple, trachea midline Lungs: clear, no respiratory distress, no wheezing/rhonchi/rales CV: RRR, no murmur, no pretibial edema; chest wall without tenderness to palpation Abd: normal BS, soft, non-tender Ext: no cyanosis, no calf tenderness Neuro: A&O x 3, no focal deficits noted, normal affect Skin: warm, dry Results & Data Results & Data ([facility]) Vital Signs (Past 12 Hours) Vital Signs Temp Pulse Resp BP Pulse Ox 05/01/21 15:30 66 14 98 05/01/21 15:02 64 17 126/69 97 05/01/21 14:00 66 17 95/59 L 95 05/01/21 13:17 70 18 101/57 L 97 05/01/21 12:30 20 95 05/01/21 12:29 75 18 95 05/01/21 12:12 98 05/01/21 12:10 74 18 136/68 95 05/01/21 12:05 36.7 C 76 18 137/79 97 Laboratory Results Short CBC 05/01/21 Range/Units 12:20 WBC 5.65 (4.8-10.8) K/uL Hgb 13.2 (12.0-16.0) g/dL Hct 39.7 (37-47) % Plt Count 232 (130-400) K/uL BMP 05/01/21 12:20 Sodium 138 Potassium 4.6 Chloride 107 Carbon Dioxide 26 BUN 23 H Creatinine 0.90 Glucose 133 H Calcium 9.9 Cardiac Enzymes 05/01/21 Range/Units 12:20 Troponin I < 0.015 (0-0.045) ng/ml Liver Function 05/01/21 Range/Units 12:20 Total Bilirubin 0.3 (0.2-1) mg/dl AST 19 (15-37) U/L ALT 31 (12-78) U/L Alkaline Phosphatase 114 (45-117) U/L Albumin 3.9 (3.4-5.0) gm/dl Diagnostic Findings Chest X-Ray 05/01/21 12:28 XR chest 1V portable CLINICAL HISTORY: Shortness of breath COMPARISON STUDY: 04/24/2021 FINDINGS: The cardiac and mediastinal contours are normal. There is no evidence of focal pulmonary consolidation. There is no evidence of failure. No pleural effusions are visualized.[ IMPRESSION: No active disease in the chest. ACT 112: Negative or not required by law. Electronically signed by: Angus Hollis M.D. 05/01/2021 1:05 PM ECG Rhythm: sinus rhythm Findings: + T-wave inversion (Anterolateral, septal, inferior) Comparison ECG Date: from (04/24/21. No significant change) Code Status & VTE Plan VTE Prophylaxis Plan VTE Prophylaxis will be ordered: Yes Supervising Physician Co-Signing Physician Notes Patient is a 65-year-old female with history of hypertension, diabetes mellitus, CVA who was recently diagnosed to have Takotsubo cardiomyopathy presents with history of sudden onset of chest pressure and right jaw discomfort associated with shortness of breath on exertion. Please review HPI for complete details of presentation. She admits to have chronic diarrhea secondary to Metformin. Symptoms resolved with nitroglycerin while in ED. On exam patient is moderately built and nourished, no apparent distress, normocephalic atraumatic, lungs are clear to auscultation, normal breath sounds, S1-S2, no murmur, no pedal edema, abdomen soft, nontender, normal bowel sounds, alert, awake, oriented, grossly no focal deficits. Patient is admitted for management of chest pain rule out ACS. EKG showed no acute changes. Initial troponin negative. Will trend cardiac enzymes. Check resting echo. Appreciate cardiology input. Continue aspirin, metoprolol, atorvastatin, lisinopril. Will repeat EKG in the morning. Agree with replacing magnesium. Will change magnesium oxide to chloride given likely contributing to diarrhea in addition to Metformin. Monitor INR, continue Coumadin. I personally reviewed the record. Patient is interviewed and examined at bedside. Patient's care is coordinated with Amarilys Stubbs PA-C. Please refer to the documentation above for details of patient's presentation and for discussion of other issues. (1) Chest pain Chest pain type: unspecified Qualified Code(s): R07.9 - Chest pain, unspecified (2) Hypertension Hypertension type: unspecified Qualified Code(s): I10 - Essential (primary) hypertension
--- NOTE | 2021-05-01 15:53 | Cardiology Consultation ---
Date of Consultation May 01, 2021 Assessment & Plan (1) Takotsubo cardiomyopathy: Patient is a 65-year-old female with recent history as outlined of hospitalization with chest pain and abnormal EKG elevated troponins with cardiac catheterization without obstructive disease and findings consistent with apical ballooning cardiomyopathy. 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 Patient presents now noting 2 episodes of chest pressure and shortness of breath possibly preceded by headache and nausea. EKGs without acute change and initial troponins are negative. Agree with hospitalization overnight with telemetry to exclude tachycardia or bradycardia arrhythmias. Echocardiogram will be repeated to assess for improvement in overall function. Continue anticoagulation with warfarin and current medical rate (2) Chest pain: (3) Occipital stroke: History of Present Illness Reason for Consultation: Chest pain, shortness of breath Requesting Physician: Dr. Bush History of Present Illness Patient is a 65-year-old female with recently complex history with hospitalization 04/13/2021 with acute precordial chest pain significantly abnormal EKG. Subsequent cardiac catheterization demonstrated mild coronary atherosclerosis but no obstructive disease echo consistent with apical ballooning cardiomyopathy. Hospital course notable for occipital stroke from presumed embolic with patient anticoagulated fully with warfarin Patient presents today noting hospitalization on 04/24/2021 with chest pressure pain after exertion. Symptoms initially improved but represented today with chest pain jaw pain and worsening shortness of breath. Symptoms initiated by headache and nausea last night worsening symptoms of chest pressure this morning with low-level exertion. Symptoms were resolving on ER presentation. No sensed tachypalpitations. No bleeding difficulties. No fevers chills or unexplained infections. Has been taking medications as prescribed. EKG reflects sinus rhythm with deep T wave inversion precordial leads consistent with prior tracings and underlying history of apical ballooning cardiomyopathy. No signs of heart failure on x-ray or examination, initial troponin negative Allergies Allergy/AdvReac Type Severity Reaction Status Date / Time Penicillins Allergy Intermediate Hives Verified 05/01/21 15:25 Sulfa (Sulfonamide Allergy Intermediate Hives Verified 05/01/21 15:25 Antibiotics) albiglutide Allergy Unknown Abdominal Verified 05/01/21 15:25 pain,nausea,vomiting,rash and itchiness clindamycin Allergy Unknown Hives Verified 05/01/21 15:25 Corticosteroids Allergy Unknown Unknown Verified 05/01/21 15:25 (Glucocorticoids) Home Medications Medication Instructions Recorded Confirmed Type Tradjenta 5 mg PO QAM 07/20/19 05/01/21 History Women's One Daily 1 tab PO QAM 07/20/19 05/01/21 History coenzyme Q10 [Co Q-10] 10 mg PO QAM 07/20/19 05/01/21 History cyanocobalamin (vitamin B-12) 1,000 mcg PO QAM 07/20/19 05/01/21 History [Vitamin B-12] metformin 1,000 mg PO BIDM 07/20/19 05/01/21 History aspirin 81 mg PO QAM #21 tab 12/23/19 05/01/21 Rx cholecalciferol (vitamin D3) 1,000 unit PO QAM 12/26/19 05/01/21 History omeprazole magnesium [Prilosec OTC] 20 mg PO QAM 01/03/20 05/01/21 History atorvastatin 40 mg PO DAILY 07/31/20 05/01/21 History lisinopril 20 mg PO DAILY 07/31/20 05/01/21 History magnesium oxide 500 mg PO BID 07/31/20 05/01/21 History Jardiance 25 mg PO DAILY 04/13/21 05/01/21 History acetaminophen 650 mg PO DAILY 04/13/21 05/01/21 History calcium 150 mg PO DAILY 04/13/21 05/01/21 History garlic 150 mg PO DAILY 04/13/21 05/01/21 History lorazepam 1 mg PO DAILY PRN 04/13/21 05/01/21 History montelukast 10 mg PO DAILY 04/13/21 05/01/21 History doxycycline hyclate 100 mg PO BID@1100,2300 #5 cap 04/21/21 05/01/21 Rx metoprolol succinate 75 mg PO QAM #90 tab 04/21/21 05/01/21 Rx warfarin 1 mg PO UD #90 tab 04/21/21 05/01/21 Rx warfarin 2 mg PO UD #90 tab 04/21/21 05/01/21 Rx Patient History Medical History CVA (cerebral vascular accident) DM type 2 (diabetes mellitus, type 2) GERD (gastroesophageal reflux disease) HLD (hyperlipidemia) Hypertension NSTEMI (non-ST elevated myocardial infarction) 04/2021 Surgical History H/O shoulder surgery right, arthroscopic History of partial hysterectomy History of sinus surgery Hx of cardiac cath Family History Father , 62 from CVA Stroke, Onset Age: 40 Brother Heart disease Social History Smoking Status: Former smoker Tobacco Type: Cigarettes Second Hand Exposure: No; Hx Alcohol Use: No Hx Substance Use: Yes Prescribed Medications: Marijuana Preferred Language: Malaysian Communication Ability: Effective Inorganic Chemical Technician Required: No Beliefs That Will Affect Care: None marital status: Current Living Situation: Alone Other Information That Helps Us Care for You: No Feels Safe at Home: Yes Safety Concerns: Feels Safe At This Time Assistive Devices: Glasses Physical Exam Constitutional: WD/WN, vitals as above + obese; no acute distress Eyes: PERRL, conjunctivae normal, anicteric sclerae ENMT: external ear and nose normal, oropharynx normal Neck: trachea midline, no thyromegaly Respiratory: normal respiratory effort, lungs clear to auscultation Cardiovascular: Rate/Rhythm: regular rate and regular rhythm Heart Sounds: normal S1 and normal S2; no gallop and no murmur Palpation: normal PMI Vessels: normal carotid upstroke and radial pulses present; no JVD and no carotid bruit Extremities: no edema Gastrointestinal (Abdomen): normal bowel sounds, soft, nontender, no hepatosplenomegaly Musculoskeletal: no cyanosis or clubbing, extremities motor strength 5/5 Skin: no rashes, warm and dry Neurologic: PERRL, EOMI, accommodation nl, no face palsy, no dysarthria Psychiatric: A+Ox3, euthymic affect Results & Data ([facility]) Vital Signs (Past 12 Hours) Vital Signs Temp Pulse Resp BP Pulse Ox 05/01/21 15:30 66 14 98 05/01/21 15:02 64 17 126/69 97 05/01/21 14:00 66 17 95/59 L 95 05/01/21 13:17 70 18 101/57 L 97 05/01/21 12:30 20 95 05/01/21 12:29 75 18 95 05/01/21 12:12 98 05/01/21 12:10 74 18 136/68 95 05/01/21 12:05 36.7 C 76 18 137/79 97 (1) Chest pain Chest pain type: unspecified Qualified Code(s): R07.9 - Chest pain, unspecified
[2021-05-01] MEDS ORDERED: ACETAMINOPHEN 325 MG TAB PO PRN (16:20)
[2021-05-01] MEDS ORDERED: CARBOHYDRATES FOR HYPOGLYCEMIA PO PRN (16:20)
[2021-05-01] MEDS ORDERED: GLUCAGON FOR INJ 1 MG VIAL SQ PRN (16:20)
[2021-05-01] MEDS ORDERED: DEXTROSE 50% 50 ML SYRINGE IV PRN (16:20)
[2021-05-01] MEDS ORDERED: GLUCOSE 40% GEL 15 GM TUBE PO PRN (16:20)
[2021-05-01] MEDS ORDERED: NITROGLYCERIN SL 0.4 MG/TAB TAB SL PRN (16:20)
[2021-05-01] MEDS ORDERED: GLUCOSE 10 TABS/TUBE PO PRN (16:20)
[2021-05-01] MEDS ORDERED: WARFARIN SOD 1 MG TAB PO ONE (17:00)
[2021-05-01] MEDS: INSULIN ASPART 100 UNITS/ML 3 ML PEN SC SCH ×2 (18:42→20:46)
[2021-05-01] MEDS: INSULIN GLARGINE SOLOSTAR 100 UNITS/ML 3 ML PEN SC SCH (20:46)
[2021-05-01] MEDS ORDERED: MONTELUKAST SODIUM 10 MG TABLET PO SCH (21:00)
[2021-05-01] MEDS ORDERED: MAGNESIUM OXIDE 400 MG TAB PO SCH (21:00)
[2021-05-01] MEDS: MAGNESIUM CHLORIDE 64MG DELAYED REL TAB PO SCH (21:37)
[2021-05-02 06:04] LABS: Hematocrit (blood only) 38.2 % (37-47); Hemoglobin 12.7 g/dL (12.0-16.0); Mean Corpuscular Hgb Conc 33.2 g/dL (32-36); Mean Corpuscular Volume 93.2 fL (80-100); Mean Platelet Volume 9.6 fL (7.4-10.4); Platelet Count 211 K/uL (130-400); RDW Coefficient of Variation 13.4 % (11.5-14.5); RDW Standard Deviation 45.8 fL (36.4-46.3); White Blood Count 4.87 K/uL (4.8-10.8)
[2021-05-02 06:15] LABS: INR 2.6 (0.9-1.1); Prothrombin Time 24.7 Seconds (9.0-12.0)
[2021-05-02 06:41] LABS: BUN Creatinine Ratio 25.2 (10-20); Calcium 9.1 mg/dl (8.5-10.1); Creatinine Clr Calc Pharmacy 74.2 ml/min; Est GFR (African American) 89.6 ml/min; Est GFR (Non-African American) 77.3 ml/min; Potassium 4.3 mmol/L (3.5-5.1)
[2021-05-02] MEDS: MAGNESIUM CHLORIDE 64MG DELAYED REL TAB PO SCH (08:45)
[2021-05-02] MEDS: INSULIN ASPART 100 UNITS/ML 3 ML PEN SC SCH ×2 (08:49→12:07)
[2021-05-02] MEDS: INSULIN GLARGINE SOLOSTAR 100 UNITS/ML 3 ML PEN SC SCH (08:51)
[2021-05-02] MEDS ORDERED: lisinopril 20 MG TAB PO SCH (09:00)
[2021-05-02] MEDS ORDERED: ATORVASTATIN 40 MG TAB PO SCH (09:00)
[2021-05-02] MEDS ORDERED: CHOLECALCIFEROL 1,000 UNITS 25 MCG TAB PO SCH (09:00)
[2021-05-02] MEDS ORDERED: ASPIRIN 81 MG ECTAB PO SCH (09:00)
[2021-05-02] MEDS ORDERED: PANTOprazole 40 MG TAB PO SCH (09:00)
[2021-05-02] MEDS ORDERED: METOPROLOL SUCC 25MG EXT REL TAB PO SCH (09:00)
[2021-05-02] MEDS ORDERED: CYANOCOBALAMIN 500 MCG TABLET (VITAMIN B-12) PO SCH (09:00)
--- NOTE | 2021-05-02 13:03 | Hospitalist Progress Note ---
Date of Service May 02, 2021 Assessment & Plan (1) Chest pain: Chest Pain H/O Takotsubo cardiomyopathy Recent Cath: Mild nonobstructive coronary artery disease. EKG: Significant change from prior EKG Negative cardiac enzymes ECHO: Left ventricle normal in size. Moderate concentric LVH. Mild minimal hypokinesis of the posterior wall at the base with all other wall segments christ normally. Prior apical wall motion abnormality has completely resolved. EF 65 to 70%. Grade 1 diastolic dysfunction. There is no significant valvular disease. Appreciate cardiology input Continue aspirin, metoprolol succinate, atorvastatin, lisinopril Advised to follow-up with cardiology upon discharge (2) CVA (cerebral vascular accident): Recent hospitalization had developed visual disturbance and was found to left occipital lobe infarct. Concern was for an embolic event possible secondary to left ventricular apical mural thrombus and was started on Coumadin INR: 3.1>2.6 Continue Coumadin Monitor INR Continue aspirin, atorvastatin (3) Hypomagnesemia: Magnesium: 1.4> 2.0 Magnesium oxide likely contributing to diarrhea in addition to Metformin We will change magnesium oxide to chloride (4) DM type 2 (diabetes mellitus, type 2): A1c: 9.4 in 03/2021 Hold home oral agents NovoLog, Lantus sliding scale per protocol (5) Hypertension: Continue lisinopril, metoprolol succinate (6) GERD (gastroesophageal reflux disease): Continue PPI DVT Px: Coumadin Code Status Full Code Follows with Dr Jerrica Urias for routine care Admission and Anticipated Discharge Date Admission Date: May 01, 2021 Subjective Patient is seen and examined at bedside States having headache which she attributes to air conditioning Denies any recurrence of chest pain, shortness of breath, dizziness Discussed with cardiology today Offers no other complaints Review of Systems Review of Systems: All systems reviewed & are unremarkable except as noted in HPI & below Physical Exam Physical Exam: Physical Exam: Vitals signs as noted above General Appearance:Moderately built and nourished, no apparent distress Head: normocephalic, Atraumatic Eyes: normal inspection, EOMI Neck: supple, Trachea midline Respiratory/Chest: Normal breath sounds, CTA, No accessory muscle use Cardiovascular: S1, S2, No murmur Abdomen/GI:Soft, Non tender, Bowel sounds present Extremities/Musculoskeletal:normal inspection, no edema Neurologic/Psych:AAOX3, grossly no focal neurological deficits Skin: normal color, warm Results & Data Results & Data ([facility]) Vital Signs (Past 12 Hours) Vital Signs Temp Pulse Pulse Resp BP Pulse Ox 05/02/21 12:00 36.9 C 72 20 115/90 98 05/02/21 08:37 36.8 C 111 H 22 111/69 95 05/02/21 04:42 36.5 C 72 18 103/57 L 95 05/02/21 00:54 60 Laboratory Results Short CBC 05/02/21 Range/Units 05:52 WBC 4.87 (4.8-10.8) K/uL Hgb 12.7 (12.0-16.0) g/dL Hct 38.2 (37-47) % Plt Count 211 (130-400) K/uL [facility] 05/01/21 05/02/21 12:20 05:52 Sodium 138 138 Potassium 4.6 4.3 Chloride 107 108 H Carbon Dioxide 26 28 BUN 23 H 20 H Creatinine 0.90 0.81 Glucose 133 H 127 H Calcium 9.9 9.1 Cardiac Enzymes 05/01/21 05/01/21 05/02/21 Range/Units 12:20 18:27 00:28 Troponin I < 0.015 < 0.015 < 0.015 (0-0.045) ng/ml Liver Function 05/01/21 Range/Units 12:20 Total Bilirubin 0.3 (0.2-1) mg/dl AST 19 (15-37) U/L ALT 31 (12-78) U/L Alkaline Phosphatase 114 (45-117) U/L Albumin 3.9 (3.4-5.0) gm/dl Diagnostic Findings Short CBC 05/02/21 Range/Units 05:52 WBC 4.87 (4.8-10.8) K/uL Hgb 12.7 (12.0-16.0) g/dL Hct 38.2 (37-47) % Plt Count 211 (130-400) K/uL [facility] 05/01/21 05/02/21 12:20 05:52 Sodium 138 138 Potassium 4.6 4.3 Chloride 107 108 H Carbon Dioxide 26 28 BUN 23 H 20 H Creatinine 0.90 0.81 Glucose 133 H 127 H Calcium 9.9 9.1 Cardiac Enzymes 05/01/21 05/01/21 05/02/21 Range/Units 12:20 18:27 00:28 Troponin I < 0.015 < 0.015 < 0.015 (0-0.045) ng/ml Liver Function 05/01/21 Range/Units 12:20 Total Bilirubin 0.3 (0.2-1) mg/dl AST 19 (15-37) U/L ALT 31 (12-78) U/L Alkaline Phosphatase 114 (45-117) U/L Albumin 3.9 (3.4-5.0) gm/dl (1) Chest pain Chest pain type: unspecified Qualified Code(s): R07.9 - Chest pain, unspecified (2) Hypertension Hypertension type: unspecified Qualified Code(s): I10 - Essential (primary) hypertension
--- NOTE | 2021-05-02 13:17 | Cardiology Progress Note ---
Date of Service May 02, 2021 Assessment & Plan (1) Takotsubo cardiomyopathy: Patient is a 65-year-old female with recent history as outlined of hospitalization with chest pain and abnormal EKG elevated troponins with cardiac catheterization without obstructive disease and findings consistent with apical ballooning cardiomyopathy. 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 Patient presents now noting 2 episodes of chest pressure and shortness of breath possibly preceded by headache and nausea. EKGs without acute change and initial troponins are negative. Since admission patient has had no further signs of ischemia with echocardiogram this morning demonstrating improved/hyperdynamic LV systolic function Recommendations would continue current dosing of metoprolol Reduce lisinopril 10 mg/day Continue warfarin (2) Chest pain: (3) Occipital stroke: Admission and Anticipated Discharge Date Admission Date: May 01, 2021 Subjective Patient seen and examined, chart, medications, telemetry reviewed. Has a headache this morning but otherwise no acute complaints. No arrhythmias on telemetry. Blood pressure did trend low yesterday. No fevers chills or unexplained infections. Echocardiogram this morning demonstrates substantial improvement overall systolic function with resolve of apical wall motion abnormality EF 65 to 70% Physical Exam Constitutional: WD/WN, vitals as above + obese; no acute distress Eyes: PERRL, conjunctivae normal, anicteric sclerae ENMT: external ear and nose normal, oropharynx normal Neck: trachea midline, no thyromegaly Respiratory: normal respiratory effort, lungs clear to auscultation Cardiovascular: Rate/Rhythm: regular rate and regular rhythm Heart Sounds: normal S1 and normal S2; no gallop and no murmur Palpation: normal PMI Vessels: normal carotid upstroke and radial pulses present; no JVD and no carotid bruit Extremities: no edema Gastrointestinal (Abdomen): normal bowel sounds, soft, nontender, no hepatosplenomegaly Musculoskeletal: no cyanosis or clubbing, extremities motor strength 5/5 Skin: no rashes, warm and dry Neurologic: PERRL, EOMI, accommodation nl, no face palsy, no dysarthria Psychiatric: A+Ox3, euthymic affect Results & Data ([facility]) Vital Signs (Past 12 Hours) Vital Signs Temp Pulse Resp BP Pulse Ox 05/02/21 12:00 36.9 C 72 20 115/90 98 05/02/21 08:37 36.8 C 111 H 22 111/69 95 05/02/21 04:42 36.5 C 72 18 103/57 L 95 Laboratory Results Laboratory Results - last 24 hr 05/01/21 05/01/21 05/01/21 12:20 13:30 13:30 WBC RBC Hgb Hct MCV MCH MCHC RDW Std Deviation RDW Coeff of Brittney Plt Count MPV PT INR Sodium Potassium Chloride Carbon Dioxide Anion Gap BUN Creatinine Est Cr Clr Drug Dosing Est GFR ( Amer) Est GFR (Non-Af Amer) BUN/Creatinine Ratio Glucose POC Glucose Calcium Magnesium Troponin I TSH 2.450 COVID-19 Eval Order Covid19 at [facility] SARS-CoV-2 (PCR) NEGATIVE 05/01/21 05/01/21 05/01/21 16:32 18:27 20:42 WBC RBC Hgb Hct MCV MCH MCHC RDW Std Deviation RDW Coeff of Brittney Plt Count MPV PT INR Sodium Potassium Chloride Carbon Dioxide Anion Gap BUN Creatinine Est Cr Clr Drug Dosing Est GFR ( Amer) Est GFR (Non-Af Amer) BUN/Creatinine Ratio Glucose POC Glucose 106 H 104 H Calcium Magnesium Troponin I < 0.015 TSH COVID-19 Eval Order SARS-CoV-2 (PCR) 05/02/21 05/02/21 05/02/21 00:28 05:52 05:52 WBC 4.87 RBC 4.10 L Hgb 12.7 Hct 38.2 MCV 93.2 MCH 31.0 MCHC 33.2 RDW Std Deviation 45.8 RDW Coeff of Brittney 13.4 Plt Count 211 MPV 9.6 PT 24.7 H INR 2.6 H Sodium Potassium Chloride Carbon Dioxide Anion Gap BUN Creatinine Est Cr Clr Drug Dosing Est GFR ( Amer) Est GFR (Non-Af Amer) BUN/Creatinine Ratio Glucose POC Glucose Calcium Magnesium Troponin I < 0.015 TSH COVID-19 Eval Order SARS-CoV-2 (PCR) 05/02/21 05/02/21 05/02/21 05:52 07:55 11:23 WBC RBC Hgb Hct MCV MCH MCHC RDW Std Deviation RDW Coeff of Brittney Plt Count MPV PT INR Sodium 138 Potassium 4.3 Chloride 108 H Carbon Dioxide 28 Anion Gap 2.0 L BUN 20 H Creatinine 0.81 Est Cr Clr Drug Dosing 74.2 Est GFR ( Amer) 89.6 Est GFR (Non-Af Amer) 77.3 BUN/Creatinine Ratio 25.2 H Glucose 127 H POC Glucose 144 H 102 H Calcium 9.1 Magnesium 2.0 Troponin I TSH COVID-19 Eval Order SARS-CoV-2 (PCR) (1) Chest pain Chest pain type: unspecified Qualified Code(s): R07.9 - Chest pain, unspecified
--- NOTE | 2021-05-02 13:29 | Discharge Summary ---
Date of Service May 02, 2021 Admission HPI Per Admitting Provider Pt is 65 y/o F with PMH HTN, DM II, GERD, recent NSTEMI, recent CVA presented to ER with complaint of chest pain last night and this morning. Patient with hospitalization at [facility] 04/13/2021-04/21/2021 for NSTEMI s/p cath with nonocclusive CAD. She had visual disturbance and was found to left occipital lobe infarct. Concern was for an embolic event from cath versus left ventricular apical mural thrombus. She was started on anticoagulation. Also was diagnosed with Takotsubo cardiomyopathy, EF 40-45%. Patient reports last night was putting away laundry when she started with mid chest pressure and right jaw discomfort, shortness of breath with exertion. She reports she laid down and within a couple of hours symptoms resolved. Patient states when she was up moving around this morning she started with mid chest pressure again. Patient states upon ER arrival chest pressure was easing. Denies dizziness, palpitations, syncope. Had GARCIA last night. She also complains of intermittent nausea which she reports has been ongoing for several months. Reports several days ago had couple episodes of vomiting. No vomiting yesterday or today. Reports chronic loose stools since being started on Metformin. Denies abdominal pain. Denies fever/chills, diaphoresis, vision changes, neck pain, orthopnea,cough, sore throat, choking, otalgia, rhinorrhea, paresthesias, weakness, extremity weakness, extremity edema, rashes, urinary symptoms. Admission Exam Per Admitting Provider Physical Exam Physical Exam: General: no distress, obese Head: normocephalic, atraumatic Eyes: PERRL, EOM's intact, conjunctiva non-injected, anicteric ENT: normal inspection external ears, nose, mucous membranes moist Neck: supple, trachea midline Lungs: clear, no respiratory distress, no wheezing/rhonchi/rales CV: RRR, no murmur, no pretibial edema; chest wall without tenderness to palpation Abd: normal BS, soft, non-tender Ext: no cyanosis, no calf tenderness Neuro: A&O x 3, no focal deficits noted, normal affect Skin: warm, dry Principal Diagnosis Chest Pain Discharge Data Allergies Allergy/AdvReac Type Severity Reaction Status Date / Time Penicillins Allergy Intermediate Hives Verified 05/01/21 15:25 Sulfa (Sulfonamide Allergy Intermediate Hives Verified 05/01/21 15:25 Antibiotics) albiglutide Allergy Unknown Abdominal Verified 05/01/21 15:25 pain,nausea,vomiting,rash and itchiness clindamycin Allergy Unknown Hives Verified 05/01/21 15:25 Corticosteroids Allergy Unknown Unknown Verified 05/01/21 15:25 (Glucocorticoids) Consultations 05/01/21 14:48 ED Decision to Admit Stat 05/01/21 16:20 Consult Cardiology Routine Procedures Performed ECHO: Left ventricle normal in size. Moderate concentric LVH. Mild minimal hypokinesis of the posterior wall at the base with all other wall segments christ normally. Prior apical wall motion abnormality has completely resolved. EF 65 to 70%. Grade 1 diastolic dysfunction. There is no significant valvular disease. Hospital Course (1) Chest pain: Chest Pain H/O Takotsubo cardiomyopathy Recent Cath: Mild nonobstructive coronary artery disease. EKG: Significant change from prior EKG Negative cardiac enzymes ECHO: Left ventricle normal in size. Moderate concentric LVH. Mild minimal hypokinesis of the posterior wall at the base with all other wall segments christ normally. Prior apical wall motion abnormality has completely resolved. EF 65 to 70%. Grade 1 diastolic dysfunction. There is no significant valvular disease. Appreciate cardiology input Continue aspirin, metoprolol succinate, atorvastatin, lisinopril Advised to follow-up with cardiology upon discharge (2) CVA (cerebral vascular accident): Recent hospitalization had developed visual disturbance and was found to left occipital lobe infarct. Concern was for an embolic event possible secondary to left ventricular apical mural thrombus and was started on Coumadin INR: 3.1>2.6 Continue Coumadin Monitor INR Continue aspirin, atorvastatin (3) Hypomagnesemia: Magnesium: 1.4> 2.0 Magnesium oxide likely contributing to diarrhea in addition to Metformin We will change magnesium oxide to chloride (4) DM type 2 (diabetes mellitus, type 2): A1c: 9.4 in 03/2021 Hold home oral agents NovoLog, Lantus sliding scale per protocol (5) Hypertension: Continue lisinopril, metoprolol succinate Lisinopril dose decreased to 10 mg daily due to relatively low blood pressure. (6) GERD (gastroesophageal reflux disease): Continue PPI DVT Px: Coumadin Code Status Full Code Follows with Dr Jerrica Urias for routine care Total Time Total Time Spent Total Time Spent (In Minutes): 25 minutes Total Time Includes: Examination of the Patient, Discharge Planning, Medication Reconciliation, Communication With Other Providers and Other Discharge Plan Discharge Items Patient Disposition: Home - Self-Care Reason For Visit: CP Discharge Diagnosis: Chest Pain Condition on Discharge: Fair Activity: Per Instructions section Exercise/Sports: Gradually increase as tolerated Non-emergency contact: Primary Care Provider and Cocoa Press Operator Call non-emergency contact if: you have any medication questions, your symptoms worsen, your pain is not controlled, your pain is concerning for you and you have a fever Follow-up/Referrals: Jerrica Urias DO [Primary Care Provider] - (Date & Time 05/09/2021 11:10 AM Provider Jerrica Urias DO [facility] ) Diet: Carb Consistent or DM2 and Heart Healthy Addtl Attending Provider Instructions: Follow up with on 05/09/2021 11:10 AM as scheduled Follow up with your Cocoa Press Operator as advised Follow-up with Coumadin clinic for management of your Coumadin dosing and monitoring PT/INR Discussed with your primary care physician regarding adjustment of diabetic medications as Metformin likely contributing to chronic diarrhea. Your lisinopril dose is decreased to 10 mg daily as recommended by your bevel face stoner and polisher. Seek immediate medical attention if your symptoms reoccur or worsen Please take all medications as instructed on discharge list below. Please call if you have any questions or problems. You can reach a [facility] hospitalist on duty at [facility] 24 hours a day by calling [phone] Pending Studies at Discharge: No Stand-Alone Forms: My [facility] [employer], Smoking Cessation Medications and DC Order Prescriptions: New magnesium chloride [Mag 64] 64 mg Tablet,Delayed Release (Dr/Ec) 128 mg PO BID 30 Days Qty: 120 RF: 0 lisinopril 10 mg tablet 10 mg PO DAILY Qty: 30 RF: 1 Continued cyanocobalamin (vitamin B-12) [Vitamin B-12] 1,000 mcg Tablet 1,000 mcg PO QAM RF: 0 metformin 500 mg tablet extended release 24 hr 1,000 mg PO BIDM RF: 0 coenzyme Q10 [Co Q-10] 100 mg Capsule 10 mg PO QAM RF: 0 Tradjenta 5 mg tablet 5 mg PO QAM RF: 0 Women's One Daily 18 mg iron-400 mcg-500 mg Ca Tablet 1 tab PO QAM RF: 0 atorvastatin 40 mg tablet 40 mg PO DAILY RF: 0 aspirin 81 mg Tablet,Delayed Release (Dr/Ec) 81 mg PO QAM Qty: 21 RF: 0 cholecalciferol (vitamin D3) 2,000 unit Tablet,Chewable 1,000 unit PO QAM RF: 0 omeprazole magnesium [Prilosec OTC] 20 mg Tablet,Delayed Release (Dr/Ec) 20 mg PO QAM RF: 0 acetaminophen 650 mg Tablet Extended Release 650 mg PO DAILY RF: 0 garlic 150 mg Tablet 150 mg PO DAILY RF: 0 montelukast 10 mg tablet 10 mg PO HS RF: 0 lorazepam 1 mg tablet 1 mg PO DAILY PRN (Reason: Vertigo) RF: 0 calcium 150 mg Tablet 150 mg PO DAILY RF: 0 Jardiance 25 mg tablet 25 mg PO DAILY RF: 0 metoprolol succinate 25 mg Tablet Extended Release 24 Hr 75 mg PO QAM Qty: 90 RF: 1 warfarin 1 mg tablet 1 mg PO UD Qty: 90 RF: 1 warfarin 2 mg tablet 2 mg PO UD Qty: 90 RF: 1 Discontinued magnesium oxide 500 mg capsule 500 mg PO BID RF: 0 lisinopril 20 mg tablet 20 mg PO DAILY RF: 0 doxycycline hyclate 100 mg Capsule 100 mg PO BID@1100,2300 Qty: 5 RF: 0 Discharge Orders: Discharge Order (Routine); Ordered 05/02/21 Ordered By: Michael Trejo Admission Data Admit Date/Time: 05/01/21 15:10 Attending Provider: Michael Trejo Admit Provider: Michael Trejo Primary Care Provider: Jerrica Urias Other Providers: Michael Trejo ; Alex Mcmahon Other Interventions: Discharge Summary Assessment (RN) Last Done: 05/02/21 14:26
--- NOTE | 2021-05-02 14:05 | Electrocardiogram Report ---
Test Reason : Blood Pressure : / mmHG Vent. Rate : 070 BPM Atrial Rate : 070 BPM P-R Int : 158 ms QRS Dur : 094 ms QT Int : 444 ms P-R-T Axes : 031 018 167 degrees QTc Int : 479 ms Normal sinus rhythm T wave abnormality, consider inferior ischemia T wave abnormality, consider anterolateral ischemia Prolonged QT Abnormal ECG When compared with ECG of 24-APR-2021 16:18, No significant change was found Confirmed by Douglas Reyna ([id number]) on 05/02/2021 2:05:12 PM Referred By: Confirmed By:Douglas Reyna
--- NOTE | 2021-05-02 15:08 | Electrocardiogram Report ---
Test Reason : Blood Pressure : / mmHG Vent. Rate : 074 BPM Atrial Rate : 074 BPM P-R Int : 152 ms QRS Dur : 088 ms QT Int : 400 ms P-R-T Axes : 035 -07 154 degrees QTc Int : 444 ms Poor data quality, interpretation may be adversely affected Normal sinus rhythm T wave abnormality, consider inferior ischemia T wave abnormality, consider anterolateral ischemia Abnormal ECG When compared with ECG of 01-MAY-2021 12:14, (unconfirmed) No significant change was found Confirmed by Douglas Reyna ([id number]) on 05/02/2021 3:08:03 PM Referred By: REFERRED SELF Confirmed By:Douglas Reyna
[2021-05-02] MEDS ORDERED: WARFARIN SOD 2.5 MG TAB PO SCH (16:00)
== END 2021-05-02 15:05 | disposition home or self-care (01) ==
LOC: 2S 12:02 → ED 12:02 → 2S 15:40

== ENCOUNTER 2022-08-11 12:49 | Observation (INO) ==
[2022-08-11 13:11] LABS: Basophils # (auto) 0.04 K/uL (0-0.2); Basophils % (auto) 0.6 %; Eosinophils # (auto) 0.24 K/uL (0-0.50); Eosinophils % (auto) 3.8 %; Hematocrit (blood only) 41.2 % (34.1-44.9); Hemoglobin 13.5 g/dl (12.0-16.0); Immature Granulocytes # (auto) 0.01 K/uL (0.00-0.02); Immature Granulocytes % (auto) 0.2 %; Lymphocytes # (auto) 2.43 K/uL (1.2-3.4); Lymphocytes % (auto) 38.3 %; Mean Corpuscular Hemoglobin 30.6 pg (25.0-34.0); Mean Corpuscular Hgb Conc 32.8 g/dL (32.0-36.0); Mean Corpuscular Volume 93.4 fL (80.0-100.0); Mean Platelet Volume 9.8 fL (9.4-12.3); Monocytes # (auto) 0.52 K/uL (0.24-0.82); Monocytes % (auto) 8.2 %; Neutrophils # (auto) 3.11 K/uL (1.4-6.5); Neutrophils % (auto) 48.9 %; Platelet Count 177 K/uL (130-400); RDW Coefficient of Variation 12.6 % (11.5-14.5); RDW Standard Deviation 43.7 fL (36.4-46.3); Red Blood Count 4.41 M/uL (3.93-5.22); White Blood Count 6.35 K/ul (4.8-10.8)
[2022-08-11 13:47] LABS: Troponin I High Sensitivity < 2.3 pg/ml (0-14)
[2022-08-11 13:51] LABS: Alanine Aminotransferase 19 U/L (7-52); Albumin Level 4.5 gm/dl (3.4-5.0); Alkaline Phosphatase 75 U/L (34-104); Anion Gap 8 (3-11); Aspartate Aminotransferase 18 U/L (13-39); BUN Creatinine Ratio 23.5 (10-20); Bilirubin,Total 0.4 mg/dl (0.2-1.0); Blood Urea Nitrogen 20 mg/dl (6-23); Calcium 9.4 mg/dl (8.5-10.1); Carbon Dioxide 22 mmol/L (21-32); Chloride 112 mmol/L (98-107); Est GFR (African American) 83.3 ml/min; Est GFR (Non-African American) 71.9 ml/min; Globulin 2.3 gm/dl (2.5-4.0); Glucose 145 mg/dl (70-99(Fasting)); Potassium 4.1 mmol/L (3.5-5.1); Sodium 142 mmol/L (136-145); Total Protein 6.8 gm/dl (6.0-8.3)
[2022-08-11 14:00] LABS: Partial Thromboplastin Ratio 1.1; Partial Thromboplastin Time 29.4 Seconds (21.0-31.0); Prothrombin Time 10.5 Seconds (9.0-12.0)
--- NOTE | 2022-08-11 14:49 | Emergency Department Note ---
History of Present Illness General Chief complaint: Chest Pain Stated complaint: CHEST PAIN, BACK PAIN, L ARM PAIN Time Seen by Provider: 08/11/22 14:20 Source: patient Mode of arrival: ambulatory Limitations: no limitations History of Present Illness Maximum Pain Intensity: 6 This patient comes in complaint of chest pain. She said it started over the weekend she had pain in her back which she did not think much of because she had called her aunt who is falling thought she injured it. It would hurt intermittently. And then this morning she had pain in her chest going down her left arm. It feels better now. She is on aspirin for history of A. fib x1 she has had cardiac caths in the past with the last one last April she felt short of breath and nausea with this. No significant injury. No abdominal pain. At present she feels better and says she has no pain in her chest or back Home Medications Medication Instructions Recorded Confirmed Type linagliptin 5 mg tablet (Tradjenta) 5 mg PO QAM 07/20/19 08/11/22 History metformin 500 mg tablet,extended 1,000 mg PO BIDM 07/20/19 08/11/22 History release 24 hr multivit-iron 18 mg-folic acid 400 1 tab PO QAM 07/20/19 08/11/22 History mcg-calcium 500 mg-minerals tablet (Women's One Daily) aspirin 81 mg tablet,delayed 81 mg PO QAM #21 tabs 12/23/19 08/11/22 Rx release cholecalciferol (vitamin D3) 50 1,000 unit PO QAM 12/26/19 08/11/22 History mcg (2,000 unit) chewable tablet atorvastatin 40 mg tablet 40 mg PO DAILY 07/31/20 08/11/22 History acetaminophen 650 mg 650 mg PO Q6H PRN Pain 04/13/21 08/11/22 History tablet,extended release calcium 150 mg tablet 150 mg PO DAILY 04/13/21 08/11/22 History empagliflozin 25 mg tablet 25 mg PO DAILY 04/13/21 08/11/22 History (Jardiance) lorazepam 1 mg tablet 1 mg PO DAILY PRN Vertigo 04/13/21 08/11/22 History montelukast 10 mg tablet 10 mg PO HS 04/13/21 08/11/22 History cyanocobalamin (vitamin B-12) 2,500 mcg PO Q2D 08/11/22 08/11/22 History 2,500 mcg tablet dextromethorphan-guaifenesin 30 1 tab PO DAILY 08/11/22 08/11/22 History mg-600 mg tablet extended [id number] hr (Mucinex DM) esomeprazole magnesium 40 mg 40 mg PO DAILY 08/11/22 08/11/22 History capsule,delayed release lisinopril 2.5 mg tablet 2.5 mg PO DAILY 08/11/22 08/11/22 History magnesium chloride 64 mg 128 mg PO DAILY 08/11/22 08/11/22 History (magnesium chloride) tablet,delayed release (Mag 64) meloxicam 7.5 mg tablet 7.5 mg PO Q2D 08/11/22 08/11/22 History metoprolol succinate 25 mg 25 mg PO HS 08/11/22 08/11/22 History tablet,extended release 24 hr metoprolol succinate 25 mg 50 mg PO QAM 08/11/22 08/11/22 History tablet,extended release 24 hr valacyclovir 1 gram tablet See Rx Instructions .Route .COMPLEX 08/11/22 08/11/22 History Allergies Allergy/AdvReac Type Severity Reaction Status Date / Time Penicillins Allergy Intermediate Hives Verified 05/01/21 15:25 Sulfa (Sulfonamide Allergy Intermediate Hives Verified 05/01/21 15:25 Antibiotics) albiglutide Allergy Unknown Abdominal Verified 05/01/21 15:25 pain,nausea,vomiting,rash and itchiness clindamycin Allergy Unknown Hives Verified 05/01/21 15:25 Corticosteroids Allergy Unknown Unknown Verified 05/01/21 15:25 (Glucocorticoids) Past Med/Surg History Medical History (Updated 08/11/22 @ 22:52 by Jaime Duarte MD) DM type 2 (diabetes mellitus, type 2) GERD (gastroesophageal reflux disease) History of CVA (cerebrovascular accident) HLD (hyperlipidemia) Hypertension Left ventricular mural thrombus s/p Coumadin NSTEMI (non-ST elevated myocardial infarction) 04/2021 Takotsubo cardiomyopathy Surgical History H/O shoulder surgery right, arthroscopic History of partial hysterectomy History of sinus surgery Hx of cardiac cath Family History Father , 62 from CVA Stroke, Onset Age: 40 Brother Heart disease Social History Smoking Status: Never smoker Tobacco Type: Cigarettes Second Hand Exposure: No; Hx Alcohol Use: No Hx Substance Use: Yes Prescribed Medications: Marijuana Preferred Language: British Communication Ability: Effective 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 Beliefs That Will Affect Care: None marital status: Current Living Situation: Alone Other Information That Helps Us Care for You: No Feels Safe at Home: Yes Safety Concerns: Feels Safe At This Time Assistive Devices: Glasses Assistive Devices Comment: partial denture X 2 at home Review of Systems A total of 10 systems reviewed and were otherwise negative Physical Exam Vital Signs Vital Signs - 24 hr 08/11/22 12:53 08/11/22 12:59 08/11/22 13:14 Temperature 36.4 C L Temperature Source Oral Pulse Rate 74 68 73 Pulse Rate from SpO2 Sensor Pulse Rhythm Regular Respiratory Rate 18 21 17 Respiratory Effort / Characteristics Non-Labored Respiratory Depth Normal Blood Pressure Blood Pressure Mean Pulse Oximetry 97 95 96 Oxygen Delivery Method Room Air Room Air Room Air Sepsis Recent Fever Within 48 Hours No Sepsis New/Unexplained Change in Mental Status No Sepsis Action Taken by Nursing No Action Required 08/11/22 13:15 08/11/22 13:30 08/11/22 13:30 Temperature Temperature Source Pulse Rate 69 69 Pulse Rate from SpO2 Sensor Pulse Rhythm Respiratory Rate 19 16 Respiratory Effort / Characteristics Respiratory Depth Blood Pressure 150/66 H Blood Pressure Mean 94 Pulse Oximetry 95 97 Oxygen Delivery Method Room Air Room Air Sepsis Recent Fever Within 48 Hours Sepsis New/Unexplained Change in Mental Status Sepsis Action Taken by Nursing 08/11/22 13:45 08/11/22 13:50 08/11/22 14:00 Temperature Temperature Source Pulse Rate 67 68 Pulse Rate from SpO2 Sensor 69 Pulse Rhythm Respiratory Rate 18 20 Respiratory Effort / Characteristics Respiratory Depth Blood Pressure 148/63 H Blood Pressure Mean 91 Pulse Oximetry 96 95 Oxygen Delivery Method Room Air Sepsis Recent Fever Within 48 Hours Sepsis New/Unexplained Change in Mental Status Sepsis Action Taken by Nursing 08/11/22 14:00 08/11/22 14:10 08/11/22 14:20 Temperature Temperature Source Pulse Rate 68 64 63 Pulse Rate from SpO2 Sensor 69 64 63 Pulse Rhythm Respiratory Rate 22 24 29 H Respiratory Effort / Characteristics Respiratory Depth Blood Pressure Blood Pressure Mean Pulse Oximetry 97 97 97 Oxygen Delivery Method Sepsis Recent Fever Within 48 Hours Sepsis New/Unexplained Change in Mental Status Sepsis Action Taken by Nursing 08/11/22 14:30 08/11/22 14:40 08/11/22 14:50 Temperature Temperature Source Pulse Rate 67 63 65 Pulse Rate from SpO2 Sensor 68 65 65 Pulse Rhythm Respiratory Rate 22 21 18 Respiratory Effort / Characteristics Respiratory Depth Blood Pressure Blood Pressure Mean Pulse Oximetry 99 97 97 Oxygen Delivery Method Sepsis Recent Fever Within 48 Hours Sepsis New/Unexplained Change in Mental Status Sepsis Action Taken by Nursing 08/11/22 15:00 08/11/22 15:10 Temperature Temperature Source Pulse Rate 67 68 Pulse Rate from SpO2 Sensor 67 67 Pulse Rhythm Respiratory Rate 21 20 Respiratory Effort / Characteristics Respiratory Depth Blood Pressure Blood Pressure Mean Pulse Oximetry 96 97 Oxygen Delivery Method Sepsis Recent Fever Within 48 Hours Sepsis New/Unexplained Change in Mental Status Sepsis Action Taken by Nursing General: Well developed well nourished not ill-appearing middle-age male who appears in no acute distress, breathing comfortably on room air. Normal speech HEENT: Normal cephalic atraumatic. Pupils are equal round and reactive to light. Extraocular movements are intact. Oropharynx is pink with moist mucous membranes. No swelling of the mouth lips or tongue. Neck: Supple with a midline trachea. No meningeal signs or stiffness, no JVD or bruits. No Stridor. Chest: Clear to auscultation bilaterally. No wheezes or rhonchi. No increased work of breathing. Heart: Regular rate and rhythm without murmurs or gallops. Abdomen: Soft nontender, nondistended without rebound guarding or rigidity. Extremities: No cyanosis clubbing or edema. No calf tenderness or assymetry Spine/Back. Non tender to palpation. No CVA tenderness Skin: Good turgor without rashes. Neurologic exam: Cranial nerves two through 12 are intact. Motor and sensation are intact and symmetrical throughout. Course Administered Medications Enoxaparin Sodium (Enoxaparin Inj 40 Mg/0.4 Ml Syr) 40 mg SQ Q24H [facility] Stop: 09/10/22 16:23 Last Admin: 08/11/22 18:16 Dose: Not Given Documented By: IAN Insulin Aspart (Insulin Aspart Per Unit) 0 units SC ACHS THAI Stop: 09/10/22 16:29 Last Admin: 08/11/22 22:22 Dose: Not Given Documented By: ELIZABETH Co-signed By: [facility] Admin: 08/11/22 18:17 Dose: Not Given Documented By: IAN Metoprolol Succinate (Metoprolol Succ 25mg Ext Rel Tab) 25 mg PO [facility] Stop: 09/10/22 20:59 Last Admin: 08/11/22 21:04 Dose: 25 mg Documented By: AM Montelukast Sodium (Montelukast Sodium 10 Mg Tablet) 10 mg PO [facility] Stop: 09/10/22 20:59 Last Admin: 08/11/22 21:02 Dose: 10 mg Documented By: AM Discontinued Medications Miscellaneous (Patient's Height &/Or Weight Needed) 1 each N/A Q2H [facility] Stop: 09/10/22 16:44 Last Admin: 08/11/22 17:57 Dose: Not Given Documented By: IAN Medical Decision Making Differential Diagnosis Acute coronary syndrome, arrhythmia, musculoskeletal, pneumothorax, electrolyte or metabolic abnormality Medical Records Attestation: I reviewed the patient's medical records. Home Medications Current Medication List: was personally reviewed by me Laboratory Data Attestation: I reviewed the patient's lab results. Result diagrams: 08/11/22 12:58 08/11/22 12:58 Lab Results 08/11/22 08/11/22 08/11/22 Range/Units 12:58 12:58 12:58 WBC 6.35 (4.8-10.8) K/ul RBC 4.41 (3.93-5.22) M/uL Hgb 13.5 (12.0-16.0) g/dl Hct 41.2 (34.1-44.9) % MCV 93.4 (80.0-100.0) fL MCH 30.6 (25.0-34.0) pg MCHC 32.8 (32.0-36.0) g/dL RDW Std Deviation 43.7 (36.4-46.3) fL RDW Coeff of Brittney 12.6 (11.5-14.5) % Plt Count 177 (130-400) K/uL MPV 9.8 (9.4-12.3) fL Immature Gran % (Auto) 0.2 % Neut % (Auto) 48.9 % Lymph % (Auto) 38.3 % [place] % (Auto) 8.2 % Eos % (Auto) 3.8 % Baso % (Auto) 0.6 % Neut # (Auto) 3.11 (1.4-6.5) K/uL Lymph # (Auto) 2.43 (1.2-3.4) K/uL [place] # (Auto) 0.52 (0.24-0.82) K/uL Eos # (Auto) 0.24 (0-0.50) K/uL Baso # (Auto) 0.04 (0-0.2) K/uL Immature Gran # (Auto) 0.01 (0.00-0.02) K/uL PT 10.5 (9.0-12.0) Seconds INR 1.0 (0.9-1.1) APTT 29.4 (21.0-31.0) Seconds PTT Ratio 1.1 Sodium 142 (136-145) mmol/L Potassium 4.1 (3.5-5.1) mmol/L Chloride 112 H (98-107) mmol/L Carbon Dioxide 22 (21-32) mmol/L Anion Gap 8 (3-11) BUN 20 (6-23) mg/dl Creatinine 0.85 (0.6-1.2) mg/dl Est Cr Clr Drug Dosing Not Reportable Est GFR ( Amer) 83.3 ml/min Est GFR (Non-Af Amer) 71.9 ml/min BUN/Creatinine Ratio 23.5 H (10-20) Glucose 145 H (70-99(Fasting)) mg/dl Calcium 9.4 (8.5-10.1) mg/dl Total Bilirubin 0.4 (0.2-1.0) mg/dl AST 18 (13-39) U/L ALT 19 (7-52) U/L Alkaline Phosphatase 75 (34-104) U/L Troponin I High Sens < 2.3 (0-14) pg/ml Total Protein 6.8 (6.0-8.3) gm/dl Albumin 4.5 (3.4-5.0) gm/dl Globulin 2.3 L (2.5-4.0) gm/dl Albumin/Globulin Ratio 2.0 (0.9-2) SARS-CoV-2, RNA, NAAT (NEGATIVE) 10/10/22 Range/Units 14:49 WBC (4.8-10.8) K/ul RBC (3.93-5.22) M/uL Hgb (12.0-16.0) g/dl Hct (34.1-44.9) % MCV (80.0-100.0) fL MCH (25.0-34.0) pg MCHC (32.0-36.0) g/dL RDW Std Deviation (36.4-46.3) fL RDW Coeff of Brittney (11.5-14.5) % Plt Count (130-400) K/uL MPV (9.4-12.3) fL Immature Gran % (Auto) % Neut % (Auto) % Lymph % (Auto) % [place] % (Auto) % Eos % (Auto) % Baso % (Auto) % Neut # (Auto) (1.4-6.5) K/uL Lymph # (Auto) (1.2-3.4) K/uL [place] # (Auto) (0.24-0.82) K/uL Eos # (Auto) (0-0.50) K/uL Baso # (Auto) (0-0.2) K/uL Immature Gran # (Auto) (0.00-0.02) K/uL PT (9.0-12.0) Seconds INR (0.9-1.1) APTT (21.0-31.0) Seconds PTT Ratio Sodium (136-145) mmol/L Potassium (3.5-5.1) mmol/L Chloride (98-107) mmol/L Carbon Dioxide (21-32) mmol/L Anion Gap (3-11) BUN (6-23) mg/dl Creatinine (0.6-1.2) mg/dl Est Cr Clr Drug Dosing Est GFR ( Amer) ml/min Est GFR (Non-Af Amer) ml/min BUN/Creatinine Ratio (10-20) Glucose (70-99(Fasting)) mg/dl Calcium (8.5-10.1) mg/dl Total Bilirubin (0.2-1.0) mg/dl AST (13-39) U/L ALT (7-52) U/L Alkaline Phosphatase (34-104) U/L Troponin I High Sens (0-14) pg/ml Total Protein (6.0-8.3) gm/dl Albumin (3.4-5.0) gm/dl Globulin (2.5-4.0) gm/dl Albumin/Globulin Ratio (0.9-2) SARS-CoV-2, RNA, NAAT NEGATIVE (NEGATIVE) Imaging Data Attestation: I personally reviewed and interpreted this imaging study as follows: My Impression: Chest x-rayno acute infiltrate, failure, pneumothorax seen. Radiologist's Impression: Chest X-Ray 08/11/22 14:45 XR chest 1V portable HISTORY: 67 years-old Female chest pain . Chest pain COMPARISON: 05/01/2021 TECHNIQUE: AP view of the chest FINDINGS: Cardiomediastinal and hilar silhouettes are within normal limits. No pneumothorax, pleural effusion, airspace consolidation or overt pulmonary edema. Degenerative changes of the shoulders and spine. IMPRESSION: No acute process. ACT 112: Negative or not required by law. The above report was generated using voice recognition software. It may contain grammatical, syntax or spelling errors. Electronically signed by: Manjeet Fitzpatrick M.D. 08/11/2022 3:56 PM ECG Data Attestation: I personally reviewed and interpreted this ECG as follows: Indication: + chest pain Rate (beats per minute): 76 Rhythm: + normal sinus ECG Intervals/blocks: + Normal QRS, + Normal QT and + Normal WA ECG [place]: + Normal ECG ST segments: + Normal ST segments ECG Findings: no PACs or no PVCs Comparison ECG Date: from [facility] Narrative This patient comes in as described above. She was placed on a manager cardiac cath room A2. She has been having back pain which radiated to her chest and down her left arm she has multiple cardiac risk factors, namely diabetes, smoking, hypertension. IV access was established, EKG was obtained, she has no pain at present her EKG at present looks normal. Blood work was obtained shows no white count or fever discussed infection. No significant anemia. no significant electrolyte or metabolic abnormality her initial troponin is negative. Chest x- ray does not show congestive heart failure pneumonia or pneumothorax. She is feeling better at present and despite her initial labs looking okay I do think she should stay for further cardiac work-up and evaluation given the fact that she has multiple cardiac risk factors and she had Tocco Subu's in the past. She also non-STEMI and on her cath last year had multiple 30 to 40% blockages. She certainly has multiple risk factors and I have consulted the [facility] hospitalist to see her in the ER for these measures Continuous cardiac monitoring: Orders placed in EMR for continuous cardiac monitoring. Upon my interpretation, the patient had to be in normal sinus rhythm with a rate of 75 Impression & Plan Chest pain, Hypertension, HLD (hyperlipidemia), DM type 2 (diabetes mellitus, type 2), Left arm pain, History of coronary artery disease Discharge Plan Visit Data Chief Complaint: Chest Pain Stated Complaint: CHEST PAIN, BACK PAIN, L ARM PAIN ED Provider: Jaime Duarte Discharge Problem: Chest pain, Hypertension, HLD (hyperlipidemia), DM type 2 (diabetes mellitus, type 2), Left arm pain, History of coronary artery disease Patient Disposition: Admitted As Inpatient Discharge Instructions Interventions: ED Discharge Assessment Last Done: 08/11/22 16:14 : Chest pain Qualifiers: Chest pain type: precordial pain Qualified Code(s): R07.2 - Precordial pain Hypertension Qualifiers: Hypertension type: unspecified Qualified Code(s): I10 - Essential (primary) hypertension HLD (hyperlipidemia) Qualifiers: Hyperlipidemia type: unspecified Qualified Code(s): E78.5 - Hyperlipidemia, unspecified DM type 2 (diabetes mellitus, type 2) Qualifiers: Diabetes mellitus intermediate insulin use: unspecified intermediate insulin use status Diabetes mellitus complication status: with other specified complication Qualified Code(s): E11.69 - Type 2 diabetes mellitus with other specified complication
--- NOTE | 2022-08-11 15:57 | XRay Report ---
XR chest 1V portable HISTORY: 67 years-old Female chest pain . Chest pain COMPARISON: 05/01/2021 TECHNIQUE: AP view of the chest FINDINGS: Cardiomediastinal and hilar silhouettes are within normal limits. No pneumothorax, pleural effusion, airspace consolidation or overt pulmonary edema. Degenerative changes of the shoulders and spine. IMPRESSION: No acute process. ACT 112: Negative or not required by law. The above report was generated using voice recognition software. It may contain grammatical, syntax o r spelling errors. Electronically signed by: Manjeet Fitzpatrick M.D. 08/11/2022 3:56 PM
--- NOTE | 2022-08-11 16:00 | Electrocardiogram Report ---
Test Reason : Blood Pressure : / mmHG Vent. Rate : 076 BPM Atrial Rate : 076 BPM P-R Int : 160 ms QRS Dur : 094 ms QT Int : 382 ms P-R-T Axes : 036 008 068 degrees QTc Int : 429 ms Normal sinus rhythm Normal ECG When compared with ECG of 02-MAY-2021 06:20, T wave inversion no longer evident in Anterolateral leads Confirmed by Livan Sevilla ([id number]) on 08/11/2022 3:59:48 PM Referred By: ED Confirmed By:Livan Sevilla
[2022-08-11] MEDS ORDERED: GLUCAGON FOR INJ 1 MG VIAL SQ PRN (16:24)
[2022-08-11] MEDS ORDERED: DEXTROSE 50% 50 ML SYRINGE IV PRN (16:24)
[2022-08-11] MEDS ORDERED: ENOXAPARIN INJ 40 MG/0.4 ML SYR SQ SCH (16:24)
[2022-08-11] MEDS ORDERED: GLUCOSE 10 TAB/TUBE PO PRN (16:24)
[2022-08-11] MEDS ORDERED: CARBOHYDRATES FOR HYPOGLYCEMIA PO PRN (16:24)
[2022-08-11] MEDS ORDERED: ACETAMINOPHEN 325 MG TAB PO PRN (16:24)
[2022-08-11] MEDS ORDERED: GLUCOSE 40% GEL 15 GM TUBE PO PRN (16:24)
[2022-08-11] MEDS ORDERED: INFLUENZA VACCINE HIGH DOSE PF 65+ 0.7 ML SYR IM ONE (16:42)
[2022-08-11] MEDS ORDERED: Patient's HEIGHT &/or WEIGHT Needed SCH (16:45)
--- NOTE | 2022-08-11 16:59 | History & Physical Report ---
Date of Service August 11, 2022 Assessment & Plan (1) Chest pain: (2) Left arm pain: Plan: Obs to tele Patient presenting from home with reports of midsternal chest, left arm, right upper back discomfort. A few days ago, the patient had caught her aunt before she fell to the ground. Initial HS trop negative, EKG without acute ST changes Serial trops, resting echo Midsternal chest and left arm discomfort reproducible on exam Symptoms seem to be musculoskeletal in nature. Check cervical and thoracic xrays. ?? If left arm symptoms are due to cervical disc disease. May need additional work up and imaging as an outpatient. (3) History of CVA (cerebrovascular accident): Plan: In the setting of left ventricular mural thrombus, s/p Coumadin therapy No residual deficits Continue ASA and statin (4) Takotsubo cardiomyopathy: Plan: Hx of, with normalization of prior LV wall motion abnormality per echo 05/2021 Continue beta fish (5) DM type 2 (diabetes mellitus, type 2): Plan: Hgb A1c 7.4 06/2022 Hold oral agents and utilize NovoLog per protocol while hospitalized (6) Hypertension: Plan: BP controlled, continue lisinopril and metoprolol (7) DVT prophylaxis: Plan: SQ Lovenox Admission and Anticipated Discharge Date Admission Date: August 11, 2022 History of Present Illness Chief Complaint: Chest pain, back pain, left arm pain Primary Care Provider: Jerrica Urias DO 67-year-old female with PMH DM type II, dyslipidemia, Takotsubo cardiomyopathy, history of left ventricular mural thrombus s/p Coumadin therapy, GERD, history of CVA, and other problems listed below who presents the ED for evaluation of chest, back, left arm pain. Patient reports that about 4 days ago, she was helping her aunt get into the car and her aunt almost fell and the patient caught her from falling on the ground. The following day, the patient noted that she had right-sided upper back pain.She then developed midsternal discomfort and also left shoulder and arm pain with numbness at times. Symptoms have been fairly consistent over the past few days. 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 Patient reports she did take a Tylenol PM last night and was able to sleep. She denies any associated shortness of breath, diaphoresis. She reports 1 episode of nausea this morning. No abdominal pain or vomiting. Denies fever and chills. No urinary symptoms. In the ED, HS trop is negative and EKG does not show any acute ST changes. Allergies Allergy/AdvReac Type Severity Reaction Status Date / Time Penicillins Allergy Intermediate Hives Verified 05/01/21 15:25 Sulfa (Sulfonamide Allergy Intermediate Hives Verified 05/01/21 15:25 Antibiotics) albiglutide Allergy Unknown Abdominal Verified 05/01/21 15:25 pain,nausea,vomiting,rash and itchiness clindamycin Allergy Unknown Hives Verified 05/01/21 15:25 Corticosteroids Allergy Unknown Unknown Verified 05/01/21 15:25 (Glucocorticoids) Home Medications Medication Instructions Recorded Confirmed Type linagliptin 5 mg tablet (Tradjenta) 5 mg PO QAM 07/20/19 08/11/22 History metformin 500 mg tablet,extended 1,000 mg PO BIDM 07/20/19 08/11/22 History release 24 hr multivit-iron 18 mg-folic acid 400 1 tab PO QAM 07/20/19 08/11/22 History mcg-calcium 500 mg-minerals tablet (Women's One Daily) aspirin 81 mg tablet,delayed 81 mg PO QAM #21 tabs 12/23/19 08/11/22 Rx release cholecalciferol (vitamin D3) 50 1,000 unit PO QAM 12/26/19 08/11/22 History mcg (2,000 unit) chewable tablet atorvastatin 40 mg tablet 40 mg PO DAILY 07/31/20 08/11/22 History acetaminophen 650 mg 650 mg PO Q6H PRN Pain 04/13/21 08/11/22 History tablet,extended release calcium 150 mg tablet 150 mg PO DAILY 04/13/21 08/11/22 History empagliflozin 25 mg tablet 25 mg PO DAILY 04/13/21 08/11/22 History (Jardiance) lorazepam 1 mg tablet 1 mg PO DAILY PRN Vertigo 04/13/21 08/11/22 History montelukast 10 mg tablet 10 mg PO HS 04/13/21 08/11/22 History cyanocobalamin (vitamin B-12) 2,500 mcg PO Q2D 08/11/22 08/11/22 History 2,500 mcg tablet dextromethorphan-guaifenesin 30 1 tab PO DAILY 08/11/22 08/11/22 History mg-600 mg tablet extended [id number] hr (Mucinex DM) esomeprazole magnesium 40 mg 40 mg PO DAILY 08/11/22 08/11/22 History capsule,delayed release lisinopril 2.5 mg tablet 2.5 mg PO DAILY 08/11/22 08/11/22 History magnesium chloride 64 mg 128 mg PO DAILY 08/11/22 08/11/22 History (magnesium chloride) tablet,delayed release (Mag 64) meloxicam 7.5 mg tablet 7.5 mg PO Q2D 08/11/22 08/11/22 History metoprolol succinate 25 mg 25 mg PO HS 08/11/22 08/11/22 History tablet,extended release 24 hr metoprolol succinate 25 mg 50 mg PO QAM 08/11/22 08/11/22 History tablet,extended release 24 hr valacyclovir 1 gram tablet See Rx Instructions .Route .COMPLEX 08/11/22 08/11/22 History Past Med/Surg History Medical History (Updated 08/11/22 @ 16:52 by ARIK Escalante) DM type 2 (diabetes mellitus, type 2) GERD (gastroesophageal reflux disease) History of CVA (cerebrovascular accident) HLD (hyperlipidemia) Hypertension Left ventricular mural thrombus s/p Coumadin NSTEMI (non-ST elevated myocardial infarction) 04/2021 Takotsubo cardiomyopathy Surgical History H/O shoulder surgery right, arthroscopic History of partial hysterectomy History of sinus surgery Hx of cardiac cath Family History Father , 62 from CVA Stroke, Onset Age: 40 Brother Heart disease Social History Smoking Status: Never smoker Tobacco Type: Cigarettes Second Hand Exposure: No; Hx Alcohol Use: No Hx Substance Use: Yes Prescribed Medications: Marijuana Preferred Language: Belarusian Communication Ability: Effective Content Writer Required: No Beliefs That Will Affect Care: None marital status: Current Living Situation: Alone Other Information That Helps Us Care for You: No Feels Safe at Home: Yes Safety Concerns: Feels Safe At This Time Assistive Devices: Glasses Assistive Devices Comment: partial denture X 2 at home Review of Systems Review of Systems: ROS per HPI, all other systems reviewed and negative Physical Exam Constitutional: WD/WN, vitals as above Eyes: PERRL, conjunctivae normal, anicteric sclerae ENMT: external ear and nose normal, oropharynx normal Respiratory: normal respiratory effort, lungs clear to auscultation Cardiovascular: Rate/Rhythm: regular rate and regular rhythm Vessels: normal peripheral pulses Extremities: no edema Chest (Breasts): Additional Comments: midsternal chest tender to palpation Gastrointestinal (Abdomen): normal bowel sounds, soft, nontender, no hepatosplenomegaly Musculoskeletal: no cyanosis or clubbing, extremities motor strength 5/5 tenderness with palpation of left shoulder over the acromion process Skin: no rashes, warm and dry Neurologic: PERRL, EOMI, accommodation nl, no face palsy, no dysarthria Psychiatric: A+Ox3, euthymic affect Results & Data Results & Data ([facility]) Vital Signs (Past 12 Hours) Vital Signs Temp Pulse Pulse Resp BP BP Pulse Ox 08/11/22 16:29 36.3 C L 62 18 191/82 H 96 08/11/22 16:14 74 18 142/74 H 98 08/11/22 15:10 68 20 97 08/11/22 15:00 67 21 96 08/11/22 14:50 65 18 97 08/11/22 14:40 63 21 97 08/11/22 14:30 67 22 99 08/11/22 14:20 63 29 H 97 08/11/22 14:10 64 24 97 08/11/22 14:00 68 22 97 08/11/22 14:00 148/63 H 08/11/22 13:50 68 20 95 08/11/22 13:45 67 18 96 08/11/22 13:30 69 16 97 08/11/22 13:30 150/66 H 08/11/22 13:15 69 19 95 08/11/22 13:14 73 17 96 08/11/22 12:59 68 21 95 08/11/22 12:53 36.4 C L 74 18 97 O2 Del Method 08/11/22 16:29 Room Air 08/11/22 16:14 Room Air 08/11/22 15:10 08/11/22 15:00 08/11/22 14:50 08/11/22 14:40 08/11/22 14:30 08/11/22 14:20 08/11/22 14:10 08/11/22 14:00 08/11/22 14:00 08/11/22 13:50 08/11/22 13:45 Room Air 08/11/22 13:30 Room Air 08/11/22 13:30 08/11/22 13:15 Room Air 08/11/22 13:14 Room Air 08/11/22 12:59 Room Air 08/11/22 12:53 Room Air Laboratory Results Short CBC 08/11/22 Range/Units 12:58 WBC 6.35 (4.8-10.8) K/ul Hgb 13.5 (12.0-16.0) g/dl Hct 41.2 (34.1-44.9) % Plt Count 177 (130-400) K/uL BMP 08/11/22 12:58 Sodium 142 Potassium 4.1 Chloride 112 H Carbon Dioxide 22 BUN 20 Creatinine 0.85 Glucose 145 H Calcium 9.4 Liver Function 08/11/22 Range/Units 12:58 Total Bilirubin 0.4 (0.2-1.0) mg/dl AST 18 (13-39) U/L ALT 19 (7-52) U/L Alkaline Phosphatase 75 (34-104) U/L Albumin 4.5 (3.4-5.0) gm/dl Diagnostic Findings Chest X-Ray 08/11/22 14:45 XR chest 1V portable HISTORY: 67 years-old Female chest pain . Chest pain COMPARISON: 05/01/2021 TECHNIQUE: AP view of the chest FINDINGS: Cardiomediastinal and hilar silhouettes are within normal limits. No pneumothorax, pleural effusion, airspace consolidation or overt pulmonary edema. Degenerative changes of the shoulders and spine. IMPRESSION: No acute process. ACT 112: Negative or not required by law. The above report was generated using voice recognition software. It may contain grammatical, syntax or spelling errors. Electronically signed by: Manjeet Fitzpatrick M.D. 08/11/2022 3:56 PM Code Status & VTE Plan Code Status Patient is a full code as per my discussion with her. VTE Prophylaxis Plan VTE Prophylaxis will be ordered: Yes Supervising Physician Co-Signing Physician Notes Patient is a 67-year-old female with past medical history of diabetes mellitus, morbid obesity, hypertension who presented to the hospital with chest pain located in the substernal and epigastric area. It is started 2 days ago after she was involved in the care of her and who was falling and patient try to keep her from falling so she had the unexpected stretch on her back associated with back pain. The pain has been bothering her since Thursday and patient decided to come to the hospital for further evaluation. She had a history of chest pain and about a year ago and had a cardiac catheterization which was unremarkable. 2 sets of cardiac enzymes and EKG are unremarkable for ischemic event Upon examination, her lungs are clear, patient has significant tenderness in the lower sternal area which is reproducible. Abdominal examination is unremarkable. Patient is morbidly obese Extremity examination is negative for cyanosis, clubbing or edema. Admit to telemetry Continue to monitor EKG and trend troponin Pain management with oral Tylenol/oxycodone (1) Hypertension Hypertension type: unspecified Qualified Code(s): I10 - Essential (primary) hypertension
--- NOTE | 2022-08-11 17:45 | XRay Report ---
XR cervical spine 2 or 3V CLINICAL HISTORY: left arm pain/numbness COMPARISON STUDY: Cervical spine radiographs April 10, 2014. CT of the neck December 20, 2019. FINDINGS: Slight anterolisthesis of C6 on C7 is unchanged since CT of December 20, 2019. This is due to facet arthrosis. There is moderate multilevel degenerative disc disease and moderate to severe fac et arthrosis within the cervical spine. C7 is slightly obscured. No acute fracture is identified with in visualized portions of the cervical spine. IMPRESSION: 1. No acute cervical spine fracture. C7 slightly obscured. 2. Moderate to severe multilevel degenerative changes. ACT 112: Negative or not required by law. Electronically signed by: Frank Coronado M.D. 08/11/2022 5:43 PM
--- NOTE | 2022-08-11 17:46 | XRay Report ---
XR thoracic spine 3V routine CLINICAL HISTORY: back pain COMPARISON STUDY: Chest radiograph September 02, 2008. FINDINGS: No thoracic spine fracture is noted. Vertebral body heights are maintained. No fractures id entified. Mild multilevel disc space narrowing and moderate osteophytosis within the thoracic spine i s present. IMPRESSION: 1. No thoracic spine fracture or subluxation. 2. Mild multilevel degenerative changes within the thoracic spine. ACT 112: Negative or not required by law. Electronically signed by: Frank Coronado M.D. 08/11/2022 5:44 PM
[2022-08-11] MEDS: INSULIN ASPART PER UNIT SC SCH ×2 (18:17→22:22)
[2022-08-11] MEDS ORDERED: hydrALAZINE HCL 20 MG/ML VIAL IV PRN (18:25)
[2022-08-11] MEDS ORDERED: MONTELUKAST SODIUM 10 MG TABLET PO SCH (21:00)
[2022-08-11] MEDS ORDERED: METOPROLOL SUCC 25MG EXT REL TAB PO SCH (21:00)
[2022-08-12 06:27] LABS: Hematocrit (blood only) 39.3 % (34.1-44.9); Hemoglobin 13.3 g/dl (12.0-16.0); Mean Corpuscular Hemoglobin 30.9 pg (25.0-34.0); Mean Corpuscular Hgb Conc 33.8 g/dL (32.0-36.0); Mean Corpuscular Volume 91.2 fL (80.0-100.0); Mean Platelet Volume 10.3 fL (9.4-12.3); Platelet Count 182 K/uL (130-400); RDW Coefficient of Variation 12.5 % (11.5-14.5); RDW Standard Deviation 41.4 fL (36.4-46.3); Red Blood Count 4.31 M/uL (3.93-5.22); White Blood Count 5.95 K/ul (4.8-10.8)
[2022-08-12 06:52] LABS: Calcium 9.2 mg/dl (8.5-10.1); Creatinine Clr Calc Pharmacy 78.2 ml/min; Est GFR (African American) 95.4 ml/min; Est GFR (Non-African American) 82.3 ml/min; Potassium 4.1 mmol/L (3.5-5.1)
[2022-08-12] MEDS: INSULIN ASPART PER UNIT SC SCH ×2 (07:59→12:41)
--- NOTE | 2022-08-12 08:45 | Cardiology Consultation ---
Date of Consultation August 12, 2022 Assessment & Plan (1) Left arm pain: (2) Chest pain: Plan The patient's chest and arm pain are musculoskeletal basically noncardiac. I think she can be discharged home. She did have an echocardiogram which I will review however, this should not prevent her from going home. History of Present Illness Attending Physician: Dave Shahid MD History of Present Illness This is a 67-year-old female who approximately a year ago presented with a non- STEMI and was found to have minor coronary artery disease. She had wall motion abnormalities consistent with Takotsubo stress-induced cardiomyopathy. Short time after her hospital admission she had an embolic occipital lobe stroke and an echocardiogram indicated an LV thrombus. She was anticoagulated for several months and follow-up echocardiography revealed that her LV function returned to normal and the thrombus resolved. I just saw this patient a few weeks ago and she was doing well. Apparently, the patient was struggling helping her mom out of the car and injured her upper back shoulder and chest with resulting pain. She presented to the emergency department. Her pain was thought to to be musculoskeletal and her EKG and cardiac markers were negative but she was admitted anyway for observation. Past medical history: 1. Stress-induced cardiomyopathy 2. Nonobstructive coronary artery disease by cardiac catheterization April 2021 3. Resolved left ventricular apical thrombus 4. Embolic CVA Allergies Allergy/AdvReac Type Severity Reaction Status Date / Time Penicillins Allergy Intermediate Hives Verified 05/01/21 15:25 Sulfa (Sulfonamide Allergy Intermediate Hives Verified 05/01/21 15:25 Antibiotics) albiglutide Allergy Unknown Abdominal Verified 05/01/21 15:25 pain,nausea,vomiting,rash and itchiness clindamycin Allergy Unknown Hives Verified 05/01/21 15:25 Corticosteroids Allergy Unknown Unknown Verified 05/01/21 15:25 (Glucocorticoids) Home Medications Medication Instructions Recorded Confirmed Type linagliptin 5 mg tablet (Tradjenta) 5 mg PO QAM 07/20/19 08/11/22 History metformin 500 mg tablet,extended 1,000 mg PO BIDM 07/20/19 08/11/22 History release 24 hr multivit-iron 18 mg-folic acid 400 1 tab PO QAM 07/20/19 08/11/22 History mcg-calcium 500 mg-minerals tablet (Women's One Daily) aspirin 81 mg tablet,delayed 81 mg PO QAM #21 tabs 12/23/19 08/11/22 Rx release cholecalciferol (vitamin D3) 50 1,000 unit PO QAM 12/26/19 08/11/22 History mcg (2,000 unit) chewable tablet atorvastatin 40 mg tablet 40 mg PO DAILY 07/31/20 08/11/22 History acetaminophen 650 mg 650 mg PO Q6H PRN Pain 04/13/21 08/11/22 History tablet,extended release calcium 150 mg tablet 150 mg PO DAILY 04/13/21 08/11/22 History empagliflozin 25 mg tablet 25 mg PO DAILY 04/13/21 08/11/22 History (Jardiance) lorazepam 1 mg tablet 1 mg PO DAILY PRN Vertigo 04/13/21 08/11/22 History montelukast 10 mg tablet 10 mg PO HS 04/13/21 08/11/22 History cyanocobalamin (vitamin B-12) 2,500 mcg PO Q2D 08/11/22 08/11/22 History 2,500 mcg tablet dextromethorphan-guaifenesin 30 1 tab PO DAILY 08/11/22 08/11/22 History mg-600 mg tablet extended [id number] hr (Mucinex DM) esomeprazole magnesium 40 mg 40 mg PO DAILY 08/11/22 08/11/22 History capsule,delayed release lisinopril 2.5 mg tablet 2.5 mg PO DAILY 08/11/22 08/11/22 History magnesium chloride 64 mg 128 mg PO DAILY 08/11/22 08/11/22 History (magnesium chloride) tablet,delayed release (Mag 64) meloxicam 7.5 mg tablet 7.5 mg PO Q2D 08/11/22 08/11/22 History metoprolol succinate 25 mg 25 mg PO HS 08/11/22 08/11/22 History tablet,extended release 24 hr metoprolol succinate 25 mg 50 mg PO QAM 08/11/22 08/11/22 History tablet,extended release 24 hr valacyclovir 1 gram tablet See Rx Instructions .Route .COMPLEX 08/11/22 08/11/22 History Patient History Medical History DM type 2 (diabetes mellitus, type 2) GERD (gastroesophageal reflux disease) History of CVA (cerebrovascular accident) HLD (hyperlipidemia) Hypertension Left ventricular mural thrombus s/p Coumadin NSTEMI (non-ST elevated myocardial infarction) 04/2021 Takotsubo cardiomyopathy Surgical History H/O shoulder surgery right, arthroscopic History of partial hysterectomy History of sinus surgery Hx of cardiac cath Family History Father , 62 from CVA Stroke, Onset Age: 40 Brother Heart disease Social History Smoking Status: Never smoker Tobacco Type: Cigarettes Second Hand Exposure: No; Hx Alcohol Use: No Hx Substance Use: Yes Prescribed Medications: Marijuana Preferred Language: Uzbek Communication Ability: Effective Rose Grader Required: No Beliefs That Will Affect Care: None marital status: Current Living Situation: Alone Other Information That Helps Us Care for You: No Feels Safe at Home: Yes Safety Concerns: Feels Safe At This Time Assistive Devices: Glasses Assistive Devices Comment: partial denture X 2 at home Review of Systems Review of Systems: Review of Systems: See HPI for pertinent positives. All other 10 point review of systems are negative. Physical Exam Physical Exam: General: no acute distress and stated age Head: normocephalic, no masses, lesions, tenderness or abnormalities Eyes: conjunctiva are pink and non-injected, sclera clear Neck: supple, no adenopathy, no bruits, normal jugular venous pulse, no hepatojugular reflux Chest: normal shape and normal respiratory effort Lungs: clear to auscultation and percussion Cardiac Exam: - regular rate & rhythm, no murmurs gallops or rubs - normal S1, normal S2 Pulses: 2(+) throughout Abdomen: abdomen soft, non-tender, no abnormal masses and no hepatosplenomegaly Musculoskeletal: no gait disturbance, no joint inflammation, no deforming arthritis Extremities: no edema and no cyanosis Neuro: grossly normal exam Results & Data ([facility]) Vital Signs (Past 12 Hours) Vital Signs Temp Pulse Pulse Resp BP Pulse Ox O2 Del Method 08/12/22 07:37 36.7 C 69 18 131/76 95 Room Air 08/12/22 00:00 67 08/12/22 03:18 36.7 C 118 H 18 111/70 94 Room Air 08/11/22 23:36 36.3 C L 72 20 134/80 96 Room Air 08/11/22 21:04 66 118/72 Laboratory Results Laboratory Results - last 24 hr 08/11/22 08/11/22 08/11/22 12:58 12:58 12:58 WBC 6.35 RBC 4.41 Hgb 13.5 Hct 41.2 MCV 93.4 MCH 30.6 MCHC 32.8 RDW Std Deviation 43.7 RDW Coeff of Brittney 12.6 Plt Count 177 MPV 9.8 Immature Gran % (Auto) 0.2 Neut % (Auto) 48.9 Lymph % (Auto) 38.3 Crisp % (Auto) 8.2 Eos % (Auto) 3.8 Baso % (Auto) 0.6 Neut # (Auto) 3.11 Lymph # (Auto) 2.43 Crisp # (Auto) 0.52 Eos # (Auto) 0.24 Baso # (Auto) 0.04 Immature Gran # (Auto) 0.01 PT 10.5 INR 1.0 APTT 29.4 PTT Ratio 1.1 Sodium 142 Potassium 4.1 Chloride 112 H Carbon Dioxide 22 Anion Gap 8 BUN 20 Creatinine 0.85 Est Cr Clr Drug Dosing Not Reportable Est GFR ( Amer) 83.3 Est GFR (Non-Af Amer) 71.9 BUN/Creatinine Ratio 23.5 H Glucose 145 H POC Glucose Calcium 9.4 Total Bilirubin 0.4 AST 18 ALT 19 Alkaline Phosphatase 75 Troponin I High Sens < 2.3 Total Protein 6.8 Albumin 4.5 Globulin 2.3 L Albumin/Globulin Ratio 2.0 SARS-CoV-2, RNA, NAAT 08/11/22 08/11/22 08/11/22 14:49 16:40 17:59 WBC RBC Hgb Hct MCV MCH MCHC RDW Std Deviation RDW Coeff of Brittney Plt Count MPV Immature Gran % (Auto) Neut % (Auto) Lymph % (Auto) Crisp % (Auto) Eos % (Auto) Baso % (Auto) Neut # (Auto) Lymph # (Auto) Crisp # (Auto) Eos # (Auto) Baso # (Auto) Immature Gran # (Auto) PT INR APTT PTT Ratio Sodium Potassium Chloride Carbon Dioxide Anion Gap BUN Creatinine Est Cr Clr Drug Dosing Est GFR ( Amer) Est GFR (Non-Af Amer) BUN/Creatinine Ratio Glucose POC Glucose 111 H Calcium Total Bilirubin AST ALT Alkaline Phosphatase Troponin I High Sens < 2.3 Total Protein Albumin Globulin Albumin/Globulin Ratio SARS-CoV-2, RNA, NAAT NEGATIVE 08/11/22 08/12/22 08/12/22 20:37 05:43 05:43 WBC 5.95 RBC 4.31 Hgb 13.3 Hct 39.3 MCV 91.2 MCH 30.9 MCHC 33.8 RDW Std Deviation 41.4 RDW Coeff of Brittney 12.5 Plt Count 182 MPV 10.3 Immature Gran % (Auto) Neut % (Auto) Lymph % (Auto) Crisp % (Auto) Eos % (Auto) Baso % (Auto) Neut # (Auto) Lymph # (Auto) Crisp # (Auto) Eos # (Auto) Baso # (Auto) Immature Gran # (Auto) PT INR APTT PTT Ratio Sodium 139 Potassium 4.1 Chloride 109 H Carbon Dioxide 24 Anion Gap 6 BUN 19 Creatinine 0.76 Est Cr Clr Drug Dosing 78.2 Est GFR ( Amer) 95.4 Est GFR (Non-Af Amer) 82.3 BUN/Creatinine Ratio 25.0 H Glucose 122 H POC Glucose 129 H Calcium 9.2 Total Bilirubin AST ALT Alkaline Phosphatase Troponin I High Sens Total Protein Albumin Globulin Albumin/Globulin Ratio SARS-CoV-2, RNA, NAAT 08/12/22 08/12/22 05:43 07:29 WBC RBC Hgb Hct MCV MCH MCHC RDW Std Deviation RDW Coeff of Brittney Plt Count MPV Immature Gran % (Auto) Neut % (Auto) Lymph % (Auto) Crisp % (Auto) Eos % (Auto) Baso % (Auto) Neut # (Auto) Lymph # (Auto) Crisp # (Auto) Eos # (Auto) Baso # (Auto) Immature Gran # (Auto) PT INR APTT PTT Ratio Sodium Potassium Chloride Carbon Dioxide Anion Gap BUN Creatinine Est Cr Clr Drug Dosing Est GFR ( Amer) Est GFR (Non-Af Amer) BUN/Creatinine Ratio Glucose POC Glucose 114 H Calcium Total Bilirubin AST ALT Alkaline Phosphatase Troponin I High Sens Pending Total Protein Albumin Globulin Albumin/Globulin Ratio SARS-CoV-2, RNA, NAAT Medications Administered Current Inpatient Medications Acetaminophen (Acetaminophen 325 Mg Tab) 650 mg PO Q4H PRN PRN Reason: Pain or Fever Stop: 09/10/22 16:23 Aspirin (Aspirin 81 Mg Ectab) 81 mg PO QAM [facility] Stop: 09/11/22 08:59 Last Admin: 08/12/22 07:59 Dose: 81 mg Atorvastatin Calcium (Atorvastatin 40 Mg Tab) 40 mg PO DAILY THAI Stop: 09/11/22 08:59 Last Admin: 08/12/22 07:59 Dose: 40 mg Dextrose (Dextrose 50% 50 Ml Syringe) 25 - 50 ml IV UD PRN; Protocol PRN Reason: Hypoglycemia Protocol Stop: 09/10/22 16:23 Enoxaparin Sodium (Enoxaparin Inj 40 Mg/0.4 Ml Syr) 40 mg SQ Q24H [facility] Stop: 09/10/22 16:23 Last Admin: 08/11/22 18:16 Dose: Not Given Glucagon (Glucagon For Inj 1 Mg Vial) 1 mg SQ UD PRN; Protocol PRN Reason: Hypoglycemia Protocol Stop: 09/10/22 16:23 Glucose (Glucose 40% Gel 15 Gm Tube) 15 - 30 gm PO UD PRN; Protocol PRN Reason: Hypoglycemia Protocol Stop: 09/10/22 16:23 Glucose (Glucose 10 Tab/Tube) 4 - 8 tab PO UD PRN; Protocol PRN Reason: Hypoglycemia Treatment Stop: 09/10/22 16:23 Hydralazine HCl (Hydralazine Hcl 20 Mg/Ml Vial) 10 mg IV Q6H PRN PRN Reason: SBP>160 Stop: 09/10/22 18:24 Insulin Aspart (Insulin Aspart Per Unit) 0 units SC ACHS [facility] Stop: 09/10/22 16:29 Last Admin: 08/12/22 07:59 Dose: 3 units Lisinopril (Lisinopril 2.5 Mg Tab) 2.5 mg PO DAILY [facility] Stop: 09/11/22 08:59 Last Admin: 08/12/22 07:59 Dose: 2.5 mg Metoprolol Succinate (Metoprolol Succ 50mg Ext Rel Tab) 50 mg PO QAM [facility] Stop: 09/11/22 08:59 Last Admin: 08/12/22 07:59 Dose: 50 mg Metoprolol Succinate (Metoprolol Succ 25mg Ext Rel Tab) 25 mg PO HS [facility] Stop: 09/10/22 20:59 Last Admin: 08/11/22 21:04 Dose: 25 mg Miscellaneous (Carbohydrates For Hypoglycemia ) 15 - 30 gm PO UD PRN PRN Reason: Hypoglycemia Protocol Stop: 09/10/22 16:23 Montelukast Sodium (Montelukast Sodium 10 Mg Tablet) 10 mg PO HS [facility] Stop: 09/10/22 20:59 Last Admin: 08/11/22 21:02 Dose: 10 mg Pantoprazole Sodium (Pantoprazole 40 Mg Tab) 40 mg PO DAILY THAI Stop: 09/11/22 08:59 Last Admin: 08/12/22 07:59 Dose: 40 mg
[2022-08-12] MEDS ORDERED: ASPIRIN 81 MG ECTAB PO SCH (09:00)
[2022-08-12] MEDS ORDERED: METOPROLOL SUCC 50MG EXT REL TAB PO SCH (09:00)
[2022-08-12] MEDS ORDERED: lisinopril 2.5 MG TAB PO SCH (09:00)
[2022-08-12] MEDS ORDERED: PANTOprazole 40 MG TAB PO SCH (09:00)
[2022-08-12] MEDS ORDERED: ATORVASTATIN 40 MG TAB PO SCH (09:00)
--- NOTE | 2022-08-12 14:44 | Electrocardiogram Report ---
Test Reason : Blood Pressure : / mmHG Vent. Rate : 073 BPM Atrial Rate : 073 BPM P-R Int : 156 ms QRS Dur : 092 ms QT Int : 416 ms P-R-T Axes : 043 -01 067 degrees QTc Int : 458 ms Normal sinus rhythm Normal ECG When compared with ECG of 11-AUG-2022 12:54, No significant change was found Confirmed by Livan Sevilla ([id number]) on 08/12/2022 2:44:41 PM Referred By: REFERRED SELF Confirmed By:Livan Sevilla
--- NOTE | 2022-08-12 19:48 | Discharge Summary ---
Discharge Summary Date of Service August 12, 2022 Notes For Next Care Provider Acute coronary syndrome ruled out Musculoskeletal etiology chest pain Medication Changes From Visit No changes Admission HPI Per Admitting Provider 67-year-old female with PMH DM type II, dyslipidemia, Takotsubo cardiomyopathy, history of left ventricular mural thrombus s/p Coumadin therapy, GERD, history of CVA, and other problems listed below who presents the ED for evaluation of chest, back, left arm pain. Patient reports that about 4 days ago, she was helping her aunt get into the car and her aunt almost fell and the patient caught her from falling on the ground. The following day, the patient noted that she had right-sided upper back pain.She then developed midsternal discomfort and also left shoulder and arm pain with numbness at times. Symptoms have been fairly consistent over the past few days. 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 Patient reports she did take a Tylenol PM last night and was able to sleep. She denies any associated shortness of breath, diaphoresis. She reports 1 episode of nausea this morning. No abdominal pain or vomiting. Denies fever and chills. No urinary symptoms. In the ED, HS trop is negative and EKG does not show any acute ST changes. Admission Exam Per Admitting Provider Constitutional: WD/WN, vitals as above Eyes: PERRL, conjunctivae normal, anicteric sclerae ENMT: external ear and nose normal, oropharynx normal Respiratory: normal respiratory effort, lungs clear to auscultation Cardiovascular: Rate/Rhythm: regular rate and regular rhythm Vessels: normal peripheral pulses Extremities: no edema Chest (Breasts): Additional Comments: midsternal chest tender to palpation Gastrointestinal (Abdomen): normal bowel sounds, soft, nontender, no hepatosplenomegaly Musculoskeletal: no cyanosis or clubbing, extremities motor strength 5/5 tenderness with palpation of left shoulder over the acromion process Skin: no rashes, warm and dry Neurologic: PERRL, EOMI, accommodation nl, no face palsy, no dysarthria Psychiatric: A+Ox3, euthymic affect Principal Dx & Hospital Course #1 = Principal Diagnosis (1) Chest pain: (2) Left arm pain: Per admitting service notes with addendum: Patient presenting from home with reports of midsternal chest, left arm, right upper back discomfort. A few days ago, the patient had caught her aunt before she fell to the ground. Initial HS trop negative, EKG without acute ST changes Serial trops, resting echo Midsternal chest and left arm discomfort reproducible on exam Symptoms seem to be musculoskeletal in nature. Check cervical and thoracic xrays. ?? If left arm symptoms are due to cervical disc disease. May need additional work up and imaging as an outpatient. 08/12 Chest pain resolved, no other new symptoms Troponins negative EKG no signs of acute ischemia or infarct Echocardiogram: Left ventricular systolic function is normal, EF 60 to 65%, right ventricular stock function is normal Grade 1 diastolic dysfunction No significant valvular pathology Evaluated by cardiology service, no further intervention at this point Cervical spine x-ray: 1. No acute cervical spine fracture. C7 slightly obscured. 2. Moderate to severe multilevel degenerative changes. Thoracic spine x-ray 1. No thoracic spine fracture or subluxation. 2. Mild multilevel degenerative changes within the thoracic spine. Follow-up with PCP in 1 week (3) History of CVA (cerebrovascular accident): In the setting of left ventricular mural thrombus, s/p Coumadin therapy No residual deficits Continue ASA and statin (4) Takotsubo cardiomyopathy: Hx of, with normalization of prior LV wall motion abnormality per echo 05/2021 Continue beta fish (5) DM type 2 (diabetes mellitus, type 2): Hgb A1c 7.4 06/2022 Continue usual regimen Follow-up as an outpatient (6) Hypertension: BP controlled, continue lisinopril and metoprolol (7) DVT prophylaxis: SQ Lovenox Discharge Exam General- oriented x 3, not in distress, speaks in sentences with no effort or accessory muscle use Eyes- anicteric Neck- no JVD No neck tenderness Lungs- clear breath sounds bilaterally, no rales/wheezes Heart- normal rate, regular rhythm; no murmurs Abdomen- normal bowel sounds, nondistended, soft, nontender Extremities- no pretibial edema, no calf tenderness Neuro- alert, oriented x 3; no gross focal neurologic deficits Skin- warm & dry Updated Medication List Medication Instructions Recorded Confirmed Type linagliptin 5 mg tablet (Tradjenta) 5 mg PO QAM 07/20/19 08/11/22 History metformin 500 mg tablet,extended 1,000 mg PO BIDM 07/20/19 08/11/22 History release 24 hr multivit-iron 18 mg-folic acid 400 1 tab PO QAM 07/20/19 08/11/22 History mcg-calcium 500 mg-minerals tablet (Women's One Daily) aspirin 81 mg tablet,delayed 81 mg PO QAM #21 tabs 12/23/19 08/11/22 Rx release cholecalciferol (vitamin D3) 50 1,000 unit PO QAM 12/26/19 08/11/22 History mcg (2,000 unit) chewable tablet atorvastatin 40 mg tablet 40 mg PO DAILY 07/31/20 08/11/22 History acetaminophen 650 mg 650 mg PO Q6H PRN Pain 04/13/21 08/11/22 History tablet,extended release calcium 150 mg tablet 150 mg PO DAILY 04/13/21 08/11/22 History empagliflozin 25 mg tablet 25 mg PO DAILY 04/13/21 08/11/22 History (Jardiance) lorazepam 1 mg tablet 1 mg PO DAILY PRN Vertigo 04/13/21 08/11/22 History montelukast 10 mg tablet 10 mg PO HS 04/13/21 08/11/22 History cyanocobalamin (vitamin B-12) 2,500 mcg PO Q2D 08/11/22 08/11/22 History 2,500 mcg tablet dextromethorphan-guaifenesin 30 1 tab PO DAILY 08/11/22 08/11/22 History mg-600 mg tablet extended [id number] hr (Mucinex DM) esomeprazole magnesium 40 mg 40 mg PO DAILY 08/11/22 08/11/22 History capsule,delayed release lisinopril 2.5 mg tablet 2.5 mg PO DAILY 08/11/22 08/11/22 History magnesium chloride 64 mg 128 mg PO DAILY 08/11/22 08/11/22 History (magnesium chloride) tablet,delayed release (Mag 64) meloxicam 7.5 mg tablet 7.5 mg PO Q2D 08/11/22 08/11/22 History metoprolol succinate 25 mg 25 mg PO HS 08/11/22 08/11/22 History tablet,extended release 24 hr metoprolol succinate 25 mg 50 mg PO QAM 08/11/22 08/11/22 History tablet,extended release 24 hr valacyclovir 1 gram tablet See Rx Instructions .Route .COMPLEX 08/11/22 08/11/22 History Hospital Stay Data Consultations 08/11/22 15:12 ED Decision to Admit Stat 08/12/22 08:14 Consult Cardiology Routine Diagnostic Imagining Performed Chest X-Ray 08/11/22 14:45 XR chest 1V portable HISTORY: 67 years-old Female chest pain . Chest pain COMPARISON: 05/01/2021 TECHNIQUE: AP view of the chest FINDINGS: Cardiomediastinal and hilar silhouettes are within normal limits. No pneumothorax, pleural effusion, airspace consolidation or overt pulmonary edema. Degenerative changes of the shoulders and spine. IMPRESSION: No acute process. ACT 112: Negative or not required by law. The above report was generated using voice recognition software. It may contain grammatical, syntax or spelling errors. Electronically signed by: Manjeet Fitzpatrick M.D. 08/11/2022 3:56 PM Cervical Spine X-Ray 08/11/22 16:09 XR cervical spine 2 or 3V CLINICAL HISTORY: left arm pain/numbness COMPARISON STUDY: Cervical spine radiographs April 10, 2014. CT of the neck December 20, 2019. FINDINGS: Slight anterolisthesis of C6 on C7 is unchanged since CT of December 20, 2019. This is due to facet arthrosis. There is moderate multilevel degenerative disc disease and moderate to severe facet arthrosis within the cervical spine. C7 is slightly obscured. No acute fracture is identified within visualized portions of the cervical spine. IMPRESSION: 1. No acute cervical spine fracture. C7 slightly obscured. 2. Moderate to severe multilevel degenerative changes. ACT 112: Negative or not required by law. Electronically signed by: Frank Coronado M.D. 08/11/2022 5:43 PM Thoracic Spine X-Ray 08/11/22 16:09 XR thoracic spine 3V routine CLINICAL HISTORY: back pain COMPARISON STUDY: Chest radiograph September 02, 2008. FINDINGS: No thoracic spine fracture is noted. Vertebral body heights are maintained. No fractures identified. Mild multilevel disc space narrowing and moderate osteophytosis within the thoracic spine is present. IMPRESSION: 1. No thoracic spine fracture or subluxation. 2. Mild multilevel degenerative changes within the thoracic spine. ACT 112: Negative or not required by law. Electronically signed by: Frank Coronado M.D. 08/11/2022 5:44 PM Pending Results Patient Have Any Pending Studies at Discharge: No Discharge Instructions Given to Patient (Per Discharging Provider) You may resume your usual medication regimen. No heavy lifting for 1 to 2 days. PLEASE CALL YOUR PRIMARY CARE PHYSICIAN OR RETURN TO THE ER IF WITH WORSENING OF SYMPTOMS, INCLUDING Chest pain, arm pain, shoulder pain, shortness of breath, dizziness or palpitations. FOLLOW UP WITH PRIMARY CARE PHYSICIAN OUTLINED ABOVE. Total Time Total Time Spent Total Time Spent (In Minutes): >30 minutes
== END 2022-08-12 15:01 | disposition home or self-care (01) ==
LOC: ED 12:49 → 2S 12:49 → SUATTDRO 15:42 → 2S 16:14
DX: Z79.82 Long term (current) use of aspirin; Z88.1 Allergy status to other antibiotic agents; M79.602 Pain in left arm; Z79.899 Other long term (current) drug therapy; I25.2 Old myocardial infarction; Z88.0 Allergy status to penicillin; I10 Essential (primary) hypertension; E78.5 Hyperlipidemia, unspecified; Z88.2 Allergy status to sulfonamides; Z79.84 Long term (current) use of oral hypoglycemic drugs; R07.89 Other chest pain; E11.9 Type 2 diabetes mellitus without complications; Z86.73 Personal history of transient ischemic attack (TIA), and cerebral infarction without residual deficits; I51.81 Takotsubo syndrome; Z88.8 Allergy status to other drugs, medicaments and biological substances

== ENCOUNTER 2024-04-13 11:23 | Observation (INO) ==
--- NOTE | 2024-04-13 11:40 | Emergency Department Note ---
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 IV was established and blood work was obtained. Initial EKG does not show any significant changes from comparison EKG. Blood work shows a normal white count H&H and platelet count. The patient's kidney function is unremarkable but with prerenal azotemia. Mild elevation in calcium at 10.4. Initial troponin negative. Patient did have a repeat obtained. The patient does have moderate risk heart score and I did speak with on-call cardiology Dr. Urias was able to perform a stress test. Lyme is negative. Chest x-ray without acute concerning findings. I did subsequently speak with Dr. Urias who stated the patient had an abnormal stress test and will be pending a cardiac catheterization tomorrow. Patient was reassessed and has no active chest pain. The patient was ordered 2 additional baby aspirin as the patient already taken 2 today. The patient was also ordered heparin bolus and drip. I did speak with the on-call hospital service Winnie Stubbs PA-C and the patient was admitted by Dr. Castañeda. Critical Care: I have personally spent 42 minutes of critical care time in direct management of this patient. This includes bedside care, interpretation of diagnostic studies, and testing, discussion with consultants, patient, and family members, and other require inpatient management activities. This 42 minutes is in excess of all separately billable procedures. Discussion w/ other healthcare providers: Dr. Urias with cardiology Winnie Stubbs PA-C and Dr. Castañeda inpatient medicine service Prior /Outside records reviewed: I reviewed a discharge summary from Dr. Shahid from August 2022. Patient with known history of Takotsubo type 2 diabetes hyperlipidemia LV thrombus status post Coumadin treatment. CVA presented for chest pain at that time. Patient had negative troponins and EKG without acute changes. Resting echo and serial troponins were performed. Echo showed normal LV function EF of 60 to 65% right ventricular function normal. Grade 1 diastolic dysfunction. Differential diagnosis: Cardiac ischemia, aortic dissection, pulmonary embolism, pneumothorax, pneumonia, pericarditis, myocarditis, GERD, cholecystitis, pancreatitis, musculoskeletal, as well as other pathologies were considered. Diagnostics, as interpreted by me: ECG: Normal sinus rhythm, rate of 80, normal intervals, normal axis Q-wave in lead III no obvious ST elevations, T wave version in aVL. EKG looks grossly unchanged from comparison EKG from April 30, 2023 Cardiac monitoring: An order was placed for continuous cardiac monitoring. The monitor shows a rate of 82 with sinus rhythm. Patient was placed on pulse oximetry Medical decision rules: Heart score Imaging studies: I informally interpreted the patient's chest x-ray does not show obvious pneumonia or pneumothorax with formal report to follow. HPI: Patient presents due to concern for chest pain that began Thursday. The patient states that she was moving 10 foot pieces of wood around and developed some centralized chest pain. The patient states that a day ago she did have some radiation under her right breast but has had no further radiation of pain. Patient describes it as a dull heaviness currently 4 out of 10 at its peak has been as high as an 8. Patient denies any prior history of stents or bypass but did have a prior blood clot which was treated after prior cardiac catheterization about 1 year ago. Patient is unsure as whether or not she had a stroke or clot but does have prior to TIAs. Patient states that she has had associated fatigue and had a some increase sleepiness to where she did work yesterday but slept from about 8 PM to 7 AM this morning which is atypical for her. Patient denies any cough or fever. Patient does have some associated shortness of breath. Patient denies any recent falls or trauma. Patient denies any known tick bites [place] [facility]. PAST MEDICAL HISTORY: See Below PAST SURGICAL HISTORY: See Below SOCIAL HISTORY: See Below HOME MEDICATIONS: See Below ALLERGIES: See Below VITALS: See Below PHYSICAL EXAMINATION: GENERAL: NAD, non-toxic. EYE EXAM: Normal conjunctiva. PERRL, no anisocoria and EOM's grossly intact w/o pain. OROPHARYNX: Moist mucus membranes, grossly normal dentition. NECK: Trachea midline, no stridor. Supple, no nuchal rigidity, no adenopathy, non-tender. No signs of meningismus. FROM of the neck with good chin to chest and neck extension. LUNGS: Clear to auscultation. Normal chest wall mechanics. HEART: NSR, no MRG. ABDOMEN: Abdomen soft, non-tender, no masses, no rebound or guarding. BACK: No CVA TTP. SKIN: No rashes and no bruising. UPPER EXTREMITIES: Upper extremities are grossly normal. LOWER EXTREMITIES: Grossly normal, no edema. NEURO EXAM: A&O x3, cranial nerves II-XII grossly intact, normal speech, moves all 4 extremities. 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 (Acute) Chest pain (Acute) History of coronary artery disease (Acute) Takotsubo cardiomyopathy Left arm pain (Acute) Chest pain History of CVA (cerebrovascular accident) NSTEMI (non-ST elevated myocardial infarction) 04/2021 DVT prophylaxis DM type 2 (diabetes mellitus, type 2) (Acute) Hypertension (Acute) HLD (hyperlipidemia) (Acute) GERD (gastroesophageal reflux disease) Medical History Left ventricular mural thrombus s/p Coumadin Surgical History Hx of cardiac cath H/O shoulder surgery right, arthroscopic History of sinus surgery History of partial hysterectomy Family History Father , 62 from CVA Stroke, Onset Age: 40 Brother Heart disease Social History Smoking Status: Current every day smoker Tobacco Type: Cigarettes Second Hand Exposure: No; Do You Dip or Chew Tobacco: No; Hx Alcohol Use: No Hx Substance Use: Yes Prescribed Medications: Marijuana Preferred Language: Nigerian Communication Ability: Effective Palliative Nurse Required: No Beliefs That Will Affect Care: None marital status: Current Living Situation: Alone Feels Safe at Home: Yes Assistive Devices: Glasses Allergies Allergies Allergy/AdvReac Type Severity Reaction Status Date / Time Penicillins Allergy Intermediate Hives Verified 04/30/23 21:43 Sulfa (Sulfonamide Allergy Intermediate Hives Verified 04/30/23 21:43 Antibiotics) albiglutide Allergy Unknown Abdominal Verified 04/30/23 21:43 pain,nausea,vomiting,rash and itchiness clindamycin Allergy Unknown Hives Verified 04/30/23 21:43 Corticosteroids Allergy Unknown Unknown Verified 04/30/23 21:43 (Glucocorticoids) Home Meds Home Medications Medication Instructions Recorded Confirmed linagliptin 5 mg tablet (Tradjenta) 5 mg PO QAM 07/20/19 04/30/23 metformin 500 mg tablet,extended 1,000 mg PO BIDM 07/20/19 04/30/23 release 24 hr multivit-iron 18 mg-folic acid 400 1 tab PO QAM 07/20/19 04/30/23 mcg-calcium 500 mg-minerals tablet (Women's One Daily) cholecalciferol (vitamin D3) 50 1,000 unit PO QAM 12/26/19 04/30/23 mcg (2,000 unit) chewable tablet atorvastatin 40 mg tablet 40 mg PO DAILY 07/31/20 04/30/23 acetaminophen 650 mg 650 mg PO Q6H PRN Pain 04/13/21 04/30/23 tablet,extended release empagliflozin 25 mg tablet 25 mg PO DAILY 04/13/21 04/30/23 (Jardiance) lorazepam 1 mg tablet 1 mg PO DAILY PRN Vertigo 04/13/21 04/30/23 montelukast 10 mg tablet 10 mg PO HS 04/13/21 04/30/23 cyanocobalamin (vitamin B-12) 2,500 mcg PO Q2D 08/11/22 04/30/23 2,500 mcg tablet dextromethorphan-guaifenesin 30 1 tab PO DAILY PRN Congestion 08/11/22 04/30/23 mg-600 mg tablet extended [id number] hr (Mucinex DM) esomeprazole magnesium 40 mg 40 mg PO DAILY 08/11/22 04/30/23 capsule,delayed release lisinopril 2.5 mg tablet 2.5 mg PO DAILY 08/11/22 04/30/23 magnesium chloride 64 mg 128 mg PO BID 08/11/22 04/30/23 (magnesium chloride) tablet,delayed release (Mag 64) meloxicam 7.5 mg tablet 7.5 mg PO Q2D 08/11/22 04/30/23 metoprolol succinate 25 mg 25 mg PO HS 08/11/22 04/30/23 tablet,extended release 24 hr metoprolol succinate 25 mg 50 mg PO QAM 08/11/22 04/30/23 tablet,extended release 24 hr valacyclovir 1 gram tablet See Rx Instructions .Route .COMPLEX 08/11/22 04/30/23 calcium carbonate 500 mg PO DAILY 04/30/23 04/30/23 magnesium oxide-magnesium amino 300 cap PO QAM 04/30/23 04/30/23 acid chelate 300 mg capsule (Magnesium (oxide/AA chelate)) Previous Rx's Medication Instructions Recorded aspirin 81 mg tablet,delayed 81 mg PO QAM #21 tabs 12/23/19 release Results & Data (ED) Vital Signs Vital Signs - 24 hr 04/13/24 11:26 04/13/24 12:23 04/13/24 12:30 Temperature 36.3 C L Temperature Source Temporal Artery Scan Pulse Rate 80 72 Pulse Rate [Left Apical] 72 Respiratory Rate 22 17 Respiratory Effort / Characteristics Non-Labored Spontaneous Respiratory Depth Normal Respiratory Pattern Regular Blood Pressure 168/84 H Blood Pressure [Right Arm] 137/73 Blood Pressure Mean 112 Blood Pressure Mean [Right Arm] 94 Pulse Oximetry 97 96 Oxygen Delivery Method Room Air Sepsis Recent Fever Within 48 Hours No Sepsis New/Unexplained Change in Mental Status N/A Sepsis Action Taken by Nursing No Action Required 04/13/24 13:00 04/13/24 13:30 04/13/24 16:15 Temperature Temperature Source Pulse Rate 73 Pulse Rate [Left Apical] 90 Respiratory Rate 20 18 Respiratory Effort / Characteristics Non-Labored Spontaneous Respiratory Depth Normal Respiratory Pattern Regular Blood Pressure 137/74 Blood Pressure [Right Arm] 176/98 H Blood Pressure Mean 89 Blood Pressure Mean [Right Arm] 124 Pulse Oximetry 93 98 Oxygen Delivery Method Room Air Room Air Sepsis Recent Fever Within 48 Hours Sepsis New/Unexplained Change in Mental Status Sepsis Action Taken by Nursing 04/13/24 16:15 04/13/24 16:30 04/13/24 16:41 Temperature Temperature Source Pulse Rate 92 H 84 Pulse Rate [Left Apical] Respiratory Rate 19 Respiratory Effort / Characteristics Respiratory Depth Respiratory Pattern Blood Pressure 178/104 H Blood Pressure [Right Arm] Blood Pressure Mean 144 Blood Pressure Mean [Right Arm] Pulse Oximetry 98 Oxygen Delivery Method Room Air Sepsis Recent Fever Within 48 Hours Sepsis New/Unexplained Change in Mental Status Sepsis Action Taken by Skilled Nursing Medications Current Medication List: was personally reviewed by me Laboratory Data Attestation: I reviewed the patient's lab results. 04/13/24 11:37 04/13/24 11:37 Lab Results 04/13/24 04/13/24 Range/Units 11:37 12:41 WBC 6.82 (4.8-10.8) K/ul RBC 4.76 (4.20-5.40) M/uL Hgb 14.3 (12.0-16.0) g/dl Hct 43.4 (37.0-47.0) % MCV 91.2 (80.0-100.0) fL MCH 30.0 (25.0-34.0) pg MCHC 32.9 (32.0-36.0) g/dL RDW Std Deviation 42.6 (36.4-46.3) fL RDW Coeff of Brittney 12.9 (11.5-14.5) % Plt Count 197 (130-400) K/uL MPV 9.6 (9.4-12.4) fL Immature Gran % (Auto) 0.3 % Neut % (Auto) 53.0 % Lymph % (Auto) 35.3 % [place] % (Auto) 7.6 % Eos % (Auto) 3.2 % Baso % (Auto) 0.6 % Neut # (Auto) 3.61 (1.40-6.50) K/uL Lymph # (Auto) 2.41 (1.20-3.40) K/uL [place] # (Auto) 0.52 (0.11-0.59) K/uL Eos # (Auto) 0.22 (0.00-0.50) K/uL Baso # (Auto) 0.04 (0.00-0.20) K/uL Immature Gran # (Auto) 0.02 (0.01-0.20) K/uL PT 10.7 (9.0-12.0) Seconds INR 1.0 (0.9-1.1) APTT 28 (21-31) Seconds PTT Ratio 1.0 Sodium 140 (136-145) mmol/L Potassium 4.3 (3.5-5.1) mmol/L Chloride 108 H (98-107) mmol/L Carbon Dioxide 21 (21-32) mmol/L Anion Gap 11 (3-11) BUN 24 H (6-23) mg/dl Creatinine 1.05 (0.6-1.2) mg/dl Est Cr Clr Drug Dosing 55.9 ml/min Est GFR ( Amer) 64.1 ml/min Est GFR (Non-Af Amer) 55.3 ml/min BUN/Creatinine Ratio 22.9 H (10-20) Glucose 161 H (70-99(Fasting)) mg/dl Calcium 10.4 H (8.6-10.3) mg/dl Total Bilirubin 0.4 (0.2-1.0) mg/dl AST 20 (13-39) U/L ALT 19 (7-52) U/L Alkaline Phosphatase 67 (34-104) U/L Troponin I High Sens 3.3 2.7 (0-14) pg/ml Total Protein 7.6 (6.0-8.3) gm/dl Albumin 4.8 (3.4-5.0) gm/dl Globulin 2.8 (2.5-4.0) gm/dl Albumin/Globulin Ratio 1.7 (0.9-2) Lyme Disease Screen Negative (Negative) Administered Medications Discontinued Medications Aspirin (Aspirin Chew 324 Mg) 162 mg PO NOW STA Stop: 04/13/24 15:59 Last Admin: 04/13/24 16:29 Dose: 162 mg Documented By: [facility] Perflutren Lipid Microsphere (Perflutren Lipid Microsphere (DefinHypecal)) 0.5 ml IV ONCE ONE Stop: 04/13/24 15:56 Last Admin: 04/13/24 15:55 Dose: 0.5 ml Documented By: VALORIET Imaging Data Radiologist's Impression: Chest X-Ray 04/13/24 11:30 XR chest 1V portable CLINICAL HISTORY: Chest pain, nonspecific TECHNIQUE: Single frontal radiograph of the chest was obtained. Comparison: Comparison is made to chest radiograph 11/13/2022 FINDINGS: No lines and tubes are seen. The cardiomediastinal silhouette is normal. The lungs are clear. No evidence of pleural effusion or pneumothorax. IMPRESSION: No acute chest disease. ACT 112: Negative or not required by law. Electronically signed by: Jayden Haskins M.D. 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, Abnormal stress echocardiogram, Chest pain Forms Stand Alone Forms: My [facility] Prescriptions Prescriptions: No Action metformin 500 mg tablet extended release 24 hr 1,000 mg PO BIDM Tradjenta 5 mg tablet 5 mg PO QAM Women's One Daily 18 mg iron-400 mcg-500 mg Ca Tablet 1 tab PO QAM atorvastatin 40 mg tablet 40 mg PO DAILY aspirin 81 mg Tablet,Delayed Release (Dr/Ec) 81 mg PO QAM Qty: 21 0RF cholecalciferol (vitamin D3) 2,000 unit Tablet,Chewable 1,000 unit PO QAM acetaminophen 650 mg Tablet Extended Release 650 mg PO Q6H PRN (Reason: Pain) montelukast 10 mg tablet 10 mg PO HS lorazepam 1 mg tablet 1 mg PO DAILY PRN (Reason: Vertigo) Jardiance 25 mg tablet 25 mg PO DAILY valacyclovir 1 gram tablet See Rx Instructions .ROUTE .COMPLEX Rx Instructions: as needed for cold sores meloxicam 7.5 mg tablet 7.5 mg PO Q2D esomeprazole magnesium 40 mg capsule,delayed release(DR/EC) 40 mg PO DAILY metoprolol succinate 25 mg tablet extended release 24 hr 25 mg PO HS Mucinex DM 30-600 mg Tablet Extended Release 12 Hr 1 tab PO DAILY PRN (Reason: Congestion) lisinopril 2.5 mg tablet 2.5 mg PO DAILY Mag 64 64 mg tablet,delayed release (DR/EC) 128 mg PO BID cyanocobalamin (vitamin B-12) 2,500 mcg Tablet 2,500 mcg PO Q2D metoprolol succinate 25 mg tablet extended release 24 hr 50 mg PO QAM calcium carbonate [Calcium 500] 500 mg calcium (1,250 mg) Tablet 500 mg PO DAILY Magnesium (oxide/AA chelate) 300 mg capsule 300 cap PO QAM Referrals Referrals: Jerrica Urias DO [Primary Care Provider] - Discharge Problem: 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 transplanted heart: resighini heart Qualified Code(s): I25.110 - Atherosclerotic heart disease of resighini coronary artery with unstable angina pectoris Chest pain Qualifiers: Chest pain type: chest pain due to myocardial ischemia Ischemic chest pain type: unstable angina pectoris Qualified Code(s): I20.0 - Unstable angina
[2024-04-13 12:07] LABS: Albumin Globulin Ratio 1.7 (0.9-2); Albumin Level 4.8 gm/dl (3.4-5.0); BUN Creatinine Ratio 22.9 (10-20); Bilirubin,Total 0.4 mg/dl (0.2-1.0); Calcium 10.4 mg/dl (8.6-10.3); Creatinine Clr Calc Pharmacy 55.9 ml/min; Est GFR (African American) 64.1 ml/min; Est GFR (Non-African American) 55.3 ml/min; Globulin 2.8 gm/dl (2.5-4.0); Potassium 4.3 mmol/L (3.5-5.1); Total Protein 7.6 gm/dl (6.0-8.3)
[2024-04-13 12:08] LABS: Basophils # (auto) 0.04 K/uL (0.00-0.20); Basophils % (auto) 0.6 %; Eosinophils # (auto) 0.22 K/uL (0.00-0.50); Eosinophils % (auto) 3.2 %; Hematocrit (blood only) 43.4 % (37.0-47.0); Hemoglobin 14.3 g/dl (12.0-16.0); Immature Granulocytes # (auto) 0.02 K/uL (0.01-0.20); Immature Granulocytes % (auto) 0.3 %; Lymphocytes # (auto) 2.41 K/uL (1.20-3.40); Lymphocytes % (auto) 35.3 %; Mean Corpuscular Hgb Conc 32.9 g/dL (32.0-36.0); Mean Corpuscular Volume 91.2 fL (80.0-100.0); Mean Platelet Volume 9.6 fL (9.4-12.4); Monocytes # (auto) 0.52 K/uL (0.11-0.59); Monocytes % (auto) 7.6 %; Neutrophils # (auto) 3.61 K/uL (1.40-6.50); Platelet Count 197 K/uL (130-400); RDW Coefficient of Variation 12.9 % (11.5-14.5); RDW Standard Deviation 42.6 fL (36.4-46.3); Red Blood Count 4.76 M/uL (4.20-5.40); White Blood Count 6.82 K/ul (4.8-10.8)
[2024-04-13 12:13] LABS: Troponin I High Sensitivity 3.3 pg/ml (0-14)
--- NOTE | 2024-04-13 12:14 | XRay Report ---
XR chest 1V portable CLINICAL HISTORY: Chest pain, nonspecific TECHNIQUE: Single frontal radiograph of the chest was obtained. Comparison: Comparison is made to chest radiograph 11/13/2022 FINDINGS: No lines and tubes are seen. The cardiomediastinal silhouette is normal. The lungs are clear. No evid ence of pleural effusion or pneumothorax. IMPRESSION: No acute chest disease. ACT 112: Negative or not required by law. Electronically signed by: Jayden Haskins M.D. 04/13/2024 12:13 PM
[2024-04-13 12:19] LABS: Partial Thromboplastin Time 28 Seconds (21-31); Prothrombin Time 10.7 Seconds (9.0-12.0)
--- NOTE | 2024-04-13 15:42 | Cardiology Consultation ---
Date of Consultation April 13, 2024 Assessment & Plan (1) Coronary artery disease involving [place] coronary artery with unstable angina pectoris: (2) Abnormal stress echocardiogram: (3) HLD (hyperlipidemia): (4) DM type 2 (diabetes mellitus, type 2): Plan 68-year-old female present to the emergency department with chest discomfort and exercise intolerance. Stress test demonstrating inferior posterior, and septal ischemia. Significantly reduced exercise tolerance noted. Recommend admission and observation overnight. Initiate IV heparin treatment. Continue aspirin, statin, and beta-fish therapy. Risk, benefits, terms to cardiac catheterization discussed. Patient agreeable to proceed in a.m. 04/13/2024. N.p.o. except medications after midnight. Discontinue heparin approximately 1 hour prior to procedure. All questions answered to patient's satisfaction. I spent a total of 50 minutes on the date of service in preparation, delivery, and documentation of the care provided to this patient, excluding any time spent in the performance of separately billed services. History of Present Illness Reason for Consultation: Chest discomfort, shortness of breath Requesting Physician: Dr. Nito Landeros Attending Physician: Dr. Landeros History of Present Illness 68-year-old female present to the emergency department secondary to chest discomfort. Symptoms began on Thursday. Discomfort occurred when moving would. Described as centralized discomfort with radiation under the right breast. Dull heaviness, 4/10 peaking at 8/10. Currently pain-free. History of Takotsubo cardiomyopathy and nonobstructive coronary disease per cardiac catheterization 2021. Treadmill stress testing performed demonstrating markedly reduced exercise tolerance. No exertional chest discomfort, however, patient exhibited significant dyspnea during exercise. ECG with ischemic ST changes near peak exercise lasting into recovery. Posterior, inferior, and septal wall motion abnormality on stress images. Allergies Allergy/AdvReac Type Severity Reaction Status Date / Time Penicillins Allergy Intermediate Hives Verified 04/30/23 21:43 Sulfa (Sulfonamide Allergy Intermediate Hives Verified 04/30/23 21:43 Antibiotics) albiglutide Allergy Unknown Abdominal Verified 04/30/23 21:43 pain,nausea,vomiting,rash and itchiness clindamycin Allergy Unknown Hives Verified 04/30/23 21:43 Corticosteroids Allergy Unknown Unknown Verified 04/30/23 21:43 (Glucocorticoids) Home Medications Medication Instructions Recorded Confirmed Type linagliptin 5 mg tablet (Tradjenta) 5 mg PO QAM 07/20/19 04/30/23 History metformin 500 mg tablet,extended 1,000 mg PO BIDM 07/20/19 04/30/23 History release 24 hr multivit-iron 18 mg-folic acid 400 1 tab PO QAM 07/20/19 04/30/23 History mcg-calcium 500 mg-minerals tablet (Women's One Daily) aspirin 81 mg tablet,delayed 81 mg PO QAM #21 tabs 12/23/19 04/30/23 Rx release cholecalciferol (vitamin D3) 50 1,000 unit PO QAM 12/26/19 04/30/23 History mcg (2,000 unit) chewable tablet atorvastatin 40 mg tablet 40 mg PO DAILY 07/31/20 04/30/23 History acetaminophen 650 mg 650 mg PO Q6H PRN Pain 04/13/21 04/30/23 History tablet,extended release empagliflozin 25 mg tablet 25 mg PO DAILY 04/13/21 04/30/23 History (Jardiance) lorazepam 1 mg tablet 1 mg PO DAILY PRN Vertigo 04/13/21 04/30/23 History montelukast 10 mg tablet 10 mg PO HS 04/13/21 04/30/23 History cyanocobalamin (vitamin B-12) 2,500 mcg PO Q2D 08/11/22 04/30/23 History 2,500 mcg tablet dextromethorphan-guaifenesin 30 1 tab PO DAILY PRN Congestion 08/11/22 04/30/23 History mg-600 mg tablet extended hr (Mucinex DM) esomeprazole magnesium 40 mg 40 mg PO DAILY 08/11/22 04/30/23 History capsule,delayed release lisinopril 2.5 mg tablet 2.5 mg PO DAILY 08/11/22 04/30/23 History magnesium chloride 64 mg 128 mg PO BID 08/11/22 04/30/23 History (magnesium chloride) tablet,delayed release (Mag 64) meloxicam 7.5 mg tablet 7.5 mg PO Q2D 08/11/22 04/30/23 History metoprolol succinate 25 mg 25 mg PO HS 08/11/22 04/30/23 History tablet,extended release 24 hr metoprolol succinate 25 mg 50 mg PO QAM 08/11/22 04/30/23 History tablet,extended release 24 hr valacyclovir 1 gram tablet See Rx Instructions .Route .COMPLEX 08/11/22 04/30/23 History calcium carbonate 500 mg PO DAILY 04/30/23 04/30/23 History magnesium oxide-magnesium amino 300 cap PO QAM 04/30/23 04/30/23 History acid chelate 300 mg capsule (Magnesium (oxide/AA chelate)) Patient History Medical History Left ventricular mural thrombus s/p Coumadin Surgical History Hx of cardiac cath H/O shoulder surgery right, arthroscopic History of sinus surgery History of partial hysterectomy Family History Father , 62 from CVA Stroke, Onset Age: 40 Brother Heart disease Social History Smoking Status: Current every day smoker Tobacco Type: Cigarettes Second Hand Exposure: No; Do You Dip or Chew Tobacco: No; Hx Alcohol Use: No Hx Substance Use: Yes Prescribed Medications: Marijuana Preferred Language: Occitan Communication Ability: Effective Family Day Care Worker Required: No Beliefs That Will Affect Care: None marital status: Current Living Situation: Alone Feels Safe at Home: Yes Assistive Devices: Glasses Review of Systems Review of Systems: All systems reviewed & are unremarkable except as noted in Subjective Physical Exam Constitutional: well developed and well nourished; no acute distress Respiratory: normal respiratory effort; no respiratory distress and no labored breathing Cardiovascular: Rate/Rhythm: regular rate and regular rhythm Heart Sounds: normal S1 and normal S2; no murmur Vessels: no JVD and no carotid bruit Extremities: no edema Gastrointestinal (Abdomen): Inspection/Auscultation: abdomen normal to inspection and normal bowel sounds; abdomen not distended Percussion/Palpation: abdomen soft; abdomen nontender, no guarding and abdomen not rigid Neurologic: CN's II-XI intact bilaterally and moves all extremities; no focal motor deficits Results & Data Vital Signs (Past 12 Hours) Vital Signs Temp Pulse Pulse Resp BP BP Pulse Ox 04/13/24 12:30 72 04/13/24 12:23 72 17 137/73 96 04/13/24 11:26 36.3 C L 80 22 168/84 H 97 O2 Del Method 04/13/24 12:30 04/13/24 12:23 Room Air 04/13/24 11:26 Laboratory Results Cardiac Enzymes 04/13/24 04/13/24 Range/Units 11:37 12:41 AST 20 (13-39) U/L Troponin I High Sens 3.3 2.7 (0-14) pg/ml Coagulation 04/13/24 Range/Units 11:37 PT 10.7 (9.0-12.0) Seconds APTT 28 (21-31) Seconds CBC 04/13/24 Range/Units 11:37 WBC 6.82 (4.8-10.8) K/ul RBC 4.76 (4.20-5.40) M/uL Hgb 14.3 (12.0-16.0) g/dl Hct 43.4 (37.0-47.0) % Plt Count 197 (130-400) K/uL Neut # (Auto) 3.61 (1.40-6.50) K/uL Lymph # (Auto) 2.41 (1.20-3.40) K/uL [place] # (Auto) 0.52 (0.11-0.59) K/uL Eos # (Auto) 0.22 (0.00-0.50) K/uL Baso # (Auto) 0.04 (0.00-0.20) K/uL Comprehensive Metabolic Panel 04/13/24 Range/Units 11:37 Sodium 140 (136-145) mmol/L Potassium 4.3 (3.5-5.1) mmol/L Chloride 108 H (98-107) mmol/L Carbon Dioxide 21 (21-32) mmol/L BUN 24 H (6-23) mg/dl Creatinine 1.05 (0.6-1.2) mg/dl Glucose 161 H (70-99(Fasting)) mg/dl Calcium 10.4 H (8.6-10.3) mg/dl AST 20 (13-39) U/L ALT 19 (7-52) U/L Alkaline Phosphatase 67 (34-104) U/L Total Protein 7.6 (6.0-8.3) gm/dl Albumin 4.8 (3.4-5.0) gm/dl Intake and Output 04/13/24 04/13/24 04/13/24 06:59 14:59 22:59 Other: Weight 92.9 kg Patient Weight 04/14/24 06:59 Weight 92.9 kg (3) HLD (hyperlipidemia) Hyperlipidemia type: unspecified Qualified Code(s): E78.5 - Hyperlipidemia, unspecified (4) DM type 2 (diabetes mellitus, type 2) Diabetes mellitus complication status: with other specified complication Diabetes mellitus fpc insulin use: unspecified ocean transportation intermediary insulin use statu s Qualified Code(s): E11.69 - Type 2 diabetes mellitus with other specified complication
[2024-04-13] MEDS: PERFLUTREN LIPID MICROSPHERE (DEFINITY) IV ONE (15:55)
[2024-04-13] MEDS ORDERED: HEPARIN SOD (PORCINE) 1000 UNIT/ML IV ONE (16:13)
[2024-04-13] MEDS: ASPIRIN CHEW 324 MG PO STA (16:29)
[2024-04-13] MEDS ORDERED: DEXTROSE 50% 50 ML SYRINGE IV PRN (16:40)
[2024-04-13] MEDS ORDERED: ALUMINUM/MAGNESIUM SUSP 30 ML UDC PO PRN (16:40)
[2024-04-13] MEDS ORDERED: ONDANSETRON INJ 2 MG/ML 2 ML VIAL IV PRN (16:40)
[2024-04-13] MEDS ORDERED: NITROGLYCERIN SL 0.4 MG/TAB TAB SL PRN (16:40)
[2024-04-13] MEDS ORDERED: GLUCOSE 10 TAB/TUBE PO PRN (16:40)
[2024-04-13] MEDS ORDERED: GLUCAGON FOR INJ 1 MG VIAL SQ PRN (16:40)
[2024-04-13] MEDS ORDERED: ACETAMINOPHEN 325 MG TAB PO PRN (16:40)
[2024-04-13] MEDS ORDERED: GLUCOSE 40% GEL 15 GM TUBE PO PRN (16:40)
[2024-04-13] MEDS ORDERED: CARBOHYDRATES FOR HYPOGLYCEMIA PO PRN (16:40)
[2024-04-13] MEDS ORDERED: POLYETHYLENE (MIRALAX) 17 GM PACK PO PRN (16:40)
--- NOTE | 2024-04-13 16:51 | History & Physical Report ---
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 Troponin x 2 negative, EKG with no new acute findings. 04/13 stress echocardiogramabnormal suggesting posterior and basal inferior ischemia. Exercise tolerance is markedly below average. EF 60 to 65%, grade 1 diastolic dysfunction. Cardiology evaluated, n.p.o. midnight, heparin drip, cath tomorrow. Telemetry monitoring, labs in a.m., monitor replete electrolytes. Trend troponin, EKG prn for chest pain. Other chronic medical conditions: Continue with/resume home meds as and when able. DVT prophylaxis: Patient on heparin drip Full code History of Present Illness Chief Complaint: Chest discomfort Primary Care Provider: Jerrica Urias DO 68-year-old female with PMH of CAD, Takotsubo cardiomyopathy, CVA, T2DM, HTN, HLD, GERD presented to the ED at referral of cardiology office secondary to abnormal stress stress test demonstrating inferior posterior and septal ischemia/significantly reduced exercise tolerance. 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 Patient denies any fever or chills or acute changes in her bowel or bladder habit. Patient reports her appetite minimally decreased due to upper abdominal discomfort. Patient reports smoking marijuana daily, denies alcohol and recreational drug use. Medications were reviewed with the patient Plan of care reviewed with the patient in detail, she was understanding. Full code as, discussed with the patient. Allergies Allergy/AdvReac Type Severity Reaction Status Date / Time Penicillins Allergy Intermediate Hives Verified 04/30/23 21:43 Sulfa (Sulfonamide Allergy Intermediate Hives Verified 04/30/23 21:43 Antibiotics) albiglutide Allergy Unknown Abdominal Verified 04/30/23 21:43 pain,nausea,vomiting,rash and itchiness clindamycin Allergy Unknown Hives Verified 04/30/23 21:43 Corticosteroids Allergy Unknown Unknown Verified 04/30/23 21:43 (Glucocorticoids) Home Medications Medication Instructions Recorded Confirmed Type linagliptin 5 mg tablet (Tradjenta) 5 mg PO QAM 07/20/19 04/30/23 History metformin 500 mg tablet,extended 1,000 mg PO BIDM 07/20/19 04/30/23 History release 24 hr multivit-iron 18 mg-folic acid 400 1 tab PO QAM 07/20/19 04/30/23 History mcg-calcium 500 mg-minerals tablet (Women's One Daily) aspirin 81 mg tablet,delayed 81 mg PO QAM #21 tabs 12/23/19 04/30/23 Rx release cholecalciferol (vitamin D3) 50 1,000 unit PO QAM 12/26/19 04/30/23 History mcg (2,000 unit) chewable tablet atorvastatin 40 mg tablet 40 mg PO DAILY 07/31/20 04/30/23 History acetaminophen 650 mg 650 mg PO Q6H PRN Pain 04/13/21 04/30/23 History tablet,extended release empagliflozin 25 mg tablet 25 mg PO DAILY 04/13/21 04/30/23 History (Jardiance) lorazepam 1 mg tablet 1 mg PO DAILY PRN Vertigo 04/13/21 04/30/23 History montelukast 10 mg tablet 10 mg PO HS 04/13/21 04/30/23 History cyanocobalamin (vitamin B-12) 2,500 mcg PO Q2D 08/11/22 04/30/23 History 2,500 mcg tablet dextromethorphan-guaifenesin 30 1 tab PO DAILY PRN Congestion 08/11/22 04/30/23 History mg-600 mg tablet extended vekbtbd20 hr (Mucinex DM) esomeprazole magnesium 40 mg 40 mg PO DAILY 08/11/22 04/30/23 History capsule,delayed release lisinopril 2.5 mg tablet 2.5 mg PO DAILY 08/11/22 04/30/23 History magnesium chloride 64 mg 128 mg PO BID 08/11/22 04/30/23 History (magnesium chloride) tablet,delayed release (Mag 64) meloxicam 7.5 mg tablet 7.5 mg PO Q2D 08/11/22 04/30/23 History metoprolol succinate 25 mg 25 mg PO HS 08/11/22 04/30/23 History tablet,extended release 24 hr metoprolol succinate 25 mg 50 mg PO QAM 08/11/22 04/30/23 History tablet,extended release 24 hr valacyclovir 1 gram tablet See Rx Instructions .Route .COMPLEX 08/11/22 04/30/23 History calcium carbonate 500 mg PO DAILY 04/30/23 04/30/23 History magnesium oxide-magnesium amino 300 cap PO QAM 04/30/23 04/30/23 History acid chelate 300 mg capsule (Magnesium (oxide/AA chelate)) Past Med/Surg History Problem List (Updated 04/13/24 @ 15:38 by Gilberto Urias DO) Abnormal stress echocardiogram Coronary artery disease involving match-e-be-nash-she-wish band coronary artery with unstable angina pectoris Chest pain (Acute) History of coronary artery disease (Acute) Takotsubo cardiomyopathy Left arm pain (Acute) Chest pain History of CVA (cerebrovascular accident) NSTEMI (non-ST elevated myocardial infarction) 04/2021 DVT prophylaxis DM type 2 (diabetes mellitus, type 2) (Acute) Hypertension (Acute) HLD (hyperlipidemia) (Acute) GERD (gastroesophageal reflux disease) Medical History Left ventricular mural thrombus s/p Coumadin Surgical History Hx of cardiac cath H/O shoulder surgery right, arthroscopic History of sinus surgery History of partial hysterectomy Family History Father , 62 from CVA Stroke, Onset Age: 40 Brother Heart disease Social History Smoking Status: Current every day smoker Tobacco Type: Cigarettes Second Hand Exposure: No; Do You Dip or Chew Tobacco: No; Hx Alcohol Use: No Hx Substance Use: Yes Prescribed Medications: Marijuana Preferred Language: Spanish Communication Ability: Effective Talent Acquisition Coordinator Required: No Beliefs That Will Affect Care: None marital status: Current Living Situation: Alone Feels Safe at Home: Yes Assistive Devices: Glasses Review of Systems Review of Systems: Negative otherwise mentioned in HPI. Physical Exam Physical Exam: GENERAL: Alert and oriented x3. NAD, on RA. HEENT: No pallor, no icterus. Pupils equal, round and reactive to light. Oral mucosa moist. NECK: No JVD, no neck masses. HEART: S1 and S2 heard. Regular rate and rhythm. No murmur, no gallop. RESPIRATORY SYSTEM: Normal AP diameter. No accessory muscle use. No wheezing, no crackles. ABDOMEN: Soft, bowel sounds present, nontender, no distention. CENTRAL NERVOUS SYSTEM: No facial droop. Speech is clear. Obeys simple commands. Moves extremities. EXTREMITIES: No edema, no erythema seen. Results & Data Results & Data Vital Signs (Past 12 Hours) Vital Signs Temp Pulse Pulse Resp BP BP Pulse Ox 04/13/24 16:41 84 04/13/24 16:30 178/104 H 04/13/24 16:15 92 H 19 98 04/13/24 16:15 90 18 176/98 H 98 04/13/24 13:30 73 20 93 04/13/24 13:00 137/74 04/13/24 12:30 72 04/13/24 12:23 72 17 137/73 96 04/13/24 11:26 36.3 C L 80 22 168/84 H 97 O2 Del Method 04/13/24 16:41 04/13/24 16:30 04/13/24 16:15 Room Air 04/13/24 16:15 Room Air 04/13/24 13:30 Room Air 04/13/24 13:00 04/13/24 12:30 04/13/24 12:23 Room Air 04/13/24 11:26
[2024-04-13] MEDS: HEPARIN SODIUM/DEXTROSE 25,000 UNITS/500 ML BAG IV SCH (17:32)
[2024-04-13] MEDS: HEPARIN SOD (PORCINE) 1000 UNIT/ML IV ONE (17:33)
[2024-04-13] MEDS: Heparin IV Adult Wt-Based Low-Dose w/ INITIAL Bolus Protocol IV STA (17:33)
--- NOTE | 2024-04-13 17:46 | Electrocardiogram Report ---
Test Reason : Blood Pressure : / mmHG Vent. Rate : 080 BPM Atrial Rate : 080 BPM P-R Int : 156 ms QRS Dur : 090 ms QT Int : 382 ms P-R-T Axes : 028 -03 076 degrees QTc Int : 440 ms Normal sinus rhythm When compared with ECG of 30-APR-2023 20:12, No significant change was found Confirmed by Saeed Hoyt ([id number]) on 04/13/2024 5:46:02 PM Referred By: REFERRED SELF Confirmed By:Cristino Hoyt
[2024-04-13] MEDS: INSULIN ASPART PER UNIT CHARGE SC SCH (20:38)
[2024-04-13] MEDS: LANTUS PER UNIT CHARGE SQ SCH (20:49)
[2024-04-13] MEDS: MAGNESIUM CHLORIDE W/CALCIUM 64MG DELAYED REL TAB PO SCH (20:50)
[2024-04-13] MEDS: MONTELUKAST SODIUM 10 MG TABLET PO SCH (20:50)
[2024-04-13] MEDS: METOPROLOL SUCC 25MG EXT REL TAB PO SCH (20:50)
[2024-04-14 00:09] LABS: ANTI-Xa, UFH(UnfractionatedHep 0.51 IU/ml (0.3-0.7)
[2024-04-14 06:10] LABS: Hematocrit (blood only) 40.9 % (37.0-47.0); Hemoglobin 13.3 g/dl (12.0-16.0); Mean Corpuscular Hemoglobin 30.1 pg (25.0-34.0); Mean Corpuscular Hgb Conc 32.5 g/dL (32.0-36.0); Mean Corpuscular Volume 92.5 fL (80.0-100.0); Mean Platelet Volume 9.9 fL (9.4-12.4); Platelet Count 184 K/uL (130-400); RDW Coefficient of Variation 12.8 % (11.5-14.5); RDW Standard Deviation 43.4 fL (36.4-46.3); Red Blood Count 4.42 M/uL (4.20-5.40); White Blood Count 6.08 K/ul (4.8-10.8)
[2024-04-14 06:19] LABS: BUN Creatinine Ratio 25.8 (10-20); Calcium 9.8 mg/dl (8.6-10.3); Creatinine Clr Calc Pharmacy 65.7 ml/min; Est GFR (African American) 78.3 ml/min; Est GFR (Non-African American) 67.5 ml/min; Magnesium 1.4 mg/dl (1.7-2.4); Phosphorus 3.9 mg/dl (2.5-4.9); Potassium 4.3 mmol/L (3.5-5.1)
[2024-04-14 06:31] LABS: ANTI-Xa, UFH(UnfractionatedHep 0.37 IU/ml (0.3-0.7)
[2024-04-14 07:18] LABS: Estimated Average Glucose 192 mg/dl; Hemoglobin A1C 8.3 % (4.5-5.6)
[2024-04-14] MEDS: ATORVASTATIN 40 MG TAB PO SCH (07:36)
[2024-04-14] MEDS: lisinopril 2.5 MG TAB PO SCH (07:36)
[2024-04-14] MEDS: METOPROLOL SUCC 50MG EXT REL TAB PO SCH (07:36)
[2024-04-14] MEDS: ASPIRIN 81 MG ECTAB PO SCH (07:36)
[2024-04-14] MEDS ORDERED: Nursing to Pharmacy Communication SCH (08:30)
[2024-04-14] MEDS ORDERED: NON-FORMULARY MEDICATION (Magnesium Oxide-Mg Aa Chelate [Magnesium (Oxide/Aa Chelate)] 300 PO SCH (09:00)
[2024-04-14] MEDS: MAGNESIUM SULFATE / D5W 1 GM/100 ML BAG IV ONE (09:46)
[2024-04-14] MEDS: LORazepam 1 MG TAB PO PRN (10:18)
--- NOTE | 2024-04-14 10:58 | Pre Anesthesia Assessment ---
Date of Service April 14, 2024 Pre Sedation Assessment Vital Signs Temp Pulse Pulse Resp BP BP Pulse Ox 04/14/24 10:59 78 14 170/82 H 98 04/14/24 08:00 58 L 04/14/24 07:12 36.8 C 66 16 120/77 95 04/14/24 03:04 36.6 C 66 18 122/79 98 04/13/24 23:28 59 L 04/13/24 22:41 36.6 C 66 18 126/77 98 04/13/24 20:19 36.6 C 79 18 156/82 H 95 04/13/24 20:17 79 04/13/24 18:59 86 18 159/98 H 96 04/13/24 18:59 82 18 96 04/13/24 17:39 93 H 16 93 04/13/24 17:30 139/93 04/13/24 17:03 90 15 191/98 H 96 04/13/24 16:41 84 04/13/24 16:30 178/104 H 04/13/24 16:15 92 H 19 98 04/13/24 16:15 90 18 176/98 H 98 04/13/24 13:30 73 20 93 04/13/24 13:00 137/74 O2 Del Method 04/14/24 10:59 Room Air 04/14/24 08:00 04/14/24 07:12 Room Air 04/14/24 03:04 Room Air 04/13/24 23:28 04/13/24 22:41 Room Air 04/13/24 20:19 Room Air 04/13/24 20:17 04/13/24 18:59 Room Air 04/13/24 18:59 Room Air 04/13/24 17:39 Room Air 04/13/24 17:30 04/13/24 17:03 04/13/24 16:41 04/13/24 16:30 04/13/24 16:15 Room Air 04/13/24 16:15 Room Air 04/13/24 13:30 Room Air 04/13/24 13:00 Cardiovascular + regular rate and + regular rhythm + S1 normal and + S2 normal; no murmur + femoral pulses present and + radial pulses present; no JVD and no carotid bruit Respiratory + respiratory effort normal; no respiratory distress no crackles, no rales, no rhonchi and no wheezes Pre-Sedation Airway Assessment Smoking Status: Current every day smoker Hx Sleep Apnea: No Hx Difficult Intubation: No Mallampati Class: II ASA: ASA3 NPO Status Date of Last Intake of Fluids: 04/14/24 Date of Last Intake of Solid Food: 04/13/24 Procedure Planning Contraindications for Sedation: none Current Medications Reviewed: Yes Notes The planned sedation has been discussed with the patient. Informed Consent was obtained. I have identified the patient, determined the appropriateness of sedation and have assessed the patient immediately prior to the procedure. All medicine(s) and interventions are by my order.
[2024-04-14] MEDS: niCARdipine HCL INJ 2.5 MG/ML 10 ML AMP ONE (11:49)
[2024-04-14] MEDS: NITROGLYCERIN/D5W 100MCG/ML 20ML SYR ONE (11:49)
[2024-04-14] MEDS: fentaNYL citrate PF 100 MCG/2 ML VIAL ONE (12:36)
[2024-04-14] MEDS: MIDAZOLAM HCL 1 MG/ML 2ML VIAL ONE (12:37)
[2024-04-14] MEDS: OPTIRAY 350 ONE (12:37)
[2024-04-14] MEDS: HEPARIN (PORCINE) 1000 UNIT/ML 10 ML (CATH LAB USE ONLY) ONE (12:37)
[2024-04-14] MEDS: LABETALOL HCL IV 5 MG/ML 20ML (CATH LAB USE ONLY) IV ONE (12:39)
--- OUTSIDE RECORDS SUMMARY | 2024-04-14 12:42 | External Medical Summary ---
Author Name Unknown Address Unknown Organization K01:[place] [facility] [place] [address] [place] [address] Laboratory Report Ordering Provider Test Date Status KANE ESTRADA 03/24/2024 09:03:46 Final Observation Date Value Abnormality Reference (Units ) Status BUN 03/24/2024 09:03:46 23 Above high normal 6-20 (mg/dL) Final Creatinine 03/24/2024 09:03:46 0.9 0.5-1.0 (mg/dL) Final Glomerular filtration rate/1.73 sq M.predicted [Volume Rate/Area] in Serum, Plasma or Blood by Creatinine-based formula (CKD-EPI) 03/24/2024 09:03:46 67 >=60 (mL/min) Final eGFR is calculated based on the CKD-EPI 2020 equation Sodium 03/24/2024 09:03:46 142 135-146 (m mol/L) Final Potassium 03/24/2024 09:03:46 4.6 3.5-5.1 (m mol/L) Final Cl 03/24/2024 09:03:46 108 Above high normal 98 -107 (mmol/L) Final CO2 03/24/2024 09:03:46 22 22-32 (mmo l/L) Final Anion gap 03/24/2024 09:03:46 12 7-15 (mmol /L) Final Glucose 03/24/2024 09:03:46 205 Above high normal 70 -120 (mg/dL) Final Calcium 03/24/2024 09:03:46 9.9 8.4-10.2 ( mg/dL) Final Performing Location [place] [facility] [place] [address] [place] [address]
--- OUTSIDE RECORDS SUMMARY | 2024-04-14 12:42 | External Medical Summary | Summary of Care ---
Author Name Unknown Organization [facility] Address [address] [place] [address] Phone [phone] Care Team Providers Care Transfill Technician Name Role Phone Jerrica Urias DO Primary Care Provider [phone] Reason for Visit * Reason Comments Outpatient Testing Encounter Details Date Type Department Care Team (Late st Contact Info) Description 03/24/2024 9:10 AM EDT Laboratory Laboratory, [facility] [address] [place] [address] [facility] [address] [place] [address] Type 2 diabetes mellitus with hemoglobin A1c goal of less than 7.0% ([facility]); Hypomagnesemia; Arthralgia, unspecified joint Allergies Active Allergy Reactions Criticality Noted Date Comments Clindamycin Hives 04/14/2018 Penicillins Hives High 01/17/2014 Sulfate Hives High 01/17/2014 Albiglutide Abdominal pain,Itching,Nausea/vomiting,Rash 05/25/2017 documented as of this encounter (statuses as of 03/24/2024) Medications Medication Sig Dispensed Refills Start Date End Date Status ASPIRIN 81 MG PO CHEW Take 1 Tablet by mouth in the morning. 100 Tab 5 01/17/2014 Active ONETOUCH ULTRASOFT LANCETS MISCIndications:DM type 1, goal A1c below 7 Use up to four times a day as directed DX 250.01 1 Box 11 02/23/2014 Active Vitamin B-12 ER 1000 MCG Oral Tablet Extended Release Take by mouth 2,500 mcg every other day . Active Acetaminophen 325 MG Oral Tablet Take 2 Tablets by mouth in the morning. Active Mometasone Furoate (NASONEX) 50 MCG/ACT nasal sprayIndications:Chr onic rhinitis Administer 2 Sprays into each nostril daily. 1 Inhaler 11 12/27/2019 Active Additional Information Patient taking differently:2 [place] Each NostrilPRN, Rhinitis, Reported on 06/11/2023 Vitamin D3 (CHOLECALCIFEROL) 400 UNIT TabletIndications:st ates using 1000 units every morning Take 1 Tablet by mouth in the morning. Active Calcium 150 MG Tablet Take 1 Tablet by mouth in the morning. Active OneTouch Verio w/Device KitIndications:Type 2 diabetes, HbA1c goal < 7% (HCC) Use up to 4 times a day E11.9 1 Kit 01/16/2021 Active valACYclovir HCl 1 GM Oral Tablet (Valtrex)Indications :Cold sore TAKE 2 TABLETS BY MOUTH EVERY 12 HRS X 1 DAYS FOR COLD SORES 4 Tablet 3 09/24/2021 Active OneTouch Verio In Vitro Strip (Glucose Blood) USE UP TO 4 TIMES A DAY E11.9 100 Strip 11 09/09/2022 Active LORazepam 1 MG Oral Tablet (Ativan)Indications: Vertigo One pill by mouthas needed for veritgo 30 Tablet 01/01/2023 Active Additional Information Patient taking differently: One pill by mouth as needed for veritgo, pt stated she splits them into 1/4's, Reported on 06/11/2023 Atorvastatin Calcium 40 MG Oral Tablet (Lipitor)Indications :Dyslipidemia, goal LDL below 100 TAKE 1 TABLET BY MOUTH EVERY DAY 90 Tablet 2 08/14/2023 Active Metoprolol Succinate ER 25 MG Oral Tablet Extended Release 24 Hour (toPROL XL)Indications:Takot subo cardiomyopathy,Hypot ension due to drugs,Occipital stroke (HCC) Take 2 Tablets by mouth in the morning. 180 Tablet 1 09/14/2023 Active metFORMIN HCl ER 500 MG Oral Tablet Extended Release 24 Hour (Glucophage XR)Indications:Type 2 diabetes mellitus with hemoglobin A1c goal of less than 7.0% (HCC) TAKE 2 TABLETS BY MOUTH TWICE A DAY 360 Tablet 1 09/18/2023 Active linaGLIPtin 5 MG Oral Tablet (Tradjenta)Indicatio ns:Type 2 diabetes mellitus with hemoglobin A1c goal of less than 7.0% (HCC) Take 1 Tablet by mouth in the morning. 90 Tablet 3 09/18/2023 Active guaiFENesin ER 600 MG Oral Tablet Extended Release 12 Hour (Mucinex) Take 1 Tablet by mouth in the morning and 1 Tablet before bedtime. Active Magnesium 300 MG Oral CapsuleIndications:H ypomagnesemia Take 300 mg by mouth in the morning. 90 Capsule 3 11/09/2023 Active Mag64 64 MG Oral Tablet Delayed Release (magnesium chloride ER) TAKE 2 TABLETS BY MOUTH TWICE A DAY 360 Tablet 3 12/11/2023 Active Montelukast Sodium 10 MG Oral Tablet (Singulair)Indicatio ns:Chronic allergic rhinitis TAKE 1 TABLET BY MOUTH EVERY DAY 90 Tablet 3 12/11/2023 Active Omeprazole 20 MG Oral Capsule Delayed Release (PriLOSEC) Take 1 Capsule by mouth in the morning. 1 hour before the first meal of the day. 90 Capsule 3 12/16/2023 Active Meloxicam 7.5 MG Oral Tablet (Mobic)Indications:E ncounter for long-term (current) use of other medications TAKE 1 TABLET BY MOUTH EVERY DAY 90 Tablet 1 12/28/2023 Active Lisinopril 2.5 MG Oral Tablet (Prinivil)Indication s:Takotsubo cardiomyopathy TAKE 1 TABLET BY MOUTH EVERY DAY 90 Tablet 1 12/28/2023 Active Jardiance 25 MG Oral Tablet (Empagliflozin)Indic ations:Type 2 diabetes mellitus with hemoglobin A1c goal of less than 7.0% (HCC) TAKE 1 TABLET BY MOUTH EVERY DAY 90 Tablet 1 12/28/2023 Active documented as of this encounter (statuses as of 03/24/2024) Active Problems Problem Noted Date Diagnosed Date Chronic allergic rhinitis 02/05/2023 Class 2 severe obesity with serious comorbidity and body mass index (BMI) of 38.0 to 38.9 in adult 02/05/2023 Takotsubo cardiomyopathy 04/19/2021 Occipital stroke 04/19/2021 Left ventricular mural thrombus 04/19/2021 Non-intractable vomiting with nausea 05/14/2017 Abdominal pain, generalized 05/14/2017 Change in consistency of stool 05/14/2017 Dyslipidemia, goal LDL below 100 10/04/2014 Type 2 diabetes mellitus wit h hemoglobin A1c goal of less than 7.0% 03/20/2014 Overview: ICD-10 update of inactive term GERD (gastroesophageal reflux disease) 4 documented as of this encounter (statuses as of 03/24/2024) Resolved Problems Problem Noted Date Diagnosed Date Resolved Date Body mass index (BMI) of 40. 0 to 44.9 in adult 02/07/2019 08/18/2022 Overview: Per Obesity protocol #1 Cold sore 11/14/2014 02/03/2017 Viral URI 11/14/2014 02/03/2017 Type 1 diabetes mellitus wit h hemoglobin A1c goal of less than 7.0% 01/17/2014 03/20/2014 Overview: ICD-10 update of inactive term Vertigo 01/17/2014 04/10/2017 documented as of this encounter (statuses as of 03/24/2024) Immunizations Name Administration Dates Next Due COVID-19 mRNA, LNP-s, No Pre serve, 2-Dose Series ([email or web address]) 03/23/2021,02/21/2021 HEP A - Hepatitis A (Adult > 18 yrs) 04/08/2012, 08/06/2011 Hepatitis B, 20+ yrs 04/08/2012,09/07/2011,08/06 Pneumococcal Conjugate Vacci ne, 20-valent ([id number]) 06/26/2022 Pneumococcal Polysaccharide PPV23 (Pneumovax) 08/07/2013 Seasonal Influenza, PF, 6 M & above, IM , (FluLaval or Fluzone) 07/15/2021,08/02/2020,07/25/2019,0903/2018 Seasonal Influenza, Quadriva lent Hd (Fluzone Hd) 08/20/2023,08/18/2022 Seasonal Influenza, Quadriva lent, No Preserve, IM 07/15/2017,08/27/2016 Seasonal Influenza, Split, I IV3, With Preserve, Inj 07/16/2015,09/07/2014,08/07/2013 TDAP (age 10 and older)(Boostrix) 04/30/2015 04/30/2025 Zoster Vaccine Recombinant (Shingrix) 01/20/2019 ,07/07/2018 documented as of this encounter Social History Tobacco Use Types Packs/Day Years Used Date Smoking Tobacco: Former Passive Smoke Exposure: Past Smokeless Tobacco: Never Comments:11/21/20 currently smoking 5-7 cig/week Alcohol Use Standard Drinks/Week Comments Not Currently 0 (1 standard drink = 0.6 oz pur e alcohol) Occasionally PHQ-2 Answer Date Recorded PHQ Adult Total Score 0 02/24/2022 Hunger Vital Sign Answer Date Recorded Within the past 12 months, y ou worried that your food would run out before you got the money to buy more. Never true 11/17/19 23 Within the past 12 months, t he food you bought just didn't last and you didn't have money to get more. Never true 11/17/2022 Sex and Gender Information Value Date Recorded Sex Assigned at Female 07/20/2019 6:25 PM EDT Gender Identity Female 07/20/2019 6:25 PM EDT Sexual Orientation Straight 07/20/2019 6: 25 PM EDT Job Start Date Occupation Industry Not on file Not on file Not on file documented as of this encounter Functional Status Functional Status Response Date of Assess ment Are you deaf or do you have serious difficulty h earing? No 06/14/2014 Are you blind or do you have serious difficulty seeing, even when wearing glasses? No 06/14/2014 Do you have serious difficul ty walking or climbing stairs? (5 years old or older) No 06/14/2014 Do you have difficulty dress ing or bathing? (5 years old or older) No 06/14/2014 Because of a physical, menta l, or emotional condition, do you have difficulty doing errands alone such as visiting a doctor s office or shopping? (15 years old or older) No 06/14/20 14 Cognitive Status Response Date of Assessm ent Because of a physical, menta l, or emotional condition, do you have serious difficulty concentrating, remembering, or making decisions? (5 years old or older) No 06/14/2014 documented as of this encounter Plan of Treatment Upcoming Encounters Date Type Department Care Team (Late st Contact Info) Description 03/31/2024 11:00 AM EDT Office Visit Rheumatology [facility] [place] [address] [place] [address] [facility] [address] [facility] [address] 10/13/2024 8:50 AM EST Office Visit [facility] [address] [place] [id number] Jerrica Urias DO [address] [place] [address] Pending Results Name Type Priority Associated Diagnoses Date /Time HEMOGLOBIN A1C Lab Routine Type 2 diabetes mellitus with hemoglobin A1c goal of less than 7.0% ([facility]) 03/24/2024 9:03 AM EDT MAGNESIUM Lab Routine Hypomagnesemia 03/24/2024 9:03 AM EDT BASIC METABOLIC PANEL Lab Routine Type 2 diabetes mellitus with hemoglobin A1c goal of less than 7.0% ([facility]) 03/24/2024 9:03 AM EDT RHEUMATOID FACTOR Lab Routine Arthralgia, unspecified joint 03/24/2024 9:03 AM EDT ANTINUCLEAR ANTIBODY (PAVEL) EIA SCREEN WITH REFLEX AB QUANT Lab Routine Arthralgia, unspecified joint 03/24/2024 9:03 AM EDT ANTINUCLEAR ANTIBODY (PAVEL) SCREEN, VILMA Lab Routine Arthralgia, unspecified joint 03/24/2024 9:03 AM EDT Scheduled Procedures Name Priority Associated Diagnoses Date/Ti me COLONOSCOPY FLEXIBLE PROXIMA L DIAGNOSTIC Recall Family history of colonic polyps Health Maintenance Due Date Last Done Comments Cologuard 2002 Fecal Occult Blood Test 2002 Sigmoidoscopy 2002 Depression Screening 02/24/2023 02/24/2022 COVID-19 Vaccine ( season) 2023 03/23/2021, 02/21/2021 Diabetic Eye Exam 09/01/2023 09/01/2022, , 02/24/2022, Additional history exists Diabetic Foot Exam 01/02/2024 01/01/2023, 0 02/24/2022, 03/18/2021, Additional history exists Albumin/Creatinine Ratio 04/29/202404/29/2 023, 11/14/2021, 01/09/2020, Additional history exists HbA1c 05/09/2024 11/09/2023, 04/03, 11/27/2022, Additional history exists Mammogram 09/07/2024 09/07/2023, 08/03, 08/25/2022, Additional history exists GFR 11/09/2024 11/09/2023, 04/03, 11/27/2022, Additional history exists DTaP,Tdap,and Td Vaccines (2 - Td or Tdap) 04/30/2025 04/30/2015 Colonoscopy 12/17/2025 12/17/2020, 12/03, 06/26/2014, Additional history exists Colorectal Cancer Screening 12/17/2025 DXA Scan 04/20/2030 04/20/2023, 04/20/2023 Hepatitis B Completed 04/08/2012, 1104/2011, 08/06/2011 Zoster Vaccines Completed 01/20/2019, 07/07/2018 RETIRED - COLONOSCOPY-EVERY 5 YRS AGES 18-100 Discontinued 12/17/2020, 12/17/2020, 06/26/2014, Additional history exists Pneumococcal Vaccine: 65+ Years Completed 06/26/2022, 08/07/2013 Influenza Vaccine (FLU shot) Completed 08/20/2023, 08/18/2022, 07/15/2021, Additional history exists GARDASIL-HPV IMMUNIZATION SERIES Aged Out No longer eligible based on patient's age to complete this topic MENINGOCOCCAL (MENACTRA/MENVEO) Aged Out No longer eligible based on patient's age to complete this topic documented as of this encounter Medical Devices Not on filedocumented as of this encounter Visit Diagnoses Diagnosis Type 2 diabetes mellitus with hemoglobin A1c goal of less than 7.0% (HCC) Hypomagnesemia Disorders of magnesium metabolism Arthralgia, unspecified joint documented in this encounter Care Teams Transfill Technician Relationship Specialty Start Date End Date Jerrica Urias DO [address] [place] [address] PCP - General Family Medicine 11/16/20 documented as of this encounter
--- OUTSIDE RECORDS SUMMARY | 2024-04-14 12:42 | External Medical Summary ---
Author Name Unknown Address Unknown Organization K01:LABORATORY [address] [facility] [address] Laboratory Report Ordering Provider Test Date Status KANE ETSRADA 03/24/2024 09:03:46 Final Observation Date Value Abnormality Reference (Units ) Status Nuclear IgG Ab [Ratio] in Serum by Immunoassay 03/24/2024 09:03:46 Negative Negative Final DNA double strand Ab [Presence] in Serum 03/24/2024 09:03:46 Negative Negative Final DOUBLE STRANDED DNA VALUE - [facility] 03/24/2024 09:03:46 <0.6 <20 (IU/mL) Final Extractable nuclear Ab [Presence] in Serum 03/24/2024 09:03:46 Negative Negative Final Nuclear IgG Ab [Ratio] in Serum by Immunoassay 03/24/2024 09:03:46 0.2 <0.7 (Ratio) Final Screening is based on detect ion of the following antibodies: dsDNA, U1-LOCAL ANNOUNCER (RNP70, A, C), SS-A/Ro, SS-B / La, Ev-1, Scl-70, Centromere B proteins and Sm proteins. In conjunction with clinical findings, this can aid in the diagnosis of systemic lupus erythematosous (SLE), mixed connective tissue disease (MCTD), Sjogren's syndrome, scleroderma and polymyositis/dermatomyositis.
However, a negative result does not rule out systemic rheumatic or other autoimmune disease. If clinically suspected, further evaluation and testing may be necessary. Please consult with Rheumatology Department.
Methodology: Fluorescent Enzyme Immunoassay. Performing Location LABORATORY [address] [facility] [address]
--- OUTSIDE RECORDS SUMMARY | 2024-04-14 12:42 | External Medical Summary | Summary of Care ---
Author Name Unknown Organization [facility] Address [address] [place] [address] Phone [phone] Care Team Providers Care Biophysics Teacher Name Role Phone Jerrica Urias DO Primary Care Provider Encounter Details Date Type Department Care Team (Late st Contact Info) Description 03/31/2024 Telephone [place] [address] [place] [address] Jerrica Urias DO [address] [place] [address] Allergies Active Allergy Reactions Criticality Noted Date Comments Clindamycin Hives 04/14/2018 Penicillins Hives High 01/17/2014 Sulfate Hives High 01/17/2014 Albiglutide Abdominal pain,Itching,Nausea/vomiting,Rash 05/25/2017 documented as of this encounter (statuses as of 03/31/2024) Medications Medication Sig Dispensed Refills Start Date [...] 12/27/2019 Active Additional Information Patient taking differently:2 [place] Each NostrilPRN, Rhinitis, Reported on 06/11/2023 Vitamin [...] the morning. 180 Tablet 1 09/14/2023 Active linaGLIPtin 5 MG Oral Tablet (Tradjenta)Indicatio [...] EVERY DAY 90 Tablet 1 12/28/2023 Active metFORMIN HCl ER 500 MG Oral Tablet Extended Release 24 Hour (Glucophage XR)Indications:Type 2 diabetes mellitus with hemoglobin A1c goal of less than 7.0% (HCC) TAKE 2 TABLETS BY MOUTH TWICE A DAY 360 Tablet 3 03/25/2024 Active documented as of this encounter (statuses as of 03/31/2024) Active Problems Problem Noted Date Diagnosed Date [...] as of this encounter (statuses as of 03/31/2024) Resolved Problems Problem Noted Date Diagnosed Date [...] as of this encounter (statuses as of 03/31/2024) Immunizations Name Administration Dates Next Due COVID-19 mRNA, LNP-s, No Pre serve, 2-Dose Series ([employer] #[employer]) 03/23/2021,02/21/2021 HEP A - Hepatitis A (Adult > 18 yrs) 04/08/2012, 08/06/2011 Hepatitis B, 20+ yrs 04/08/2012,09/07/2011,08/06 Pneumococcal Conjugate Vacci ne, 20-valent ([id number]) 06/26/2022 Pneumococcal Polysaccharide PPV23 (Pneumovax) 08/07/2013 Seasonal [...] No 06/14/2014 documented as of this encounter Miscellaneous Notes * Telephone Encounter - Jerrica Urias DO - 03/31/2024 2:07 PM EDT The diabetes number went up slightly . The magnesium is still borderline low. documented in this encounter Plan of Treatment Upcoming Encounters Date Type Department Care Team (Late st Contact Info) Description 10/13/2024 8:50 AM EST Office Visit [facility] [address] [place] [facility] [place] [address] Jerrica Urias DO [address] [place] [facility] [place] [address] Scheduled Procedures Name Priority Associated Diagnoses Date/Ti [...] 02/24/2022, 03/18/2021, Additional history exists Albumin/Creatinine Ratio 04/29/2024 023, 11/14/2021, 01/09/2020, Additional history exists Mammogram 09/07/2024 09/07/2023, 08/03, 08/25/2022, Additional history exists HbA1c 09/24/2024 03/24/2024, 01/0 06/2024, 04/29/2023, Additional history exists GFR 03/24/2025 03/24/2024, 010 06/2024, 04/29/2023, Additional history exists DTaP,Tdap,and Td Vaccines (2 - Td or Tdap) 04/30/2025 04/30/2015 Colonoscopy 12/17/2025 12/17/2020, 12/03, 06/26/2014, Additional history exists Colorectal Cancer Screening 12/17/2025 DXA Scan 04/20/2030 04/20/2023, 04/20/2023 Hepatitis B Completed 04/08/2012, 11/0 04/2011, 08/06/2011 Zoster Vaccines Completed 01/20/2019, 07/07/2018 RETIRED [...] Not on filedocumented as of this encounter Care Teams Biophysics Teacher Relationship Specialty Start Date End Date Jerrica Urias DO [address] [place] [address] PCP - General Family Medicine 11/16/20 documented as of this encounter
--- OUTSIDE RECORDS SUMMARY | 2024-04-14 12:42 | External Medical Summary ---
Author Name Unknown Address Unknown Organization K01:LABORATORY [facility] - [address] [place] [address] Laboratory Report Ordering Provider Test Date Status WANDADAS 03/31/2024 12:03:12 Final Observation Date Value Abnormality Reference (Units ) Status Erythrocyte sedimentation rate by Photometric method 03/31/2024 12:03:12 12 <30 (mm/hour) Final Performing Location [facility] - [address] [place] [address]
--- OUTSIDE RECORDS SUMMARY | 2024-04-14 12:42 | External Medical Summary | Summary of Care ---
Author Name Unknown Organization [facility] Address [address] [place] [address] Phone [phone] Care Team Providers Care Resource Teacher Name Role Phone Jerrica Urias DO Primary Care Provider [phone] Reason for Visit * Reason Comments Outpatient Testing Encounter Details Date Type Department Care Team (Late st Contact Info) Description 03/31/2024 12:10 PM EDT Laboratory Laboratory, [facility] [address] [id number] [facility] [address] [place] [address] Arthralgia, unspecified joint Allergies Active Allergy Reactions [...] 12/27/2019 Active Additional Information Patient taking differently:2 [place] Each NostrilPRN, Rhinitis, Reported on 06/11/2023 Vitamin [...] mRNA, LNP-s, No Pre serve, 2-Dose Series ([employer]) 03/23/2021,02/21/2021 HEP A - Hepatitis A (Adult > 18 yrs) 04/08/2012, 08/06/2011 Hepatitis B, 20+ yrs 04/08/2012,09/07/2011,08/06 Pneumococcal Conjugate Vacci ne, 20-valent ([id number]) 06/26/2022 Pneumococcal Polysaccharide PPV23 (Pneumovax) 08/07/2013 Seasonal Influenza, PF, 6 M & above, IM , (FluLaval or Fluzone) 07/15/2021,08/02/2020,07/25/2019,03/2018 Seasonal Influenza, Quadriva lent Hd (Fluzone Hd) [...] Team (Late st Contact Info) Description 03/31/2024 12:20 PM EDT Imaging Radiology [facility] [address] [place] [address] Arrived 10/13/2024 8:50 AM EST Office Visit [place] [address] [place] [address] Jerrica Urias, DO [address] [facility] [place] [id number] Pending Results Name Type Priority Associated Diagnoses Date /Time ERYTHROCYTE SEDIMENTATION RATE (ESR) Lab Routine Arthralgia, unspecified joint 03/31/2024 12:03 PM EDT CRP (INFLAMMATORY MARKER) Lab Routine Arthralgia, unspecified joint 03/31/2024 12:03 PM EDT Scheduled Procedures Name Priority Associated Diagnoses [...] 08/25/2022, Additional history exists HbA1c 09/24/2024 03/24/2024, 010 06/2024, 04/29/2023, Additional history exists GFR 03/24/2025 [...] as of this encounter Visit Diagnoses Diagnosis Arthralgia, unspecified joint documented in this encounter Care Teams Resource Teacher Relationship Specialty Start Date End Date Jerrica Urias DO [address] [place] [address] PCP - General Family Medicine 11/16/20 documented as of this encounter
--- OUTSIDE RECORDS SUMMARY | 2024-04-14 12:42 | External Medical Summary | Summary of Care ---
Author Name Unknown Organization [facility] Address [address] [place] [address] Phone [phone] Care Team Providers Care College Recruiter Name Role Phone Jerrica Urias DO Primary Care Provider [phone] Reason for Visit * Reason Onset Date Comments Nurse Documentation 03/31/2024 Encounter Details Date Type Department Care Team (Late st Contact Info) Description 03/31/2024 Telephone [place] [address] [place] [address] Jerrica Urias DO [address] [place] [address] Nurse Documentation Allergies Active Allergy Reactions Criticality Noted Date Comments Clindamycin Hives 04/14/2018 Penicillins Hives High 01/17/2014 Sulfate Hives High 01/17/2014 Albiglutide Abdominal pain,Itching,Nausea/vomiting,Rash 05/25/2017 documented as of this encounter (statuses as of 04/06/2024) Medications Medication Sig Dispensed Refills Start Date [...] 12/27/2019 Active Additional Information Patient taking differently:2 [place] Each NostrilPRN, Rhinitis, Reported on 06/11/2023 Vitamin [...] as of this encounter (statuses as of 04/06/2024) Active Problems Problem Noted Date Diagnosed Date [...] as of this encounter (statuses as of 04/06/2024) Resolved Problems Problem Noted Date Diagnosed Date [...] as of this encounter (statuses as of 04/06/2024) Immunizations Name Administration Dates Next Due COVID-19 mRNA, LNP-s, No Pre serve, 2-Dose Series ([employer]) 03/23/2021,02/21/2021 HEP A - Hepatitis A (Adult > 18 yrs) 04/08/2012, 08/06/2011 Hepatitis B, 20+ yrs 04/08/2012,09/07/2011,08/06 Pneumococcal Conjugate Vacci ne, 20-valent ([id number]) 06/26/2022 Pneumococcal Polysaccharide PPV23 (Pneumovax) 08/07/2013 Seasonal [...] encounter Miscellaneous Notes * Telephone Encounter - Michelle Oates LPN - 04/06/2024 3:41 PM EDT She does take 5 tablets of magnesium a day, she states her blood sugars do go up in the winter but will fall during the summer. Patient had no further questions or concerns. * Telephone Encounter - Jerrica Urias DO - 03/31/2024 2:07 PM EDT The diabetes number went up slightly . The magnesium is still borderline low. documented in this encounter Plan of Treatment Upcoming Encounters Date Type Department Care Team (Late st Contact Info) Description 10/13/2024 8:50 AM EST Office Visit [facility] [address] [place] [address] Jerrica Urias DO [address] [place] [address] Scheduled Procedures Name Priority Associated Diagnoses Date/Ti [...] 08/25/2022, Additional history exists HbA1c 09/24/2024 03/24/2024, 0 06/2024, 04/29/2023, Additional history exists GFR 03/24/2025 03/24/2024, 0 06/2024, 04/29/2023, Additional history exists DTaP,Tdap,and Td Vaccines (2 - Td or Tdap) 04/30/2025 04/30/2015 Colonoscopy 12/17/2025 12/17/2020, 12/03, 06/26/2014, Additional history exists Colorectal Cancer Screening 12/17/2025 DXA Scan 04/20/2030 04/20/2023, 04/20/2023 Hepatitis B Completed 04/08/2012, 04/2011, 08/06/2011 Zoster Vaccines Completed 01/20/2019, 07/07/2018 [...] filedocumented as of this encounter Care Teams College Recruiter Relationship Specialty Start Date End Date Jerrica Urias DO [address] [place] [address] PCP - General Family Medicine 11/16/20 documented as of this encounter
--- OUTSIDE RECORDS SUMMARY | 2024-04-14 12:42 | External Medical Summary | Summary of Care ---
Author Name Unknown Organization [facility] Address [address] [place] [address] Phone [phone] Care Team Providers Care Blacksmith Assistant Name Role Phone Michaelnadege Jerrica Tavo NUNEZ Primary Care Provider [phone] Reason for Visit * Reason Onset Date Comments Test Results 04/06/2024 Encounter Details Date Type Department Care Team (Late st Contact Info) Description 04/06/2024 Telephone Rheumatology [facility] [address] [place] [address] Jacob Banks CRNP [address] [place] [address] Test Results Allergies Active Allergy Reactions Criticality Noted Date [...] 12/27/2019 Active Additional Information Patient taking differently:2 [place] Each NostrilPRN, Rhinitis, Reported on 06/11/2023 Vitamin [...] mRNA, LNP-s, No Pre serve, 2-Dose Series ([employer] 03/23/2021,02/21/2021 HEP A - Hepatitis A (Adult > 18 yrs) 04/08/2012, 08/06/2011 Hepatitis B, 20+ yrs 04/08/2012,09/07/2011,08/06 Pneumococcal Conjugate Vacci ne, 20-valent ([id number]) 06/26/2022 Pneumococcal Polysaccharide PPV23 (Pneumovax) 08/07/2013 Seasonal [...] encounter Miscellaneous Notes * Telephone Encounter - Jacob Banks CRNP - 04/06/2024 4:24 PM EDT Spoke to the patient at this time discussed that her inflammatory markers were normal. Reviewed hand and hip x-rays in detail. Discussed options such as referral to hand specialist, pain management, in office joint injections. Patient states she will contact the clinic with any additional questions, concerns, or referral needs. documented in this encounter Plan of Treatment Upcoming Encounters Date Type Department Care Team (Late st Contact Info) Description 10/13/2024 8:50 AM EST Office Visit [facility] [address] [place] [address] Jerrica Urias, [address] [place] [address] Scheduled Procedures Name Priority Associated Diagnoses Date/Ti [...] 04/20/2030 04/20/2023, 04/20/2023 Hepatitis B Completed 04/08/2012, 11/04/2011, 08/06/2011 Zoster Vaccines Completed 01/20/2019, 07/07/2018 RETIRED [...] filedocumented as of this encounter Care Teams Blacksmith Assistant Relationship Specialty Start Date End Date Jerrica Urias DO [address] [place] [address] PCP - General Family Medicine 11/16/20 documented as of this encounter
--- OUTSIDE RECORDS SUMMARY | 2024-04-14 12:42 | External Medical Summary ---
Author Name Unknown Address Unknown Organization K01:[facility]ORY [facility] - [address] [place] [address] Laboratory Report Ordering Provider Test Date Status WANDADAS 03/31/2024 12:03:12 Final Observation Date Value Abnormality Reference (Units ) Status CRP, low-sensitivity 03/31/2024 12:03:12 <3 <=5 (mg/L) Final Performing Location [facility] - [address] [place] [address]
--- OUTSIDE RECORDS SUMMARY | 2024-04-14 12:42 | External Medical Summary ---
Author Name Unknown Address Unknown Organization K01:[facility] - [address] [place] [address] Laboratory Report Ordering Provider Test Date Status KANE ESTRADA 03/24/2024 09:03:46 Final Observation Date Value Abnormality Reference (Units ) Status Magnesium 03/24/2024 09:03:46 1.4 Below low normal 1.5 -2.6 (mg/dL) Final Performing Location [facility] - [address] [place] [address]
--- OUTSIDE RECORDS SUMMARY | 2024-04-14 12:42 | External Medical Summary | Summary of Care ---
Author Name Unknown Organization [facility] Address [address] [place] [address] Phone [phone] Care Team Providers Care Enlisted Aircrew/Aerial Observer/Gunner Name Role Phone Jerrica Urias DO Primary Care Provider [phone] Encounter Details Date Type Department Care Team (Late st Contact Info) Description 03/31/2024 Telephone [place] [address] [place] [address] Jerrica Urias DO [address] [place] [address] Allergies Active Allergy Reactions Criticality Noted Date Comments Clindamycin Hives 04/14/2018 Penicillins Hives High 01/17/2014 Sulfate Hives High 01/17/2014 Albiglutide Abdominal pain,Itching,Nausea/vomiting,Rash 05/25/2017 documented as of this encounter (statuses as of 04/01/2024) Medications Medication Sig Dispensed Refills Start Date [...] 12/27/2019 Active Additional Information Patient taking differently:2 [place] Each NostrilPRN, Rhinitis, Reported on 06/11/2023 Vitamin [...] as of this encounter (statuses as of 04/01/2024) Active Problems Problem Noted Date Diagnosed Date [...] as of this encounter (statuses as of 04/01/2024) Resolved Problems Problem Noted Date Diagnosed Date [...] as of this encounter (statuses as of 04/01/2024) Immunizations Name Administration Dates Next Due COVID-19 mRNA, LNP-s, No Pre serve, 2-Dose Series ([employer]) 03/23/2021,02/21/2021 HEP A - Hepatitis A (Adult > 18 yrs) 04/08/2012, 08/06/2011 Hepatitis B, 20+ yrs 04/08/2012,09/07/2011,08/06 Pneumococcal Conjugate Vacci ne, 20-valent ([id number]) 06/26/2022 Pneumococcal Polysaccharide PPV23 (Pneumovax) 08/07/2013 Seasonal [...] Description 10/13/2024 8:50 AM EST Office Visit [facility] [address] [place] [facility] [place] [address] Jerrica Urias DO [address] [place] [place] [address] Scheduled Procedures Name Priority Associated Diagnoses Date/Ti [...] filedocumented as of this encounter Care Teams Enlisted Aircrew/Aerial Observer/Gunner Relationship Specialty Start Date End Date Jerrica Urias DO [address] [place] [address] PCP - General Family Medicine 11/16/20 documented as of this encounter
--- OUTSIDE RECORDS SUMMARY | 2024-04-14 12:42 | External Medical Summary | Summary of Care ---
Author Name Unknown Organization [facility] Address [address] [place] [address] Phone [phone] Care Team Providers Care Shipyard Helper Name Role Phone Sean Middleton DO Primary Care Provider Reason for Visit * Reason Comments eRx-Medication Refill Encounter Details Date Type Department Care Team (Late st Contact Info) Description 03/25/2024 Refill [place] [address] [place] [address] Sean Middleton DO [address] [place] [address] Type 2 diabetes mellitus with hemoglobin A1c goal of less than 7.0% ([facility]) Allergies Active Allergy Reactions Criticality Noted Date Comments Clindamycin Hives 04/14/2018 Penicillins Hives High 01/17/2014 Sulfate Hives High 01/17/2014 Albiglutide Abdominal pain,Itching,Nausea/vomiting,Rash 05/25/2017 documented as of this encounter (statuses as of 03/25/2024) Medications Medication Sig Dispensed Refills Start Date End Date Status ASPIRIN 81 MG PO CHEW Take 1 Tablet by mouth in the morning. 100 Tab 5 4 Active ONETOUCH ULTRASOFT LANCETS MISCIndications:DM type 1, goal A1c below 7 Use up to four times a day as directed DX 250.01 1 Box 11 4 Active Vitamin B-12 ER 1000 MCG Oral Tablet Extended Release Take by mouth 2,500 mcg every other day . Active Acetaminophen 325 MG Oral Tablet Take 2 Tablets by mouth in the morning. Active Mometasone Furoate (NASONEX) 50 MCG/ACT nasal sprayIndications:Ch ronic rhinitis Administer 2 Sprays into each nostril daily. 1 Inhaler 11 0 Active Additional Information Patient taking differently:2 [place] Each NostrilPRN, Rhinitis, Reported on 06/11/2023 Vitamin D3 (CHOLECALCIFEROL) 400 UNIT TabletIndications:s tates using 1000 units every morning Take 1 Tablet by mouth in the morning. Active Calcium 150 MG Tablet Take 1 Tablet by mouth in the morning. Active OneTouch Verio w/Device KitIndications:Type 2 diabetes, HbA1c goal < 7% (HCC) Use up to 4 times a day E11.9 1 Kit 1 Active valACYclovir HCl 1 GM Oral Tablet (Valtrex)Indication s:Cold sore TAKE 2 TABLETS BY MOUTH EVERY 12 HRS X 1 DAYS FOR COLD SORES 4 Tablet 3 1 Active OneTouch Verio In Vitro Strip (Glucose Blood) USE UP TO 4 TIMES A DAY E11.9 100 Strip 11 2 Active LORazepam 1 MG Oral Tablet (Ativan)Indications :Vertigo One pill by mouthas needed for veritgo 30 Tablet 3 Active Additional Information Patient taking differently: One pill by mouth as needed for veritgo, pt stated she splits them into 1/4's, Reported on 06/11/2023 Atorvastatin Calcium 40 MG Oral Tablet (Lipitor)Indication s:Dyslipidemia, goal LDL below 100 TAKE 1 TABLET BY MOUTH EVERY DAY 90 Tablet 2 3 Active Metoprolol Succinate ER 25 MG Oral Tablet Extended Release 24 Hour (toPROL XL)Indications:Tako tsubo cardiomyopathy,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 180 Tablet 1 3 Active linaGLIPtin 5 MG Oral Tablet (Tradjenta)Indicati ons:Type 2 diabetes mellitus with hemoglobin A1c goal of less than 7.0% (HCC) Take 1 Tablet by mouth in the morning. 90 Tablet 3 3 Active guaiFENesin ER 600 MG Oral Tablet Extended Release 12 Hour (Mucinex) Take 1 Tablet by mouth in the morning and 1 Tablet before bedtime. Active Magnesium 300 MG Oral CapsuleIndications: Hypomagnesemia Take 300 mg by mouth in the morning. 90 Capsule 3 4 Active Mag64 64 MG Oral Tablet Delayed Release (magnesium chloride ER) TAKE 2 TABLETS BY MOUTH TWICE A DAY 360 Tablet 3 4 Active Montelukast Sodium 10 MG Oral Tablet (Singulair)Indicati ons:Chronic allergic rhinitis TAKE 1 TABLET BY MOUTH EVERY DAY 90 Tablet 3 4 Active Omeprazole 20 MG Oral Capsule Delayed Release (PriLOSEC) Take 1 Capsule by mouth in the morning. 1 hour before the first meal of the day. 90 Capsule 3 4 Active Meloxicam 7.5 MG Oral Tablet (Mobic)Indications: Encounter for long-term (current) use of other medications TAKE 1 TABLET BY MOUTH EVERY DAY 90 Tablet 1 4 Active Lisinopril 2.5 MG Oral Tablet (Prinivil)Indicatio ns:Takotsubo cardiomyopathy TAKE 1 TABLET BY MOUTH EVERY DAY 90 Tablet 1 4 Active Jardiance 25 MG Oral Tablet (Empagliflozin)Melissa cations:Type 2 diabetes mellitus with hemoglobin A1c goal of less than 7.0% (HCC) TAKE 1 TABLET BY MOUTH EVERY DAY 90 Tablet 1 4 Active metFORMIN HCl ER 500 MG Oral Tablet Extended Release 24 Hour (Glucophage XR)Indications:Type 2 diabetes mellitus with hemoglobin A1c goal of less than 7.0% (HCC) TAKE 2 TABLETS BY MOUTH TWICE A DAY 360 Tablet 3 4 Active metFORMIN HCl ER 500 MG Oral Tablet Extended Release 24 Hour (Glucophage XR)Indications:Type 2 diabetes mellitus with hemoglobin A1c goal of less than 7.0% (HCC) TAKE 2 TABLETS BY MOUTH TWICE A DAY 360 Tablet 1 3 03/25/20 24 Discontinued documented as of this encounter (statuses as of 03/25/2024) Active Problems Problem Noted Date Diagnosed Date [...] as of this encounter (statuses as of 03/25/2024) Resolved Problems Problem Noted Date Diagnosed Date [...] as of this encounter (statuses as of 03/25/2024) Immunizations Name Administration Dates Next Due COVID-19 mRNA, LNP-s, No Pre serve, 2-Dose Series ([employer]) 03/23/2021,02/21/2021 HEP A - Hepatitis A (Adult > 18 yrs) 04/08/2012, 08/06/2011 Hepatitis B, 20+ yrs 04/08/2012,09/07/2011,08/06 Pneumococcal Conjugate Vacci ne, 20-valent ([id number]) 06/26/2022 Pneumococcal Polysaccharide PPV23 (Pneumovax) 08/07/2013 Seasonal [...] encounter Miscellaneous Notes * Telephone Encounter - Leigh Ann Ortega, [facility] - 03/25/2024 9:41 PM EDTSigned Prescriptions: Disp Refills metFORMIN HCl ER 500 MG Oral Tablet Extend*360 Ta*3 Sig: TAKE 2 TABLETS BY MOUTH TWICE A DAYAuthorizing Provider: SEAN MIDDLETON User: LEIGH ANN ORTEGA N documented in this encounter Plan of Treatment Upcoming Encounters Date Type Department Care Team (Late st Contact Info) Description 03/31/2024 11:00 AM EDT Office Visit Rheumatology [address] [place] [address] Jacob Banks CRNP [address] [place] [address] [place] [address] 10/13/2024 8:50 AM EST Office Visit [place] [address] [place] [address] Sean Middleton DO [address] [place] [address] Scheduled Procedures Name Priority Associated Diagnoses Date/Ti [...] A1c goal of less than 7.0% (HCC) documented in this encounter Care Teams Shipyard Helper Relationship Specialty Start Date End Date Sean Middleton DO [address] [place] [address] PCP - General Family Medicine 11/16/20 documented as of this encounter
--- OUTSIDE RECORDS SUMMARY | 2024-04-14 12:42 | External Medical Summary | Summary of Care ---
Author Name Unknown Organization [facility] Address [address] [place] [address] Phone [phone] Care Team Providers Care Apprentice Stylist Name Role Phone Jerrica Urias DO Primary Care Provider Reason for Visit * Reason Onset Date Comments Appointment 03/24/2024 Return visit Encounter Details Date Type Department Care Team (Late st Contact Info) Description 03/24/2024 Telephone [place] [address] [place] [address] Jerrica Urias DO [address] [place] [address] Appointment (Return visit ) Allergies Active Allergy Reactions Criticality Noted Date [...] 12/27/2019 Active Additional Information Patient taking differently:2 [place] Each NostrilPRN, Rhinitis, Reported on 06/11/2023 Vitamin [...] mRNA, LNP-s, No Pre serve, 2-Dose Series ([employer]) 03/23/2021,02/21/2021 HEP A - Hepatitis A (Adult > 18 yrs) 04/08/2012, 08/06/2011 Hepatitis B, 20+ yrs 04/08/2012,09/07/2011,08/06 Pneumococcal Conjugate Vacci ne, 20-valent ([id number]) 06/26/2022 Pneumococcal Polysaccharide PPV23 (Pneumovax) 08/07/2013 Seasonal [...] encounter Miscellaneous Notes * Telephone Encounter - Tricia Galo OSA - 03/24/2024 10:22 AM EDT First available that patient is scheduled for is . 03/24/2024 * Telephone Encounter - Meghna Doss OSA - 03/24/2024 8:54 AM EDT Had to schedule patient for the first available appt. She was to be scheduled at the end of July for follow up. Is this okay or would you like her added closer to the 4 moth follow up fili? Thank you documented in this encounter Plan of Treatment Upcoming Encounters Date Type Department Care Team (Late st Contact Info) Description 03/31/2024 11:00 AM EDT Office Visit Rheumatology [place] [address] [place] [address] Jacob Banks CRNP [facility] [place] [address] 10/13/2024 8:50 AM EST Office Visit [facility] [address] [place] [address] Jerrica Urias DO [address] [place] [address] Scheduled Procedures Name Priority Associated Diagnoses Date/Ti [...] filedocumented as of this encounter Care Teams Apprentice Stylist Relationship Specialty Start Date End Date Jerrica Urias DO [address] [place] [address] PCP - General Family Medicine 11/16/20 documented as of this encounter
--- OUTSIDE RECORDS SUMMARY | 2024-04-14 12:42 | External Medical Summary | Summary of Care ---
Author Name Unknown Organization [facility] Address [address] [place] [address] Phone [phone] Care Team Providers Care Architectural Job Captain Name Role Phone Jerrica Urias DO Primary Care Provider + [phone] Reason for Visit * Reason Comments NEW PATIENT Referred by Dr. Tasha fang for pain in hips, shoulders, wrists * Evaluate & Treat - Unlimited Visits (Within 10 days (routine)) - Authorized Specialty Diagnoses / Procedures Referred By Feng skinner Referred To Contact Rheumatology Diagnoses Arthralgia, unspecified joint Jerrica Urias DO [address] [place] [address] Referral ID Status Reason Start Date Expiration Date Visits Requested Visits Authorized [id number] Authorized Specialty Services Required 03/24/2024 [id number] Encounter Details Date Type Department Care Team (Latest Contact Info) Description 03/31/2024 11:00 AM EDT Office Visit Rheumatology [address] [place] [address] Jacob Banks CRNP [address] [place] [address] [place] [id number] Arthralgia, unspecified joint*; Generalized osteoarthritis Allergies Active Allergy Reactions Criticality Noted Date [...] 12/27/2019 Active Additional Information Patient taking differently:2 Mason Each NostrilPRN, Rhinitis, Reported on 06/11/2023 Vitamin [...] mRNA, LNP-s, No Pre serve, 2-Dose Series (Vivaty) 03/23/2021,02/21/2021 HEP A - Hepatitis A (Adult > 18 yrs) 04/08/2012, 08/06/2011 Hepatitis B, 20+ yrs 04/08/2012,09/07/2011,08/06 Pneumococcal Conjugate Vacci ne, 20-valent ([id number]) 06/26/2022 Pneumococcal Polysaccharide PPV23 (Pneumovax) 08/07/2013 Seasonal [...] Passive Smoke Exposure: Past Smokeless Tobacco: Never Tobacco Cessation:Counseling Given: Not Answered Comments:11/21/20 currently smoking 5-7 cig/week Alcohol Use [...] on file documented as of this encounter Last Filed Vital Signs Vital Sign Reading Time Taken Comments Blood Pressure - - Pulse - - Temperature 36.5 C (97.7 F) 03/31/2024 10:58 AM E DT Respiratory Rate - - Oxygen Saturation - - Inhaled Oxygen Concentration - - Weight 94.3 kg (208 lb) 03/31/2024 10:58 AM EDT Height - - Body Mass Index 38.04 02/26/2023 8:05 AM EDT documented in this encounter Functional Status Functional Status Response [...] No 06/14/2014 documented as of this encounter Progress Notes * Jacob Banks CRNP - 03/31/2024 11:00 AM EDT Reason for visit: Rheumatology consultation for joint pain Referring Provider: Jerrica Urias DO HPI: Iman Salazar is here at the request of Jerrica Urias DO for further evaluation of joint pain. Iman Salazar pmhx is listed below. Reports she was having foot pain and had imaging and had OA. She had steroid injections with Orthopedics and has hx of roator cuff surgery and in the feet injections with benefit a couple months ago. She reports her right wrist > left wrist and Hip L>R aching/throbbing pain for the past year to the point where it keeps her awake at night. She reports she tried Tramadol in the past without benefit, but NSAIDs work best but is limited on taking that due to PMH. She notes she exercises, stretches from [employer], and had done PT with some benefit and con tinues exercises at home. 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 She reports b/l Carpel tunnel and used braces with benefit at one time. She reports she may retire next year or two and does not want commit to surgery until alf. On set of sx- 1 year Duration- Constant pain worse in the morning due to laying down all night Location- Wrists, hips, but feet are bothersome at times Characteristics- Aching/throbbing Relieving/aggravating factor- Sitting and laying makes the pain worse and can not tolerate sitting more than 1 hour, Standing alleviates the pain and she stands at her job as a wyman Treatments- Meloxicam daily, Tylenol arthritis, foot orthotics, Marijuana with some benefit, biofreeze, hot epsom salt soaks, paraffin dips, tumeric, Chiropractor weekly Pain severity- 06/11 Musculoskeletal ROS: . Abnormal: joint pain . AM stiffness (hours): 1 . Pain scale (0-10): 8 . Fatigue scale (0-10): 5 . 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 Constitutional: fatigue and trouble sleeping . Head headaches . Eyes: normal . Ears, nose, throat, mouth: normal . Cardiovascular: normal . Respiratory: normal . Gastrointestinal: normal . Genitourinary: normal . Skin: normal . Neurologic: numbness and tingling of b/l hands . Psychiatric: normal . Endocrine: normal . Hematologic/lymphatic: normal . Allergic/immunologic: normal All other ROS reviewed and negative Current Outpatient Medications Medication Sig Dispense Refill metFORMIN HCl ER 500 MG Oral Tablet Extended Release 24 Hour (Glucophage XR) TAKE 2 TABLETS BY MOUTH TWICE A DAY 360 Tablet 3 Jardiance 25 MG Oral Tablet (Empagliflozin) TAKE 1 TABLET BY MOUTH EVERY DAY 90 Tablet 1 Lisinopril 2.5 MG Oral Tablet (Prinivil) TAKE 1 TABLET BY MOUTH EVERY DAY 90 Tablet 1 Meloxicam 7.5 MG Oral Tablet (Mobic) TAKE 1 TABLET BY MOUTH EVERY DAY 90 Tablet 1 Omeprazole 20 MG Oral Capsule Delayed Release (PriLOSEC) Take 1 Capsule by mouth in the morning. 1 hour before the first meal of the day. 90 Capsule 3 Mag64 64 MG Oral Tablet Delayed Release (magnesium chloride ER) TAKE 2 TABLETS BY MOUTH TWICE A [id number] Tablet 3 Montelukast Sodium 10 MG Oral Tablet (Singulair) TAKE 1 TABLET BY MOUTH EVERY DAY 90 Tablet 3 guaiFENesin ER 600 MG Oral Tablet Extended Release 12 Hour (Mucinex) Take 1 Tablet by mouth in the morning and 1 Tablet before bedtime. Magnesium 300 MG Oral Capsule Take 300 mg by mouth in the morning. 90 Capsule 3 linaGLIPtin 5 MG Oral Tablet (Tradjenta) Take 1 Tablet by mouth in the morning. 90 Tablet 3 Metoprolol Succinate ER 25 MG Oral Tablet Extended Release 24 Hour (toPROL XL) Take 2 Tablets by mouth in the morning. 180 Tablet 1 Atorvastatin Calcium 40 MG Oral Tablet (Lipitor) TAKE 1 TABLET BY MOUTH EVERY DAY 90 Tablet 2 LORazepam 1 MG Oral Tablet (Ativan) One pill by mouthas needed for veritgo (Patient taking differently: One pill by mouth as needed for veritgo, pt stated she splits them into 1/4's) 30 Tablet 0 OneTouch Verio In Vitro Strip (Glucose Blood) USE UP TO 4 TIMES A DAY E11.9 100 Strip 11 valACYclovir HCl 1 GM Oral Tablet (Valtrex) TAKE 2 TABLETS BY MOUTH EVERY 12 HRS X 1 DAYS FOR COLD SORES 4 Tablet 3 OneTouch Verio w/Device Kit Use up to 4 times a day E11.9 1 Kit 0 Calcium 150 MG Tablet Take 1 Tablet by mouth in the morning. Vitamin D3 (CHOLECALCIFEROL) 400 UNIT Tablet Take 1 Tablet by mouth in the morning. Mometasone Furoate (NASONEX) 50 MCG/ACT nasal spray Administer 2 Sprays into each nostril daily. (Patient taking differently: Administer 2 Sprays into each nostril as needed for Rhinitis.) 1 Inhaler 11 Acetaminophen 325 MG Oral Tablet Take 2 Tablets by mouth in the morning. Vitamin B-12 ER 1000 MCG Oral Tablet Extended Release Take by mouth 2,500 mcg every other day . ONETOUCH ULTRASOFT LANCETS [facility] Use up to four times a day as directed DX 250.01 1 Box 11 ASPIRIN 81 MG PO CHEW Take 1 Tablet by mouth in the morning. 100 Tab 5 No current facility-administered medications for this visit. Past Medical History: Diagnosis Date DM type 2, goal A1c below 7 03/20/2014 Family history of colonic polyps GERD (gastroesophageal reflux disease) 01/17/2014 Seasonal allergies Past Surgical History: Procedure Laterality Date BIOPSY OF EYELID Right 09/13/2021 Dr. Boudreaux COLONOSCOPY, DIAGNOSTIC (RECTUM) 06/26/2014 normal, repeat 5 yrs/COLONOSCOPY FLEXIBLE PROXIMAL DIAGNOSTIC performed by Juno Youssef MD at END[facility]COPY [facility] [address] COLONOSCOPY, DIAGNOSTIC (RECTUM) 12/17/2020 COLONOSCOPY FLEXIBLE PROXIMAL DIAGNOSTIC performed by Juno Youssef MD at ENDOSCOPY [facility] [address] EGD, FLEXIBLE, DIAGNOSTIC 01/30/2022 normal bx / ESOPHAGOGASTRODUODENOSCOPY (EGD), FLEXIBLE, TRANSORAL, DIAGNOSTIC performed by Juno Hoyt MD at ENDOSCOPY [facility] INFORMATION Sinus surgery, deviated septum MOHS, 1ST STAGE; FACE, HANDS, FEET, NERVE Right 12/04/2021 PARTIAL HYSTERECTOMY MT MOHS MICROGRAPHIC H/N/H/F/G 1ST STAGE 5 BLOCKS Right 12/04/2021 Dr. Boudreaux, MOHS repair right lower eyelid Family History Problem Relation Name Age of Onset Diabetes Mother Hypertension Mother Heart Disorder Mother Pacemaker Diabetes Father Stroke Father Other (AAA) Father age 62 Thyroid Disorder Sister Jayleen Diabetes Brother Jelani Heart attack Brother Jelani No Known Problems Brother Dallas Diabetes Brother Kacey Diabetes Grandmother (Maternal) Diabetes Grandfather (Maternal) Diabetes Grandmother (Paternal) Diabetes Grandfather (Paternal) Diabetes Son Social History Social History Tobacco Use Smoking status: Former Passive exposure: Past Smokeless tobacco: Never Tobacco comments: 11/21/20 currently smoking 5-7 cig/week Substance Use Topics Alcohol use: Not Currently Comment: Occasionally Drug use: Yes Types: Marijuana Physical Exam Filed Vitals: 03/31/24 1058 Temp: 36.5 C (97.7 F) TempSrc: Infrared Weight: 94.3 kg (208 lb) General: alert, healthy, and no distress HENT: normocephalic, external ears normal, no mucosal erythema, no mucosal edema, moist mucosa, no oral ulcers Eye Exam: PERRL, EOMI, conjunctiva are pink and non-injected, sclera clear Heart: regular rate & rhythm, no murmur, and no gallops Lungs: clear to auscultation , no rales, wheezes or rhonchi Abdomen: abdomen soft, non-tender, normal bowel sounds, and no masses or organomegaly Extremities: no edema, no clubbing, no cyanosis Neuro Exam: alert & oriented x 3 with fluent speech, no focal motor/sensory deficits, gait normal Skin: skin color, texture, turgor are normal, no rashes or significant lesions Musculoskeletal Exam: Tenderness of the right wrist, left shoulder and bilateral hips on palpation and with range of motion. No synovitis on exam. Muscle strength intact, trim stencil maker strength normal. Decreased range of motion to the shoulders. Latest Reference Range & Units 03/24/24 09:03 Sodium 135 - 146 mmol/L 142 Potassium 3.5 - 5.1 mmol/L 4.6 Chloride 98 - 107 mmol/L 108 (H) CO2 22 - 32 mmol/L 22 BUN 6 - 20 mg/dL 23 (H) Creatinine 0.5 - 1.0 mg/dL 0.9 Estimated Glomerular Filtration Rate >=60 mL/min 67 Anion Gap 7 - 15 mmol/L 12 Glucose 70 - 120 mg/dL 205 (H) Calcium 8.4 - 10.2 mg/dL 9.9 Magnesium 1.5 - 2.6 mg/dL 1.4 (L) Estimated Average Glucose <126 mg/dL 189 (H) Latest Reference Range & Units 03/24/24 09:03 PAVEL Screen Negative Negative JUDY Antibodies Screen Value <0.7 Ratio 0.2 JUDY Antibodies Screen Interpretation Negative Negative dsDNA Antibody Value <20 IU/mL <0.6 dsDNA Antibody Interpretation Negative Negative Latest Reference Range & Units 03/24/24 09:03 Rheumatoid Factor <14 IU/mL <10 T Spine : 11/27/2022 IMPRESSION Mild degenerative disc disease midthoracic spine. No evidence for fracture. XR Hip: 01/27/2019 IMPRESSION No acute findings. Mild degenerative changes. Assessment (M25.50) Arthralgia, unspecified joint (primary encounter diagnosis) Plan: XR WRIST 3 OR MORE VIEWS, XR HIP BILAT 3-4 VIEWS INCLUDING AP OF PELVIS, ERYTHROCYTE SEDIMENTATION RATE (ESR), CRP (INFLAMMATORY MARKER) (M15.9) Generalized osteoarthritis Ms. Salazar presents today as a new patient for ongoing joint pains for over a year. Based on history, labs, and physical exam she does not appear to have an autoimmune arthritis. We will check inflammatory markers for completeness. We will get updated hip and wrist x-rays. Depending on x-ray studies may recommend seeing a hand and wrist specialist. Discussed bilateral trochanteric hip injections.Encouraged patient to contact clinic with any questions or concerns. Discussed the above in detail with the patient. All questions answered. Patient agreeable to this plan and verbalized understanding. Follow-up pending lab and imaging results. Plan 1. Labs: CRP/ESR 2. Imaging: Bilateral hip and wrist x-rays 3. Medications: No changes 4. Continue conservative measures for arthritis pain 5. Contact clinic with any questions or concerns 6. Discussed the above in detail with the patient. All questions answered. 7. Follow-up pending lab and imaging results CC Dr. Bridgett Estrada spent a total of 40-54 minutes (exact time 50 mins) on the date of service in preparation, delivery, and documentation of the care provided to Iman Salazar excluding any time spent in the performance of separately billed services. ARIK Zuñiga Rheumatology Department The patient was discussed with me. I agree with the findings and plan as documented by Jacob ELISE in this note. Jaime Camargo MD Rheumatology Department documented in this encounter Nursing Notes * Alice Reyes LPN - 03/31/2024 10:57 AM EDT Chief Complaint Patient presents with NEW PATIENT Referred by Dr. Urias for pain in hips, shoulders, wrists documented in this encounter Plan of Treatment Upcoming Encounters Date Type Department Care Team (Late st Contact Info) Description 10/13/2024 8:50 AM EST Office Visit [facility] [id number] [place] [address] Jerrica Urias [address] [place] [address] Pending Results Name Type Priority Associated Diagnoses Date /Time XR WRIST 3 OR MORE VIEWS Medical Imaging Routine Arthralgia, unspecified joint 03/31/2024 12:24 PM EDT ERYTHROCYTE SEDIMENTATION RATE (ESR) Lab Routine Arthralgia, unspecified joint 03/31/2024 12:03 PM EDT CRP (INFLAMMATORY MARKER) Lab Routine Arthralgia, unspecified joint 03/31/2024 12:03 PM EDT XR HIP BILAT MIN 5 VIEWS INCLUDING AP OF PELVIS Medical Imaging Routine Arthralgia, unspecified joint 03/31/2024 12:24 PM EDT Scheduled Orders Name Type Priority Associated Diagnoses Orde r Schedule ERYTHROCYTE SEDIMENTATION RATE (ESR) Lab Routine Arthralgia, unspecified joint Expected: 03/31/2024, Expires: 03/31/2025 CRP (INFLAMMATORY MARKER) Lab Routine Arthralgia, unspecified joint Expected: 05/01/2024 (Approximate), Expires: 03/31/2025 Scheduled Procedures Name Priority Associated Diagnoses Date/Ti [...] 04/29/2023, Additional history exists GFR 03/24/2025 03/24/2024, 01/0 06/2024, 04/29/2023, Additional history exists DTaP,Tdap,and Td [...] this encounter Visit Diagnoses Diagnosis Arthralgia, unspecified joint- Primary Generalized osteoarthritis Generalized osteoarthrosis, unspecified site documented in this encounter Care Teams Architectural Job Captain Relationship Specialty Start Date End Date Jerrica Urias DO [address] [place] [facility] [place] [address] PCP - General Family Medicine 11/16/20 documented as of this encounter
--- OUTSIDE RECORDS SUMMARY | 2024-04-14 12:42 | External Medical Summary ---
Author Name Unknown Address Unknown Organization [id number]:[facility] [place] [address] [place] [address] Laboratory Report Ordering Provider Test Date Status KANE ESTRADA 03/24/2024 09:03:46 Final Observation Date Value Abnormality Reference (Units ) Status HbA1C 03/24/2024 09:03:46 8.2 Above high normal 4. 0-5.6 (%) Final The use of HbA1c to monitor glycemic status is based on normal hemoglobin and HbA composition. This test should not be used in patients with abnormal hemoglobin that affects the half life of the red blood cell or the in vivo glycation rates. Glucose, estimated average 03/24/2024 09:03:46 189 Above high normal <126 (mg/dL) Grabiel clay Performing Location [facility] [place] [address] [place] [address]
--- OUTSIDE RECORDS SUMMARY | 2024-04-14 12:42 | External Medical Summary ---
Author Name Unknown Address Unknown Organization [id number]:[facility] - [address] [place] [address] Laboratory Report Ordering Provider Test Date Status KANE ESTRADA 03/24/2024 09:03:46 Final Observation Date Value Abnormality Reference (Units ) Status Rheumatoid Factor 03/24/2024 09:03:46 <10 <1 4 (IU/mL) Final Performing Location [facility] - [address] [place] [address]
--- OUTSIDE RECORDS SUMMARY | 2024-04-14 12:42 | External Medical Summary | Summary of Care ---
Author Name Unknown Organization [facility] Address [address] [place] [address] Phone [phone] Care Team Providers Care Turret Punch Operator Name Role Phone Jerrica Urias DO Primary Care Provider + [phone] Reason for Referral * Evaluate & Treat - Unlimited Visits (Within 10 days (routine)) - Authorized Specialty Diagnoses / Procedures Referred By Contac t Referred To Contact Rheumatology Diagnoses Arthralgia, unspecified joint Jerrica Urias DO [address] [place] [address] Referral ID Status Reason Start Date Expiration Date Visits Requested Visits Authorized [id number] Authorized Specialty Services Required 03/24/[phone] Question Answer Referral Priority Within 10 days (routine) Where should this appointment be scheduled? [facility] Reason for referral: Inflammatory arthritis/Autoimmune or Connective Tissue Diseases Reason for Visit * Reason Comments Follow Up Return in 4 months Flora salcedo is not helping much and thinks that she has arthritis all over and is taking aleve about 3 at a time Encounter Details Date Type Department Care Team (Late st Contact Info) Description 03/24/2024 8:10 AM EDT Office Visit [facility] [address] [place] [id number] Jerrica Urias DO [address], [place] [id number] Type 2 diabetes mellitus with hemoglobin A1c goal of less than 7.0% (HCC)*; Dyslipidemia, goal LDL below 100; Takotsubo cardiomyopathy; Hypomagnesemia; Arthralgia, unspecified joint Allergies Active Allergy [...] 12/27/2019 Active Additional Information Patient taking differently:2 [place] Each NostrilPRN, Rhinitis, Reported on 06/11/2023 Vitamin [...] 09/09/2022 Active LORazepam 1 MG Oral Tablet (Ativan)Indications [...] 09/18/2023 Active linaGLIPtin 5 MG Oral Tablet (Tradjenta)Abhilashti ons:Type 2 diabetes mellitus with hemoglobin A1c [...] Active Montelukast Sodium 10 MG Oral Tablet (Singulair)Abhilashti ons:Chronic allergic rhinitis TAKE 1 TABLET BY MOUTH EVERY DAY 90 Tablet 3 12/11/2023 Active Omeprazole 20 MG Oral Capsule Delayed Release (PriLOSEC) Take 1 Capsule by mouth in the morning. 1 hour before the first meal of the day. 90 Capsule 3 12/16/2023 Active Meloxicam 7.5 MG Oral Tablet (Mobic)Indications: Encounter for long-term (current) use of other medications TAKE 1 TABLET BY MOUTH EVERY DAY 90 Tablet 1 12/28/2023 Active Lisinopril 2.5 MG Oral Tablet (Prinivil)Rafi ns:Takotsubo cardiomyopathy TAKE 1 TABLET BY MOUTH EVERY DAY 90 Tablet 1 12/28/2023 Active Jardiance 25 MG Oral Tablet (Empagliflozin)Melissa cations:Type 2 diabetes mellitus with hemoglobin A1c goal of less than 7.0% (HCC) TAKE 1 TABLET BY MOUTH EVERY DAY 90 Tablet 1 12/28/2023 Active Esomeprazole Magnesium 40 MG Oral Capsule Delayed ReleaseIndications: Gastroesophageal reflux disease without esophagitis Take by mouth 1 Capsule daily before breakfast . 1 hour before the first meal of the day 90 Capsule 3 08/18/2022 4 Discontinu ed(End of Procedure) documented as of this encounter (statuses as [...] mRNA, LNP-s, No Pre serve, 2-Dose Series (Pfizer) 03/23/2021,02/21/2021 HEP A - Hepatitis A (Adult > 18 yrs) 04/08/2012, 08/06/2011 Hepatitis B, 20+ yrs 04/08/2012,09/07/2011,08/06 Pneumococcal Conjugate Vacci ne, 20-valent ([id number]) 06/26/2022 Pneumococcal Polysaccharide PPV23 (Pneumovax) 08/07/2013 Seasonal [...] Sign Reading Time Taken Comments Blood Pressure 112/68 03/24/2024 8:06 AM EDT Pulse 75 03/24/2024 8:06 AM EDT Temperature 36.4 C (97.5 F) 03/24/2024 8:06 AM ED T Respiratory Rate 17 03/24/2024 8:06 AM EDT Oxygen Saturation 97% 03/24/2024 8:06 AM EDT Inhaled Oxygen Concentration - - Weight 94.9 kg (209 lb 4.8 oz) 03/24/2024 8:06 A M EDT Height - - Body Mass Index 38.28 02/26/2023 8:05 AM EDT documented in this [...] as of this encounter Progress Notes * Jerrica Urias, - 03/24/2024 8:19 AM EDT Subjective: Iman Salazar is a 68 year old female. Chief Complaint Patient presents with Follow Up Return in 4 months Tylenol is not helping much and thinks that she has arthritis all over and is taking aleve about 3 at a time HPI: 68 year old female here today for a recheck. 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 Hx of low magnesium as well and on supplements Overall feeling achy. Her hips, and R wrist. Her brother had to have open heart surgery. She had a long drive and felt so stiff getting out of her car. She is taking mobic 7.5 mg daily, and 3 aleve in the afternoon. This for the pain. She is vomiting between 10 am and 2 pm. PHM: Patient Active Problem List Diagnosis GERD (gastroesophageal reflux disease) Type 2 diabetes mellitus with hemoglobin A1c goal of less than 7.0% ([facility]) Dyslipidemia, goal LDL below 100 Non-intractable vomiting with nausea Abdominal pain, generalized Change in consistency of stool Takotsubo cardiomyopathy Occipital stroke ([facility]) Left ventricular mural thrombus Chronic allergic rhinitis Class 2 severe obesity with serious comorbidity and body mass index (BMI) of 38.0 to 38.9 in adult ([facility]) Current Outpatient Medications Medication Sig Dispense Refill ASPIRIN 81 MG PO CHEW Take 1 Tablet by mouth in the morning. 100 Tab 5 ONETOUCH ULTRASOFT LANCETS MISC Use up to four times a day as directed DX 250.01 1 Box 11 Vitamin B-12 ER 1000 MCG Oral Tablet Extended Release Take by mouth 2,500 mcg every other day . Acetaminophen 325 MG Oral Tablet Take 2 Tablets by mouth in the morning. Mometasone Furoate (NASONEX) 50 MCG/ACT nasal spray Administer 2 Sprays into each nostril daily. (Patient taking differently: Administer 2 Sprays into each nostril as needed for Rhinitis.) 1 Inhaler 11 Vitamin D3 (CHOLECALCIFEROL) 400 UNIT Tablet Take 1 Tablet by mouth in the morning. Calcium 150 MG Tablet Take 1 Tablet by mouth in the morning. AXADOTouch Verio w/Device Kit Use up to 4 times a day E11.9 1 Kit 0 valACYclovir HCl 1 GM Oral Tablet (Valtrex) TAKE 2 TABLETS BY MOUTH EVERY 12 HRS X 1 DAYS FOR COLD SORES 4 Tablet 3 Esomeprazole Magnesium 40 MG Oral Capsule Delayed Release Take by mouth 1 Capsule daily before breakfast . 1 hour before the first meal of the day 90 Capsule 3 OneTouch Verio In Vitro Strip (Glucose Blood) USE UP TO 4 TIMES A DAY E11.9 100 Strip 11 LORazepam 1 MG Oral Tablet (Ativan) One pill by mouthas needed for veritgo (Patient taking differently: One pill by mouth as needed for veritgo, pt stated she splits them into 1/4's) 30 Tablet 0 Atorvastatin Calcium 40 MG Oral Tablet (Lipitor) TAKE 1 TABLET BY MOUTH EVERY DAY 90 Tablet 2 Metoprolol Succinate ER 25 MG Oral Tablet Extended Release 24 Hour (toPROL XL) Take 2 Tablets by mouth in the morning. 180 Tablet 1 metFORMIN HCl ER 500 MG Oral Tablet Extended Release 24 Hour (Glucophage XR) TAKE 2 TABLETS BY MOUTH TWICE A DAY 360 Tablet 1 linaGLIPtin 5 MG Oral Tablet (Tradjenta) Take 1 Tablet by mouth in the morning. 90 Tablet 3 guaiFENesin ER 600 MG Oral Tablet Extended Release 12 Hour (Mucinex) Take 1 Tablet by mouth in the morning and 1 Tablet before bedtime. Magnesium 300 MG Oral Capsule Take 300 mg by mouth in the morning. 90 Capsule 3 Mag64 64 MG Oral Tablet Delayed Release (magnesium chloride ER) TAKE 2 TABLETS BY MOUTH TWICE A MMY900 Tablet 3 Montelukast Sodium 10 MG Oral Tablet (Singulair) TAKE 1 TABLET BY MOUTH EVERY DAY 90 Tablet 3 Omeprazole 20 MG Oral Capsule Delayed Release (PriLOSEC) Take 1 Capsule by mouth in the morning. 1 hour before the first meal of the day. 90 Capsule 3 Meloxicam 7.5 MG Oral Tablet (Mobic) TAKE 1 TABLET BY MOUTH EVERY DAY 90 Tablet 1 Lisinopril 2.5 MG Oral Tablet (Prinivil) TAKE 1 TABLET BY MOUTH EVERY DAY 90 Tablet 1 Jardiance 25 MG Oral Tablet (Empagliflozin) TAKE 1 TABLET BY MOUTH EVERY DAY 90 Tablet 1 No current facility-administered medications for this visit. Review of patient's allergies indicates: Allergen Reactions Penicillins Hives Sulfate Hives Clindamycin Hives Tanzeum [Albiglutide] Abdominal pain, Itching, Nausea/vomiting and Rash Objective: BP 112/68 | Pulse 75 | Temp 36.4 C (97.5 F) | Resp 17 | Wt 94.9 kg (209 lb 4.8 oz) | SpO2 97% |BMI 38.28 kg/m | BSA 2.04 m Physical Exam: General: alert, healthy, and no distress Heart: regular rate & rhythm, no murmur, and no gallops Lungs: chest symmetric with normal AP diameter, no chest deformities noted, no chest wall tenderness, lungs clear to auscultation Abdomen: abdomen soft, non-tender, normal bowel sounds, and no masses or organomegaly ASSESSMENT/PLAN: Type 2 diabetes mellitus with hemoglobin A1c goal of less than 7.0% ([facility]) (Primary) - HEMOGLOBIN A1C; Future; Expected date: 03/24/2024 - BASIC METABOLIC PANEL; Future; Expected date: 03/24/2024 Dyslipidemia, goal LDL below 100 Takotsubo cardiomyopathy Hypomagnesemia - MAGNESIUM; Future; Expected date: 03/24/2024 Arthralgia, unspecified joint - RHEUMATOID FACTOR; Future; Expected date: 03/24/2024 - ANTINUCLEAR ANTIBODY (PAVEL) EIA SCREEN WITH REFLEX AB QUANT; Future; Expected date: 03/24/2024 - RHEUMATOLOGY REFERRAL OP Follow Up: Return in about 4 months (around 07/25/2024) for Labs Today. | For: Labs Today | Check-out note: Rheumatology Changing her omeprazole first thing in am and then prior to dinner. Hold vitamins completely. Ie vitamin B 12, vit D, and calcium. Take her statin at night. No more Aleve. Cut out ice tea. Mobic at lunch. Jerrica Urias DO documented in this encounter Nursing Notes * Michelle Oates LPN - 03/24/2024 8:16 AM EDT The patient has been properly identified by confirmation of name and date of . Chief Complaint Patient presents with Follow Up Return in 4 months Tylenol is not helping much and thinks that she has arthritis all over and is taking aleve about 3 at a time documented in this encounter Plan of Treatment Upcoming Encounters Date Type Department Care Team (Late st Contact Info) Description 03/31/2024 11:00 AM EDT Office Visit Rheumatology [facility] [address] [place] [address] Jacob Banks CRNP [address] [facility] [place] [address] 10/13/2024 8:50 AM EST Office Visit [address] [place] [address] Jerrica Urias, DO [address] [facility] [place] [address] Pending Results Name Type Priority Associated Diagnoses Date /Time HEMOGLOBIN A1C Lab Routine Type 2 diabetes mellitus with hemoglobin A1c goal of less than 7.0% (HCC) 03/24/2024 9:03 AM EDT MAGNESIUM Lab Routine Hypomagnesemia 03/24/2024 9:03 AM EDT BASIC METABOLIC PANEL Lab Routine Type 2 diabetes mellitus with hemoglobin A1c goal of less than 7.0% (HCC) 03/24/2024 9:03 AM EDT RHEUMATOID FACTOR Lab Routine Arthralgia, unspecified joint 03/24/2024 9:03 AM EDT ANTINUCLEAR ANTIBODY (PAVEL) EIA SCREEN WITH REFLEX AB QUANT Lab Routine Arthralgia, unspecified joint 03/24/2024 9:03 AM EDT Scheduled Orders Name Type Priority Associated Diagnoses Orde r Schedule HEMOGLOBIN A1C Lab Routine Type 2 diabetes mellitus with hemoglobin A1c goal of less than 7.0% (HCC) Expected: 03/24/2024, Expires: 07/08/2024 MAGNESIUM Lab Routine Hypomagnesemia Expected: 03/24/2024, Expires: 07/08/2024 BASIC METABOLIC PANEL Lab Routine Type 2 diabetes mellitus with hemoglobin A1c goal of less than 7.0% (HCC) Expected: 03/24/2024, Expires: 07/08/2024 RHEUMATOID FACTOR Lab Routine Arthralgia, unspecified joint Expected: 03/24/2024 (Approximate), Expires: 03/24/2025 ANTINUCLEAR ANTIBODY (PAVEL) EIA SCREEN WITH REFLEX AB QUANT Lab Routine Arthralgia, unspecified joint Expected: 03/24/2024 (Approximate), Expires: 03/24/2025 Scheduled Procedures Name Priority Associated Diagnoses Date/Ti me COLONOSCOPY FLEXIBLE PROXIMA L DIAGNOSTIC Recall Family history of colonic polyps Scheduled Referrals Name Type Priority Associated Diagnoses Orde r Schedule RHEUMATOLOGY REFERRAL OP Referral Within 10 days (routine) Arthralgia, unspecified joint Ordered: 03/24/2024 Health Maintenance Due Date Last Done Comments Cologuard 2002 Fecal Occult Blood Test 2002 Sigmoidoscopy 2002 Depression Screening 02/24/2023 02/24/2022 COVID-19 Vaccine (3 season) 2023 03/23/2021, 02/21/2021 Diabetic Eye Exam 09/01/2023 09/01/2022, , 02/24/2022, Additional history exists Diabetic Foot Exam 01/02/2024 01/01/2023, 0 02/24/2022, 03/18/2021, Additional history exists Albumin/Creatinine Ratio 04/29/2024 023, 11/14/2021, 01/09/2020, Additional history exists HbA1c [...] hemoglobin A1c goal of less than 7.0% (HCC)- Primary Dyslipidemia, goal LDL below 100 Other and unspecified hyperlipidemia Takotsubo cardiomyopathy Takotsubo syndrome Hypomagnesemia Disorders of magnesium metabolism Arthralgia, unspecified joint documented in this encounter Care Teams Turret Punch Operator Relationship Specialty Start Date End Date Jerrica Urias DO [address] [place] [address] PCP - General Family Medicine 11/16/20 documented as of this encounter"
--- OUTSIDE RECORDS SUMMARY | 2024-04-14 12:43 | External Medical Summary | Summary of Care ---
Author Name Unknown Organization [facility] Address [address] [place] [address] Phone [phone] Care Team Providers Care Mold Setter Name Role Phone Jerrica Urias DO Primary Care Provider Encounter Details Date Type Department Care Team (Late st Contact Info) Description 11/12/2023 Telephone [place] [address] [place] [address] Jerrica Urias DO [address] [place] [address] Allergies Active Allergy Reactions Criticality Noted Date Comments Clindamycin Hives 04/14/2018 Penicillins Hives High 01/17/2014 Sulfate Hives High 01/17/2014 Albiglutide Abdominal pain,Itching,Nausea/vomiting,Rash 05/25/2017 documented as of this encounter (statuses as of 11/12/2023) Medications Medication Sig Dispensed Refills Start Date [...] mouth 2,500 mcg every other day . 0 Active Acetaminophen 325 MG Oral Tablet Take 2 Tablets by mouth in the morning. 0 Active Mometasone Furoate (NASONEX) 50 MCG/ACT nasal sprayIndications:Chr onic rhinitis Administer 2 Sprays into each nostril daily. 1 Inhaler 11 12/27/2019 Active Additional Information Patient taking differently:2 [place] Each NostrilPRN, Rhinitis, Reported on 06/11/2023 Vitamin D3 (CHOLECALCIFEROL) 400 UNIT TabletIndications:st ates using 1000 units every morning Take 1 Tablet by mouth in the morning. 0 Active Calcium 150 MG Tablet Take 1 Tablet by mouth in the morning. 0 Active OneTouch Verio w/Device KitIndications:Type 2 diabetes, HbA1c goal < 7% ([facility]) Use up to 4 times a day E11.9 1 Kit 0 01/16/2021 Active valACYclovir HCl 1 GM Oral Tablet (Valtrex)Indications :Cold sore TAKE 2 TABLETS BY MOUTH EVERY 12 HRS X 1 DAYS FOR COLD SORES 4 Tablet 3 09/24/2021 Active Esomeprazole Magnesium 40 MG Oral Capsule Delayed ReleaseIndications:G astroesophageal reflux disease without esophagitis Take by mouth 1 Capsule daily before breakfast . 1 hour before the first meal of the day 90 Capsule 3 08/18/2022 Active OneTouch Verio In Vitro Strip (Glucose Blood) USE UP TO 4 TIMES A DAY E11.9 100 Strip 11 09/09/2022 Active Mag64 64 MG Oral Tablet Delayed Release (magnesium chloride ER) TAKE 2 TABLETS BY MOUTH TWICE A DAY 360 Tablet 3 12/11/2022 Active LORazepam 1 MG Oral Tablet (Ativan)Indications: Vertigo One pill by mouthas needed for veritgo 30 Tablet 0 01/01/2023 Active Additional Information Patient taking differently: One pill by mouth as needed for veritgo, pt stated she splits them into 1/4's, Reported on 06/11/2023 Montelukast Sodium 10 MG Oral Tablet (Singulair)Indicatio ns:Chronic allergic rhinitis TAKE 1 TABLET BY MOUTH EVERY DAY 90 Tablet 2 03/05/2023 Active Lisinopril 2.5 MG Oral Tablet (Prinivil)Indication s:Takotsubo cardiomyopathy TAKE 1 TABLET BY MOUTH EVERY DAY 90 Tablet 1 07/14/2023 Active Jardiance 25 MG Oral Tablet (Empagliflozin)Indic ations:Type 2 diabetes mellitus with hemoglobin A1c goal of less than 7.0% ([facility]) TAKE 1 TABLET BY MOUTH EVERY DAY 90 Tablet 1 07/14/2023 Active Atorvastatin Calcium 40 MG Oral Tablet (Lipitor)Indications :Dyslipidemia, goal LDL below 100 TAKE 1 TABLET BY MOUTH EVERY DAY 90 Tablet 2 08/14/2023 Active Metoprolol Succinate ER 25 MG Oral Tablet Extended Release 24 Hour (toPROL XL)Indications:Takot subo cardiomyopathy,Hypot ension due to drugs,Occipital stroke (HCC) Take 2 Tablets by mouth in the morning. 180 Tablet 1 09/14/2023 Active Meloxicam 7.5 MG Oral Tablet (Mobic)Indications:E ncounter for long-term (current) use of other medications TAKE 1 TABLET BY MOUTH EVERY DAY 90 Tablet 1 09/14/2023 Active metFORMIN HCl ER [...] the morning and 1 Tablet before bedtime. 0 Active Magnesium 300 MG Oral CapsuleIndications:H ypomagnesemia Take 300 mg by mouth in the morning. 90 Capsule 3 11/09/2023 Active Doxycycline Hyclate 100 MG Oral CapsuleIndications:A cute non-recurrent frontal sinusitis Take 1 Capsule by mouth in the morning and 1 Capsule before bedtime. Do all this for 10 days. Until gone.. 20 Capsule 0 11/09/2023 4 Active documented as of this encounter (statuses as of 11/12/2023) Active Problems Problem Noted Date Diagnosed Date [...] as of this encounter (statuses as of 11/12/2023) Resolved Problems Problem Noted Date Diagnosed Date [...] as of this encounter (statuses as of 11/12/2023) Immunizations Name Administration Dates Next Due COVID-19 mRNA, LNP-s, No Pre serve, 2-Dose Series (Enecsys) 03/23/2021,02/21/2021 HEP A - Hepatitis A (Adult > 18 yrs) 04/08/2012, 08/06/2011 Hepatitis B, 20+ yrs 04/08/2012,09/07/2011,08/06 Pneumococcal Conjugate Vacci ne, 20-valent ([id number]) 06/26/2022 Pneumococcal Polysaccharide PPV23 (Pneumovax) 08/07/2013 Seasonal [...] Telephone Encounter - Jerrica Urias DO - 11/12/2023 2:09 PM EST The magnesium is till low, pls get current dose that she is taking. Results for orders placed or performed in visit on 11/09/23 HGB Result Value Ref Range HGB 13.6 12.0 - 15.3 g/dL HEMOGLOBIN A1C Result Value Ref Range Hemoglobin A1C 7.8 (H) 4.0 - 5.6 % Estimated Average Glucose 177 (H) <126 mg/dL BASIC METABOLIC PANEL Result Value Ref Range BUN 22 (H) 6 - 20 mg/dL Creatinine 1.0 0.5 - 1.0 mg/dL Estimated Glomerular Filtration Rate 61 >=60 mL/min Sodium 142 135 - 146 mmol/L Potassium 4.3 3.5 - 5.1 mmol/L Chloride 104 98 - 107 mmol/L CO2 26 22 - 32 mmol/L Anion Gap 12 7 - 15 mmol/L Glucose 178 (H) 70 - 120 mg/dL Calcium 10.2 8.4 - 10.2 mg/dL HEPATIC FUNCTION PANEL Result Value Ref Range Albumin 4.6 3.8 - 5.0 g/dL AST 16 10 - 35 U/L Alkaline Phosphatase 82 35 - 130 U/L ALT 22 10 - 35 U/L Bilirubin, Total 0.3 <=1.2 mg/dL Bilirubin, Direct <0.2 0.0 - 0.3 mg/dL Protein 6.6 6.0 - 8.3 g/dL LIPID PANEL WITH DIRECT LDL IF TG IS HIGH Result Value Ref Range Triglycerides 129 <=174 mg/dL Cholesterol 138 <200 mg/dL HDL Cholesterol 61 >49 mg/dL Non-HDL Cholesterol 77 <=159 mg/dL LDL Cholesterol 51 <=129 mg/dL MAGNESIUM Result Value Ref Range Magnesium 1.3 (L) 1.5 - 2.6 mg/dL documented in this encounter Plan of Treatment Upcoming Encounters Date Type Department Care Team (Late st Contact Info) Description 11/16/2023 10:00 AM EST [facility] [place] [address] [facility] [address] 03/24/2024 8:10 AM EDT [facility] Visit [place] [address] [facility] [address] Jer[facility]as, DO [address] [facility] [address] Scheduled Procedures Name Priority Associated Diagnoses Date/Ti me COLONOSCOPY FLEXIBLE PROXIMA L DIAGNOSTIC Recall Family history of colonic polyps Health Maintenance Due Date Last Done Comments Depression Screening 02/24/2023 02/24/2022 COVID-19 Vaccine ( [...] (2 - Td or Tdap) 04/30/2025 04/30/2015 COLONOSCOPY-EVERY 5 YRS AGES 18-100 12/17/2025 12/17/2020, 12/17/2020, 06/26/2014, Additional history exists DXA Scan 04/20/2030 04/20/2023, 04/20/2023 Hepatitis B Completed 04/08/2012, 04/2011, 08/06/2011 Zoster Vaccines Completed 01/20/2019, 07/07/2018 Pneumococcal Vaccine: 65+ Years Completed 06/26/2022, 08/07/2013 Influenza Vaccine (FLU shot) Completed , 08/18/2022, 07/15/2021, Additional history exists GARDASIL-HPV IMMUNIZATION SERIES Aged Out No longer eligible based on patient's age to complete this topic MENINGOCOCCAL (MENACTRA/MENVEO) Aged Out No longer eligible based on patient's age to complete this topic documented as of this encounter Medical Devices Not on filedocumented as of this encounter Care Teams Mold Setter Relationship Specialty Start Date End Date Jerrica Urias DO [address] [place] [address] PCP - General Family Medicine 11/16/20 documented as of this encounter
--- OUTSIDE RECORDS SUMMARY | 2024-04-14 12:43 | External Medical Summary | Summary of Care ---
Author Name Unknown Organization [facility] Address [address] [place] [address] Phone [phone] Care Team Providers Care Bicycle Subassembler Name Role Phone Jerrica Urias DO Primary Care Provider Encounter Details Date Type Department Care Team (Late st Contact Info) Description 11/19/2023 Telephone [place] [address] [place] [address] Jerrica Urias DO [address] [place] [address] Allergies Active Allergy Reactions Criticality Noted Date Comments Clindamycin Hives 04/14/2018 Penicillins Hives High 01/17/2014 Sulfate Hives High 01/17/2014 Albiglutide Abdominal pain,Itching,Nausea/vomiting,Rash 05/25/2017 documented as of this encounter (statuses as of 11/19/2023) Medications Medication Sig Dispensed Refills Start Date [...] 12/27/2019 Active Additional Information Patient taking differently:2 [place] Each NostrilPRN, Rhinitis, Reported on 06/11/2023 Vitamin D3 (CHOLECALCIFEROL) 400 UNIT TabletIndications:st ates using 1000 units every morning Take 1 Tablet by mouth in the morning. 0 Active Calcium 150 MG Tablet Take 1 Tablet by mouth in the morning. 0 Active OneTouch Verio w/Device KitIndications:Type 2 diabetes, HbA1c goal < 7% ([facility]) Use up to 4 times a [...] hemoglobin A1c goal of less than 7.0% ([facility]) TAKE 1 TABLET BY MOUTH EVERY [...] as of this encounter (statuses as of 11/19/2023) Active Problems Problem Noted Date Diagnosed Date [...] as of this encounter (statuses as of 11/19/2023) Resolved Problems Problem Noted Date Diagnosed Date [...] as of this encounter (statuses as of 11/19/2023) Immunizations Name Administration Dates Next Due COVID-19 mRNA, LNP-s, No Pre serve, 2-Dose Series (eyeOS) 03/23/2021,02/21/2021 HEP A - Hepatitis A (Adult > 18 yrs) 04/08/2012, 08/06/2011 Hepatitis B, 20+ yrs 04/08/2012,09/07/2011,08/06 Pneumococcal Conjugate Vacci ne, 20-valent ([id number]) 06/26/2022 Pneumococcal Polysaccharide PPV23 (Pneumovax) 08/07/2013 Seasonal [...] encounter Miscellaneous Notes * Telephone Encounter - Mariella Morales LPN - 11/19/2023 10:24 AM EST Spoke with pt and made aware of normal US in message below * Telephone Encounter - Jerrica Urias DO - 11/19/2023 9:15 AM EST The ultrasound was normal. documented in this encounter Plan of Treatment Upcoming Encounters Date Type Department Care Team (Late st Contact Info) Description 03/24/2024 8:10 AM EDT Office Visit [facility] [address] [place] [address] Jerrica Urias DO [address] [place] [address] Scheduled Procedures Name Priority Associated [...] 11/04/2011, 08/06/2011 Zoster Vaccines Completed 01/20/2019, 07/07/2018 Pneumococcal [...] filedocumented as of this encounter Care Teams Bicycle Subassembler Relationship Specialty Start Date End Date Jerrica Urias DO [address] [place] [address] PCP - General Family Medicine 11/16/20 documented as of this encounter
--- OUTSIDE RECORDS SUMMARY | 2024-04-14 12:43 | External Medical Summary | Summary of Care ---
Author Name Unknown Organization [facility] Address [address] [place] [address] Phone [phone] Care Team Providers Care Proof Load Mechanic Name Role Phone Jerrica Urias DO Primary Care Provider Reason for Visit * Reason Onset Date Comments Health Maintenance 11/27/2023 Encounter Details Date Type Department Care Team (Late st Contact Info) Description 11/27/2023 Telephone [place] [address] [place] [address] Jerrica Urias DO [address] [place] [address] Health Maintenance Allergies Active Allergy Reactions Criticality Noted Date Comments Clindamycin Hives 04/14/2018 Penicillins Hives High 01/17/2014 Sulfate Hives High 01/17/2014 Albiglutide Abdominal pain,Itching,Nausea/vomiting,Rash 05/25/2017 documented as of this encounter (statuses as of 11/27/2023) Medications Medication Sig Dispensed Refills Start Date [...] 12/27/2019 Active Additional Information Patient taking differently:2 [place] Each NostrilPRN, Rhinitis, Reported on 06/11/2023 Vitamin D3 (CHOLECALCIFEROL) 400 UNIT TabletIndications:st ates using 1000 units every morning Take 1 Tablet by mouth in the morning. 0 Active Calcium 150 MG Tablet Take 1 Tablet by mouth in the morning. 0 Active OneTouch Verio w/Device KitIndications:Type 2 diabetes, HbA1c goal < 7% ([facility]) Use up to 4 times a [...] the morning. 90 Capsule 3 11/09/2023 Active documented as of this encounter (statuses as of 11/27/2023) Active Problems Problem Noted Date Diagnosed Date [...] as of this encounter (statuses as of 11/27/2023) Resolved Problems Problem Noted Date Diagnosed Date [...] as of this encounter (statuses as of 11/27/2023) Immunizations Name Administration Dates Next Due COVID-19 mRNA, LNP-s, No Pre serve, 2-Dose Series ([employer]) 03/23/2021,02/21/2021 HEP A - Hepatitis A (Adult > 18 yrs) 04/08/2012, 08/06/2011 Hepatitis B, 20+ yrs 04/08/2012,09/07/2011,08/06 Pneumococcal Conjugate Vacci ne, 20-valent ([id number]) 06/26/2022 Pneumococcal Polysaccharide PPV23 (Pneumovax) 08/07/2013 Seasonal [...] encounter Miscellaneous Notes * Telephone Encounter - Nidia Tena LPN - 11/27/2023 11:53 AM EST Care Gaps Comprehensive Care Outreach Last Office/Telemedicine Visit: 11/09/2023 (in office), 07/31/2022 (telemedicine) Next Office Visit: 03/24/2024 Hemoglobin AIC Results: Lab Results Component Value Date/Time HEMOGLOBIN A1C - [facility] 7.8 (H) 11/09/2023 10:11 AM HEMOGLOBIN A1C - [facility] 7.8 (H) 04/29/2023 09:35 AM HEMOGLOBIN A1C - [facility] 7.4 (H) 11/27/2022 08:03 AM HEMOGLOBIN A1C - [facility] 9.0 (H) 11/05/2020 10:38 AM HEMOGLOBIN A1C - [facility] 7.8 (H) 08/02/2020 10:57 AM HEMOGLOBIN A1C - [facility] 7.2 (H) 01/09/2020 12:10 PM Reviewed Health Maintenance below: Health Maintenance Topic Date Due Depression Screening 02/24/2023 COVID-19 Vaccine ( season) 2023 Diabetic Eye Exam 09/01/2023 Diabetic Foot Exam 01/02/2024 Albumin/Creatinine Ratio 04/29/2024 HbA1c 05/09/2024 Eye requested a regina Care Gap Outreach Action Taken: Outside records requested documented in this encounter Plan of Treatment Upcoming Encounters Date Type Department Care Team (Late st Contact Info) Description 03/24/2024 8:10 AM EDT Office Visit [facility] [address] [place] [address] Jerrica Urias, DO [address] [place] [address] Scheduled Procedures Name Priority Associated Diagnoses Date/Ti me COLONOSCOPY FLEXIBLE PROXIMA L DIAGNOSTIC Recall Family history of colonic polyps Health Maintenance Due Date Last Done Comments Depression Screening 02/24/2023 02/24/2022 COVID-19 Vaccine () 07/03/2023 03/23/2021, 02/21/2021 Diabetic Eye Exam 09/01/2023 09/01/2022, [...] filedocumented as of this encounter Care Teams Proof Load Mechanic Relationship Specialty Start Date End Date Jerrica Urias DO [address] [place] [facility] [place] [address] PCP - General Family Medicine 11/16/20 documented as of this encounter
--- OUTSIDE RECORDS SUMMARY | 2024-04-14 12:43 | External Medical Summary | Summary of Care ---
Author Name Unknown Organization [facility] Address [address] [place] [address] Phone [phone] Care Team Providers Care Cab Station Attendant Name Role Phone Jerrica Urias DO Primary Care Provider [phone] Reason for Visit * Reason Onset Date Comments Med Request 12/15/2023 Encounter Details Date Type Department Care Team (Late st Contact Info) Description 12/15/2023 Telephone [facility] [address] [place] [address] Jerrica Urias DO [address] [place] [address] Med Request Allergies Active Allergy Reactions Criticality Noted Date Comments Clindamycin Hives 04/14/2018 Penicillins Hives High 01/17/2014 Sulfate Hives High 01/17/2014 Albiglutide Abdominal pain,Itching,Nausea/vomiting,Rash 05/25/2017 documented as of this encounter (statuses as of 12/16/2023) Medications Medication Sig Dispensed Refills Start Date [...] 12/27/2019 Active Additional Information Patient taking differently:2 [place] Each NostrilPRN, Rhinitis, Reported on 06/11/2023 [...] splits them into 1/4's, Reported on 06/11/2023 Lisinopril 2.5 MG Oral Tablet (Prinivil)Indication s:Takotsubo [...] the day. 90 Capsule 3 12/16/2023 Active documented as of this encounter (statuses as of 12/16/2023) Active Problems Problem Noted Date Diagnosed Date [...] as of this encounter (statuses as of 12/16/2023) Resolved Problems Problem Noted Date Diagnosed Date [...] as of this encounter (statuses as of 12/16/2023) Immunizations Name Administration Dates Next Due COVID-19 mRNA, LNP-s, No Pre serve, 2-Dose Series ([employer]) 03/23/2021,02/21/2021 HEP A - Hepatitis A (Adult > 18 yrs) 04/08/2012, 08/06/2011 Hepatitis B, 20+ yrs 04/08/2012,09/07/2011,08/06 Pneumococcal Conjugate Vacci ne, 20-valent ([id number]) 06/26/2022 Pneumococcal Polysaccharide PPV23 (Pneumovax) 08/07/2013 Seasonal [...] encounter Miscellaneous Notes * Telephone Encounter - Iman Zhou CPhT - 12/15/2023 3:41 PM EST Patient requesting refills for omeprazole 20mg 1 tablet daily . Upon chart review, medication is listed as discharged . Please advise if you wish to continue this therapy for the patient. Thank you, Iman Zhou Cdl Truck Driver II [facility] (formerly [facility]) 12/15/2023 3:42 PM documented in this encounter Plan of Treatment Upcoming Encounters Date Type Department Care Team (Late st Contact Info) Description 03/24/2024 8:10 AM EDT Office Visit [facility] [address] [place] [address] Jerrica Urias DO [address] [place] [address] Scheduled Procedures Name Priority Associated [...] filedocumented as of this encounter Care Teams Cab Station Attendant Relationship Specialty Start Date End Date Jerrica Urias DO [address] [place] [address] PCP - General Family Medicine 11/16/20 documented as of this encounter
--- OUTSIDE RECORDS SUMMARY | 2024-04-14 12:43 | External Medical Summary | Summary of Care ---
Author Name Unknown Organization [facility] Address [address] [place] [address] Phone [phone] Care Team Providers Care Council Member Name Role Phone Jerrica Urias DO Primary Care Provider Encounter Details Date Type Department Care Team (Late st Contact Info) Description 11/12/2023 Telephone [place] [address] [place] [address] Jerrica Urias DO [address] [place] [address] Allergies Active Allergy Reactions Criticality Noted Date Comments Clindamycin Hives 04/14/2018 Penicillins Hives High 01/17/2014 Sulfate Hives High 01/17/2014 Albiglutide Abdominal pain,Itching,Nausea/vomiting,Rash 05/25/2017 documented as of this encounter (statuses as of 11/13/2023) Medications Medication Sig Dispensed Refills Start Date [...] 12/27/2019 Active Additional Information Patient taking differently:2 [place] Each NostrilPRN, Rhinitis, Reported on 06/11/2023 Vitamin D3 (CHOLECALCIFEROL) 400 UNIT TabletIndications:st ates using 1000 units every morning Take 1 Tablet by mouth in the morning. 0 Active Calcium 150 MG Tablet Take 1 Tablet by mouth in the morning. 0 Active OneTouch Verio w/Device KitIndications:Type 2 diabetes, HbA1c goal < 7% ([facility]) Use up to 4 times a day [...] A1c goal of less than 7.0% ([facility]) TAKE 1 TABLET BY MOUTH EVERY DAY [...] as of this encounter (statuses as of 11/13/2023) Active Problems Problem Noted Date Diagnosed Date [...] as of this encounter (statuses as of 11/13/2023) Resolved Problems Problem Noted Date Diagnosed Date [...] as of this encounter (statuses as of 11/13/2023) Immunizations Name Administration Dates Next Due COVID-19 mRNA, LNP-s, No Pre serve, 2-Dose Series ([employer]) 03/23/2021,02/21/2021 HEP A - Hepatitis A (Adult > 18 yrs) 04/08/2012, 08/06/2011 Hepatitis B, 20+ yrs 04/08/2012,09/07/2011,08/06 Pneumococcal Conjugate Vacci ne, 20-valent ([id number]) 06/26/2022 Pneumococcal Polysaccharide PPV23 (Pneumovax) 08/07/2013 Seasonal [...] encounter Miscellaneous Notes * Telephone Encounter - Selena Mccartney, RIAZ - 11/13/2023 12:11 PM EST Called and spoke with pt. Informed of message below. Pt started taking the prescription that you sent. She is currently taking 300 mg daily * Telephone Encounter - Jerrica Urias DO [...] Description 11/16/2023 10:00 AM EST [facility] [place] [address] [facility] [address] 03/24/2024 8:10 AM EDT Office Visit [facility] [place] [address] [facility] [place] [phone] Jerrica Urias, DO [address] [facility] [address] Scheduled Procedures Name Priority Associated Diagnoses Date/Ti [...] filedocumented as of this encounter Care Teams Council Member Relationship Specialty Start Date End Date Jerrica Urias DO [address] [place] [address] PCP - General Family Medicine 11/16/20 documented as of this encounter
--- OUTSIDE RECORDS SUMMARY | 2024-04-14 12:43 | External Medical Summary | Summary of Care ---
Author Name Unknown Organization [facility] Address [address] [place] [address] Phone [phone] Care Team Providers Care Women'S Ministry Director Name Role Phone Jerrica Urias DO Primary Care Provider Encounter Details Date Type Department Care Team (Late st Contact Info) Description 11/19/2023 Telephone [place] [address] [place] [address] Jerrica Urias DO [address] [place] [address] Allergies Active Allergy Reactions Criticality [...] 12/27/2019 Active Additional Information Patient taking differently:2 [place] Each NostrilPRN, Rhinitis, Reported on 06/11/2023 Vitamin D3 (CHOLECALCIFEROL) 400 UNIT TabletIndications:st ates using 1000 units every morning Take 1 Tablet by mouth in the morning. 0 Active Calcium 150 MG Tablet Take 1 Tablet by mouth in the morning. 0 Active OneTouch Verio w/Device KitIndications:Type 2 diabetes, HbA1c goal < 7% ([facility]) Use up to 4 times a day [...] hemoglobin A1c goal of less than 7.0% ([facility]) TAKE 1 TABLET BY MOUTH EVERY DAY [...] mRNA, LNP-s, No Pre serve, 2-Dose Series ([employer]) 03/23/2021,02/21/2021 HEP A - Hepatitis A (Adult > 18 yrs) 04/08/2012, 08/06/2011 Hepatitis B, 20+ yrs 04/08/2012,09/07/2011,08/06 Pneumococcal Conjugate Vacci ne, 20-valent ([id number]) 06/26/2022 Pneumococcal Polysaccharide PPV23 (Pneumovax) 08/07/2013 Seasonal [...] Description 03/24/2024 8:10 AM EDT Office Visit [facility] [address] [facility] [place] [address] Jerrica Urias DO [address] [place] [address] Scheduled Procedures Name Priority Associated Diagnoses Date/Ti me COLONOSCOPY FLEXIBLE WINGA Tavo DIAGNOSTIC Recall Family history of colonic polyps [...] filedocumented as of this encounter Care Teams Women'S Ministry Director Relationship Specialty Start Date End Date Jerrica Urias DO [address] [place] [address] PCP - General Family Medicine 11/16/20 documented as of this encounter
--- OUTSIDE RECORDS SUMMARY | 2024-04-14 12:43 | External Medical Summary | Summary of Care ---
Author Name Unknown Organization [facility] Address [address] [place] [address] Phone [phone] Care Team Providers Care Sales Systems Engineer Name Role Phone Sean Middleton DO Primary Care Provider Reason for Visit * Reason Comments eRx-Medication Refill Encounter Details Date Type Department Care Team (Late st Contact Info) Description 12/11/2023 Refill [place] [address] [place] [address] Sean Middleton DO [address] [place] [address] Allergies Active Allergy Reactions Criticality Noted Date Comments Clindamycin Hives 04/14/2018 Penicillins Hives High 01/17/2014 Sulfate Hives High 01/17/2014 Albiglutide Abdominal pain,Itching,Nausea/vomiting,Rash 05/25/2017 documented as of this encounter (statuses as of 12/11/2023) Medications Medication Sig Dispensed Refills Start Date [...] 0 Active Additional Information Patient taking differently:2 [place] Each NostrilPRN, Rhinitis, Reported on 06/11/2023 Vitamin [...] times a day E11.9 1 Kit 0 1 Active valACYclovir HCl 1 GM Oral Tablet (Valtrex)Indication s:Cold sore TAKE 2 TABLETS BY MOUTH EVERY 12 HRS X 1 DAYS FOR COLD SORES 4 Tablet 3 1 Active Esomeprazole Magnesium 40 MG Oral Capsule Delayed ReleaseIndications: Gastroesophageal reflux disease without esophagitis Take by mouth 1 Capsule daily before breakfast . 1 hour before the first meal of the day 90 Capsule 3 2 Active OneTouch Verio In Vitro Strip (Glucose Blood) USE UP TO 4 TIMES A DAY E11.9 100 Strip 11 2 Active LORazepam 1 MG Oral Tablet (Ativan)Indications :Vertigo One pill by mouthas needed for veritgo 30 Tablet 0 3 Active Additional Information Patient taking differently: One pill by mouth as needed for veritgo, pt stated she splits them into 1/4's, Reported on 06/11/2023 Lisinopril 2.5 MG Oral Tablet (Prinivil)Indicatio ns:Takotsubo cardiomyopathy TAKE 1 TABLET BY MOUTH EVERY DAY 90 Tablet 1 3 Active Jardiance 25 MG Oral Tablet (Empagliflozin)Melissa cations:Type 2 diabetes mellitus with hemoglobin A1c goal of less than 7.0% (HCC) TAKE 1 TABLET BY MOUTH EVERY DAY 90 Tablet 1 3 Active Atorvastatin Calcium 40 MG Oral Tablet (Lipitor)Indication s:Dyslipidemia, goal LDL below 100 TAKE 1 TABLET BY MOUTH EVERY DAY 90 Tablet 2 3 Active Metoprolol Succinate ER 25 MG Oral Tablet Extended Release 24 Hour (toPROL XL)Indications:Tako tsubo cardiomyopathy,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 180 Tablet 1 3 Active Meloxicam 7.5 MG Oral Tablet (Mobic)Indications: Encounter for long-term (current) use of other medications TAKE 1 TABLET BY MOUTH EVERY DAY 90 Tablet 1 3 Active metFORMIN HCl ER 500 MG Oral Tablet Extended Release 24 Hour (Glucophage XR)Indications:Type 2 diabetes mellitus with hemoglobin A1c goal of less than 7.0% (HCC) TAKE 2 TABLETS BY MOUTH TWICE A DAY 360 Tablet 1 3 Active linaGLIPtin 5 MG [...] bedtime. 0 Active Magnesium 300 MG Oral CapsuleIndications: Hypomagnesemia [...] EVERY DAY 90 Tablet 3 4 Active Mag64 64 MG Oral Tablet Delayed Release (magnesium chloride ER) TAKE 2 TABLETS BY MOUTH TWICE A DAY 360 Tablet 3 3 12/11/19 24 Discontinued documented as of this encounter (statuses as of 12/11/2023) Active Problems Problem Noted Date Diagnosed Date [...] as of this encounter (statuses as of 12/11/2023) Resolved Problems Problem Noted Date Diagnosed Date [...] as of this encounter (statuses as of 12/11/2023) Immunizations Name Administration Dates Next Due COVID-19 mRNA, LNP-s, No Pre serve, 2-Dose Series ([employer]) 03/23/2021,02/21/2021 HEP A - Hepatitis A (Adult > 18 yrs) 04/08/2012, 08/06/2011 Hepatitis B, 20+ yrs 04/08/2012,09/07/2011,08/06 Pneumococcal Conjugate Vacci ne, 20-valent ([id number]) 06/26/2022 Pneumococcal Polysaccharide PPV23 (Pneumovax) 08/07/2013 Seasonal Influenza, PF, 6 M & above, IM , (FluLaval or Fluzone) 07/15/2021,08/02/2020,07/25/2019,090 03/2018 Seasonal Influenza, Quadriva lent Hd (Fluzone Hd) [...] encounter Miscellaneous Notes * Telephone Encounter - Sean Middleton DO - 12/11/2023 12:18 PM ESTSigned Prescriptions: Disp Refills Mag64 64 MG Oral Tablet Delayed Release (m*360 Ta*3 Sig: TAKE 2 TABLETS BY MOUTH TWICE A DAY Authorizing Provider: SEAN MIDDLETON * Telephone Encounter - Stew Yi, [facility] - 12/11/2023 12:08 PM EST Pending Prescriptions: Disp Refills Mag64 64 MG Oral Tablet Delayed Release [P*360 Ta*3 Sig: TAKE 2 TABLETS BY MOUTH TWICE A DAY * Telephone Encounter - Stew Yi, [facility] - 12/11/2023 12:07 PM EST Pending Prescriptions: Disp Refills Mag64 64 MG Oral Tablet Delayed Release [P*360 Ta*3 Sig: TAKE 2 TABLETS BY MOUTH TWICE A DAY 11/09/2023 (in office), 07/31/2022 (telemedicine) 03/24/2024 If no future appointments scheduled, and last appointment is greater than a year ago, please schedule patient for a follow-up appointment Last date the medication was ordered: 12/11/22 Pharmacy: [id number] [address] [place] [address] Is this request for a controlled substance?No Urine Drug Screen:No results found for this or any previous visit. Patient Phone Numbers Labs: Lab Results Component Value Date/Time CREAT 1.0 11/09/2023 10:11 AM CREAT 1.12 04/24/2021 12:00 AM CREAT 0.9 11/05/2020 10:38 AM POTASSIUM 4.3 11/09/2023 10:11 AM POTASSIUM 4.4 04/24/2021 12:00 AM POTASSIUM 4.8 11/05/2020 10:38 AM TSH 2.44 01/09/2020 12:10 PM LDLCALC 51 11/09/2023 10:11 AM LDLCALC 64 08/01/2020 08:23 AM LDLDIRECT NOT APPLICABLE 08/01/2020 08:23 AM ALT 22 11/09/2023 10:11 AM ALT 108 (H) 11/05/2020 10:38 AM HGBA1C 7.8 (H) 11/09/2023 10:11 AM HGBA1C 9.0 (H) 11/05/2020 10:38 AM documented in this encounter Plan of Treatment Upcoming Encounters Date Type Department Care Team (Late st Contact Info) Description 03/24/2024 8:10 AM EDT Office Visit [facility] [address] [place] [address] Sean Middleton, DO [address] [place] [address] Scheduled Procedures Name Priority Associated [...] filedocumented as of this encounter Care Teams Sales Systems Engineer Relationship Specialty Start Date End Date Sean Middleton DO [address] [place] [address] PCP - General Family Medicine 11/16/20 documented as of this encounter
--- OUTSIDE RECORDS SUMMARY | 2024-04-14 12:43 | External Medical Summary | Summary of Care ---
Author Name Unknown Organization [facility] Address [address] [place] [address] Phone [phone] Care Team Providers Care Library Supervisor Name Role Phone Sean Middleton DO Primary Care Provider Reason for Visit * Reason Comments eRx-Medication Refill Encounter Details Date Type Department Care Team (Late st Contact Info) Description 12/27/2023 Refill [place] [address] [place] [address] Sean Middleton DO [address] [place] [address] Encounter for long-term (current) use of other medications; Takotsubo cardiomyopathy; Type 2 diabetes mellitus with hemoglobin A1c goal of less than 7.0% ([facility]) Allergies Active Allergy Reactions Criticality Noted Date Comments Clindamycin Hives 04/14/2018 Penicillins Hives High 01/17/2014 Sulfate Hives High 01/17/2014 Albiglutide Abdominal pain,Itching,Nausea/vomiting,Rash 05/25/2017 documented as of this encounter (statuses as of 12/28/2023) Medications Medication Sig Dispensed Refills Start Date [...] 0 Active Additional Information Patient taking differently:2 [place] Each NostrilPRN, Rhinitis, Reported on 06/11/2023 Vitamin [...] the morning. 180 Tablet 1 3 Active metFORMIN HCl ER [...] MOUTH EVERY DAY 90 Tablet 1 3 12/28/19 24 Discontinued Jardiance 25 MG Oral Tablet (Empagliflozin)Melissa cations:Type 2 diabetes mellitus with hemoglobin A1c goal of less than 7.0% (HCC) TAKE 1 TABLET BY MOUTH EVERY DAY 90 Tablet 1 3 12/28/19 24 Discontinued Meloxicam 7.5 MG Oral Tablet (Mobic)Indications: Encounter for long-term (current) use of other medications TAKE 1 TABLET BY MOUTH EVERY DAY 90 Tablet 1 3 12/28/19 24 Discontinued documented as of this encounter (statuses as of 12/28/2023) Active Problems Problem Noted Date Diagnosed Date [...] as of this encounter (statuses as of 12/28/2023) Resolved Problems Problem Noted Date Diagnosed Date [...] as of this encounter (statuses as of 12/28/2023) Immunizations Name Administration Dates Next Due COVID-19 mRNA, LNP-s, No Pre serve, 2-Dose Series ([employer]) 03/23/2021,02/21/2021 HEP A - Hepatitis A (Adult > 18 yrs) 04/08/2012, 08/06/2011 Hepatitis B, 20+ yrs 04/08/2012,09/07/2011,08/06 Pneumococcal Conjugate Vacci ne, 20-valent ([id number]) 06/26/2022 Pneumococcal Polysaccharide PPV23 (Pneumovax) 08/07/2013 Seasonal [...] encounter Miscellaneous Notes * Telephone Encounter - Karla Dent RPh - 12/28/2023 11:35 AM ESTSigned Prescriptions: Disp Refills Meloxicam 7.5 MG Oral Tablet (Mobic) 90 Tab*1 Sig: TAKE 1 TABLET BY MOUTH EVERY DAYAuthorizing Provider: SEAN MIDDLETON User: KARLA DENT Lisinopril 2.5 MG Oral Tablet (Prinivil) 90 Tab*1 Sig: TAKE 1 TABLET BY MOUTH EVERY DAYAuthorizing Provider: SEAN MIDDLETON User: KARLA DENT Jardiance 25 MG Oral Tablet (Empagliflozin)90 Tab*1Sig: TAKE 1 TABLET BY MOUTH EVERY DAYAuthorizing Provider: SEAN MIDDLETON User: CRISTIAN DENT documented in this encounter Plan of Treatment Upcoming Encounters Date Type Department Care Team (Late st Contact Info) Description 03/24/2024 8:10 AM EDT [facility] [address] [facility] [address] Sean Middleton [facility] [address] [facility] [address] Scheduled Procedures Name Priority Associated Diagnoses Date/Ti [...] as of this encounter Visit Diagnoses Diagnosis Encounter for long-term (current) use of other medications Takotsubo cardiomyopathy Takotsubo syndrome Type 2 diabetes mellitus with hemoglobin A1c goal of less than 7.0% (HCC) documented in this encounter Care Teams Library Supervisor Relationship Specialty Start Date End Date Sean Middleton DO [address] [facility] [place] [address] PCP - General Family Medicine 11/16/20 documented as of this encounter
--- OUTSIDE RECORDS SUMMARY | 2024-04-14 12:43 | External Medical Summary | Summary of Care ---
Author Name Unknown Organization [facility] Address [address] [place] [address] Phone [phone] Care Team Providers Care Computer Aided Design Designer Name Role Phone Sean Urias DO Primary Care Provider Reason for Referral * Medication Prior Authorization - Closed Specialty Diagnoses / Procedures Referred By Feng t Referred To Contact Diagnoses Chronic allergic rhinitis Stew Yi, [facility] [address] [place] [address] Referral ID Status Reason Start Date Expiration Date Visits Re quested Visits Authorized [id number] Closed [phone] Reason for Visit * Reason Comments eRx-Medication Refill Encounter Details Date Type Department Care Team (Late st Contact Info) Description 12/11/2023 Refill [place] [address] [place] [address] Ag Browne MD [address] [place] [address] Chronic allergic rhinitis Allergies Active Allergy Reactions Criticality Noted Date [...] 0 Active Additional Information Patient taking differently:2 [place] Each NostrilPRN, Rhinitis, Reported on 06/11/2023 Vitamin D3 (CHOLECALCIFEROL) 400 UNIT TabletIndications:s tates using 1000 units every morning Take 1 Tablet by mouth in the morning. 0 Active Calcium 150 MG Tablet Take 1 Tablet by mouth in the morning. 0 Active OneTouch Verio w/Device KitIndications:Type 2 diabetes, HbA1c goal < 7% ([facility]) Use up to 4 times a day [...] the morning. 90 Capsule 3 4 Active Montelukast Sodium 10 MG Oral Tablet (Singulair)Indicati ons:Chronic allergic rhinitis TAKE 1 TABLET BY MOUTH EVERY DAY 90 Tablet 3 4 Active Mag64 64 MG Oral Tablet Delayed Release (magnesium chloride ER) TAKE 2 TABLETS BY MOUTH TWICE A DAY 360 Tablet 3 3 12/11/19 24 Discontinued Montelukast Sodium 10 MG Oral Tablet (Singulair)Indicati ons:Chronic allergic rhinitis TAKE 1 TABLET BY MOUTH EVERY DAY 90 Tablet 2 3 12/11/19 24 Discontinued documented as of [...] mRNA, LNP-s, No Pre serve, 2-Dose Series ([employer]) 03/23/2021,02/21/2021 HEP A - Hepatitis A (Adult > 18 yrs) 04/08/2012, 08/06/2011 Hepatitis B, 20+ yrs 04/08/2012,09/07/2011,08/06 Pneumococcal Conjugate Vacci ne, 20-valent ([id number]) 06/26/2022 Pneumococcal Polysaccharide PPV23 (Pneumovax) 08/07/2013 Seasonal Influenza, PF, 6 M & above, IM , (FluLaval or Fluzone) 07/15/2021,08/02/2020,07/25/2019,09/0 03/2018 Seasonal Influenza, Quadriva lent Hd (Fluzone [...] encounter Miscellaneous Notes * Telephone Encounter - Stew Yi [facility] - 12/11/2023 12:12 PM EST Signed Prescriptions: Disp Refills Montelukast Sodium 10 MG Oral Tablet (Sing*90 Tab*3 Sig: TAKE 1 TABLET BY MOUTH EVERY DAYAuthorizing Provider: SEAN URIAS User: STEW YI documented in this encounter Plan of Treatment Upcoming Encounters Date Type Department Care Team (Late st Contact Info) Description 03/24/2024 8:10 AM EDT Office Visit [facility] [address] [place] [address] Sean Urias DO [address] [place] [address] Scheduled Procedures Name Priority Associated [...] as of this encounter Visit Diagnoses Diagnosis Chronic allergic rhinitis Allergic rhinitis, cause unspecified documented in this encounter Care Teams Computer Aided Design Designer Relationship Specialty Start Date End Date Sean Urias DO [address] [facility] [address] PCP - General Family Medicine 11/16/20 documented as of this encounter
--- OUTSIDE RECORDS SUMMARY | 2024-04-14 12:44 | External Medical Summary | Summary of Care ---
Author Name Unknown Organization [facility] Address [address] [place] [address] Phone [phone] Care Team Providers Care Saw Offbearer Name Role Phone Jerrica Urias DO Primary Care Provider [phone] Reason for Visit * Reason Comments Outpatient Testing Encounter Details Date Type Department Care Team (Late st Contact Info) Description 11/09/2023 10:10 AM EST Laboratory Laboratory, [place] [address] [place] [address] [place], Laboratory [address] [place] [address] Encounter for long-term (current) use of medications; Type 2 diabetes mellitus with hemoglobin A1c goal of less than 7.0% ([facility]); Dyslipidemia, goal LDL below 100; Hypomagnesemia Allergies Active Allergy Reactions Criticality Noted Date Comments Clindamycin Hives 04/14/2018 Penicillins Hives High 01/17/2014 Sulfate Hives High 01/17/2014 Albiglutide Abdominal pain,Itching,Nausea/vomiting,Rash 05/25/2017 documented as of this encounter (statuses as of 11/09/2023) Medications Medication Sig Dispensed Refills Start Date [...] 12/27/2019 Active Additional Information Patient taking differently:2 [place] Each NostrilPRN, Rhinitis, Reported on 06/11/2023 Vitamin D3 (CHOLECALCIFEROL) 400 UNIT TabletIndications:st ates using 1000 units every morning Take 1 Tablet by mouth in the morning. 0 Active Calcium 150 MG Tablet Take 1 Tablet by mouth in the morning. 0 Active OneTouch Verio w/Device KitIndications:Type 2 diabetes, HbA1c goal < 7% ([facility]) Use up to 4 times a day [...] as of this encounter (statuses as of 11/09/2023) Active Problems Problem Noted Date Diagnosed Date [...] as of this encounter (statuses as of 11/09/2023) Resolved Problems Problem Noted Date Diagnosed Date [...] as of this encounter (statuses as of 11/09/2023) Immunizations Name Administration Dates Next Due COVID-19 mRNA, LNP-s, No Pre serve, 2-Dose Series ([employer]) 03/23/2021,02/21/2021 HEP A - Hepatitis A (Adult > 18 yrs) 04/08/2012, 08/06/2011 Hepatitis B, 20+ yrs 04/08/2012,09/07/2011,08/06 Pneumococcal Conjugate Vacci ne, 20-valent ([id number]) 06/26/2022 Pneumococcal Polysaccharide PPV23 (Pneumovax) 08/07/2013 Seasonal [...] Care Team (Late st Contact Info) Description 11/10/2023 1:30 PM EST [facility] [address] [facility] [address] 11/10/2023 2:15 PM EST [facility] [place] [address] [facility] [address] 03/24/2024 8:10 AM EDT Office Visit [facility], [place] [address] [facility] [address] Jerrica Urias DO [address] [facility] [address] Pending Results Name Type Priority Associated Diagnoses Date /Time HGB Lab Routine Encounter for long-term (current) use of medications 11/09/2023 10:11 AM EST HEMOGLOBIN A1C Lab Routine Type 2 diabetes mellitus with hemoglobin A1c goal of less than 7.0% ([facility]) 11/09/2023 10:11 AM EST BASIC METABOLIC PANEL Lab Routine Type 2 diabetes mellitus with hemoglobin A1c goal of less than 7.0% ([facility]) 11/09/2023 10:11 AM EST HEPATIC FUNCTION PANEL Lab Routine Dyslipidemia, goal LDL below 100 11/09/2023 10:11 AM EST LIPID PANEL WITH DIRECT LDL IF TG IS HIGH Lab Routine Dyslipidemia, goal LDL below 100 11/09/2023 10:11 AM EST MAGNESIUM Lab Routine Hypomagnesemia 11/09/2023 10:11 AM EST Scheduled Procedures Name Priority Associated Diagnoses Date/Ti me COLONOSCOPY FLEXIBLE PROXIMA L DIAGNOSTIC Recall Family history of colonic polyps Health Maintenance Due Date Last Done Comments Depression Screening 02/24/2023 02/24/2022 COVID-19 Vaccine ( season) 2023 03/23/2021, 02/21/2021 Diabetic Eye Exam 09/01/2023 09/01/2022, , 02/24/2022, Additional history exists HbA1c 10/29/2023 04/29/2023, 11/03, 06/26/2022, Additional history exists Diabetic Foot Exam 01/02/2024 01/01/2023, 0 02/24/2022, 03/18/2021, Additional history exists Albumin/Creatinine Ratio 04/29/2024 023, 11/14/2021, 01/09/2020, Additional history exists GFR 04/29/2024 04/29/2023, 11/03, 06/26/2022, Additional history exists Mammogram 09/07/2024 09/07/2023, 08/03, 08/25/2022, Additional history exists DTaP,Tdap,and Td Vaccines (2 - Td or Tdap) 04/30/2025 04/30/2015 COLONOSCOPY-EVERY 5 YRS AGES 18-100 12/17/2025 12/17/2020, 12/17/2020, 06/26/2014, Additional history exists DXA Scan 04/20/2030 04/20/2023, 04/20/2023 Hepatitis B Completed 04/08/2012, 1104/2011, 08/06/2011 Zoster Vaccines Completed 01/20/2019, 07/07/2018 Pneumococcal [...] Diagnosis Encounter for long-term (current) use of medications Encounter for long-term (current) use of other medications Type 2 diabetes mellitus with hemoglobin A1c goal of less than 7.0% (HCC) Dyslipidemia, goal LDL below 100 Other and unspecified hyperlipidemia Hypomagnesemia Disorders of magnesium metabolism documented in this encounter Care Teams Saw Offbearer Relationship Specialty Start Date End Date Jerrica Urias DO [address], [place] [id number] PCP - General Family Medicine 11/16/20 documented as of this encounter
--- OUTSIDE RECORDS SUMMARY | 2024-04-14 12:44 | External Medical Summary ---
Author Name Unknown Address Unknown Organization [id number]:[facility]ATORY [facility] - [address] [place] [address] Laboratory Report Ordering Provider Test Date Status KANE ESTRADA 11/09/2023 10:11:55 Final Observation Date Value Abnormality Reference (Units ) Status HbA1C 11/09/2023 10:11:55 7.8 Above high normal 4. 0-5.6 (%) Final The use of HbA1c to monitor glycemic status is based on normal hemoglobin and HbA composition. This test should not be used in patients with abnormal hemoglobin that affects the half life of the red blood cell or the in vivo glycation rates. Glucose, estimated average 11/09/2023 10:11:55 177 Above high normal <126 (mg/dL) Grabiel clay Performing Location [facility] [address] [facility] [address]
--- OUTSIDE RECORDS SUMMARY | 2024-04-14 12:44 | External Medical Summary ---
Author Name Unknown Address Unknown Organization [id number]:[facility] - [address] [place] [facility] [place] [address] Laboratory Report Ordering Provider Test Date Status LAVINIA ESTRADAONEALOMAR 11/09/2023 10:11:55 Final Observation Date Value Abnormality Reference (Units ) Status Triglyceride 11/09/2023 10:11:55 129 <=174 ( mg/dL) Final Triglyceride Reference Range s (mg/dL):
<150 Acceptable
150-174 Borderline high
175-499 High
>=500 Very high Cholesterol 11/09/2023 10:11:55 138 <200 (mg /dL) Final Total Cholesterol Reference Ranges (mg/dL):
<200 Desirable
200-239 Borderline high
>=240 High HDL 11/09/2023 10:11:55 61 >49 (mg/dL ) Final HDL Cholesterol Reference Ra nges (mg/dL):
>=60 High (Desirable)
<50 Low (Undesirable) For Females
<40 Low (Undesirable) For Males NON-HDL CHOLESTEROL 11/09/2023 10:11:55 77 <=159 (mg/dL) Final Non-HDL Cholesterol Referenc e Range (mg/dL):
<100 Target level for high risk ASCVD patient
<130 Optimal for general population
130-159 Near optimal for general population
160-189 Borderline High
190-219 High
>=220 Very High LDL, (calculated) 11/09/2023 10:11:55 51 <= 129 (mg/dL) Final LDL Cholesterol Reference Ra nges (mg/dL):
<70 Target level for high risk ASCVD patient
<100 Optimal for general population
100-129 Near optimal for general population
130-159 Borderline high
160-189 High
>=190 Very high Performing Location LABORATORY [facility] - [address] [place] [address]
--- OUTSIDE RECORDS SUMMARY | 2024-04-14 12:44 | External Medical Summary ---
Author Name Unknown Address Unknown Organization K01:[facility] [place] [address] [place] [address] Laboratory Report Ordering Provider Test Date Status SEANLAVINIAANGELINA 11/09/2023 10:11:55 Final Observation Date Value Abnormality Reference (Units ) Status Albumin 11/09/2023 10:11:55 4.6 3.8-5.0 (g/dL) Final AST (Aspartate aminotransferase) 11/09/2023 10:11:55 16 10-35 (U/L) Final Alk Phos 11/09/2023 10:11:55 82 35-130 (U/L) Final ALT (Alanine aminotransferase) 11/09/2023 10:11:55 22 10-35 (U/L) Final Bilirubin, Total 11/09/2023 10:11:55 0.3 <=1.2 (mg/dL) Final Bilirubin, Direct 11/09/2023 10:11:55 <0.2 0.0-0.3 (mg/dL) Final Protein 11/09/2023 10:11:55 6.6 6.0-8.3 (g/dL) Final Performing Location LAB[facility]ORY [facility] - [address] [place] [address]
--- OUTSIDE RECORDS SUMMARY | 2024-04-14 12:44 | External Medical Summary | Summary of Care ---
Author Name Unknown Organization [facility] Address [address] [place] [address] Phone [phone] Care Team Providers Care Weed Inspector Name Role Phone Jerrica Urias DO Primary Care Provider [phone] Reason for Visit * Reason Comments Re-Check 6 month return, c/o right sided back pain, went to PT for it, and that did not help. Pharmacy has not filled her Magnesium 300 recently, should she be taking it with the Mag 64? Encounter Details Date Type Department Care Team (Late st Contact Info) Description 11/09/2023 9:10 AM EST Office Visit [facility] [place] [address] [place] [address] Jerrica Urias, [address] [place] [address] Type 2 diabetes mellitus with hemoglobin A1c goal of less than 7.0% ([facility]; Dyslipidemia, goal LDL below 100; Gastroesophageal reflux disease without esophagitis; Hypomagnesemia; Mid back pain on right side; Acute non-recurrent frontal sinusitis Allergies Active Allergy Reactions Criticality Noted Date [...] 12/27/2019 Active Additional Information Patient taking differently:2 [place] Each NostrilPRN, Rhinitis, Reported on 06/11/2023 Vitamin [...] the day 90 Capsule 3 08/18/2022 Active Sanovi TechnologiesTouch Verio In Vitro Strip (Glucose Blood) USE UP TO 4 TIMES A DAY E11.9 100 Strip 11 09/09/2022 Active Mag64 64 MG Oral Tablet Delayed Release (magnesium chloride ER) TAKE 2 TABLETS BY MOUTH TWICE A DAY 360 Tablet 3 12/11/2022 Active LORazepam 1 MG Oral Tablet (Ativan)Indications :Vertigo One pill by mouthas needed for veritgo 30 Tablet 0 01/01/2023 Active Additional Information Patient taking differently: One pill by mouth as needed for veritgo, pt stated she splits them into 1/4's, Reported on 06/11/2023 Montelukast Sodium 10 MG Oral Tablet (Singulair)Indicati ons:Chronic allergic rhinitis TAKE 1 TABLET BY MOUTH EVERY DAY 90 Tablet 2 03/05/2023 Active Lisinopril 2.5 MG Oral Tablet (Prinivil)Tieno ns:Takotsubo cardiomyopathy TAKE 1 TABLET BY MOUTH EVERY DAY 90 Tablet 1 07/14/2023 Active Jardiance 25 MG Oral Tablet (Empagliflozin)Melissa [...] 09/14/2023 Active Meloxicam 7.5 MG Oral Tablet (Mobic)Indications: [...] 11/09/2023 Active Doxycycline Hyclate 100 MG Oral CapsuleIndications: Acute non-recurrent frontal sinusitis Take 1 Capsule by mouth in the morning and 1 Capsule before bedtime. Do all this for 10 days. Until gone.. 20 Capsule 0 11/09/2023 Active Magnesium 300 MG Oral Capsule Take 300 mg by mouth in the morning. 90 Capsule 3 02/04/2023 4 Discontinu ed(Refill) Azithromycin 250 MG Oral Tablet (Zithromax Z-Ricky) Take two tablets by mouth on first day, then 1 tablet daily until gone 6 Tablet 0 09/15/2023 4 Discontinu ed(Medicat ion List Clean Up) documented as of this encounter (statuses as [...] mRNA, LNP-s, No Pre serve, 2-Dose Series ([employer]) 03/23/2021,02/21/2021 HEP A - Hepatitis A (Adult > 18 yrs) 04/08/2012, 08/06/2011 Hepatitis B, 20+ yrs 04/08/2012,09/07/2011,08/06 Pneumococcal Conjugate Vacci ne, 20-valent ([id number]) 06/26/2022 Pneumococcal Polysaccharide PPV23 (Pneumovax) 08/07/2013 Seasonal [...] Sign Reading Time Taken Comments Blood Pressure 126/64 11/09/2023 9:18 AM EST Pulse 72 11/09/2023 9:18 AM EST Temperature - - Respiratory Rate - - Oxygen Saturation - - Inhaled Oxygen Concentration - - Weight 95.4 kg (210 lb 5 oz) 11/09/2023 9:18 AM EST Height - - Body Mass Index 38.47 02/26/2023 8:05 AM EDT documented in this [...] this encounter Progress Notes * Jerrica Urias, DO - 11/09/2023 9:33 AM EST Subjective: Iman Salazar is a 68 year old female. Chief Complaint Patient presents with Re-Check 6 month return, c/o right sided back pain, went to PT for it, and that did not help. Pharmacy has not filled her Magnesium 300 recently, should she be taking it with the Mag 64? HPI: 68 year old female here today for a recheck. She has type 2 diabetes, hx of stress induced cardiomyopathy, hx of L ventricle thrombus, suffered an occipital stroke and was on coumadin but no longer on this. For her diabetes she is on Jardiance Metformin and Tradjenta. Needs labs. + mucous in throat for a few months. Her son is moving in with her. Still ongoing pain in right middle back. PHM: Patient Active Problem List Diagnosis Code GERD (gastroesophageal reflux disease) K21.9 Type 2 diabetes mellitus with hemoglobin A1c goal of less than 7.0% ([facility]) E11.9 Dyslipidemia, goal LDL below 100 E78.5 Non-intractable vomiting with nausea R11.2 Abdominal pain, generalized R10.84 Change in consistency of stool R19.5 Takotsubo cardiomyopathy I51.81 Occipital stroke (HCC) I63.9 Left ventricular mural thrombus I51.3 Chronic allergic rhinitis J30.9 Class 2 severe obesity with serious comorbidity and body mass index (BMI) of 38.0 to 38.9 in adult E66.01, Z68.38 Current Outpatient Medications Medication Sig Dispense Refill ASPIRIN 81 MG PO CHEW Take 1 Tablet by mouth in the morning. 100 Tab 5 [facility] Use up to [...] 1 Tablet by mouth in the morning. [employer] Verio w/Device Kit Use up to 4 [...] meal of the day 90 Capsule 3 Sanovi TechnologiesTouch Verio In Vitro Strip (Glucose Blood) USE UP TO 4 TIMES A DAY E11.9 100 Strip 11 Mag64 64 MG Oral Tablet Delayed Release (magnesium chloride ER) TAKE 2 TABLETS BY MOUTH TWICE A [id number] Tablet 3 LORazepam 1 MG Oral Tablet (Ativan) One pill by mouthas needed for veritgo (Patient taking differently: One pill by mouth as needed for veritgo, pt stated she splits them into 1/4's) 30 Tablet 0 Montelukast Sodium 10 MG Oral Tablet (Singulair) TAKE 1 TABLET BY MOUTH EVERY DAY 90 Tablet 2 Lisinopril 2.5 MG Oral Tablet (Prinivil) TAKE 1 TABLET BY MOUTH EVERY DAY 90 Tablet 1 Jardiance 25 MG Oral Tablet (Empagliflozin) TAKE 1 TABLET BY MOUTH EVERY DAY 90 Tablet 1 Atorvastatin Calcium 40 MG Oral Tablet (Lipitor) TAKE 1 TABLET BY MOUTH EVERY DAY 90 Tablet 2 Metoprolol Succinate ER 25 MG Oral Tablet Extended Release 24 Hour (toPROL XL) Take 2 Tablets by mouth in the morning. 180 Tablet 1 Meloxicam 7.5 MG Oral Tablet (Mobic) TAKE 1 TABLET BY MOUTH EVERY DAY 90 Tablet 1 metFORMIN HCl ER 500 MG [...] 300 mg by mouth in the morning. (Patient not taking: Reported on11/09/2023) 90 Capsule 3 No current facility-administered medications for this visit. Review of patient's allergies indicates: Allergen Reactions Penicillins Hives Sulfate Hives Clindamycin Hives Tanzeum [Albiglutide] Abdominal pain, Itching, Nausea/vomiting and Rash Objective: BP 126/64 | Pulse 72 | Wt 95.4 kg (210 lb 5 oz) | BMI 38.47 kg/m | BSA 2.04 m Physical Exam: General: alert, healthy, and no distress Ears: External ears normal, Canals clear, TM's Normal Nose: clear rhinorrhea, mucosal edema, mucosal erythema Oropharynx: mild erythema and post nasal drip Neck: supple, no adenopathy Heart: regular rate & rhythm, no murmur, and no gallops Lungs: chest symmetric with normal AP diameter, no chest deformities noted, no chest wall tenderness, lungs clear to auscultation Abdomen: abdomen soft, non-tender, normal bowel sounds, and no masses or organomegaly Extremities: no edema ASSESSMENT/PLAN: Type 2 diabetes mellitus with hemoglobin A1c goal of less than 7.0% ([facility]) (Primary) - HEMOGLOBIN A1C; Future; Expected date: 11/09/2023 - BASIC METABOLIC PANEL; Future; Expected date: 11/09/2023 Dyslipidemia, goal LDL below 100 - HEPATIC FUNCTION PANEL; Future; Expected date: 11/09/2023 - LIPID PANEL WITH DIRECT LDL IF TG IS HIGH; Future; Expected date: 11/09/2023 Gastroesophageal reflux disease without esophagitis Hypomagnesemia - Magnesium 300 MG Oral Capsule; Take 300 mg by mouth in the morning. - MAGNESIUM; Future; Expected date: 11/09/2023 Mid back pain on right side - US RENAL; Future; Expected date: 11/09/2023 - US ABDOMEN LIMITED; Future; Expected date: 11/09/2023 Acute non-recurrent frontal sinusitis - Doxycycline Hyclate 100 MG Oral Capsule; Take 1 Capsule by mouth in the morning and 1 Capsule before bedtime. Do all this for 10 days. Until gone.. Follow Up: Return in about 4 months (around 03/09/2024) for Labs Today. | For: Labs Today | Check-outnote: US renal and GB Jerrica Urias DO documented in this encounter Plan of Treatment Upcoming Encounters Date Type Department Care Team (Late st Contact Info) Description 11/10/2023 1:30 PM EST [facility] [address] [place] [address] 11/10/2023 2:15 PM EST Imaging [facility] [address] [place] [address] 03/24/2024 8:10 AM EDT Office Visit [facility] [address] [place] [address] Jerrica Urias DO [address] [place] [address] Pending Results Name Type Priority Associated Diagnoses Date /Time HEMOGLOBIN A1C Lab Routine Type 2 diabetes mellitus with hemoglobin A1c goal of less than 7.0% ([facility]) 11/09/2023 10:11 AM EST BASIC METABOLIC PANEL Lab Routine Type 2 diabetes mellitus with hemoglobin A1c goal of less than 7.0% ([facility]) 11/09/2023 10:11 AM EST HEPATIC FUNCTION PANEL Lab Routine Dyslipidemia, goal LDL below 100 11/09/2023 10:11 AM EST LIPID PANEL WITH DIRECT LDL IF TG IS HIGH Lab Routine Dyslipidemia, goal LDL below 100 11/09/2023 10:11 AM EST MAGNESIUM Lab Routine Hypomagnesemia 11/09/2023 10:11 AM EST Scheduled Orders Name Type Priority Associated Diagnoses Orde r Schedule HEMOGLOBIN A1C Lab Routine Type 2 diabetes mellitus with hemoglobin A1c goal of less than 7.0% (HCC) Expected: 11/09/2023 (Approximate), Expires: 11/08/2024 BASIC METABOLIC PANEL Lab Routine Type 2 diabetes mellitus with hemoglobin A1c goal of less than 7.0% (HCC) Expected: 11/09/2023 (Approximate), Expires: 11/08/2024 HEPATIC FUNCTION PANEL Lab Routine Dyslipidemia, goal LDL below 100 Expected: 11/09/2023 (Approximate), Expires: 11/08/2024 LIPID PANEL WITH DIRECT LDL IF TG IS HIGH Lab Routine Dyslipidemia, goal LDL below 100 Expected: 11/09/2023, Expires: 11/09/2024 MAGNESIUM Lab Routine Hypomagnesemia Expected: 11/09/2023 (Approximate), Expires: 11/08/2024 US RENAL Medical Imaging Routine Mid back pain on right side Expected: 11/09/2023, Expires: 12/10/2024 US ABDOMEN LIMITED Medical Imaging Routine Mid back pain on right side Expected: 11/09/2023, Expires: 12/10/2024 Scheduled Procedures Name Priority Associated Diagnoses Date/Ti [...] hemoglobin A1c goal of less than 7.0% ([facility])- Primary Dyslipidemia, goal LDL below 100 Other and unspecified hyperlipidemia Gastroesophageal reflux disease without esophagitis Esophageal reflux Hypomagnesemia Disorders of magnesium metabolism Mid back pain on right side Acute non-recurrent frontal sinusitis documented in this encounter Care Teams Weed Inspector Relationship Specialty Start Date End Date Jerrica Urias DO [address] [place] [address] PCP - General Family Medicine 11/16/20 documented as of this encounter"
--- OUTSIDE RECORDS SUMMARY | 2024-04-14 12:44 | External Medical Summary ---
Author Name Unknown Address Unknown Organization [id number]:[facility] [place] [facility] [place] [address] [place] [address] Laboratory Report Ordering Provider Test Date Status KANE ESTRADA 11/09/2023 10:11:55 Final Observation Date Value Abnormality Reference (Units ) Status BUN 11/09/2023 10:11:55 22 Above high normal 6-20 (mg/dL) Final Creatinine 11/09/2023 10:11:55 1.0 0.5-1.0 (mg/dL) Final Glomerular filtration rate/1.73 sq M.predicted [Volume Rate/Area] in Serum, Plasma or Blood by Creatinine-based formula (CKD-EPI) 11/09/2023 10:11:55 61 >=60 (mL/min) Final eGFR is calculated based on the CKD-EPI 2020 equation SODIUM 11/09/2023 10:11:55 142 135-146 (m mol/L) Final Potassium 11/09/2023 10:11:55 4.3 3.5-5.1 (m mol/L) Final Cl 11/09/2023 10:11:55 104 98-107 (mm ol/L) Final CO2 11/09/2023 10:11:55 26 22-32 (mmo l/L) Final Anion gap 11/09/2023 10:11:55 12 7-15 (mmol /L) Final Glucose 11/09/2023 10:11:55 178 Above high normal 70 -120 (mg/dL) Final Calcium 11/09/2023 10:11:55 10.2 8.4-10.2 ( mg/dL) Final Performing Location [facility] [place] [facility] [place] [address] [place] [address]
--- OUTSIDE RECORDS SUMMARY | 2024-04-14 12:44 | External Medical Summary ---
Author Name Unknown Address Unknown Organization K01:[facility]AT[facility] - [address] [place] [address] Laboratory Report Ordering Provider Test Date Status KING QUINN 11/09/2023 10:11:55 Final Observation Date Value Abnormality Reference (Units ) Status Hemoglobin 11/09/2023 10:11:55 13.6 12.0-15.3 (g/dL) Final Performing Location [facility]ATORY [facility] - [address] [place] [address]
--- OUTSIDE RECORDS SUMMARY | 2024-04-14 12:44 | External Medical Summary ---
Author Name Unknown Address Unknown Organization K01:[facility]AT[facility] - [address] [place] [address] Laboratory Report Ordering Provider Test Date Status KANE ESTRADA 11/09/2023 10:11:55 Final Observation Date Value Abnormality Reference (Units ) Status Magnesium 11/09/2023 10:11:55 1.3 Below low normal 1.5 -2.6 (mg/dL) Final Performing Location [facility]ATORY [facility] - [address] [place] [address]
--- NOTE | 2024-04-14 12:46 | Post Anesthesia Assessment ---
Date of Service April 14, 2024 Post Sedation Assessment Vital Signs Temp Pulse Pulse Resp BP BP BP 04/14/24 12:54 68 16 169/73 H 04/14/24 10:59 78 14 170/82 H 04/14/24 08:00 58 L 04/14/24 07:12 36.8 C 66 16 120/77 04/14/24 03:04 36.6 C 66 18 122/79 04/13/24 23:28 59 L 04/13/24 22:41 36.6 C 66 18 126/77 04/13/24 20:19 36.6 C 79 18 156/82 H 04/13/24 20:17 79 04/13/24 18:59 86 18 159/98 H 04/13/24 18:59 82 18 04/13/24 17:39 93 H 16 04/13/24 17:30 139/93 04/13/24 17:03 90 15 191/98 H 04/13/24 16:41 84 04/13/24 16:30 178/104 H 04/13/24 16:15 92 H 19 04/13/24 16:15 90 18 176/98 H 04/13/24 13:30 73 20 04/13/24 13:00 137/74 Pulse Ox O2 Del Method 04/14/24 12:54 94 Room Air 04/14/24 10:59 98 Room Air 04/14/24 08:00 04/14/24 07:12 95 Room Air 04/14/24 03:04 98 Room Air 04/13/24 23:28 04/13/24 22:41 98 Room Air 04/13/24 20:19 95 Room Air 04/13/24 20:17 04/13/24 18:59 96 Room Air 04/13/24 18:59 96 Room Air 04/13/24 17:39 93 Room Air 04/13/24 17:30 04/13/24 17:03 96 04/13/24 16:41 04/13/24 16:30 04/13/24 16:15 98 Room Air 04/13/24 16:15 98 Room Air 04/13/24 13:30 93 Room Air 04/13/24 13:00 Recovery Score Activity: Moves 4 extremities Respiration: Deep Breath/Cough Circulation: +/-20% PreAnes Value Consciousness: Arouseable (by name) Oxygen Saturation: > 92% On Room Air Discharge Sedation Level of Care: Phase I Post Sedation Plan On clinical assessment, the patient appears to have tolerated the sedation without complications. Patient is recovering as anticipated. Patient will continue to be monitored by nursing and may be discharged when sedation discharge criteria are met per below protocol. Upon Completions of procedure up to 15 minutes continue every 5 minute vital signs and the P.A.R. score; then discharge to a Phase I or Fast Track to Phase II per the following guidelines: * Discharge Patient to appropriate Phase II area if PAR is 8 or greater or return to pre- procedure baseline. The post - procedure orders will be as directed. * If PAR score is less than 8 or not return to pre-procedure baseline then patient will follow Phase I monitoring till PAR is reached for Phase II. The Phase I may be done in procedure room or may call to secure a Phase I area. * If naloxone or flumazenil are used for reversal, hold in Phase I for continued monitoring from when last reversal dose was given for a minimum of 60 minutes or longer pending the nurse and/or physician discretion of patient condition before discharge to Phase II. Please call the Sedation Physician to re-evaluate and complete post-note for discharge to Phase II area. Do NOT discharge from procedure sedation or Phase 1 until post- sedation evaluation note is complete by procedure /sedation MD Sedation Discharge Instructions to be given to the patient at discharge to home.
[2024-04-14] MEDS: IODIXANOL (VISIPAQUE) 320 MG/ML 100ML IV ONE (12:48)
--- NOTE | 2024-04-14 12:53 | Cardiac Catheterization ---
Cardiac Cath Procedure Full Procedure Date April 14, 2024 Pre-Procedure Diagnosis Pre-Procedure Diagnosis: Angina and Positive Stress Test AUC Score AUC Score: 7 Post-Procedure Diagnosis Post-Procedure Diagnosis: Mild CAD and Elevated Intracardiac Pressures Procedure(s) Performed Procedure(s) Performed: Coronary Angiography and Left Heart Cath Tong Setter Gilberto Urias DO Consumer Analyst(s) [employer] C[employer] SPLICER Estimated Blood Loss Estimated Blood Loss: 5cc Medication(s) Medication(s): Fentanyl, Heparin, Lidocaine 1%, Nicardipine, Nitroglycerin and Versed Summary of Findings Mild nonobstructive coronary disease. Hemodynamics Rest Ao:: 169/11/112 Final Ao: 191/91 LV: 189/5/15 Recommendations Recommendations: Medical Therapy and/or Counseling Specimens Specimens: None Radiation Exposure (mGy) 1325 Contrast (mls) 75 Drains Drains: N/A Anesthesia Moderate sedation. Start 1144. And 1238. Sedation monitor: Della MONTALVO Procedural Complication(s) None Disposition Drug Safety Data Management Specialist Holding/Recovery I attest to the content of the Intraoperative Record and any orders documented therein. Any exceptions are noted below. ACC Data: Drug Safety Data Management Specialist Cardiac Status Clinical evaluation leading to the procedure 68-year-old female with chest pain and exertional dyspnea. Exercise stress echo demonstrating possible inferior posterior ischemia. Markedly reduced exercise tolerance with ischemic ECG changes recorded. CAD Presenation: Positive Stress Test Anginal Classification: CCS III Heart Failure: No Imaging Studies Past 6 Months: No Stress Studies Past 6 Months: Yes Stress Echocardiogram: Yes - Positive and Risk/Extent of Ischemia (Intermediate) Coronary Anatomy Dominant: Right Left Main (% Stenosis): Normal LAD (% Stenosis): Mid (Luminal irregularities, 20%) D1 (% Stenosis): Normal D2 (% Stenosis): Normal D3 (% Stenosis): Normal Circumflex (% Stenosis): Mid (30%) OM1 (% Stenosis): Normal RCA (% Stenosis): Proximal (20%), Mid (30%) and Distal (30%) R PDA (% Stenosis): Normal Diagnostic Physicians Name: Gilberto Urias DO Closure Device Percutaneous Entry Location: Femoral (Unable to pass wire via radial approach) Closure Device: Mynx Recommendations: Medical Therapy and/or Counseling Intraprocedure Events Significant Disection: No Perforation: No
--- NOTE | 2024-04-14 13:03 | Cardiology Progress Note ---
Date of Service April 14, 2024 Assessment & Plan (1) Abnormal stress echocardiogram: (2) HTN (hypertension): (3) KIRK (dyspnea on exertion): (4) HLD (hyperlipidemia): (5) DM type 2 (diabetes mellitus, type 2): Plan 68-year-old female present to the emergency department with chest discomfort and exercise intolerance. Abnormal stress test suggesting possible inferior posterior ischemia. Hypertensive blood pressure response to exercise with left ventricular hypertrophy on resting images. Cardiac catheterization performed earlier today without obstructive CAD. Mildly elevated left ventricular end- diastolic pressure with elevated systemic pressures during procedure. Recommend titration of lisinopril to 5 mg daily. Continue metoprolol, aspirin, and statin therapy as ordered. Postcardiac catheterization activity restrictions listed below. No further inpatient cardiac testing or intervention recommended at this time. ACTIVITY RECOMMENDATIONS: It is common to feel weak and fatigue for a few days. * Do not drive or operate any motorized equipment for the next three days. * Limit stair usage (2 or 3 trips a day only) for the next three days. * Do not lift anything heavier than 10 pounds for the next three days. * Do not engage in vigorous exercise or any sports for the next five days. * You may shower the day after your procedure, but do not immerse the area for three days. Cleanse the site gently with soap and water. SPECIAL CARE INSTRUCTIONS: * You may replace the pressure dressing or band-aid the morning after the procedure. * After your procedure, it is normal to have a small bruise or small lump at the site. Examine your site daily for any change in the bruise or lump, redness, swelling, drainage or numbness. Notify your doctor if any change. BLEEDING: * If there is a small amount of bleeding at the site, lie down and apply firm pressure with a clean cloth for ten minutes. When the bleeding stops, lie quietly keeping the procedure limb straight for six hours. Notify your doctor as soon as possible. * If the bleeding does not stop after ten minutes or if there is a large amount of bleeding or spurting, call 911 immediately. Continue to lie down and hold firm pressure until help arrives. SKIN IRRITATION: * You may experience some redness and/or swelling in the area where radiation was administered. If any skin irritation occurs, please contact your family physician. FOLLOW UP VISIT: Keep any scheduled doctor appointments. Admission and Anticipated Discharge Date Admission Date: April 13, 2024 Subjective Patient seen examined the bedside. Cardiac catheterization performed without evidence of significant obstructive coronary disease. No recurrent chest pain since admission. Blood pressure elevated during procedure, although, blood pressure readings well-controlled overnight. Review of Systems Review of Systems: All systems reviewed & are unremarkable except as noted in Subjective Physical Exam Constitutional: well developed and well nourished; no acute distress ENMT: Mallampati Class: II Respiratory: normal respiratory effort; no respiratory distress and no labored breathing Auscultation: no crackles, no rales, no rhonchi and no wheezes Cardiovascular: Rate/Rhythm: regular rate and regular rhythm Heart Sounds: normal S1 and normal S2; no murmur Vessels: femoral pulses present and radial pulses present; no JVD and no carotid bruit Extremities: no edema Gastrointestinal (Abdomen): Inspection/Auscultation: abdomen normal to inspection and normal bowel sounds; abdomen not distended Percussion/Palpation: abdomen soft; abdomen nontender, no guarding and abdomen not rigid Neurologic: CN's II-XI intact bilaterally and moves all extremities; no focal motor deficits Results & Data Vital Signs (Past 12 Hours) Vital Signs Temp Pulse Pulse Resp BP BP Pulse Ox 04/14/24 12:54 68 16 169/73 H 94 04/14/24 10:59 78 14 170/82 H 98 04/14/24 08:00 58 L 04/14/24 07:12 36.8 C 66 16 120/77 95 04/14/24 03:04 36.6 C 66 18 122/79 98 O2 Del Method 04/14/24 12:54 Room Air 04/14/24 10:59 Room Air 04/14/24 08:00 04/14/24 07:12 Room Air 04/14/24 03:04 Room Air Laboratory Results Cardiac Enzymes 04/13/24 04/13/24 Range/Units 12:41 19:04 Troponin I High Sens 2.7 8.6 D (0-14) pg/ml CBC 04/14/24 Range/Units 05:23 WBC 6.08 (4.8-10.8) K/ul RBC 4.42 (4.20-5.40) M/uL Hgb 13.3 (12.0-16.0) g/dl Hct 40.9 (37.0-47.0) % Plt Count 184 (130-400) K/uL Comprehensive Metabolic Panel 04/14/24 Range/Units 05:23 Sodium 139 (136-145) mmol/L Potassium 4.3 (3.5-5.1) mmol/L Chloride 106 (98-107) mmol/L Carbon Dioxide 24 (21-32) mmol/L BUN 23 (6-23) mg/dl Creatinine 0.89 (0.6-1.2) mg/dl Glucose 129 H (70-99(Fasting)) mg/dl Calcium 9.8 (8.6-10.3) mg/dl Intake and Output 04/13/24 04/14/24 04/14/24 22:59 06:59 14:59 Intake Total 107.2 / 107.2 262.933 / 262.933 Balance 107.2 / 107.2 262.933 / 262.933 Intake: IV 107.2 / 107.2 262.933 / 262.933 Heparin Sodium/Dextrose 25,000 107.2 / 107.2 162.933 / 162.933 units In 500 ml @ 800 UNITS/HR 16 mls/hr IV .Q24H THAI Rx#: [id number] Magnesium Sulfate / D5w 1 gm In 100 / 100 100 ml @ 50 mls/hr IV ONE ONE Rx#:[id number] Other: # Unmeasured Voids 1 1 Weight 92.533 kg 92.3 kg Weight Measurement Method Standing Scale Built in [facility] (2) HTN (hypertension) Hypertension type: primary hypertension Qualified Code(s): I10 - Essential (primary) hypertension (4) HLD (hyperlipidemia) Hyperlipidemia type: unspecified Qualified Code(s): E78.5 - Hyperlipidemia, unspecified (5) DM type 2 (diabetes mellitus, type 2) Diabetes mellitus complication status: with other specified complication 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
[2024-04-14] MEDS: LIDOCAINE 1% LOCAL 20 ML VIAL ONE (13:22)
--- NOTE | 2024-04-14 14:06 | Hospitalist Progress Note ---
Date of Service April 14, 2024 Assessment & Plan (1) Abnormal stress echocardiogram: Plan CAD/unstable angina Abnormal stress ECHO S/P Cath:Mild nonobstructive coronary disease. --CXR:No acute chest disease. -- Troponin negative --Stress ECHO: Abnormal exercise stress echo suggesting posterior and basal inferior ischemia. Exercise tolerance is markedly below average. Test terminated due to shortness of breath. EF 60 to 65%. Mild concentric LVH. Grade 1 diastolic dysfunction. No significant valvular pathology. --IV heparin discontinued Continue aspirin, Lipitor, lisinopril, metoprolol Lisinopril dose increased to 5 mg daily Appreciate cardiology input DM II HbA1c 8.3 Hold p.o. medications Continue insulin while hospitalized Monitor BGs Hypomagnesemia Replete electrolytes as needed Monitor Vitamin D deficiency Continue vitamin D supplements GERD Continue PPI Obesity BMI 37 Needs lifestyle changes DVT Px: IV Heparin Code Status Full code Disposition Home Admission and Anticipated Discharge Date Admission Date: April 13, 2024 Subjective Patient is seen and examined at bedside Chronic dyspnea on exertion Reports transient nausea this morning currently resolved Had cardiac catheterization earlier today Denies any chest pain, dizziness, abdominal pain No other complaints Family at bedside Review of Systems Review of Systems: All systems reviewed & are unremarkable except as noted in Subjective Physical Exam Physical Exam: Physical Exam: Vitals signs as noted above General Appearance:Obese, no apparent distress Head: normocephalic, Atraumatic Eyes: normal inspection, EOMI Neck: supple, Trachea midline Respiratory/Chest: Normal breath sounds, CTA, No accessory muscle use Cardiovascular: S1, S2, No murmur Abdomen/GI:Soft, Non tender, Bowel sounds present Extremities/Musculoskeletal:normal inspection, no edema Neurologic/Psych:AAOX3, grossly no focal neurological deficits Skin: normal color, warm Results & Data Results & Data Vital Signs (Past 12 Hours) Vital Signs Temp Pulse Pulse Resp BP BP Pulse Ox 04/14/24 14:00 72 19 121/78 96 04/14/24 13:36 75 20 139/71 97 04/14/24 13:28 36.6 C 69 20 160/71 H 96 04/14/24 13:07 66 16 164/77 H 95 04/14/24 12:54 68 16 169/73 H 94 04/14/24 10:59 78 14 170/82 H 98 04/14/24 08:00 58 L 04/14/24 07:12 36.8 C 66 16 120/77 95 04/14/24 03:04 36.6 C 66 18 122/79 98 O2 Del Method 04/14/24 14:00 Room Air 04/14/24 13:36 Room Air 04/14/24 13:28 Room Air 04/14/24 13:07 Room Air 04/14/24 12:54 Room Air 04/14/24 10:59 Room Air 04/14/24 08:00 04/14/24 07:12 Room Air 04/14/24 03:04 Room Air Laboratory Results Short CBC 04/14/24 Range/Units 05:23 WBC 6.08 (4.8-10.8) K/ul Hgb 13.3 (12.0-16.0) g/dl Hct 40.9 (37.0-47.0) % Plt Count 184 (130-400) K/uL BMP 04/14/24 05:23 Sodium 139 Potassium 4.3 Chloride 106 Carbon Dioxide 24 BUN 23 Creatinine 0.89 Glucose 129 H Calcium 9.8
--- NOTE | 2024-04-14 14:26 | Discharge Summary ---
Date of Service April 14, 2024 Admission HPI Per Admitting Provider 68-year-old female with PMH of CAD, Takotsubo cardiomyopathy, CVA, T2DM, HTN, HLD, GERD presented to the ED at referral of cardiology office secondary to abnormal stress stress test demonstrating inferior posterior and septal ischemia/significantly reduced exercise tolerance. 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 Patient denies any fever or chills or acute changes in her bowel or bladder habit. Patient reports her appetite minimally decreased due to upper abdominal discomfort. Patient reports smoking marijuana daily, denies alcohol and recreational drug use. Medications were reviewed with the patient Plan of care reviewed with the patient in detail, she was understanding. Full code as, discussed with the patient. Admission Exam Per Admitting Provider GENERAL: Alert and oriented x3. NAD, on RA. HEENT: No pallor, no icterus. Pupils equal, round and reactive to light. Oral mucosa moist. NECK: No JVD, no neck masses. HEART: S1 and S2 heard. Regular rate and rhythm. No murmur, no gallop. RESPIRATORY SYSTEM: Normal AP diameter. No accessory muscle use. No wheezing, no crackles. ABDOMEN: Soft, bowel sounds present, nontender, no distention. CENTRAL NERVOUS SYSTEM: No facial droop. Speech is clear. Obeys simple commands. Moves extremities. EXTREMITIES: No edema, no erythema seen. Principal Diagnosis Coronary artery disease Abnormal stress ECHO Discharge Data Allergies Allergy/AdvReac Type Severity Reaction Status Date / Time Penicillins Allergy Intermediate Hives Verified 04/30/23 21:43 Sulfa (Sulfonamide Allergy Intermediate Hives Verified 04/30/23 21:43 Antibiotics) albiglutide Allergy Unknown Abdominal Verified 04/30/23 21:43 pain,nausea,vomiting,rash and itchiness clindamycin Allergy Unknown Hives Verified 04/30/23 21:43 Corticosteroids Allergy Unknown Unknown Verified 04/30/23 21:43 (Glucocorticoids) Consultations 04/13/24 16:01 ED Decision to Admit Stat 04/13/24 16:40 Consult Cardiology Routine Procedures Performed Operation Date: 04/14/24 11:00 Actual Procedures p Cineradiography w/Routine Exam - Gilberto Urias DO p Cath, Left with Cors and Vent - Gilberto Urias DO s Ultrasound Vascular Access - DO manuela Jones Placement Art Occlusive Device - Gilberto Urias DO Ordered Studies Laboratory Results WBC 6.08 K/ul (4.8-10.8) 04/14/24 05:23 RBC 4.42 M/uL (4.20-5.40) 04/14/24 05:23 Hgb 13.3 g/dl (12.0-16.0) 04/14/24 05:23 Hct 40.9 % (37.0-47.0) 04/14/24 05:23 MCV 92.5 fL (80.0-100.0) 04/14/24 05:23 MCH 30.1 pg (25.0-34.0) 04/14/24 05:23 MCHC 32.5 g/dL (32.0-36.0) 04/14/24 05:23 RDW Std Deviation 43.4 fL (36.4-46.3) 04/14/24 05:23 RDW Coeff of Brittney 12.8 % (11.5-14.5) 04/14/24 05:23 Plt Count 184 K/uL (130-400) 04/14/24 05:23 MPV 9.9 fL (9.4-12.4) 04/14/24 05:23 Immature Gran % (Auto) 0.3 % 04/13/24 11:37 Neut % (Auto) 53.0 % 04/13/24 11:37 Lymph % (Auto) 35.3 % 04/13/24 11:37 Fountain % (Auto) 7.6 % 04/13/24 11:37 Eos % (Auto) 3.2 % 04/13/24 11:37 Baso % (Auto) 0.6 % 04/13/24 11:37 Neut # (Auto) 3.61 K/uL (1.40-6.50) 04/13/24 11:37 Lymph # (Auto) 2.41 K/uL (1.20-3.40) 04/13/24 11:37 Fountain # (Auto) 0.52 K/uL (0.11-0.59) 04/13/24 11:37 Eos # (Auto) 0.22 K/uL (0.00-0.50) 04/13/24 11:37 Baso # (Auto) 0.04 K/uL (0.00-0.20) 04/13/24 11:37 Immature Gran # (Auto) 0.02 K/uL (0.01-0.20) 04/13/24 11:37 PT 10.7 Seconds (9.0-12.0) 04/13/24 11:37 INR 1.0 (0.9-1.1) 04/13/24 11:37 APTT 28 Seconds (21-31) 04/13/24 11:37 PTT Ratio 1.0 04/13/24 11:37 Heparin Anti-Xa, Unfract 0.37 IU/ml (0.3-0.7) 04/14/24 05:23 Sodium 139 mmol/L (136-145) 04/14/24 05:23 Potassium 4.3 mmol/L (3.5-5.1) 04/14/24 05:23 Chloride 106 mmol/L (98-107) 04/14/24 05:23 Carbon Dioxide 24 mmol/L (21-32) 04/14/24 05:23 Anion Gap 9 (3-11) 04/14/24 05:23 BUN 23 mg/dl (6-23) 04/14/24 05:23 Creatinine 0.89 mg/dl (0.6-1.2) 04/14/24 05:23 Est Cr Clr Drug Dosing 65.7 ml/min 04/14/24 05:23 Est GFR ( Amer) 78.3 ml/min 04/14/24 05:23 Est GFR (Non-Af Amer) 67.5 ml/min 04/14/24 05:23 BUN/Creatinine Ratio 25.8 (10-20) H 04/14/24 05:23 Glucose 129 mg/dl (70-99(Fasting)) H 04/14/24 05:23 POC Glucose 116 mg/dl (70-99) H 04/14/24 13:28 Estimat Average Glucose 192 mg/dl 04/14/24 05:23 Hemoglobin A1c 8.3 % (4.5-5.6) H 04/14/24 05:23 Calcium 9.8 mg/dl (8.6-10.3) 04/14/24 05:23 Phosphorus 3.9 mg/dl (2.5-4.9) 04/14/24 05:23 Magnesium 1.4 mg/dl (1.7-2.4) L 04/14/24 05:23 Total Bilirubin 0.4 mg/dl (0.2-1.0) 04/13/24 11:37 AST 20 U/L (13-39) 04/13/24 11:37 ALT 19 U/L (7-52) 04/13/24 11:37 Alkaline Phosphatase 67 U/L (34-104) 04/13/24 11:37 Troponin I High Sens 8.6 pg/ml (0-14) D 04/13/24 19:04 Total Protein 7.6 gm/dl (6.0-8.3) 04/13/24 11:37 Albumin 4.8 gm/dl (3.4-5.0) 04/13/24 11:37 Globulin 2.8 gm/dl (2.5-4.0) 04/13/24 11:37 Albumin/Globulin Ratio 1.7 (0.9-2) 04/13/24 11:37 Lyme Disease Screen Negative (Negative) 04/13/24 12:41 Impressions Chest X-Ray 04/13/24 11:30 XR chest 1V portable CLINICAL HISTORY: Chest pain, nonspecific TECHNIQUE: Single frontal radiograph of the chest was obtained. Comparison: Comparison is made to chest radiograph 11/13/2022 FINDINGS: No lines and tubes are seen. The cardiomediastinal silhouette is normal. The lungs are clear. No evidence of pleural effusion or pneumothorax. IMPRESSION: No acute chest disease. ACT 112: Negative or not required by law. Electronically signed by: Jayden Haskins M.D. 04/13/2024 12:13 PM Hospital Course (1) Abnormal stress echocardiogram: Plan CAD/unstable angina Abnormal stress ECHO S/P Cath:Mild nonobstructive coronary disease. --CXR:No acute chest disease. -- Troponin negative --Stress ECHO: Abnormal exercise stress echo suggesting posterior and basal inferior ischemia. Exercise tolerance is markedly below average. Test terminated due to shortness of breath. EF 60 to 65%. Mild concentric LVH. Grade 1 diastolic dysfunction. No significant valvular pathology. --IV heparin discontinued Continue aspirin, Lipitor, lisinopril, metoprolol Lisinopril dose increased to 5 mg daily Appreciate cardiology input DM II HbA1c 8.3 Hold p.o. medications Continue insulin while hospitalized Monitor BGs Hypomagnesemia Replete electrolytes as needed Monitor Vitamin D deficiency Continue vitamin D supplements GERD Continue PPI Obesity BMI 37 Needs lifestyle changes DVT Px: IV Heparin Code Status Full code Disposition Home Total Time Total Time Spent Total Time Spent (In Minutes): 53 minutes Discharge Plan Discharge Items Patient Disposition: Home - Self-Care Reason For Visit: ABN STRESS TEST OP Discharge Diagnosis: Coronary artery disease Abnormal stress ECHO Activity: Per Instructions section Exercise/Sports: Gradually increase as tolerated Non-emergency contact: Primary Care Provider and Chain Sales Consultant Call non-emergency contact if: you have any medication questions, your symptoms worsen, your pain is concerning for you and you have a fever Follow-up/Referrals: Jerrica Urias, [Primary Care Provider] - Diet: Carb Consistent or DM2 and Heart Healthy Addtl Attending Provider Instructions: Follow-up with your primary care physician Dr. 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 Gilberto Urias as advised -- Your lisinopril dose is increased to 5 mg daily as recommended by your ingot supervisor. Seek immediate medical attention if your symptoms reoccur or worsen Please take all medications as instructed on discharge list below. Please call if you have any questions or problems. You can reach a [facility] hospitalist on duty at [facility] 24 hours a day by calling [phone] [facility] Supervisor [employer] Paste Mixing Provider Instructions: ACTIVITY RECOMMENDATIONS: It is common to feel weak and fatigue for a few days. * Do not drive or operate any motorized equipment for the next three days. * Limit stair usage (2 or 3 trips a day only) for the next three days. * Do not lift anything heavier than 10 pounds for the next three days. * Do not engage in vigorous exercise or any sports for the next five days. * You may shower the day after your procedure, but do not immerse the area for three days. Cleanse the site gently with soap and water. SPECIAL CARE INSTRUCTIONS: * You may replace the pressure dressing or band-aid the morning after the procedure. * After your procedure, it is normal to have a small bruise or small lump at the site. Examine your site daily for any change in the bruise or lump, redness, swelling, drainage or numbness. Notify your doctor if any change. BLEEDING: * If there is a small amount of bleeding at the site, lie down and apply firm pressure with a clean cloth for ten minutes. When the bleeding stops, lie quietly keeping the procedure limb straight for six hours. Notify your doctor as soon as possible. * If the bleeding does not stop after ten minutes or if there is a large amount of bleeding or spurting, call 911 immediately. Continue to lie down and hold firm pressure until help arrives. SKIN IRRITATION: * You may experience some redness and/or swelling in the area where radiation was administered. If any skin irritation occurs, please contact your family physician. Pending Studies at Discharge: No Stand-Alone Forms: My [facility], Smoking Cessation Medications and DC Order Prescriptions: New lisinopril [Zestril] 5 mg Tablet 5 mg PO DAILY Qty: 30 1RF Continued metformin 500 mg tablet extended release 24 hr 1,000 mg PO BIDM Tradjenta 5 mg tablet 5 mg PO QAM Women's One Daily 18 mg iron-400 mcg-500 mg Ca Tablet 1 tab PO QAM atorvastatin 40 mg tablet 40 mg PO DAILY aspirin 81 mg Tablet,Delayed Release (Dr/Ec) 81 mg PO QAM Qty: 21 0RF cholecalciferol (vitamin D3) 2,000 unit Tablet,Chewable 1,000 unit PO QAM acetaminophen 650 mg Tablet Extended Release 650 mg PO Q6H PRN (Reason: Pain) montelukast 10 mg tablet 10 mg PO HS lorazepam 1 mg tablet 1 mg PO DAILY PRN (Reason: Vertigo) Jardiance 25 mg tablet 25 mg PO DAILY valacyclovir 1 gram tablet See Rx Instructions .ROUTE .COMPLEX Rx Instructions: as needed for cold sores meloxicam 7.5 mg tablet 7.5 mg PO Q2D esomeprazole magnesium 40 mg capsule,delayed release(DR/EC) 40 mg PO DAILY metoprolol succinate 25 mg tablet extended release 24 hr 25 mg PO HS Mucinex DM 30-600 mg Tablet Extended Release 12 Hr 1 tab PO DAILY PRN (Reason: Congestion) Mag 64 64 mg tablet,delayed release (DR/EC) 128 mg PO BID cyanocobalamin (vitamin B-12) 2,500 mcg Tablet 2,500 mcg PO Q2D metoprolol succinate 25 mg tablet extended release 24 hr 50 mg PO QAM calcium carbonate [Calcium 500] 500 mg calcium (1,250 mg) Tablet 500 mg PO DAILY Magnesium (oxide/AA chelate) 300 mg capsule 300 cap PO QAM Discontinued lisinopril 2.5 mg tablet 2.5 mg PO DAILY Discharge Orders: Discharge Order (Routine); Ordered 04/14/24 Ordered By: Michael Jesus/Other Patient Handouts: Managing Type 2 Diabetes, Diabetes: Meal Planning Admission Data Admit Date/Time: 04/13/24 16:41 Attending Provider: Michael Trejo Admit Provider: Javi Castañeda Primary Care Provider: Jerrica Urias Other Providers: Javi Castañeda; Melissa Monique; Artem Frias; Alex Mcmahon; Gilberto Urias; Vel Antonio; Jelani John; Leslie Sutherland; Yi Miller; Griselda Ch; Melissa Ratliff; Abhijit Martinez; Stanton Carlisle; Amparo Anderson; Ashley Hall; Lise Yip; Kate Beck; Artie Mullen; Lauren Bravo
--- NOTE | 2024-04-14 17:40 | Electrocardiogram Report ---
Test Reason : Blood Pressure : / mmHG Vent. Rate : 070 BPM Atrial Rate : 070 BPM P-R Int : 156 ms QRS Dur : 092 ms QT Int : 434 ms P-R-T Axes : 044 001 068 degrees QTc Int : 468 ms Normal sinus rhythm Normal ECG When compared with ECG of 13-APR-2024 11:33, Borderline criteria for Anterior infarct are no longer Present Confirmed by Saeed Hoyt ([id number]) on 04/14/2024 5:39:58 PM Referred By: REFERRED SELF Confirmed By:Cristino Hoyt
[2024-04-15] MEDS ORDERED: lisinopril 5 MG TAB PO SCH (09:00)
== END 2024-04-14 18:11 | disposition home or self-care (01) ==
LOC: ED 11:23 → 4W 11:23 → SUATTDRO 16:41 → 4W 19:41